=== PATIENT | male | born 1940 | race Caucasian/White ===

== ENCOUNTER → 2016-12-24 | Outpatient (CLI) | payer BC, OTHER ==
[~2016-12-24] MED LIST: ASPCH81 PO; OMEG10007 PO; SIMV20TA2 PO
== END | disposition home or self-care (01) ==
LOC: C.LAB 08:09
PROVIDERS: ATTEND Internal Medicine Hematology & Oncology
DX: C61 Malignant neoplasm of prostate (principal)

== ENCOUNTER → 2017-01-03 | Outpatient (CLI) | payer BC, OTHER ==
[~2017-01-03] MED LIST changes: +GADAVIST IV PRN; +OPTIRAY 320 IV PRN
[2017-01-03 14:32] LABS: ISTAT CREATININE 1.1 mg/dl (0.6-1.3); ISTAT HEMOGLOBIN 14.6 g/dl (14.0-18.0); ISTAT IONIZED CALCIUM 1.16 mmol/l (1.12-1.32)
--- NOTE | 2017-01-03 15:32 | DIAGNOSTIC IMAGING REPORT ---
MRI THE PELVIS WITHOUT A WITH GADOLINIUM CLINICAL HISTORY: PROSTATE CA COMPARISON STUDY: 12/26/2015 FINDINGS: Imaging was performed in the axial sagittal and coronal planes before and after the administration of 9 cc of intravenous Gadavist. There are no areas of marrow edema to indicate pelvic skeletal metastasis. There is mild pubic symphysis edema, likely chronic stress related basis There are postsurgical changes are prior prostatectomy. There is no ascites. There is no pathologic adenopathy, by size criteria. Subcentimeter obturator lymph nodes remain stable. IMPRESSION: 1. No evidence of recurrent prostate carcinoma within the pelvis status post prostatectomy 2. Mild pubic symphysis edema, likely on a stress-related basis Electronically signed by: Abraham Saavedra M.D. 01/03/2017 3:31 PM Dictated Date/Time: 01/03/2017 3:24 PM
--- NOTE | 2017-01-03 15:45 | DIAGNOSTIC IMAGING REPORT ---
CT OF THE CHEST WITH IV CONTRAST CLINICAL HISTORY: PROSTATE CA COMPARISON STUDY: 12/26/2015 TECHNIQUE: Following the IV administration of 117 mL of Optiray-320, CT of the thorax was performed from the thoracic inlet to the lung bases. Images are reviewed in the axial, sagittal, and coronal planes. IV contrast was administered without complication. A dose lowering technique was utilized adhering to the principles of ALARA. CT DOSE: 954.22 mGy.cm FINDINGS: Thyroid: Imaged portions of the thyroid gland are normal in appearance. Thoracic aorta: The ascending thoracic aorta measures 37 mm. Pulmonary vasculature: The pulmonary trunk is normal in caliber. There are no central filling defects identified to suggest pulmonary embolus. Note that this examination was not protocoled for the evaluation of pulmonary emboli. HEART: The heart is normal in size and configuration, without pericardial effusion. Lungs and pleural spaces: There is no focal pulmonary consolidation. There are no suspicious pulmonary masses. Tiny right middle lobe and right upper lobe pulmonary nodules, not exceeding 2.5 mm in size remain stable and are likely postinflammatory. Mediastinum: There is no pathologic adenopathy by size criteria. Erin: There is no pathologic adenopathy. Axilla: There is no pathologic adenopathy. Upper abdomen: Partially visualized upper abdominal viscera is within normal limits. Skeletal structures: There are no lytic or blastic osseous lesions. IMPRESSION: No evidence of intrathoracic metastasis. Electronically signed by: Abraham Saavedra M.D. 01/03/2017 3:44 PM Dictated Date/Time: 01/03/2017 3:39 PM
--- NOTE | 2017-01-03 16:16 | DIAGNOSTIC IMAGING REPORT ---
ABD WITH IV CONTRAST ONLY (CT) CLINICAL HISTORY: Pulmonary nodules Prostate carcinoma TECHNIQUE: Transaxial acquisition. Multi axial reformatted images. COMPARISON STUDY: 12/26/2015 FINDINGS: Minimal stable is a pulmonary nodularity. Liver spleen and pancreas enhance uniformly. Mild cortical scarring of the kidneys stable from the prior exam. Bowel pattern is nonobstructive. No significant adenopathy. IMPRESSION: Negative study. No change from the prior exam. Minimal basilar stable pulmonary nodularity The above report was generated using voice recognition software. It may contain grammatical, syntax or spelling errors. Electronically signed by: Chace Thacker M.D. 01/03/2017 4:15 PM Dictated Date/Time: 01/03/2017 4:04 PM
--- NOTE | 2017-01-03 18:44 | DIAGNOSTIC IMAGING REPORT ---
BONE SCAN WHOLE BODY HISTORY: Prostate carcinoma PROSTATE CA RADIOTRACER: 26.9 mCi Tc-99m MDP STUDY/IMAGES: Planar anterior and posterior whole body imaging was performed 3 hours following the intravenous administration of radiotracer. COMPARISON: 12/26/2015 FINDINGS: Unremarkable bilateral renal activity. Minimal degenerative activity of the shoulders general clavicular joints and knees. No evidence of bony metastatic change. No abnormal soft tissue activity characteristics. IMPRESSION: No evidence for bony metastatic disease. No change from the prior study. The above report was generated using voice recognition software. It may contain grammatical, syntax or spelling errors. Electronically signed by: Chace Thacker M.D. 01/03/2017 6:42 PM Dictated Date/Time: 01/03/2017 6:40 PM
== END | disposition home or self-care (01) ==
LOC: C.CTS 13:00
PROVIDERS: ATTEND Internal Medicine Hematology & Oncology
DX: C61 Malignant neoplasm of prostate (principal)

== ENCOUNTER → 2017-06-27 | Outpatient (CLI) | payer BC, OTHER ==
[~2017-06-27] MED LIST changes: -GADAVIST IV PRN
--- NOTE | 2017-06-27 11:03 | DIAGNOSTIC IMAGING REPORT ---
(CHEST) THORAX WITH CLINICAL HISTORY: 76 years-old Male presenting with PROSTATE CA *PT TO HAVE A PELVIS MRI*. TECHNIQUE: Multidetector CT imaging of the chest was performed after the administration of intravenous contrast. IV contrast: 92 mL of Optiray 320. A dose lowering technique was used consistent with the principles of ALARA (as low as reasonably achievable). COMPARISON: 01/03/2017. CT DOSE (mGy.cm): The estimated cumulative dose is 949.83 mGy.cm. FINDINGS: Manual Lathe Operator topogram: Unremarkable. On soft tissue windows, subcentimeter nodule in the right lobe of the thyroid. No axillary, supraclavicular, hilar, or mediastinal lymphadenopathy. Normal aorta. Normal heart size. Coronary artery and aortic valve calcification. No pericardial or pleural effusion. Upper abdomen normal. On lung windows, minimal bandlike opacity in the right middle lobe, likely atelectasis or scarring. Minimal dependent changes likely atelectasis. Minimal debris in subsegmental lower lobe bronchi with mild lower lobe bronchial wall thickening. Central airways patent. On bone windows, degenerative changes of the spine. IMPRESSION: 1. No evidence of intrathoracic metastatic disease. 2. Minimal debris and subsegmental lower lobe bronchi with mild bronchial wall thickening could minimal chronic aspiration. Electronically signed by: Eliazar Camacho M.D. 06/27/2017 11:02 AM Dictated Date/Time: 06/27/2017 10:58 AM
--- NOTE | 2017-06-27 11:11 | DIAGNOSTIC IMAGING REPORT ---
CT ABD WITH IV CONTRAST ONLY (CT) CT DOSE: CLINICAL HISTORY: Prostate carcinoma TECHNIQUE: The patient was scanned in a dynamic helical fashion during intravenous administration of 92 cc Optiray 320. A dose lowering technique was utilized adhering to the principles of ALARA. COMPARISON STUDY: December 2010 FINDINGS: Images to the lung bases reveal respiratory motion artifact and dependent atelectatic change. There is a stable 2 mm subpleural nodule within the lingula. There is a stable 3 mm right lower lobe pulmonary nodule. There are areas of basilar scar/atelectasis. No hepatic masses are visualized. No gallbladder appears unremarkable. No splenic abnormalities are visualized. No pancreatic masses are visualized. No adrenal masses are visualized. There is a stable 8 mm right renal cyst. There is right renal cortical scarring. There is no hydronephrosis. There is no abdominal aortic dilatation. No lytic or blastic skeletal lesions are visualized. IMPRESSION: CT scan of the upper abdomen revealing no acute findings Electronically signed by: Abraham Saavedra M.D. 06/27/2017 11:10 AM Dictated Date/Time: 06/27/2017 10:56 AM
--- NOTE | 2017-06-27 14:22 | DIAGNOSTIC IMAGING REPORT ---
BONE SCAN WHOLE BODY CLINICAL HISTORY: Prostate carcinoma COMPARISON STUDY: January 03, 2017 FINDINGS: Patient was injected with 26.4 mCi of technetium 99m MDP. Three-hour delayed whole body images were acquired. Foci of increased activity within the shoulders and knees and sternoclavicular joints are felt to be degenerative/arthritic. There are no foci of increased activity viewed as suspicious for skeletal metastasis. IMPRESSION: No evidence of skeletal metastasis. Electronically signed by: Abraham Saavedra M.D. 06/27/2017 2:21 PM Dictated Date/Time: 06/27/2017 2:20 PM
== END | disposition home or self-care (01) ==
LOC: C.CTS 10:18
PROVIDERS: ATTEND Internal Medicine Hematology & Oncology
DX: C61 Malignant neoplasm of prostate (principal)

== ENCOUNTER → 2017-06-29 | Outpatient (CLI) | payer BC, OTHER ==
[~2017-06-29] MED LIST changes: +GADAVIST IV PRN; -OPTIRAY 320 IV PRN
--- NOTE | 2017-06-29 13:24 | DIAGNOSTIC IMAGING REPORT ---
Study: MRI pelvis HISTORY:.: Prostate carcinoma FINDINGS: Signal characteristics of the osseous structures are unremarkable. There is no significant bone marrow replacing process. There is no significant pelvic or inguinal adenopathy. 8 mm node medially anterior to the right piriformis muscle. This is too small to be of significance clinically although should be watched on later studies.. 6 mm node identified medial the medial to the right acetabulum. Mild bladder wall thickening and trabeculation are present. No free fluid within the pelvic cul-de-sac. The bowel pattern is unremarkable within the pelvis. The pelvic sidewall structures are unremarkable. All major muscular structures are unremarkable. IMPRESSION: Mild bladder wall trabeculation and thickening. Otherwise negative pelvis. Several small nodes at this time with no clinical significance, although they warrant monitoring on future studies.. Electronically signed by: Chace Thacker M.D. 06/29/2017 1:22 PM Dictated Date/Time: 06/29/2017 1:10 PM
== END | disposition home or self-care (01) ==
LOC: C.MRI 11:50
PROVIDERS: ATTEND Internal Medicine Hematology & Oncology
DX: C61 Malignant neoplasm of prostate (principal)

== ENCOUNTER 2020-08-06 11:21 | Inpatient (IN) ==
--- NOTE | 2020-07-15 10:59 | PAT Medication Instructions ---
Medication Instructions Date of Service July 15, 2020 Home Medications ibuprofen 200 mg PO QID PRN losartan 25 mg tablet 25 mg PO HS psyllium husk 0.4 gram capsule 0.8 gm PO 1200 aspirin [Aspir-81] 81 mg PO HS rosuvastatin 40 mg PO QPM bisacodyl [Dulcolax (bisacodyl)] 5 mg PO HS PRN cholecalciferol (vitamin D3) 25 mcg PO HS ezetimibe [Zetia] 10 mg PO HS lactobacillus comb no.10 [Probiotic] 20 mmu cells PO HS metformin 500 mg PO HS ASK your surgeon for instructions ibuprofen 200 mg PO QID PRN aspirin [Aspir-81] 81 mg PO HS Take evening before surgery losartan 25 mg tablet 25 mg PO HS psyllium husk 0.4 gram capsule 0.8 gm PO 1200 rosuvastatin 40 mg PO QPM bisacodyl [Dulcolax (bisacodyl)] 5 mg PO HS PRN (if needed) cholecalciferol (vitamin D3) 25 mcg PO HS ezetimibe [Zetia] 10 mg PO HS lactobacillus comb no.10 [Probiotic] 20 mmu cells PO HS metformin 500 mg PO HS NOTHING TO EAT OR DRINK AFTER MIDNIGHT Other Notes If you have any questions please call us at [phone] or [phone] or [phone] or [phone]
--- NOTE | 2020-07-16 10:40 | Anesthesiology Consultation ---
Date of Service July 16, 2020 Assessment & Plan (1) Encounter for pre-operative examination: Chart Review Chart Review: Acceptable Risk for Surgery (pending preop Covid testing ) and Patient seen in Pre Admission Testing - Check [facility] AM DOS Per PAT appt on 07/16/20, pt denies any recent travel. Wears proper PPE. No known Covid infection in the past 90 days. No known Covid positive contacts or Covid related symptoms. Preop Covid testing scheduled 08/01/20= await results. Educated on importance of self quarantining, social distancing and wearing mask in public both for the patient and household contacts. Teaching & Discussion Pre-Anesthesia Teaching/Discussion Notes: Instructed NPO after midnight before surgery,except medications with 15 cc of water. Medication instructions provided according to the [facility] guidelines. History Surgery Operation Date: 08/06/20 13:00 Proposed Procedures p Right Carotid Endarterectomy - Errol Harris MD Height/Weight Height: 5 ft 11.5 in Weight: 94.9 kg Allergies Allergy/AdvReac Type Severity Reaction Status Date / Time No Known Allergies Allergy Verified 07/15/20 13:31 Medications Home Medications Medication Instructions Recorded Confirmed Last Taken ibuprofen 200 mg PO QID PRN 11/28/18 07/15/20 07/08/20 losartan 25 mg tablet 25 mg PO HS 11/21/19 07/15/20 07/14/20 psyllium husk 0.4 gram capsule 0.8 gm PO 1200 cap 11/28/19 07/15/20 07/13/20 aspirin [Aspir-81] 81 mg PO HS 12/28/19 07/15/20 07/14/20 rosuvastatin 40 mg PO QPM 12/28/19 07/15/20 07/14/20 Probiotic 20 mmu cells PO HS 07/02/20 07/15/20 Unknown bisacodyl [Dulcolax (bisacodyl)] 5 mg PO HS PRN 07/02/20 07/15/20 07/12/20 cholecalciferol (vitamin D3) 25 mcg PO HS 07/02/20 07/15/20 07/10/20 [Vitamin D3] ezetimibe [Zetia] 10 mg PO HS 07/02/20 07/15/20 07/14/20 metformin 500 mg PO HS 07/02/20 07/15/20 07/14/20 Past Medical History Medical History (Updated 07/17/20 @ 10:01 by Lo Garcia PA-C) Aortic valve calcification Sclerotic trileaflet AV without significant stenosis per 11/2018 ECHO Cardiac murmur dx as a child; pcp monitoring Carotid stenosis, right CTA shows >90% stenosis per vascular note Diabetes mellitus, type 2 NIDDM Well controlled per patient Dysmetabolic syndrome Hard of hearing Lt- no hearing aid needed History of malignant melanoma Right Ear - s/p removal - no current issues History of prostate cancer s/p sx, radiation Hyperlipemia Hypertension Transient ischemic attack (TIA) possible ~2016? right carotid stenosis -- has upcoming surgery with Dr Harris Exercise / Class Metabolic Activity II 4-5 Yardwork/Stairs/Walk up hill (one flight of stairs- no chest pain or SOB) Past Family History Family History Mother , Passed age 93 of old age No problems noted. Father , Passed age 53 of cerebral hemorrhage No problems noted. Sister No problems noted. Sister No problems noted. Son No problems noted. Son No problems noted. Daughter No problems noted. 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 History of prostate biopsy History of prostatectomy 03/08/11 History of tonsillectomy Age 4 Hx of flexible sigmoidoscopy Past Anesthesia History No Hx of Anesthesia Complications and No Family Hx of Anesthesia Complications History of PONV No Hx of PONV and No Hx of Motion Sickness Social History Smoking Status: Never smoker Do You Dip or Chew Tobacco: No Hx Alcohol Use: Yes Alcohol type: beer and wine alcohol intake frequency: a few times a week Hx Substance Use: No substance use type: does not use Review of Systems Patient denies chest pain, shortness of breath, dyspnea on exertion, reflux, cough, wheezing, palpitations. No hx of seizures, DC, apnea/snoring. No hx of blood clots or blood transfusions Physical Exam Vital Signs VITALS BP 115/69 P 81 TEMP 99.5 (pt denies any symptoms of infection- feels well) SP02 95% RESP 16 Constitutional no acute distress ENMT Mouth: no TMJ clicking Thyromental Distance: > or= 3.5 Finger Breadths (3.5) Mallampati Class: II Permanent front top bridge Crowns to molars Neck + thick neck; neck extension not limited Respiratory normal respiratory effort; no respiratory distress Auscultation: lungs clear to auscultation bilaterally; no wheezes Cardiovascular Rate/Rhythm: regular rate and regular rhythm Heart Sounds: + murmur (II/Vi systolic murmur in aortic window ) Musculoskeletal Spine: no pain with cervical ROM Extremities: extremities normal to inspection Psychiatric Orientation: alert Testing Laboratory Results 07/16/20 11:05 07/16/20 11:05 PT 10.6 Seconds (9.0-12.0) 07/16/20 11:05 INR 1.0 (0.9-1.1) 07/16/20 11:05 APTT 27.3 Seconds (21.0-31.0) 07/16/20 11:05 Hemoglobin A1c 6.9 % (4.5-5.6) H 07/16/20 11:05 Blood Type O Positive 07/16/20 11:05 Antibody Screen NEGATIVE 07/16/20 11:05 Electrocardiogram Date: 07/13/20 SR with PACs at 76bpm. Chest X-Ray Date: 07/14/20 Findings: + NAD Elevation of the right hemidiaphragm is unchanged. Echocardiogram Date: 12/07/18 EF: 65% LV Function: normal RWMA: + none Other Findings: no LVH Mild left atrial dilation. Normal RV size and function. Sclerotic trileaflet AV without significant stenosis- otherwise no significant valvular abnormalities. Compared to previous study there are no significant changes noted. Other Testing Neck CTA 06/16/20= Severe/critical stenosis involving the proximal 1 cm of the right internal carotid artery. This demonstrates up to 90% stenosis. Minimal narrowing at the left carotid bulb and mid to distal left vertebral artery.
[2020-07-16 11:42] LABS: Basophils # (auto) 0.01 K/uL (0-0.2); Basophils % (auto) 0.1 %; Eosinophils # (auto) 0.03 K/uL (0-0.5); Eosinophils % (auto) 0.3 %; Hematocrit (blood only) 38.8 % (42-52); Hemoglobin 12.6 g/dL (14.0-18.0); Immature Granulocytes # (auto) 0.01 K/uL (0.00-0.02); Immature Granulocytes % (auto) 0.1 %; Lymphocytes # (auto) 1.34 K/uL (1.2-3.4); Lymphocytes % (auto) 12.3 %; Mean Corpuscular Hemoglobin 26.9 pg (25-34); Mean Corpuscular Hgb Conc 32.5 g/dL (32-36); Mean Corpuscular Volume 82.7 fL (80-100); Mean Platelet Volume 9.8 fL (7.4-10.4); Monocytes # (auto) 0.82 K/uL (0.11-0.59); Monocytes % (auto) 7.6 %; Neutrophils # (auto) 8.65 K/uL (1.4-6.5); Neutrophils % (auto) 79.6 %; Platelet Count 205 K/uL (130-400); RDW Coefficient of Variation 13.9 % (11.5-14.5); Red Blood Count 4.69 M/uL (4.7-6.1); White Blood Count 10.86 K/uL (4.8-10.8)
--- NOTE | 2020-07-16 11:45 | XRay Report ---
XR chest Pre-admission PA/Lat CLINICAL HISTORY: Preoperative evaluation. COMPARISON STUDY: Chest CT June 27, 2017. FINDINGS: Lung volumes are normal. Lungs are clear. There is no pneumothorax or pleural effusion. Car diac size is normal. Mediastinal contours are normal. There is no evidence for pulmonary edema. [place] tion of the right hemidiaphragm is unchanged. The proximal left humeral lesion is partially imaged. T his is similar to PET/CT of January 12, 2018. This is likely benign. IMPRESSION: No acute cardiopulmonary findings. ACT 112: Negative or not required by law. Electronically signed by: Timmy Velásquez M.D. 07/16/2020 11:44 AM
[2020-07-16 11:52] LABS: Estimated Average Glucose 151 mg/dl; Hemoglobin A1C 6.9 % (4.5-5.6)
[2020-07-16 12:16] LABS: Partial Thromboplastin Time 27.3 Seconds (21.0-31.0); Prothrombin Time 10.6 Seconds (9.0-12.0)
[2020-07-16 12:51] LABS: BUN Creatinine Ratio 17.2 (10-20); Calcium 8.5 mg/dl (8.5-10.1); Creatinine Clr Calc Pharmacy 73.5 ml/min; Est GFR (African American) 87.3; Est GFR (Non-African American) 75.3
--- NOTE | 2020-07-16 13:53 | Electrocardiogram Report ---
Test Reason : Blood Pressure : / mmHG Vent. Rate : 076 BPM Atrial Rate : 076 BPM P-R Int : 188 ms QRS Dur : 086 ms QT Int : 380 ms P-R-T Axes : 026 003 041 degrees QTc Int : 427 ms Sinus rhythm with Premature atrial complexes Confirmed by Zac Hendricks ([id number]) on 07/16/2020 1:53:13 PM Referred By: Errol Harris Confirmed By:Peewee Hendricks
--- NOTE | 2020-08-06 09:37 | History & Physical Report ---
Date of Service August 06, 2020 Assessment & Plan (1) Stenosis of right carotid artery: Patient for a right carotid endarterectomy. I have discussed the risks options and benefits of the procedure with the patient. The patient understands the risks options and benefits and agrees to the procedure. History of Present Illness Chief Complaint: Right internal carotid artery stenosis Primary Care Provider: Charels Stephenson MD Mr. Burnett has asymptomatic right carotid disease, which we have followed. He denies any symptoms of TIA or stroke. He states that in general his health has been unchanged since we last saw him 2 years ago. He did have increasing PSAs and with a history of prostate cancer in 2010. He has another course of radia tion therapy in 2019. However, his PSAs have been in an acceptable range since further radiation therapy. He does have urinary frequency; however, that is his only concerning symptom. 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 His CTA showed a severe greater than 90% narrowing of the right internal carotid artery. Allergies Allergy/AdvReac Type Severity Reaction Status Date / Time No Known Allergies Allergy Verified 07/15/20 13:31 Home Medications Medication Instructions Recorded Confirmed Type ibuprofen 200 mg PO QID PRN 11/28/18 07/15/20 History losartan 25 mg tablet 25 mg PO HS 11/21/19 07/15/20 History psyllium husk 0.4 gram capsule 0.8 gm PO 1200 cap 11/28/19 07/15/20 History aspirin [Aspir-81] 81 mg PO HS 12/28/19 07/15/20 History rosuvastatin 40 mg PO QPM 12/28/19 07/15/20 History Probiotic 20 mmu cells PO HS 07/02/20 07/15/20 History bisacodyl [Dulcolax (bisacodyl)] 5 mg PO HS PRN 07/02/20 07/15/20 History cholecalciferol (vitamin D3) 25 mcg PO HS 07/02/20 07/15/20 History [Vitamin D3] ezetimibe [Zetia] 10 mg PO HS 07/02/20 07/15/20 History metformin 500 mg PO HS 07/02/20 07/15/20 History Past Med/Surg History Medical History Aortic valve calcification Sclerotic trileaflet AV without significant stenosis per 11/2018 ECHO Cardiac murmur dx as a child; pcp monitoring Carotid stenosis, right CTA shows >90% stenosis per vascular note Diabetes mellitus, type 2 NIDDM Well controlled per patient Dysmetabolic syndrome Hard of hearing Lt- no hearing aid needed History of malignant melanoma Right Ear - s/p removal - no current issues History of prostate cancer s/p sx, radiation Hyperlipemia Hypertension Transient ischemic attack (TIA) possible ~2016? right carotid stenosis -- has upcoming surgery with Dr Harris Surgical History History of cataract surgery bilt History of colonoscopy with polypectomy History of melanoma excision History of Mohs surgery for squamous cell carcinoma of skin off right cheek History of prostate biopsy History of prostatectomy 03/08/11 History of tonsillectomy Age 4 Hx of flexible sigmoidoscopy Family History Mother , Passed age 93 of old age No problems noted. Father , Passed age 53 of cerebral hemorrhage No problems noted. Sister No problems noted. Sister No problems noted. Son No problems noted. Son No problems noted. Daughter No problems noted. 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 [employer] Other Information That Helps Us Care for You: No Feels Safe at Home: Yes Safety Concerns: Feels Safe At This Time caffeine: Yes (1-2 cups of coffee/day ) during the past year weight has: decreased > 10 lbs Assistive Devices: Glasses Review of Systems All systems reviewed & are unremarkable except as noted in HPI & below Physical Exam Constitutional: well developed and well nourished Respiratory: normal respiratory effort, lungs clear to auscultation Cardiovascular: Rate/Rhythm: regular rate and regular rhythm Vessels: normal peripheral pulses Extremities: normal capillary refill Gastrointestinal (Abdomen): Inspection/Auscultation: abdomen normal to inspection and + abdomen distended Percussion/Palpation: abdomen soft Musculoskeletal: no cyanosis or clubbing, extremities motor strength 5/5 Neurologic: CN's II-XI intact bilaterally and moves all extremities Psychiatric: Orientation: alert and oriented x 3
[~2020-08-06 11:21] MED LIST changes: -ASPCH81 PO; -GADAVIST IV PRN; +LACTATED RINGER'S 1,000 ML IV SCH; -OMEG10007 PO; -SIMV20TA2 PO; +ceFAZolin 2000MG 2,000 MG/15 ML SYR IV SCH
--- NOTE | 2020-08-06 12:09 | History & Physical Bridge Note ---
Date of Service August 06, 2020 History & Physical Bridge Note I have examined the patient, reviewed the History & Physical and in the interval since the performance of the History & Physical I have noted the following changes of clinical significance: no changes noted
[2020-08-06] MEDS ORDERED: PHENYLEPHRINE HCL 10 MG/ML VIAL ONE ×2 (12:58→14:10)
[2020-08-06] MEDS ORDERED: LARYING-O-JET KIT (LTA) ONE (12:58)
[2020-08-06] MEDS ORDERED: BUPIVACAINE/EPINEPHRINE 0.5% MPF 1:200,000 30 ML VIAL ONE (13:06)
[2020-08-06] MEDS ORDERED: HEPARIN (PORCINE) 1000 UNIT/ML 10 ML (CATH LAB USE ONLY) ONE (13:06)
[2020-08-06] MEDS ORDERED: LIDOCAINE HCL 1% 20 ML VIAL ONE (13:06)
[2020-08-06] MEDS ORDERED: GELATIN SPONGE SZ 100 ONE (13:06)
[2020-08-06] MEDS ORDERED: THROMBIN FOR SOLN 20000 UNIT KIT ONE (13:07)
[2020-08-06] MEDS ORDERED: fentaNYL citrate 100 MCG/2 ML VIAL ONE ×3 (13:07→14:40)
[2020-08-06] MEDS ORDERED: CISATRACURIUM BESYLATE IV SOLN 2 MG/ML 10 ML VIAL IV ONE (13:14)
[2020-08-06] MEDS ORDERED: PROPOFOL IV EMULSION 10 MG/ML 20 ML VIAL IV ONE (13:14)
[2020-08-06] MEDS ORDERED: LIDOCAINE HCL 2% 2 ML VIAL/AMP(20MG/ML) INFIL ONE (13:14)
[2020-08-06] MEDS ORDERED: NITROGLYCERIN/D5W 100 MCG/ML BTL ONE (13:16)
[2020-08-06] MEDS ORDERED: ONDANSETRON INJ 2 MG/ML 2 ML VIAL ONE (14:09)
[2020-08-06] MEDS ORDERED: DEXAMETHASONE SOD INJ 4 MG/ML VIAL ONE (14:09)
[2020-08-06] MEDS ORDERED: GLYCOPYRROLATE 0.2 MG/ML VIAL ONE (14:10)
[2020-08-06] MEDS ORDERED: ePHEDrine sulfate 50 MG/ML SYR ONE (14:10)
[2020-08-06] MEDS ORDERED: NITROGLYCERIN 5 MG/ML 10 ML VIAL ONE (14:10)
[2020-08-06] MEDS ORDERED: HEPARIN SOD (PORCINE) 1000 UNIT/ML ONE ×2 (14:14→17:51)
[2020-08-06] MEDS ORDERED: CARBOPROST TROMETHAMINE 250 MCG/ML AMPUL ONE (15:41)
[2020-08-06] MEDS ORDERED: NEOSTIGMINE METHYLSULFATE 5 MG/5 ML SYR ONE (16:50)
--- NOTE | 2020-08-06 17:06 | Post Operative Brief Note ---
Immediate Post Op Note v1 Date of Surgery August 06, 2020 Pre & Post Diagnosis Operation Date: 08/06/20 13:00 Pre-Op Diagnosis: Right Internal Carotid Artery Stenosis Post-Op Diagnosis: Right Internal Carotid Artery Stenosis I identified the patient and participated in the time-out.: Yes Procedure Operation Date: 08/06/20 13:00 Actual Procedures p Right Carotid Endarterectomy(Right) - Errol Harris MD Surgeon Errol Harris MD Utility Mechanic Supervisor MD [place] Estimated Blood Loss 300 Findings Consistent with Post-Op Diagnosis Anesthesia Type General Complications none Disposition Accompanied Patient To Recovery: No Disposition: Recovery Room
[2020-08-06] MEDS ORDERED: LABETALOL HCL IV 5 MG/ML 20ML IV PRN (17:38)
[2020-08-06] MEDS ORDERED: ONDANSETRON INJ 2 MG/ML 2 ML VIAL IV PRN ×2 (17:38→19:40)
[2020-08-06] MEDS ORDERED: NALOXONE HCL 0.4 MG/1 ML VIAL/CARP IV PRN (17:38)
[2020-08-06] MEDS ORDERED: FLUMAZENIL 0.1 MG/1 ML 10 ML VIAL IV PRN (17:38)
[2020-08-06] MEDS ORDERED: fentaNYL citrate 100 MCG/2 ML VIAL IV PRN (17:38)
[2020-08-06] MEDS ORDERED: ATROPINE SULFATE 0.1 MG/ML 10ML SYR IV PRN (17:38)
[2020-08-06] MEDS ORDERED: ePHEDrine sulfate 50 MG/ML AMP IV PRN (17:38)
[2020-08-06] MEDS ORDERED: PROMETHAZINE HCL 12.5 MG in SODIUM CHLORIDE 0.9% 50 ML IV PRN (17:38)
--- NOTE | 2020-08-06 17:38 | Operative Report ---
Post Operative Report Pre & Post Diagnosis Operation Date: 08/06/20 13:00 Pre-Op Diagnosis: Right Internal Carotid Artery Stenosis Post-Op Diagnosis: Right Internal Carotid Artery Stenosis I identified the patient and participated in the time-out.: Yes Procedure Operation Date: 08/06/20 13:00 Actual Procedures p Right Carotid Endarterectomy(Right) - Errol Harris MD Surgeon Dr. Harris Kindergartner MD Neftaly Estimated Blood Loss 300 Findings Consistent with Post-Op Diagnosis Specimens Calcified carotid bulb plaque Anesthesia Type General Complications none Indications Asymptomatic right carotid severe stenosis Description of Procedure The patient was taken to the operating room and placed in supine position. After general anesthesia was accomplished the right side of the neck was prepped and draped in a sterile manner. The patient was identified and a timeout was performed. A longitudinal neck incision was then made coursing along the medial border of the sternocleidomastoid muscle. The incision was taken down through the platysmal layer. The facial vein was identified, ligated, and divided. The common carotid artery was then seen. It was dissected free down to the omohyoid muscle. The dissection was carried upward until the external carotid artery and superior thyroid artery was seen. The superior thyroid artery was slung with a 2-0 silk suture. The external carotid was slung with a red rubber vessel loop. Next the dissection was carried up along the internal carotid artery. This was carried upward to beyond the area of narrowing. The hypoglossal nerve was seen and preserved. The patient was heparinized. After adequate heparinization was accomplished, the internal, external, and common carotid arteries were clamped. A longitudinal arteriotomy was started on the common carotid artery and extended upward along the internal carotid artery to a point beyond the area of narrowing. There was calcified plaque of the internal carotid artery origin causing approximately 85-90% narrowing. A Doppler shunt was then placed in the internal, followed by the common carotid artery and held in place with Skinny clamps. There was good back bleeding seen from the internal carotid artery. Th e endarterectomy was then started in the appropriate plane on the common carotid artery. This was carried upward and the external carotid was everted and endarterectomized. The endarterectomy was then carried up along the internal carotid artery. It was difficult to achieve a nice feathering breakoff point on the internal carotid artery, as the wall had very little tensile strength and the intima and media had a tendency to shred. At this point the Doppler shunt was removed, the patient redosed with heparin, and the arteries clamped. In an attempt to expose further, the omohyoid artery and its paired vein were ligated and divided, thereby freeing the hypoglossal more. The posterior belly of the digastric was divided. The ansa cervicalis was also divided at its origin to allow for further mobility of the hypoglossal nerve. The endarterectomy was then carried down further on the common carotid artery. Under loop magnification, all loose debris and flaps were removed. There was a small distal flap seen at the end of the endarterectomy site, which was tacked with 7- 0 Prolene. The arteriotomy was then closed using an bovine carotid patch and a running 6-0 Prolene suture. This was done in the usual vascular fashion. Prior to completing the closure, backbleeding and forward bleeding were allowed to occur. The flow surface was irrigated with heparinized saline. The final few sutures were then placed and securely tied. Clamps were then removed off the external and common carotid arteries. The clamp was then removed the internal carotid artery. Good distal flow was seen. Adequate hemostasis was seen of the patch. The wound was inspected and adequate hemostasis was obtained. The wound was irrigated with antibiotic solution. It was then closed with a running 3-0 Vicryl suture for the platysmal layer and a 4-0 subcuticular Vicryl suture for the skin edges. Dermabond was used for dressing. The patient left the operating room in satisfactory condition and tolerated the procedure well. Dr. Harris was present and scrubbed for the entire procedure. I attest to the content of the Intraoperative Record and any orders documented therein. Any exceptions are noted below.
[2020-08-06] MEDS ORDERED: PROTAMINE SULFATE 10 MG/ML 5 ML VIAL ONE (17:51)
[2020-08-06 18:03] LABS: iSTAT Creatinine 0.6 mg/dl (0.6-1.3); iSTAT Hemoglobin 11.9 g/dl (14.0-18.0); iSTAT Ionized Calcium 1.21 mmol/l (1.12-1.32); iSTAT Potassium 4.6 mmol/L (3.3-5.0)
--- NOTE | 2020-08-06 18:17 | Anesthesiology Progress Note ---
Date of Service August 06, 2020 Anesthesia Post Procedure Vital Signs Vital Signs: Temp Pulse Pulse Resp BP Pulse Ox 08/06/20 18:05 68 22 137/67 95 08/06/20 17:55 69 17 131/65 96 08/06/20 17:45 70 17 132/85 96 08/06/20 17:38 36.1 C L 70 12 142/63 H 95 08/06/20 11:45 36.6 C 67 18 150/80 H 97 Transfer of Care Handoff Completed per policy Notes Mental Status: alert / awake / arousable Patient Amnestic to Procedure: Yes Nausea / Vomiting: adequately controlled Pain: adequately controlled Airway Patency, RR, SpO2: stable & adequate BP & HR: stable & adequate Hydration State: stable & adequate Anesthetic Complications: no major complications apparent
[2020-08-06] MEDS ORDERED: MoRPHine SULFATE 4 MG/ML 1 ML CARP\\VIAL IV PRN (19:40)
[2020-08-06] MEDS ORDERED: bisacodyL 5 MG TABEC PO PRN (19:40)
[2020-08-06] MEDS ORDERED: oxyCODONE/ACETAMINOPHEN 5mg/325mg TAB PO PRN (19:40)
[2020-08-06] MEDS ORDERED: IBUPROFEN 200 MG TAB PO PRN (19:59)
[2020-08-06] MEDS: LACTATED RINGER'S 1,000 ML IV SCH (20:00)
[2020-08-06 20:19] LABS: Basophils # (auto) 0.01 K/uL (0-0.2); Basophils % (auto) 0.1 %; Eosinophils # (auto) 0.01 K/uL (0-0.5); Eosinophils % (auto) 0.1 %; Hematocrit (blood only) 34.6 % (42-52); Immature Granulocytes # (auto) 0.05 K/uL (0.00-0.02); Immature Granulocytes % (auto) 0.4 %; Lymphocytes # (auto) 1.11 K/uL (1.2-3.4); Lymphocytes % (auto) 9.7 %; Mean Corpuscular Hemoglobin 26.7 pg (25-34); Mean Corpuscular Hgb Conc 31.8 g/dL (32-36); Monocytes # (auto) 0.25 K/uL (0.11-0.59); Monocytes % (auto) 2.2 %; Neutrophils # (auto) 10.04 K/uL (1.4-6.5); Neutrophils % (auto) 87.5 %; Platelet Count 229 K/uL (130-400); RDW Coefficient of Variation 14.1 % (11.5-14.5); RDW Standard Deviation 43.5 fL (36.4-46.3); Red Blood Count 4.12 M/uL (4.7-6.1); White Blood Count 11.47 K/uL (4.8-10.8)
--- NOTE | 2020-08-06 20:40 | Critical Care Consultation ---
Date of Consultation August 06, 2020 Assessment & Plan (1) Admitted to intensive care unit: Impression: 79-year-old male presents to the ICU postop day 1 following a right endarterectomy for asymptomatic right carotid stenosis. Neuro - Right carotid stenosisstatus post right endarterectomy -No history of TIA or strokelike symptoms -Continue ASA, statin -Continuous hemodynamic monitoring on A-line -Monitor in ICU overnight Right facial drooppatient with mild droop in his right lip, no other neurological symptoms on exam -Suspect this is most likely cranial nerve injury from procedure, expect to resolve -We will monitor closely for progression of symptoms Left corneal abrasioncontinue lubricating drop -Pain meds if needed, monitor Cardiac - NSR on monitor, hemodynamically stable Continuous monitor on telemetry Hypertensionrestart home antihypertensives -Continuous monitoring with A-line -PRN antihypertensives if needed Respiratory - Currently on 3 L nasal cannula postop, no history of pulmonary disease -Wean oxygen as tolerated -Continuous monitoring pulse ox GI - Heart healthy, carb consistent diet RENAL/LYTES - Renal function and electrolytes within normal limits, monitor - History of prostate cancer 2019status post radiation Strict I's and O's ENDO - DM type IIhemoglobin A1c 6.9 -continue Metformin -ICU hyperglycemic protocol HEME - H&H stable, 300 mL EBL in surgery -Follow-up CBC in a.m. ID - Empiric cefazolin postop LINES/IV ACCESS - Peripheral IVs, A-line DVT PROPHYLAXIS - SCDs, holding anticoagulation for now following surgery Thank you for allowing us to participate in the care of this patient. Please refer to my attending physician's documentation for any further recommendations. (2) Diabetes: (3) Stenosis of right carotid artery: (4) Prostate cancer: (5) Hypertension: History of Present Illness Attending Physician: Errol Harris MD History of Present Illness 79-year-old male with history of HTN, DM type II, prostate cancer (s/p radiation), and asymptomatic right carotid stenosis presents to the ICU POD 1 following a scheduled right carotid endarterectomy. Currently the patient is alert and oriented and appears comfortable at rest, currently on 3 L nasal cannula. The right anterior neck incision appears well approximated without any significant swelling or erythema. Patient does have mild droop of his right lip which is new, but is without any other neurological symptoms. Hemodynamics are stable, and he is arterial line for continuous blood pressure monitoring. Patient does complain of pain in his left eye which is new and he is currently getting lubricating drops. He does not complain of any pain at the surgical site. He denies any weakness, numbness, or tingling. He denies headache, dizziness, nausea or vomiting, shortness of breath, chest pain or palpitations, or abdominal pain. He does report a sore throat as well and is slightly hoarse but is not having issues swallowing. Patient to remain in ICU for further monitoring overnight following endarterectomy. Allergies Allergy/AdvReac Type Severity Reaction Status Date / Time testosterone [From Androderm] Allergy Verified 08/06/20 11:46 Home Medications Medication Instructions Recorded Confirmed Type ibuprofen 200 mg PO QID PRN 11/28/18 08/06/20 History losartan 25 mg tablet 25 mg PO HS 11/21/19 08/06/20 History psyllium husk 0.4 gram capsule 0.8 gm PO 1200 cap 11/28/19 08/06/20 History aspirin [Aspir-81] 81 mg PO HS 12/28/19 08/06/20 History rosuvastatin 40 mg PO QPM 12/28/19 08/06/20 History Probiotic 20 mmu cells PO HS 07/02/20 08/06/20 History bisacodyl [Dulcolax (bisacodyl)] 5 mg PO HS PRN 07/02/20 08/06/20 History cholecalciferol (vitamin D3) 25 mcg PO HS 07/02/20 08/06/20 History [Vitamin D3] ezetimibe [Zetia] 10 mg PO HS 07/02/20 08/06/20 History metformin 500 mg PO HS 07/02/20 08/06/20 History Patient History Medical History Aortic valve calcification Sclerotic trileaflet AV without significant stenosis per 11/2018 ECHO Cardiac murmur dx as a child; pcp monitoring Carotid stenosis, right CTA shows >90% stenosis per vascular note Diabetes mellitus, type 2 NIDDM Well controlled per patient Dysmetabolic syndrome Hard of hearing Lt- no hearing aid needed History of malignant melanoma Right Ear - s/p removal - no current issues History of prostate cancer s/p sx, radiation Hyperlipemia Hypertension Transient ischemic attack (TIA) possible ~2016? right carotid stenosis -- has upcoming surgery with Dr Harris Surgical History History of cataract surgery bilt History of colonoscopy with polypectomy History of melanoma excision History of Mohs surgery for squamous cell carcinoma of skin off right cheek History of prostate biopsy History of prostatectomy 03/08/11 History of tonsillectomy Age 4 Hx of flexible sigmoidoscopy Family History Mother , Passed age 93 of old age No problems noted. Father , Passed age 53 of cerebral hemorrhage No problems noted. Sister No problems noted. Sister No problems noted. Son No problems noted. Son No problems noted. Daughter No problems noted. 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 Left corneal abrasion with red irritated sclera. No drainage ENMT: external ear and nose normal, oropharynx normal Neck: trachea midline, no thyromegaly Respiratory: normal respiratory effort, lungs clear to auscultation no stridor Auscultation: no crackles and no wheezes Cardiovascular: RRR, no murmur, no edema Heart Sounds: normal S1 and normal S2 Vessels: no JVD Extremities: normal capillary refill; no edema Gastrointestinal (Abdomen): normal bowel sounds, soft, nontender, no hepatosplenomegaly Skin: no rashes, warm and dry Neurologic: Mild right-sided facial droop. PERRLA. Moves all extremities well and equal strength. Speech normal. Cognition normal. Psychiatric: A+Ox3, euthymic affect Results & Data Results & Data ([facility]) Vital Signs (Past 12 Hours) Vital Signs Temp Pulse Pulse Pulse Resp BP BP 08/06/20 20:15 72 08/06/20 20:00 36.5 C 77 08/06/20 19:45 72 08/06/20 19:40 73 141/63 H 08/06/20 19:30 77 08/06/20 19:15 81 08/06/20 19:00 74 08/06/20 18:54 36.7 C 72 18 127/70 08/06/20 18:45 69 08/06/20 18:39 78 127/70 08/06/20 18:38 74 08/06/20 18:25 36.2 C L 71 17 141/76 H 08/06/20 18:15 36.2 C L 69 22 138/73 08/06/20 18:05 68 22 137/67 08/06/20 17:55 69 17 131/65 08/06/20 17:45 70 17 132/85 08/06/20 17:38 36.1 C L 70 12 142/63 H 08/06/20 11:45 36.6 C 67 18 150/80 H Pulse Ox 08/06/20 20:15 98 08/06/20 20:00 98 08/06/20 19:45 98 08/06/20 19:40 97 08/06/20 19:30 96 08/06/20 19:15 98 08/06/20 19:00 96 08/06/20 18:54 98 08/06/20 18:45 96 08/06/20 18:39 96 08/06/20 18:38 95 08/06/20 18:25 97 08/06/20 18:15 94 08/06/20 18:05 95 08/06/20 17:55 96 08/06/20 17:45 96 08/06/20 17:38 95 08/06/20 11:45 97 Coding Level of Care Code 87204 Inpt Consult Level 3 Diagnoses Admitted to intensive care unit Z78.9 Diabetes E11.9 Stenosis of right carotid artery I65.21 Prostate cancer C61 Hypertension I10
[2020-08-06] MEDS: ceFAZolin 2000MG 2,000 MG/15 ML SYR IV SCH (20:56)
[2020-08-06] MEDS ORDERED: metFORMIN HCL 500 MG TAB PO SCH (21:00)
[2020-08-06] MEDS ORDERED: EZETIMIBE 10 MG TABLET PO SCH (21:00)
[2020-08-06] MEDS ORDERED: ROSUVASTATIN CALCIUM 20 MG TAB PO SCH (21:00)
[2020-08-06] MEDS ORDERED: CHOLECALCIFEROL 1,000 UNITS 25 MCG TAB PO SCH (21:00)
[2020-08-06] MEDS ORDERED: LACTOBACILLUS ACIDOPHILUS 1 GM PACK PO SCH (21:00)
[2020-08-06] MEDS ORDERED: ASPIRIN 81 MG ECTAB PO SCH (21:00)
[2020-08-06] MEDS ORDERED: LOSARTAN POTASSIUM 25 MG TAB PO SCH (21:00)
[2020-08-06] MEDS ORDERED: LABETALOL HCL IV 5 MG/ML 20ML IV STA (22:13)
[2020-08-07] MEDS: LACTATED RINGER'S 1,000 ML IV SCH (04:06)
[2020-08-07 04:55] LABS: Hematocrit (blood only) 34.2 % (42-52); Hemoglobin 11.3 g/dL (14.0-18.0); Immature Granulocytes # (auto) 0.04 K/uL (0.00-0.02); Immature Granulocytes % (auto) 0.3 %; Lymphocytes # (auto) 0.59 K/uL (1.2-3.4); Lymphocytes % (auto) 4.3 %; Mean Corpuscular Hemoglobin 27.4 pg (25-34); Mean Platelet Volume 9.3 fL (7.4-10.4); Monocytes # (auto) 0.79 K/uL (0.11-0.59); Monocytes % (auto) 5.8 %; Neutrophils # (auto) 12.18 K/uL (1.4-6.5); Neutrophils % (auto) 89.6 %; Platelet Count 209 K/uL (130-400); RDW Coefficient of Variation 14.1 % (11.5-14.5); RDW Standard Deviation 42.6 fL (36.4-46.3); Red Blood Count 4.12 M/uL (4.7-6.1)
[2020-08-07] MEDS: ceFAZolin 2000MG 2,000 MG/15 ML SYR IV SCH (06:06)
--- NOTE | 2020-08-07 09:23 | Critical Care Progress Note ---
Date of Service August 07, 2020 Assessment & Plan (1) Stenosis of right carotid artery: Impression: Kole is an 79-year-old male with history of asymptomatic right-sided carotid stenosis, hypertension, diabetes who presents to the ICU is POD-1 following a right-sided carotid endarterectomy Neuro - Right carotid stenosisstatus post right endarterectomy -No history of TIA or strokelike symptoms -Continue ASA, statin -Continuous hemodynamic monitoring on A-line -No FNDs on exam this AM with exception of mild R facial droop at the lip Right facial drooppatient with mild droop in his right lip, no other neurological symptoms on exam -Suspect this is most likely buccal branch of VII injury from procedure -Remainder of CN VII testing on exam is intact -Continue to monitor for other symptoms Left corneal abrasionwell controlled on lubricating drop -Pain meds / ointment if needed, continue to monitor Cardiac - NSR on monitor, hemodynamically stable Continuous monitor on telemetry Hypertensionresume home losartan -Continuous monitoring with A-line -Did require labetalol x 1 last night for elevated pressures, returned to acceptable level thereafter -PRN antihypertensives if needed Respiratory - Initially required 3Lpm NC post-op - weened without difficulty back to RA -No prior history of pulmonary disease -Continuous monitoring pulse ox GI - Heart healthy, carb consistent diet RENAL/LYTES - Renal function and electrolytes within normal limits, monitor - History of prostate cancer 2019status post radiation Strict I's and O's ENDO - DM type IIhemoglobin A1c 6.9 -continue Metformin -ICU hyperglycemic protocol HEME - H&H stable, 300 mL EBL in surgery - Continue to monitor ID - Empiric cefazolin postop per GS LINES/IV ACCESS - Peripheral IVs, A-line DVT PROPHYLAXIS - SCDs, holding anticoagulation for now following surgery Thank you for allowing us to participate in the care of this patient. Please refer to Dr. Orozco's documentation for any further recommendations. (2) Diabetes: (3) Hypertension: (4) Admitted to intensive care unit: Admission and Anticipated Discharge Date Admission Date: August 06, 2020 Supervising Physician Co-Signing Physician Notes Dr. Yang was the resident-physician during care of patient. I separately evaluated patient for lauren portions of the history and the exam. I was present during the critical portion of medical decision making, and I discussed the case with the resident. I generally agree with the findings and plan except for any additions/exceptions noted. Patient doing well status post carotid endarterectomy. He endorses a sore throat and some discomfort in his left eye which is improving. Likely will be able to be discharged this afternoon. Will defer discharge to vascular surgery. Continue antiplatelet therapy and statin therapy per vascular surgery. Subjective NAEO. Doing well this AM. Eye is feeling much better with the artificial tears. No weakness in arms or legs, denies sensory disturbances Surgical site without pain. No shortness of breath. Eager for breakfast. Review of Systems Review of Systems: as per HPI Physical Exam Physical Exam: General: Well-appearing 79yoM lying back in his hospital bed, awake, about to start eating breakfast. Fully alert and oriented, NAD. Eyes: PERRL. Left sclerae is mildly injected. EOMs fully intact. ENMT: [id number] right-sided facial droop at the lip appreciated this AM. Neck: Neck veins are flat, no JVD appreciated. Surgical incision site is c/d/i Respiratory: Good respiratory effort symmetric expansion of the chest. Lungs CTAB w/o crackles or wheezes Cardiovascular: Normal rate, regular rhythm. S1/S2 present without m/r/g Gastrointestinal (Abdomen): NABS. Abdomen is soft, nontender, and nondisteded to palpation. Neurologic: CN II-XII grossly intact. Mild right-sided droop at the R lip; no facial droop otherwise. Good resisted strength testing on VII testing. No dysarthria or aphasia. Upper and lower extremity motor strength is equal and 5/5 bilaterally. Sensation to light touch is grossly in tact in the UE/LE Reflexes 2+ at the biceps, patellar locations [id number] without dysmetria Results & Data Results & Data ([facility]) Vital Signs (Past 12 Hours) Vital Signs Temp Pulse Resp BP Pulse Ox 08/07/20 08:39 36.7 C 78 23 120/66 95 08/07/20 08:00 86 95 08/07/20 07:39 76 16 142/67 H 97 08/07/20 07:00 75 97 08/07/20 06:00 70 95 08/07/20 05:39 86 120/80 92 08/07/20 05:00 67 95 08/07/20 04:40 76 97 08/07/20 04:39 78 121/68 98 08/07/20 04:00 74 97 08/07/20 03:39 71 130/68 96 08/07/20 03:00 72 94 08/07/20 02:39 69 135/69 96 08/07/20 02:00 71 96 08/07/20 01:39 71 135/72 96 08/07/20 01:00 72 95 08/07/20 00:39 70 113/69 96 08/07/20 00:00 36.6 C 68 95 08/06/20 23:45 69 08/06/20 23:39 66 122/64 96 08/06/20 23:00 66 94 08/06/20 22:40 66 91 08/06/20 22:39 65 128/65 92 08/06/20 22:30 73 97 08/06/20 22:15 83 95 08/06/20 22:10 73 95 08/06/20 22:05 74 95 08/06/20 22:00 73 95 08/06/20 21:39 69 152/78 H 99 Resident Activity Tracking Resident Involvement: Resident Care Provided Care Provided: Adult Hospital Medicine
--- NOTE | 2020-08-07 10:45 | Billing Data ---
Date of Service August 07, 2020 Coding Level of Care Code 90193 Subseq Hosp Care Lvl 2
[2020-08-07 11:56] VITALS: TEMP 98.2
[2020-08-07] MEDS ORDERED: PSYLLIUM 58.6% POWDER PACKET PO SCH (12:00)
--- NOTE | 2020-08-07 12:52 | Surgery Progress Note ---
Date of Service August 07, 2020 Assessment & Plan (1) S/P carotid endarterectomy: Doing well post op Will d/c to home. Will arrange outpatient speech therapy for slight hoarseness present. Admission and Anticipated Discharge Date Admission Date: August 06, 2020 Subjective No complaints other than slight hoarseness. Ate today without problems. Physical Exam Constitutional: WD/WN, vitals as above Neck: trachea midline Skin: + incision (dry abd clean) Neurologic: slight hoarsenss present. Otherwise no deficits seen Results & Data ([facility]) Vital Signs (Past 12 Hours) Vital Signs Temp Pulse Resp BP Pulse Ox 08/07/20 11:40 36.8 C 89 20 129/66 94 08/07/20 10:39 83 24 133/85 95 08/07/20 10:00 76 18 91 08/07/20 09:39 73 15 110/57 L 94 08/07/20 08:39 36.7 C 78 23 120/66 95 08/07/20 08:00 86 95 08/07/20 07:39 76 16 142/67 H 97 08/07/20 07:00 75 97 08/07/20 06:00 70 95 08/07/20 05:39 86 120/80 92 08/07/20 05:00 67 95 08/07/20 04:40 76 97 08/07/20 04:39 78 121/68 98 08/07/20 04:00 74 97 08/07/20 03:39 71 130/68 96 08/07/20 03:00 72 94 08/07/20 02:39 69 135/69 96 08/07/20 02:00 71 96 08/07/20 01:39 71 135/72 96 08/07/20 01:00 72 95
[2020-08-07 12:59] VITALS: O2SAT 95
[2020-08-07 13:03] VITALS: BP 127/70; PULSE 67
--- NOTE | 2020-08-07 14:47 | Discharge Summary ---
Date of Service August 07, 2020 Admission HPI Per Admitting Provider Mr. Burnett has asymptomatic right carotid disease, which we have followed. He denies any symptoms of TIA or stroke. He states that in general his health has been unchanged since we last saw him 2 years ago. He did have increasing PSAs and with a history of prostate cancer in 2011. He has another course of radiation therapy in 2019. However, his PSAs have been in an acceptable range since further radiation therapy. He does have urinary frequency; however, that is his only concerning symptom. 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 His CTA showed a severe greater than 90% narrowing of the right internal carotid artery. Admission Exam Per Admitting Provider Constitutional: well developed and well nourished Respiratory: normal respiratory effort, lungs clear to auscultation Cardiovascular: Rate/Rhythm: regular rate and regular rhythm Vessels: normal peripheral pulses Extremities: normal capillary refill Gastrointestinal (Abdomen): Inspection/Auscultation: abdomen normal to inspection and + abdomen distended Percussion/Palpation: abdomen soft Musculoskeletal: no cyanosis or clubbing, extremities motor strength 5/5 Neurologic: CN's II-XI intact bilaterally and moves all extremities Psychiatric: Orientation: alert and oriented x 3 Principal Diagnosis 1. s/p R CEA 2. R ICA stenosis Discharge Exam Constitutional WD/WN, vitals as above well developed and well nourished Neck trachea midline Respiratory normal respiratory effort, lungs clear to auscultation Cardiovascular Rate/Rhythm: regular rate and regular rhythm Vessels: normal peripheral pulses Extremities: normal capillary refill Gastrointestinal (Abdomen) Inspection/Auscultation: abdomen normal to inspection and + abdomen distended Percussion/Palpation: abdomen soft Musculoskeletal no cyanosis or clubbing, extremities motor strength 5/5 Skin + incision (dry abd clean) Neurologic CN's II-XI intact bilaterally and moves all extremities Psychiatric Orientation: alert and oriented x 3 Discharge Data Allergies Allergy/AdvReac Type Severity Reaction Status Date / Time testosterone [From Androderm] Allergy Verified 08/06/20 11:46 Consultations 08/06/20 19:40 Consult Powder Mixer Routine Procedures Performed Operation Date: 08/06/20 13:00 Actual Procedures p Right Carotid Endarterectomy(Right) - Errol Harris MD Hospital Course (1) S/P carotid endarterectomy: Doing well post op Day 1 Will d/c to home. Will arrange outpatient speech therapy for slight hoarseness present. Total Time Total Time Spent Total Time Spent (In Minutes): 0 Discharge Plan Discharge Items Patient Disposition: Home - Self-Care Reason For Visit: Right Internal Carotid Artery Stenosis Discharge Diagnosis: Severe right internal carotid stenosis. right Carotid endarterectomy Activity: Per Instructions section Bathing Comment: may shower starting tomorrow Non-emergency contact: Surgeon Call non-emergency contact if: your temperature is above 101.5, your wound has increased redness, your wound has increased drainage and your wound pain has increased Follow-up/Referrals: Charles Stephenson MD [Primary Care Provider] - 08/10/20 12:10 pm Diet: Carb Consistent or DM2 and Heart Healthy Addtl Attending Provider Instructions: SPECIAL CARE INSTRUCTIONS: Medications: * Continue to take Aspirin as directed. Incision Care: * You may shower, but do not rub incision. You may let the warm soapy water run over it. Be sure to dry the incision well after bathing. * Do not shave directly over the incision until it is healed. * DO NOT IMMERSE THE INCISION IN A TUB/POOL/etc. UNTIL HEALED. Restrictions: * Do not drive for at least one week or if you are still taking any narcotic pain medication. * Do not lift anything heavier than a gallon of milk for one week after going home. Possible Complications: * Numbness - It is normal to have some numbness around the incision. Numbness can extend beyond the incision to areas of the neck, ear and face. The numbness is due to bruising of nerves during the surgery and will gradually improve over a period of months. * Hoarseness/Difficulty Speaking and Swallowing - The bruising of nerves in the neck can also cause a hoarse voice, difficulty speaking or swallowing. This may improve over time, HOWEVER, if it continues for more than a few days please contact our office ([phone]). * Excessive Swelling - There will be some swelling immediately after surgery which usually resolves within one week. If you notice that the swelling is getting worse, notify your surgeon ([phone]). * Drainage/Bleeding - If there is any drainage or bleeding, it should be a very small amount (less than a teaspoon per day). If you have excessive bleeding or drainage from the incision, call your surgeon ([phone]) right away. ACTIVATION OF EMERGENCY MEDICAL SYSTEM: Call 911, immediately, if you experience any of the following: Warning Signs and Symptoms of Stroke: * Sudden numbness or weakness of the face, arm or leg, especially on one side of the body * Sudden confusion, trouble speaking or understanding * Sudden trouble seeing in one or both eyes * Sudden trouble walking, dizziness, loss of balance or coordination * Sudden severe headache with no cause Do not delay calling 911 if you experience any warning signs or symptoms of a stroke. Delay in seeking medical attention may affect what treatments can be given to you. Risk Factors for Stroke: You can reduce your chances of stroke by working with your medical provider to adopt a healthy lifestyle. Some specific ways to lower your chance of stroke are: * If you are a smoker, now is the time to stop smoking cigarettes * If you are diabetic, improve the control of your blood sugars * Avoid excessive amounts of alcohol * Control high blood pressure * Lose weight if you are overweight * Be sure to lead an active lifestyle * Eat a healthy diet low in salt, cholesterol and fat You should know about other risk factors for stroke that you are unable to control. These include: * Age 55 years or older * Male gender * Certain racial groups: , or / * Family History of Stroke, Mini stroke or Heart Attack * Sickle Cell Disease You will be receiving a call from the Vascular Surgery Nurse after you are discharged. FOLLOW UP VISIT: It is important for you to keep your follow up appointments with your medical provider. Keep any scheduled doctor appointments. Call [phone] to schedule a follow up appointment if one not already s cheduled. Pending Studies at Discharge: No Stand-Alone Forms: My [facility] echoecho, Smoking Cessation Medications and DC Order Prescriptions: New oxycodone-acetaminophen [Percocet] 5-325 mg tablet 1 tab PO Q6H PRN (Reason: pain) Qty: 10 RF: 0 Continued losartan 25 mg tablet 25 mg PO HS RF: 0 psyllium husk [Metamucil] 0.4 gram capsule 0.8 gm PO 1200 RF: 0 ibuprofen 200 mg Capsule 200 mg PO QID PRN (Reason: Pain) RF: 0 aspirin [Aspir-81] 81 mg Tablet,Delayed Release (Dr/Ec) 81 mg PO HS RF: 0 rosuvastatin 40 mg Tablet 40 mg PO QPM RF: 0 metformin 500 mg Tablet 500 mg PO HS RF: 0 bisacodyl [Dulcolax (bisacodyl)] 5 mg Tablet,Delayed Release (Dr/Ec) 5 mg PO HS PRN (Reason: Constipation) RF: 0 ezetimibe [Zetia] 10 mg Tablet 10 mg PO HS RF: 0 cholecalciferol (vitamin D3) [Vitamin D3] 25 mcg (1,000 unit) Tablet 25 mcg PO HS RF: 0 Probiotic 20 billion cell Capsule 20 mmu cells PO HS RF: 0 Discharge Orders: Discharge Order (Routine); Ordered 08/07/20 Ordered By: Errol De La Cruz/Other Patient Handouts: Managing Type 2 Diabetes, Managing Diabetes: The A1C Test Admission Data Admit Date/Time: 08/06/20 18:55 Attending Provider: Errol Harris Admit Provider: Errol Harris Primary Care Provider: Charles Stephenosn Other Providers: Matthew Kaur ; Umberto Quezada Seth D. ; Ernie Orozco Chase B. ; Dickson Knox ; Mikel Mclain Other Interventions: Discharge Summary Assessment (RN) Last Done: 08/07/20 12:59
--- NOTE | 2020-08-15 12:51 | Coding Query ---
CODING QUERY To promote full compliance with coding requirements relating to patient care, provider participation is requested in all cases of studio operations manager uncertainty. Please assist us with the question(s) below: Coding Question(s): Patient with narrowing of right internal carotid artery had a right facial droop at the lip line status post surgery. Seeking to clarify the nature of the facial droop. Please check below the phrase that describes the facial droop. Thanks for your help! ANGEL Varela [facility] Physician's Response(s): x The facial droop is an expected occurrence of the endarterectomy The facial droop is a complication of the endarterectomy Cannot clinically correlate if the facial droop is a complication of the endarterectomy Other: Please document: Principal Diagnosis: "that condition established after study, to be chiefly responsible for occasioning the admission of the patient to the hospital for care." Co-Existing Principal Diagnosis: "when two or more diagnoses equally meet the criteria for principal diagnosis as determined by the circumstances of admission, diagnostic work up, and/or therapy provided, and the Alphabetic Index, Tabular List, or another coding guideline does not provide sequencing direction, any one of the diagnoses may be sequenced first." "When the physician has documented what appears to be a current diagnosis in the body of the record, but has not included the diagnosis in the final diagnostic statement, the physician should be asked whether the diagnosis should be added." (Source Coding Clinic 2 QTR90. p3-4) CARO
== END 2020-08-07 13:40 | disposition home or self-care (01) | DRG 39 ==
LOC: ASU 11:21 → 1E 18:55

== ENCOUNTER 2023-12-22 12:26 | Inpatient (IN) ==
--- NOTE | 2023-12-22 13:43 | Emergency Department Note ---
Impression & Plan Acute dyspnea, JULIEN (acute kidney injury), Acute exacerbation of CHF (congestive heart failure), Pulmonary edema, Acute hyponatremia, Transaminitis, Atrial fibrillation with rapid ventricular response ED Provider Note HISTORY OF PRESENT ILLNESS: Patient is an 83-year-old male presenting with shortness of breath. Patient reports that 5 days ago he woke up and was short of breath and feeling generally unwell. He had a dry cough and feeling rundown. He reports that 4 days ago he spent most of the day in bed secondary to fatigue. He took an at-home COVID test and it was negative. He called his doctor and got set up for an appointment. On his assessment today in the clinic, he is found to be tachycardic with his atrial fibrillation and they were concerned he might have a pneumonia and referred him to the emergency department. On arrival, the patient reports feeling short of breath, most notably with exertion over the last 4 to 5 days which has gotten progressively worse. He denies any lower extremity edema. Denies any DVT or PE history. He is on Eliquis and has not missed any doses. He denies any recent sick contact exposures or recent travel. Denies any chest pain. ROS: as above PHYSICAL EXAM: Constitutional: Patient appears in no acute distress. HENT: Head: Normocephalic and atraumatic. Eyes: EOMI, PERRL Mouth/Throat: Mucous membranes moist. Neck: Trachea midline. Neck supple. Cardiovascular: Tachycardic with irregularly irregular rhythm. No murmurs, rubs or gallops. Intact distal pulses. Pulmonary/Chest: No respiratory distress. Breath sounds clear and equal bilaterally. Coarse breath sounds bilaterally. Abdominal: Abdomen soft, no tenderness, rebound or guarding. Musculoskeletal: No edema, tenderness or deformity noted. Skin: Warm and dry. No rash, erythema, pallor or cyanosis Psychiatric: Appropriate mood and affect for situation. Neurological: Alert and keenly responsive. CN II-XII grossly intact, moving all extremities equally and fully. MDM: - Vitals signs showed tachycardia. - History obtained via patient. History as above. - Chronic conditions affecting care: DM-2; HTN; Afib; prostate cancer - Differential diagnoses include, but are not limited to: Congestive heart failure; acute coronary syndrome; COPD/asthma exacerbation; pulmonary edema; pulmonary embolism; pneumonia; pneumothorax; viral syndrome - Order placed for continuous cardiac monitoring. At this time, monitor showed rate of 120 bpm with irregular rhythm, per my interpretation. - External medical records reviewed. Radiation oncology note dated 05/24/2023 was reviewed. Patient follows in their clinic for his prostate cancer. - EKG interpreted by myself showed atrial fibrillation. Rate tachycardic at 120 bpm. QT 306. No acute ischemic changes. - Laboratory workup interpreted by myself showed normal WBC; elevated INR (1.5); hyponatremia (Na 129); JULIEN (Cr 2.06 - baseline around 0.9); transaminitis (AST 171; ALT 149); normal troponin; elevated BNP (123) - Negative anaplasma/babesia smear - CXR showed mild pulmonary edema, per my interpretation. Radiology notes mild interstitial pulmonary edema and trace bilateral pleural effusions. - Lasix not initially ordered, as patient is on room air at this time and has a profound acute kidney injury. Will admit to hospital service for gentle diuresis for his CHF. - Viral respiratory panel negative. - 5 mg IV lopressor ordered for patient's A-fib with RVR, given his concerning findings for heart failure exacerbation. - Discussion was had with case aide about patient's case and need for admission - Hospitalist, Dr. Mcghee, consulted for admission - Patient admitted to [facility] hospitalist service for further evaluation and management. ASSESSMENT AND PLAN: Diagnosis: Acute dyspnea; Afib with RVR; acute CHF exacerbation; hyponatremia; JULIEN; transaminitis; pulmonary edema Plan: admit Past Med/Surg History Problem List (Updated 12/22/23 @ 16:48 by Nancy Jensen MD) Atrial fibrillation with rapid ventricular response (Acute) Transaminitis (Acute) Acute hyponatremia (Acute) Pulmonary edema (Acute) Acute exacerbation of CHF (congestive heart failure) (Acute) JULIEN (acute kidney injury) (Acute) Acute dyspnea (Acute) Elevated transaminase level Hyponatremia JULIEN (acute kidney injury) Atrial fibrillation with RVR Stress incontinence Encounter for pre-operative examination Prostate cancer (Chronic 12/23/10) Hematochezia sigmoidoscopy 12/2019 -- poor enema results. has upcoming colonoscopy. 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 deviated nasal septum Excessive cerumen in both ear canals Sensorineural hearing loss (SNHL) of left ear with restricted hearing of right ear Urinary retention Sensorineural hearing loss (SNHL) of both ears Medical History Aortic valve calcification Cardiac murmur Carotid stenosis, right Diabetes mellitus, type 2 Dysmetabolic syndrome Hard of hearing History of malignant melanoma History of prostate cancer Hyperlipemia Hypertension Sensorineural hearing loss (SNHL) of both ears Transient ischemic attack (TIA) Surgical History History of cataract surgery History of colonoscopy with polypectomy History of melanoma excision History of Mohs surgery for squamous cell carcinoma of skin History of prostate biopsy History of prostatectomy History of right-sided carotid endarterectomy (~08/06/20) History of tonsillectomy Hx of flexible sigmoidoscopy Family History Mother No problems noted. Father No problems noted. Sister No problems noted. Sister No problems noted. Son No problems noted. Son No problems noted. Daughter No problems noted. 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 [employer] Feels Safe at Home: Yes caffeine: Yes (1-2 cups of coffee/day ) during the past year weight has: decreased > 10 lbs Assistive Devices: Glasses Allergies Allergies Allergy/AdvReac Type Severity Reaction Status Date / Time No Known Drug Allergies Allergy Verified 05/24/23 14:51 Home Meds Home Medications Medication Instructions Recorded Confirmed ibuprofen 200 mg capsule 200 mg PO QID PRN Pain 11/28/18 05/24/23 rosuvastatin 40 mg tablet 40 mg PO HS 12/28/19 05/24/23 bisacodyl 5 mg tablet,delayed 5 mg PO HS PRN Constipation 07/02/20 05/24/23 release (Dulcolax (bisacodyl)) metformin 500 mg tablet 1,000 mg PO HS 07/02/20 05/24/23 aspirin 81 mg tablet,delayed 81 mg PO HS 11/28/20 05/24/23 release Results & Data (ED) Vital Signs Vital Signs - 24 hr 12/22/23 12:30 12/22/23 13:35 12/22/23 13:35 Temperature 36.7 C Temperature Source Oral Pulse Rate 104 H Respiratory Rate 20 Respiratory Effort / Characteristics Non-Labored Spontaneous Respiratory Depth Normal Respiratory Pattern Regular Blood Pressure 104/80 Blood Pressure Mean 88 Blood Pressure Position Sitting Pulse Oximetry 100 95 95 Oxygen Delivery Method Nasal Cannula Room Air Room Air Oxygen Flow Rate 2 0 Sepsis Recent Fever Within 48 Hours No Sepsis New/Unexplained Change in Mental Status No Sepsis Action Taken by Nursing No Action Required 12/22/23 14:05 12/22/23 16:07 Temperature Temperature Source Pulse Rate 117 H Respiratory Rate Respiratory Effort / Characteristics SOB on Exertion Respiratory Depth Respiratory Pattern Blood Pressure Blood Pressure Mean Blood Pressure Position Pulse Oximetry Oxygen Delivery Method Oxygen Flow Rate Sepsis Recent Fever Within 48 Hours Sepsis New/Unexplained Change in Mental Status Sepsis Action Taken by Nursing Laboratory Data 12/22/23 14:30 12/22/23 14:30 Lab Results 12/22/23 12/22/23 Range/Units 12:57 14:30 WBC 9.09 (4.8-10.8) K/ul RBC 4.77 (4.70-6.10) M/uL Hgb 11.6 L (14.0-18.0) g/dl Hct 37.8 L (42.0-52.0) % MCV 79.2 L (80.0-100.0) fL MCH 24.3 L (25.0-34.0) pg MCHC 30.7 L (32.0-36.0) g/dL RDW Std Deviation 45.8 (36.4-46.3) fL RDW Coeff of Milvia 16.2 H (11.5-14.5) % Plt Count 277 (130-400) K/uL MPV 9.6 (9.4-12.4) fL Immature Gran % (Auto) 0.8 % Neut % (Auto) 81.5 % Lymph % (Auto) 6.5 % [place] % (Auto) 11.1 % Eos % (Auto) 0.0 % Baso % (Auto) 0.1 % Neut # (Auto) 7.41 H (1.40-6.50) K/uL Lymph # (Auto) 0.59 L (1.20-3.40) K/uL [place] # (Auto) 1.01 H (0.11-0.59) K/uL Eos # (Auto) 0.00 (0.00-0.50) K/uL Baso # (Auto) 0.01 (0.00-0.20) K/uL Immature Gran # (Auto) 0.07 (0.01-0.20) K/uL PT 15.9 H (9.0-12.0) Seconds INR 1.5 H (0.9-1.1) APTT 41 H (21-31) Seconds PTT Ratio 1.5 Sodium 129 L (136-145) mmol/L Potassium 4.9 (3.5-5.1) mmol/L Chloride 97 L (98-107) mmol/L Carbon Dioxide 23 (21-32) mmol/L Anion Gap 9 (3-11) BUN 39 H (6-23) mg/dl Creatinine 2.06 H (0.6-1.4) mg/dl Est Cr Clr Drug Dosing 32.5 ml/min Est GFR ( Amer) 33.3 ml/min Est GFR (Non-Af Amer) 28.7 ml/min BUN/Creatinine Ratio 18.9 (10-20) Glucose 143 H (70-99(Fasting)) mg/dl Calcium 8.8 (8.6-10.3) mg/dl Total Bilirubin 0.8 (0.2-1.0) mg/dl AST 171 H (13-39) U/L ALT 149 H (7-52) U/L Alkaline Phosphatase 265 H (34-104) U/L Troponin I High Sens 10.5 (0-20) pg/ml B-Natriuretic Peptide 123 H (0-100) pg/ml Total Protein 7.1 (6.0-8.3) gm/dl Albumin 3.8 (3.4-5.0) gm/dl Globulin 3.3 (2.5-4.0) gm/dl Albumin/Globulin Ratio 1.2 (0.9-2) Adenovirus (PCR) Not Detected (NotDetected) Anaplasma Smear See Comment Babesia Smear See Comment B. pertussis DNA (PCR) Not Detected (NotDetected) B.parapertussis DNA PCR Not Detected (NotDetected) C. pneumoniae DNA (PCR) Not Detected (NotDetected) Coronavirus OC43 (PCR) Not Detected (NotDetected) Coronavirus HKU1 (PCR) Not Detected (NotDetected) Coronavirus 229E (PCR) Not Detected (NotDetected) SARS-CoV-2 (PCR) Not Detected (NotDetected) Coronavirus NL63 (PCR) Not Detected (NotDetected) Human Metapneumovir PCR Not Detected (NotDetected) Influenza Type A (PCR) Not Detected (NotDetected) Influenza Type B (PCR) Not Detected (NotDetected) M. pneumoniae (PCR) Not Detected (NotDetected) Parainfluenza 1 (PCR) Not Detected (NotDetected) Parainfluenza 2 (PCR) Not Detected (NotDetected) Parainfluenza 3 (PCR) Not Detected (NotDetected) Parainfluenza 4 (PCR) Not Detected (NotDetected) RSV (PCR) Not Detected (NotDetected) Entero/Rhino (PCR) Not Detected (NotDetected) Imaging Data Radiologist's Impression: Chest X-Ray 12/22/23 12:35 XR chest 1V portable HISTORY: Chest pain, nonspecific COMPARISON: Chest 07/16/2020. FINDINGS: There are low lung volumes with mild elevation of the right hemidiaphragm. This is similar to the prior study. The heart is mildly enlarged. Interstitial/vascular thickening has progressed and is consistent with mild pulmonary edema. Right basilar linear densities are nonspecific but favor subsegmental atelectasis. No acute fractures. Stable sclerotic focus within the left humeral neck. No pneumothorax. Suspect trace bilateral pleural effusions. IMPRESSION: Mild cardiomegaly with mild interstitial pulmonary edema and trace bilateral pleural effusions. ACT 112: Negative or not required by law. Electronically signed by: Benito Choudhury M.D. 12/22/2023 3:04 PM Discharge Plan Visit Data Chief Complaint: Shortness of Breath/Dyspnea ED Provider: Nancy Jensen Discharge Problem: Acute dyspnea, JULIEN (acute kidney injury), Acute exacerbation of CHF (congestive heart failure), Pulmonary edema, Acute hyponatremia, Transaminitis, Atrial fibrillation with rapid ventricular response Forms Stand Alone Forms: My [facility] Prescriptions Prescriptions: No Action ibuprofen 200 mg Capsule 200 mg PO QID PRN (Reason: Pain) rosuvastatin 40 mg Tablet 40 mg PO HS metformin 500 mg Tablet 1,000 mg PO HS bisacodyl [Dulcolax (bisacodyl)] 5 mg Tablet,Delayed Release (Dr/Ec) 5 mg PO HS PRN (Reason: Constipation) aspirin 81 mg Tablet,Delayed Release (Dr/Ec) 81 mg PO HS Referrals Referrals: Zac Avalos MD [Primary Care Provider] -
[2023-12-22 14:43] LABS: Adenovirus PCR Not Detected (NotDetected); Bordetella parapertussis PCR Not Detected (NotDetected); Bordetella pertussis PCR Not Detected (NotDetected); Chlamydia pneumoniae PCR Not Detected (NotDetected); Coronavirus 229E PCR Not Detected (NotDetected); Coronavirus CoV-2 (COVID19)PCR Not Detected (NotDetected); Coronavirus HKU1 PCR Not Detected (NotDetected); Coronavirus NL63 PCR Not Detected (NotDetected); Coronavirus OC43PCR Not Detected (NotDetected); Human Metapneumovirus PCR Not Detected (NotDetected); Influenza A PCR Not Detected (NotDetected); Influenza B PCR Not Detected (NotDetected); Mycoplasma pneumoniae PCR Not Detected (NotDetected); Parainfluenza Virus 1 PCR Not Detected (NotDetected); Parainfluenza Virus 2 PCR Not Detected (NotDetected); Parainfluenza Virus 3 PCR Not Detected (NotDetected); Parainfluenza Virus 4 PCR Not Detected (NotDetected); Respiratory Syncytial VirusPCR Not Detected (NotDetected); Rhinovirus/Enterovirus PCR Not Detected (NotDetected)
[2023-12-22 14:48] LABS: Basophils # (auto) 0.01 K/uL (0.00-0.20); Basophils % (auto) 0.1 %; Hematocrit (blood only) 37.8 % (42.0-52.0); Hemoglobin 11.6 g/dl (14.0-18.0); Immature Granulocytes # (auto) 0.07 K/uL (0.01-0.20); Immature Granulocytes % (auto) 0.8 %; Lymphocytes # (auto) 0.59 K/uL (1.20-3.40); Lymphocytes % (auto) 6.5 %; Mean Corpuscular Hemoglobin 24.3 pg (25.0-34.0); Mean Corpuscular Hgb Conc 30.7 g/dL (32.0-36.0); Mean Corpuscular Volume 79.2 fL (80.0-100.0); Mean Platelet Volume 9.6 fL (9.4-12.4); Monocytes # (auto) 1.01 K/uL (0.11-0.59); Monocytes % (auto) 11.1 %; Neutrophils # (auto) 7.41 K/uL (1.40-6.50); Neutrophils % (auto) 81.5 %; Platelet Count 277 K/uL (130-400); RDW Coefficient of Variation 16.2 % (11.5-14.5); RDW Standard Deviation 45.8 fL (36.4-46.3); Red Blood Count 4.77 M/uL (4.70-6.10); White Blood Count 9.09 K/ul (4.8-10.8)
--- NOTE | 2023-12-22 15:06 | XRay Report ---
XR chest 1V portable HISTORY: Chest pain, nonspecific COMPARISON: Chest 07/16/2020. FINDINGS: There are low lung volumes with mild elevation of the right hemidiaphragm. This is similar to the prior study. The heart is mildly enlarged. Interstitial/vascular thickening has progressed and is consistent with mild pulmonary edema. Right basilar linear densities are nonspecific but favor schaffer bsegmental atelectasis. No acute fractures. Stable sclerotic focus within the left humeral neck. No p neumothorax. Suspect trace bilateral pleural effusions. IMPRESSION: Mild cardiomegaly with mild interstitial pulmonary edema and trace bilateral pleural effusions. ACT 112: Negative or not required by law. Electronically signed by: Benito Choudhury M.D. 12/22/2023 3:04 PM
[2023-12-22 15:11] LABS: Albumin Globulin Ratio 1.2 (0.9-2); Albumin Level 3.8 gm/dl (3.4-5.0); BUN Creatinine Ratio 18.9 (10-20); Bilirubin,Total 0.8 mg/dl (0.2-1.0); Calcium 8.8 mg/dl (8.6-10.3); Creatinine Clr Calc Pharmacy 32.5 ml/min; Est GFR (African American) 33.3 ml/min; Est GFR (Non-African American) 28.7 ml/min; Globulin 3.3 gm/dl (2.5-4.0); Potassium 4.9 mmol/L (3.5-5.1); Total Protein 7.1 gm/dl (6.0-8.3)
[2023-12-22 15:16] LABS: INR 1.5 (0.9-1.1); Partial Thromboplastin Ratio 1.5; Partial Thromboplastin Time 41 Seconds (21-31); Prothrombin Time 15.9 Seconds (9.0-12.0); Troponin I High Sensitivity 10.5 pg/ml (0-20)
--- NOTE | 2023-12-22 15:46 | History & Physical Report ---
Date of Service December 22, 2023 Assessment & Plan (1) Atrial fibrillation with RVR: Plan: OLVERA began on Sunday 12/17 Atrial fibrillation with RVR on arrival Recent history of A-fib in May 2023 Troponin WNL Bio fire negative TSH and magnesium levels ordered, pending Suspect component of heart failure in the setting of A-fib RVR; DDx at this time also includes infection, thyroid dysfunction, and tickborne illness (among other etiologies) Continue home metoprolol Metoprolol 5 mg IV q6h as needed for heart rate >120bpm Dose reduce Eliquis setting of JULIEN to 2.5 mg p.o. BID Continuous telemetry monitoring AM CBC, CMP, Mag (2) Acute heart failure: Plan: May also be contributing to OLVERA BNP mildly elevated at 123 (no prior for comparison) Echocardiogram ordered, pending Daily weights Strict I&O monitoring Trial of Lasix 40 mg IV x 1 (3) Pleural effusion, bilateral: Plan: CXR revealed cardiomegaly with mild interstitial pulmonary edema and trace bilateral pleural effusions (4) JULIEN (acute kidney injury): Plan: BUN 39, creatinine 2.06 (baseline of 0.92 in 2020), and EGFR 28.7 Avoid nephrotoxic agents for possible Hold losartan Presumed JULIEN, but last baseline was in 2020 (5) Hyponatremia: Plan: NA 129 on arrival; suspect due to hypervolemia Diuresis (as above) Follow a.m. BMP (6) Diabetes: Plan: Last A1c at 6.9% on 12/02/2021 Hold metformin SSI; with target BSG range 110-140mg/dL, CF 50, carb ratio 15 T2DM diet BSG ACHS Adjust regimen as needed AM A1c (7) Elevated transaminase level: Plan: Tickborne panel ordered, pending (8) Anemia: Plan: Mild; ?Chronic; 11.6 on arrival No signs of active bleeding on clinical exam MCV low at 79.2 Iron panel, ferritin ordered, pending Plan Disposition: Admit to PCU telemetry Full code Heart healthy, T2DM diet VTE PPx: Dose reduced Eliquis History of Present Illness Chief Complaint: Shortness of breath/dyspnea Primary Care Provider: Zac Avalos MD Kole is an 83-year-old with PMH of HTN, diabetes, carotid endarterectomy, prostate cancer, and stress incontinence. He presented on 12/21 at the best of his PCP for SOB, worse with exertion, that began on Sunday 12/17. Patient went [place] [employer] on [place], and was walking up the street afterwards to get to his car, when he experienced OLVERA and began feeling lightheaded and dizzy. He went home and laid down, noted a dry cough. Negative home COVID test. He reports that his SOB is mainly with exertion, and does not occur at rest. No orthopnea. No supplemental oxygen at baseline. No CPAP at night. No sick contacts. He does have a recent diagnosis of atrial fibrillation in May 2023, and is currently taking blood thinners (Eliquis). Patient took his regular morning medications today; no recent change in medications over the past week. Patient endorses occasional alcohol use (wine with meals), but denies smoking or tobacco use. Patient is tachycardic at 117 bpm at time of admission; vitals otherwise stable. ED course: ROS: Patient endorses dizziness/lightheadedness with exertion, joint pain, fatigue, dyspnea on exertion, and dry cough (started on Tuesday). Patient denies fever, chills, night-sweats, headaches, rashes, tick bites, chest pain, chest palpitations, SOB at rest, pleuritic CP, abdominal pain, N/V/D, changes in urinary/bowel habits, or numbness/tingling in the arms or legs. Allergies Allergy/AdvReac Type Severity Reaction Status Date / Time No Known Drug Allergies Allergy Verified 05/24/23 14:51 Home Medications Medication Instructions Recorded Confirmed Type ibuprofen 200 mg capsule 200 mg PO QID PRN Pain 11/28/18 12/22/23 History rosuvastatin 40 mg tablet 40 mg PO HS 12/28/19 12/22/23 History bisacodyl 5 mg tablet,delayed 5 mg PO HS PRN Constipation 07/02/20 12/22/23 History release (Dulcolax (bisacodyl)) metformin 500 mg tablet 1,000 mg PO HS 07/02/20 12/22/23 History aspirin 81 mg tablet,delayed 81 mg PO HS 11/28/20 12/22/23 History release apixaban 5 mg tablet (Eliquis) 5 mg PO BID 12/22/23 12/22/23 History losartan 25 mg tablet 25 mg PO BID 12/22/23 12/22/23 History metoprolol succinate 25 mg 25 mg PO HS 12/22/23 12/22/23 History tablet,extended release 24 hr metronidazole 0.75 % topical cream 1 applic topical .1-2X DAILY PRN 12/22/23 History Other Past Med/Surg History Problem List (Updated 12/22/23 @ 17:31 by Benito Bryant PA-C) Acute heart failure Anemia Pleural effusion, bilateral Atrial fibrillation with rapid ventricular response (Acute) Transaminitis (Acute) Acute hyponatremia (Acute) Pulmonary edema (Acute) Acute exacerbation of CHF (congestive heart failure) (Acute) JULIEN (acute kidney injury) (Acute) Acute dyspnea (Acute) Elevated transaminase level Hyponatremia JULIEN (acute kidney injury) Atrial fibrillation with RVR Stress incontinence Encounter for pre-operative examination Prostate cancer (Chronic 12/23/10) Hematochezia sigmoidoscopy 12/2019 -- poor enema results. has upcoming colonoscopy. 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 deviated nasal septum Excessive cerumen in both ear canals Sensorineural hearing loss (SNHL) of left ear with restricted hearing of right ear Urinary retention Sensorineural hearing loss (SNHL) of both ears Medical History (Updated 12/22/23 @ 17:31 by Benito Bryant PA-C) Diabetes mellitus, type 2 NIDDM Well controlled per patient Transient ischemic attack (TIA) Questionable in 2016- possibly related to previous right ICA disease- s/p CEA July 2020 Hard of hearing Lt- no hearing aid needed Cardiac murmur Dx as a child; PCP monitoring History of prostate cancer s/p sx, radiation History of 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 Harris @ [facility] Hx of flexible sigmoidoscopy History of colonoscopy with polypectomy History of Mohs surgery for squamous cell carcinoma of skin off right cheek History of cataract surgery bilt History of prostate biopsy History of melanoma excision History of tonsillectomy Age 4 History of prostatectomy 03/08/11 Family History Mother No problems noted. Father No problems noted. Sister No problems noted. Sister No problems noted. Son No problems noted. Son No problems noted. Daughter No problems noted. 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 Feels Safe at Home: Yes caffeine: Yes (1-2 cups of coffee/day ) during the past year weight has: decreased > 10 lbs Assistive Devices: Glasses Review of Systems Review of Systems: See HPI above Physical Exam Physical Exam: General: no acute distress; pleasant affect; non-toxic appearing; well- nourished; cooperative; SpO2 95% on RA HEENT: normocephalic, atraumatic; yellow membrane noted on the corner of right eye; no scleral icterus; PERRLA; vision and hearing grossly intact Neck: supple; no lymphadenopathy; trachea midline Skin: warm, dry without signs of tenting; no cyanosis; no rashes, bruising, lesions, or erythema noted CV: chest wall NTP; irregularly irregular rhythm, tachycardic around 120bpm; S1/S2 normal; 1/6 systolic ejection murmur auscultated at the second ICS MCL; pulses intact and symmetric at radial, DP, and PT Lungs: no acute respiratory distress; symmetrical chest wall expansion; clear breath sounds across all lung knowles w/o adventitious sounds; no wheezing ABD: Soft, NTP; BS present; no rebound/guarding; no distention MSK: no tics or fasciculations; no edema noted in the LEs b/l, nonerythematous Neuro: A&Ox3; normal mood and affect; fluent speech; no focal deficits; sensation intact and symmetric in the LEs b/l Results & Data Results & Data Vital Signs (Past 12 Hours) Vital Signs Temp Pulse Resp BP Pulse Ox O2 Del Method O2 Flow Rate 12/22/23 14:05 117 H 12/22/23 13:35 95 Room Air 12/22/23 13:35 95 Room Air 0 12/22/23 12:30 36.7 C 104 H 20 104/80 100 Nasal Cannula 2 Laboratory Results Abnormal lab results 12/22/23 Range/Units 14:30 Hgb 11.6 L (14.0-18.0) g/dl Hct 37.8 L (42.0-52.0) % MCV 79.2 L (80.0-100.0) fL MCH 24.3 L (25.0-34.0) pg MCHC 30.7 L (32.0-36.0) g/dL RDW Coeff of Milvia 16.2 H (11.5-14.5) % Neut # (Auto) 7.41 H (1.40-6.50) K/uL Lymph # (Auto) 0.59 L (1.20-3.40) K/uL Cottle # (Auto) 1.01 H (0.11-0.59) K/uL PT 15.9 H (9.0-12.0) Seconds INR 1.5 H (0.9-1.1) APTT 41 H (21-31) Seconds Sodium 129 L (136-145) mmol/L Chloride 97 L (98-107) mmol/L BUN 39 H (6-23) mg/dl Creatinine 2.06 H (0.6-1.4) mg/dl Glucose 143 H (70-99(Fasting)) mg/dl AST 171 H (13-39) U/L ALT 149 H (7-52) U/L Alkaline Phosphatase 265 H (34-104) U/L B-Natriuretic Peptide 123 H (0-100) pg/ml Diagnostic Findings Chest X-Ray 12/22/23 12:35 XR chest 1V portable HISTORY: Chest pain, nonspecific COMPARISON: Chest 07/16/2020. FINDINGS: There are low lung volumes with mild elevation of the right hemidiaphr agm. This is similar to the prior study. The heart is mildly enlarged. Interstitial/vascular thickening has progressed and is consistent with mild pulmonary edema. Right basilar linear densities are nonspecific but favor subsegmental atelectasis. No acute fractures. Stable sclerotic focus within the left humeral neck. No pneumothorax. Suspect trace bilateral pleural effusions. IMPRESSION: Mild cardiomegaly with mild interstitial pulmonary edema and trace bilateral pleural effusions. ACT 112: Negative or not required by law. Electronically signed by: Benito Choudhury M.D. 12/22/2023 3:04 PM ECG Additional Comments: ECG revealed atrial fibrillation with RVR at 120 bpm; QTc 432 Code Status & VTE Plan Code Status Full code VTE Prophylaxis Plan VTE Prophylaxis will be ordered: Yes Supervising Physician Co-Signing Physician Notes Patient seen and examined, chart reviewed, case discussed with Benito Bryant PA-C and I agree with the assessment and plan as above except as otherwise noted Labs and images reviewed 83yo M who presents with ~4 days of dyspnea on exertion. +dry cough. Negative home COVID. No orthopnea. Denies fevers/chills. Is on eliquis at [facility] for history of afib. Tachycardic in ER Afib RVR 120s. CXR with bilateral pleural effusions, mild interstitial pulmonary edema. Last echo 2018 EF 65%. Clinically is near euvolumic, minimal LARRY however BNP is elevated and with pulm edema as noted. Does have an JULIEN. +transaminitis ?hepatic congestion. Tick panel is pending. Agree with lasix 20mg IV PO BID + KCl. Hyponatremia consistent with CHF, no hx of this ?rate related failure. Updated echo for EF pending. Patient JVD exam is slightly limited by history of carotid endarterectomy and scar, but does appear to have JVD about 2-3 cm above the clavicle with HJR. agree w/ above PG Care Time/CCT Total # of Minutes Spent Total Time Spent with Patient: Total time spent is greater than 50% in coordination of care (as documented) at patient's floor/unit and/or counseling patient: Coding [place] [address] INT INP/OBS CARE 3/75MIN Patient Type Established History Comprehensive Exam Comprehensive Medical Decision Making High Complexity Diagnoses Atrial fibrillation with RVR I48.91 Acute heart failure I50.9 Pleural effusion, bilateral J90 JULIEN (acute kidney injury) N17.9 Hyponatremia E87.1 Diabetes E11.9 Elevated transaminase level R74.01 Anemia D64.9
[2023-12-22 17:01] LABS: Magnesium 2.4 mg/dl (1.7-2.4)
[2023-12-22 17:17] LABS: Thyroid Stimulating Hormone 3.795 uIu/ml (0.300-4.500)
[2023-12-22] MEDS: METOPROLOL TARTRATE 1 MG/ML VIAL IV STA ×2 (17:54→17:55)
[2023-12-22] MEDS: FUROSEMIDE 40 MG/4 ML VIAL IV ONE (18:19)
--- OUTSIDE RECORDS SUMMARY | 2023-12-22 19:08 | External Medical Summary | Continuity of Care Document ---
Author Name Unknown Organization [facility] [address] [place] [phone] Care Team Providers Care [facility] [employer] [facility] Manager Name Role Phone Zac Avalos Primary Care Physician [phone] Encounter [facility] [phone] Date(s): 09/02/23 - 09/02/23 [facility] [address] [facility] [address] [address] [phone] Encounter Diagnosis Body mass index [BMI] 27.0-27.9, adult(Discharge Diagnosis) - 09/02/23 Spontaneous ecchymoses(Discharge Diagnosis) - 09/02/23 Essential (primary) hypertension(Final) - 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) - Cerebral infarction due to unspecified occlusion or stenosis of bilateral carotid arteries(Final) - Paroxysmal atrial fibrillation(Discharge Diagnosis) - 09/02/23 Medicare annual wellness visit, subsequent(Discharge Diagnosis) - 08/15/23 Benign essential hypertension(Discharge Diagnosis) - 08/15/23 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) - 08/15/23 Carotid stenosis(Discharge Diagnosis) - 08/15/23 Discharge Disposition: Home or Self Care Attending Physician: MD Avalos Christopher Allergies, Adverse Reactions, Alerts Substance Reaction Severity Status Androderm rash Active AndroGel rash Active Testoderm rash Active horse serum 1 unknown Active 1typhoid vaccine Assessment and Plan Extracted from: Title:FCM - AF, HTN, DMII Author:MD Robbie, [facility] Date:09/02/23 1.Spontaneous ecchymoses Acute, uncomplicated illness/injury Goal:minimize symptoms Data:notes fromGuillard, recentCBC inMarch Plan: - counseling and education provided re: supportive care and avoidance of bruising, red flags - continue antiplatelet and DOAC Benign essential hypertension Chronic condition, stable Goal:<150/90 Data:none Plan: - encourage HBPM - continue losartan, metoprolol Carotid stenosis Following with cardiology without acute complaint, continue statin therapy Controlled diabetes mellitus with nephropathy Chronic condition, stable Goal:<9%, ideally~7% Data:ordered A1c Plan: - continue metformin, counseling on protective effects in addition to glycemic control Medicare annual wellness visit, subsequent see other note Immunizations Given and Recorded Vaccine Date Status Refusal Reason influenza virus vaccine, inactivated 1 02/22/23 Gi phillip influenza virus vaccine, inactivated 02/23/22 Balbir rded influenza virus vaccine, inactivated 02/26/21 Give n influenza virus vaccine, inactivated 12/25/19 Balbir rded influenza virus vaccine, inactivated 12/20/18 Balbir rded influenza virus vaccine, inactivated 2 12/13/17 Re corded influenza virus vaccine, inactivated 04/04/17 Give n influenza virus vaccine, inactivated 02/09/16 Give n influenza virus vaccine, inactivated 07/03/15 Give n influenza virus vaccine, inactivated 01/02/14 Give n influenza virus vaccine, inactivated 02/22/13 Give n SARS-CoV-2 mRNA (Pfizer 12+) bivalent 3 02/25/22 R ecorded SARS-CoV-2 mRNA ([id number]) 4 09/15/21 Recorded SARS-CoV-2 (COVID-19) mRNA BNT-162b2 vax 5 01/19/21 Recorded SARS-CoV-2 (COVID-19) mRNA BNT-162b2 vax 6 06/20/20 Recorded SARS-CoV-2 (COVID-19) mRNA BNT-162b2 vax 7 05/30/20 Recorded tetanus/diphtheria/pertuss, acel (Tdap) 12/24/20 G iven tetanus/diphtheria/pertuss, acel (Tdap) 05/21/09 R ecorded hepatitis A adult vaccine 8 05/18/20 Recorded hepatitis A adult vaccine 9 05/18/19 Recorded zoster vaccine, inactivated 02/26/19 Recorded zoster vaccine, inactivated 12/20/18 Recorded pneumococcal 13-valent vaccine 03/28/14 Given typhoid vaccine, live 05/21/09 Recorded pneumococcal 23-valent vaccine 05/09/08 Recorded zoster vaccine live 10 04/25/08 Recorded tetanus toxoids-diphtheria, Td (Adult) 06/22/99 Re corded 1Early/Late Reason: Early/Late Reason: Clinic schedule 2Result Comment: 2018-05-01: Historical information-source unspecified 3Result Comment: 2022-03-31: Historical information-source unspecified 4Result Comment: 2021-11-27: Historical information-source unspecified 5Result Comment: 2021-05-08: Historical information-source unspecified 6Result Comment: 2020-08-10: Historical information-source unspecified 7Result Comment: 2020-08-10: Historical information-source unspecified 8Result Comment: Muriel [place] 9Result Comment: 2019-09-20: Historical information-source unspecified 10Result Comment: [11/08/2011] date uncertain Medications apixaban 5 mg oral tablet Start: 09/02/23 11:03:00 EDT, 1 tab, PO, bid, Disp# 60 tab, Refills: 0, Last Cr 0.89 ; Wt 92.2kg, Pharmacy: [facility] Start Date: 09/02/23 Stop Date: 10/02/23 Status: Ordered apixaban 5 mg oral tablet Start: 09/02/23 11:04:00 EDT, 1 tab, PO, bid, Disp# 180 tab, Refills: 4, Last Cr 0.89 ; Wt 92.2kg, Pharmacy: [facility] Start Date: 09/02/23 Stop Date: 11/25/24 Status: Ordered aspirin 81 mg oral delayed release tablet Start: 09/07/21 9:08:00 EDT, 1 tab, PO, Daily Start Date: 09/07/21 Status: Ordered Dulcolax Laxative 5 mg oral delayed release tablet Start: 08/25/22 8:22:00 EDT, as needed Start Date: 08/25/22 Status: Ordered ibuprofen Start: 03/02/11 8:01:00, 200 mg =, PO, PRN: as needed for pain Start Date: 03/02/11 Status: Ordered losartan 25 mg oral tablet Start: 09/09/22 16:52:00 EDT, 1 tab, PO, bid, Disp# 180 tab, Refills: 4, [facility]: [id number] Start Date: 09/09/22 Stop Date: 12/03/23 Status: Ordered MetFORMIN (Eqv-Glucophage XR) 500 mg oral tablet, extended release Start: 04/05/23 11:45:00 EST, See Instructions, Disp# 180 tab, Refills: 4, take 2 tablets by mouth once daily with EVENING MEAL, Pharmacy: [id number] Start Date: 04/05/23 Status: Ordered metoprolol succinate 25 mg oral tablet, extended release Start: 07/19/23 10:22:00 EDT, 1 tab, PO, qhs, Disp# 90 tab, Refills: 3, Pharmacy: [id number] Start Date: 07/19/23 Status: Ordered rosuvastatin 40 mg oral tablet Start: 01/28/23 13:24:00 EDT, 1 tab, PO, qhs, Disp# 90 tab, Refills: 4, [facility]: [id number] Start Date: 01/28/23 Status: Ordered Mental Status 09/02/23 Barriers to Learning one year None evide nt Communication Barrier Present No Health Literacy Communication Barriers N ever Primary Language Citizen Of [place] Requires Assistance in Braille No P/G/S Communication Barrier No P/G/S Primary Language Citizen [place] P/G/S Requires Assisstance in [facility] No Problem List Condition Confirmation Course Effective Dates Status H ealth Status Informant Actinic keratosis Confirmed Active Aortic valve calcification Confirmed Active Benign essential hypertension Confirmed Active Cataract, bilateral Confirmed Active Carotid stenosis 1, 2 Confirmed Active Changing skin lesion Confirmed Active Skin cyst Confirmed Active Controlled diabetes mellitus with nephropathy Confirmed Active Aortic dilatation Confirmed Active Diverticulosis 3 Confirmed 11/16/10 Active DYSMETABOLIC SYNDROME X Confirmed Active Dysplastic nevus 4 Confirmed Active Erectile dysfunction Confirmed Active H/O Malignant melanoma Confirmed Active Family history of cerebral aneurysm 5 Confirmed Active History of stroke Confirmed Active History of adenomatous polyp of colon 6 Confirmed 11/16/10 Active S/P carotid endarterectomy Confirmed Active Aortic stenosis, mild Confirmed Active MIXED HYPERLIPIDEMIA Confirmed Active Nocturia Confirmed Active OTHER TESTICULAR HYPOFUNCTION Confirmed Active Paroxysmal atrial fibrillation Confirmed Active Rosacea Confirmed Active Seborrheic keratoses Confirmed Active Senile hyperkeratosis Confirmed Active Skin tag Confirmed Active UNSPECIFIED DISORDER OF JOINT OF SHOULDER REGION Confirmed Active UNSPECIFIED HEARING LOSS Confirmed Active Incontinence of urine Confirmed Active Weight disorder Confirmed Active Wheezing Confirmed Active 1s/p right carotid endartectomy 250-70% right ICA 3at colonoscopy 4abdomen 5father, at age 53 from cerebral aneurysm 6tubular adenoma, 0.3 cm; also had same in 2002, with atypia Diagnosis Diagnosis Type Effective Dates Health Status Clinical Service Informant Benign essential hypertension Discharge Diagnosis 08/15/23 Controlled diabetes mellitus with nephropathy Discharge Diagnosis 08/15/23 Carotid stenosis Discharge Diagnosis 08/15/23 Medicare annual wellness visit, subsequent Discharge Diagnosis 08/15/23 Spontaneous ecchymoses Discharge Diagnosis 09/02/23 Body mass index [BMI] 27.0-27.9, adult Discharge Diagnosis 09/02/23 Non-Specified Paroxysmal atrial fibrillation Discharge Diagnosis 09/02/23 Non-Specified Procedures Procedure Date Related Diagnosis Body Site Status Right shoulder 1 10/27/22 Complete d Seen by audiovisual production specialist 2 08/10/22 Com pleted Shave biopsy and cauterization of skin 05/03/22 Completed Shave biopsy and cauterizati on of skin 3 07/13/21 Completed Bladder neck incision in the male 4 01/27/21 Completed MRI of brain and internal au ditory canal without contrast 5 12/17/20 Complet ed US scan of bladder 6 11/24/20 Comp leted Right CEA - Carotid endarterectomy 08/06/20 Completed Colonoscopy 7, 8, 9 07/15/20 Compl eted Mohs micrographic surgery 11/28/19 Completed Shave biopsy and cauterization of skin 11/07/19 Completed Diabetic retinal eye exam 10 04/30/19 Completed Left cataract phacoemulsific ation with intraocular lens implant 11 12/26/18 Comp leted Bone scan 12 06/27/17 Completed Bone scan whole bodyt 13 12/26/15 Completed Shave biopsy and cauterization of skin 04/15/15 Completed Bone scan 14 12/24/14 Completed Punch biopsy 01/16/14 Completed Shave biopsy of skin 08/28/12 Comp leted Shave biopsy of skin 12/09/11 Comp leted robotic prostatectomy 15, 16 02/26/11 Completed Colonoscopy and polypectomy 17, 18 11/16/10 Completed tonsillectomy 1946 Completed Procedure 19 Completed Radiation therapy treatment management 20 Completed right arm fracture repair as child Completed 1tendon repair 2Otosopic examination revelaed a clear visualization of the tympanic membranes in each ear. Tympanometrt revealed normal middles ear function, bilaterally. Audiometric results revealed a mild to severe (1500-8000Hz) sensorineural hearing loss in the right ear and revealed a mild to profound sensorineaural hearing loss in the left ear. Asymmetric hearing loss was noted at 250-4000Hz and 8000Hz. 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 No acute intracranial abnormality. 2. Unremarkable MRI assessment of the internal auditory canals. 6Postvoid residual of 57.8 cc. Debris within the bladder which could be correlated with urinalysis. 71. Diverticulosis in the sigmoid colon and in the ascending colon. 2. Three 4 to 6 mm polyps in the descending colon and in the cecum, removed with hot snare. Resected and retrieved. 3. Multiple non-bleeding colonic angioectasias. Treated with argon plasma coagulation (APC). 8received surgical path: Final diagnosis Colon site unspecified polyps, polypectomy fragements of inflammatory type polyp and hyperplastic polyp present. 9Repeat in 10 years. 10no retinopathy 11bilateral 12No evidence of skeletal metastasis. 13No scintigraphic evidence of skeletal metastasis 14Negative for metastatic bone disease. 15all 11 nodes negative 16clear margins [id number]: adenoma with atypia. 2001: clear. 18tiny polyp, removed; diverticulosis. Repeat in [address] Marcial 19bladder opening exspanded 20of prostate bed, for rising PSA after radical prostatectomy Results Laboratory List Name Date Comprehensive Metabolic Panel (COMP META B PANEL) 09/02/23 Hemoglobin A1C (HEMOGLOBIN, A1C) 09/02/23 Lipid Profile (LIPOPROTEINS) 09/02/23 Most recent to oldest [Reference Range]: 1 eGFR CKD-EPI [>60 mL/min/1.73 m2] 86 mL/ min/1.73 m2 1 (09/02/23 8:49 AM) Estimated Average Glucose 140 mg/dL (09/02/23 8:49 AM) Non-HDL 60 mg/dL 2 (09/02/23 8:49 AM) Estimated CrCl 75.05 mL/min (09/02/23 12:24 PM) Anion Gap [5-14 mmol/L] 10 mmol/L (09/02/23 8:49 AM) Alb [3.5-5.0 g/dL] 4.6 g/dL (09/02/23 8:49 AM) Alk Phos [38-126 unit/L] 69 unit/L (09/02/23 8:49 AM) ALT [<50 unit/L] 28 unit/L (09/02/23 8:49 AM) AST [15-46 unit/L] 50 unit/L *HI* (09/02/23 8:49 AM) BUN [7-20 mg/dL] 21 mg/dL *HI* (09/02/23 8:49 AM) Ca [8.4-10.2 mg/dL] 9.5 mg/dL (09/02/23 8:49 AM) Chol/HDL 2 (09/02/23 849 AM) Chol [125-200 mg/dL] 114 mg/dL *LOW* (09/02/23 8:49 AM) Cl- [96-107 mmol/L] 104 mmol/L (09/02/23 8:49 AM) HCO3 [22-30 mmol/L] 28 mmol/L (09/02/23 8:49 AM) Cret [0.70-1.30 mg/dL] 0.86 mg/dL (09/02/23 8:49 AM) HbA1c [<5.7 %] 6.5 % 3 *HI* (09/02/23 8:49 AM) Glu [74-106 mg/dL] 132 mg/dL *HI* (09/02/23 8:49 AM) HDL [>35 mg/dL] 54 mg/dL (09/02/23 8:49 AM) K [3.5-5.1 mmol/L] 4.6 mmol/L (09/02/23 8:49 AM) LDL Chol, Calculated [50-130 mg/dL] 43 m g/dL *LOW* (09/02/23 8:49 AM) Na [137-145 mmol/L] 142 mmol/L (09/02/23 8:49 AM) T Bili [0.2-1.3 mg/dL] 0.6 mg/dL (09/02/23 8:49 AM) Prot [6.3-8.2 g/dL] 8.2 g/dL (09/02/23 8:49 AM) TG [<200 mg/dL] 87 mg/dL (09/02/23 8:49 AM) 1Result Comment: Testing Performed By: [facility] [address], [place] [address] 2Result Comment: Testing Performed By: Dept of Pathology [facility] [address], [address], [place] [address] 3Result Comment: ADA Recommended Ava Reference Range: Normal: <5.7% Prediabetes: 5.7-6.4% Diabetes: >6.4% Vital Signs Most recent to oldest [Reference Range]: 1 Height 180.4 cm (09/02/23 7:58 AM) Patient Weight 90.8 kg (09/02/23 7:58 AM) Body Mass Index 27.9 kg/m2 (09/02/23 7:58 AM) Temperature [36.5-37.9 DegC] 36.6 DegC (09/02/23 7:58 AM) Heart Rate 69 bpm (09/02/23 7:58 AM) Respiratory Rate 16 br/min (09/02/23 7:58 AM) Blood Pressure 132/90mmHg (09/02/23 7:58 AM) BP Location # 1 Left Arm (09/02/23 7:58 AM) Social History Social History Type Response Tobacco Former smoker, Cigar s, 0 per day. Stopped age 39 Years. Smoking Status Never smoked cigaret neris Sex Male Medicare Annual Wellness Visit Note * [facility] PERFORM Event Display: Medicare Annual Wellness Visit Note Authored Date: [id number] Name:RED FELIZ Patient Number: [id number] : 1940 Date of Service: 09/02/2023 Medicare Annual Wellness Visit Subsequent MAWV: Any MAWV performed after the Initial xAdditional diagnosis with separately identified service provided per additional note. Vitals & Measurements T:36.6C HR:69(Monitored) RR:16 BP:132/90 SpO2:95% Oxygen Therapy:Room air HT:180.4cm WT:90.8kg WT:90.800kg(Dosing) BMI:27.9 The Patient's BMI is over 25 which is considered overweight. _Based on shared decision-making, no further intervention will be pursued at this time. _This is a chronic problem and is addressed in continuity. xRecommendations for resources, monitoring, support, safety, and surveillance were reviewed. Counseling re: safe exercise and continued dietary forbearance _This warrants further evaluation at a follow-up or concurrent visit. Pain Assessment Pain Score: 0 Pain Severity: No Pain Acceptable pain score: 0 Opioid use Assessment: Opioid use and pain severity reviewed in medication reconciliation and vital signs. Chart review and inquiry of patient finds NO USE of opioids. PHQ2 Data(Data Documented on:09/02/2023 07:58) Emotional health assessment NEGATIVE Assessment/Plan Hearing Screening Do you have any hearing problems, or have others told you that you might?None Comments Struggle to hear/understand conversation? No Have any known hearing problems? No Hearing Assessment xNo hearing problems were directly observed with this patient today. _Hearing problems were observed with this patient today and the plan is: _. _Based on shared decision-making, no further intervention will be pursued at this time. _This is a chronic problem and is addressed in continuity. _Recommendations for resources, monitoring, support, safety, and surveillance were reviewed. _This warrants further evaluation at a follow-up or concurrent visit. Orientation Memory Concentration Test (OMCT) Orientation Score Indication:None or no significant cognitive impairment (0-4) Cognitive Screening (IF OMCT 0-4, no further assessment required) _Based on shared decision-making, no further intervention will be pursued at this time. _This is a chronic problem and is addressed in continuity. _Recommendations for resources, monitoring, support, safety, and surveillance were reviewed. _This warrants further evaluation at a follow-up or concurrent visit. Activities of Daily Living Assistance Assessment Comments Do you need help using the phone? No Do you need help managing your finances? No Do you need help shopping? (clothes, groceries, etc.) No Do you find you need help that is not available to you? No Do you need help preparing meals? No Do you need help keeping track of and taking your medications? No Do you need help getting to bed or to the toilet? No Do you need help to eat, bathe, or dress? No Do you need help walking? No Do you need help with transportation? No Do you ever go without a seatbelt in the car? No Do you need help with doing housework (cleaning, laundry)? No ADL/IADL Assessment xThe patient did not require help in the office today (e.g. with iADL/ADLs). _Patient required assistance in the office today (e.g. with iADL/ADLs) and the plan is: _. _Based on shared decision-making, no further intervention will be pursued at this time. _This is a chronic problem and is addressed in continuity. _Recommendations for resources, monitoring, support, safety, and surveillance were reviewed. _This warrants further evaluation at a follow-up or concurrent visit. Falls Assessment Are you permanently unable to walk? No Have you fallen more than once in the past year? No Have you fallen and hurt yourself in the past year? No Is it hard for you to climb stairs or walk short distances? No Do any of these potential fall hazards exist in your home? None Do these safety features exist in your home? (e.g. bathroom grab bars, stair handrails) Bathroom grab bars, Stair handrails Falls Assessment xThere was no difficulty with the patients ambulation observed today. _The patient was observed to have difficulty with ambulation today. The plan is: _. _Based on shared decision-making, no further intervention will be pursued at this time. _This is a chronic problem and is addressed in continuity. _Recommendations for resources, monitoring, support, safety, and surveillance were reviewed. _This warrants further evaluation at a follow-up or concurrent visit. Incontinence Screening Comments Do you have difficulty getting to the bathroom on time? No Do you leak urine when you do not want to, such as when coughing, sneezing, laughing? Sometimes s/p prostatectomy, follows with urology Do you leak urine while sleeping? No Incontinence Assessment _Based on shared decision-making, no further intervention will be pursued at this time. xThis is a chronic problem and is addressed in continuity. Follows with urology _Recommendations for resources, monitoring, support, safety, and surveillance were reviewed. _This warrants further evaluation at a follow-up or concurrent visit. Patient Health Self Assessment (Indicate in Comments for each red/positive response an assessment and plan for the patient) COUNSELING/PLAN/REFERRAL Have you seen a dental or orthodontic provider in the last year? Yes Do you always wear a seat belt in moving vehicles? Yes Do you exercise at least 150 minutes a week? Yes Do you consider your diet unhealthy? No Do you use tobacco? No Have you had 5 or more servings of alcohol in one day within the past year? No Do you use illegal street or prescription drugs? No Do you have a new sexual partner this year? No Are you having difficulty completing or enjoying sex? No Would you consider your overall health to be poor? No Do you feel disappointed with your life as it is? No Do you feel you have poor sleep? Yes freq bathroom trips Q2H s/p prostatectomy, followed with urology Do you often feel lonely? No Do you struggle with your temper? No Does pain impact your life? No Do you often feel tired during the day? No Advance Directive End of Life Discussion Durable Health Care Power of Carbon Coating Machine Operator: Durable Health Care Power of Carbon Coating Machine Operator (02/09/16) [place] Orders Life-Sustaining Tx: [place] Orders Life-Sustaining Tx (02/09/16) Advance directive saved to Electronic Health Record as of date above. Advance Care Planning (ACP) Discussion Did not occur at this visit. Language Barrier/Educational Preference Barriers to Learning one year: None evident Communication Barrier Present: No Educational Needs Assessed one year: Yes Health Literacy Communication Barriers: Never Learning Preferences one year: Verbal Explanation, Printed Instructions P/G/S Communication Barrier: No Primary Language: Citizen Of [place] Medications The patients preferred pharmacy has been reviewed and confirmed. Home apixaban(apixaban 5 mg oral tablet), 5 mg= 1 tab, PO, bid aspirin(aspirin 81 mg oral delayed release tablet), 81 mg= 1 tab, PO, Daily bisacodyl(Dulcolax Laxative 5 mg oral delayed release tablet) ibuprofen, 200 mg, PO, PRN losartan(losartan 25 mg oral tablet), 25 mg= 1 tab, PO, bid, 4 refills metFORMIN(MetFORMIN (Eqv-Glucophage XR) 500 mg oral tablet, extended release), See Instructions, 4 refills metoprolol(metoprolol succinate 25 mg oral tablet, extended release), 25 mg= 1 tab, PO, qhs, 3 refills rosuvastatin(rosuvastatin 40 mg oral tablet), 1 tab, PO, qhs Problem List/Past Medical History Ongoing Actinic keratosis Aortic dilatation Aortic stenosis, mild Aortic valve calcification Benign essential hypertension Carotid stenosis Cataract, bilateral Changing skin lesion Controlled diabetes mellitus with nephropathy Diverticulosis DYSMETABOLIC SYNDROME X Dysplastic nevus Erectile dysfunction Family history of cerebral aneurysm H/O Malignant melanoma History of adenomatous polyp of colon History of stroke Incontinence of urine MIXED HYPERLIPIDEMIA Nocturia OTHER TESTICULAR HYPOFUNCTION Paroxysmal atrial fibrillation Rosacea S/P carotid endarterectomy Seborrheic keratoses Senile hyperkeratosis Skin cyst Skin tag UNSPECIFIED DISORDER OF JOINT OF SHOULDER REGION UNSPECIFIED HEARING LOSS Weight disorder Wheezing Historical Aphthous ulcer BMI 29.0-29.9,adult Cough Dysplastic nevus of skin ELEVATED PROSTATE SPECIFIC ANTIGEN [PSA] Encounter for postoperative carotid endarterectomy surveillance FAMILY HISTORY OF UNSPECIFIED MALIGNANT NEOPLASM Inflamed seborrheic keratosis Inflammatory polyps of colon Inflammatory polyps of colon without complications Lentigo maligna MALIGNANT NEOPLASM OF PROSTATE Need for prophylactic vaccination and inoculation against influenza Neoplasm of uncertain behavior of skin PALPITATIONS Paralysis of right vocal cord PERSONAL HISTORY OF COLONIC POLYPS Preop examination ROUTINE GENERAL MEDICAL EXAMINATION AT A HEALTH CARE FACILITY STROKE Procedure/Surgical History Right shoulder| Service Date: 10/27/2022Seen by audiovisual production specialist| Service Date: 08/10/2022Shavebiopsy and cauterization of skin| Service Date: 05/03/2022Shave biopsy and cauterization of skin| Service Date: 07/13/2021ladder neck incision in the male| Service Date: 01/27/2021MRI of brain and internal auditory canal without contrast| Service Date: 12/17/2020US scan of bladder| Service Date: 1Right CEA - Carotid endarterectomy| Service Date: 08/06/2020olonoscopy| Service Date: 07/15/2020Mohs micrographic surgery| Service Date: 11/28/2019Shave biopsy and cauterization of skin| Service Date: 11/07/2019Diabetic retinal eye exam| Service Date: 04/30/2019Left cataract phacoemulsification with intraocular lens implant| Service Date: 12/26/2018Bone scan| Service Date: 06/27/2017Bone scan whole bodyt| Service Date: 12/26/2015Shave biopsy and cauterization of skin| Service Date: 04/15/2015Bone scan| Service Date: 12/24/2014Punch biopsy|Service Date: 01/16/2014Shave biopsy of skin| Service Date: 08/28/2012Shave biopsy of skin| Service Date: 12/09/2011robotic prostatectomy| Service Date: 02/26/2011Colonoscopy and polypectomy| Service Date: 11/16/2010tonsillectomy| Service Date: arm fracture repair as childRadiation therapy treatment managementProcedure Procedure History Last Reviewed by:MD Avalos Christopher on 09/02/2023 08:28 Family History ASCVD (arteriosclerotic cardiovascular disease)...: Son. High Blood Pressure: Sister. Hypercholesterolemia: Sister and Sister. Hypertension: Sister. Impaired fasting glucose: Mother. Lumbar spinal stenosis: Sister. Tongue cancer: Son. Health Status Family Member(s) Daughter: History is negative Family Member(s) Relationship: Mother, Age: 93 Years, Cause: stroke Relationship: Father, Age: 53 Years, Cause: cerebral hemorrhage Family History Last Reviewed by:MD Avalos Christopher on 09/02/2023 08:29 Allergies AndroGelrash Androdermrash Testodermrash horse serumunknown Care Team Audiology unable to recall Urology unable to recall Dental Manning Manager Business Systems unable to recall Recommendations Health Maintenance Pending(in the next year) OverDue Medicare Annual Wellness Visit due11/27/22and every 1year Diabetic Eye Exam due12/24/22and every 366day Due Adult Social Determinants of Health Screening due09/02/23Unknown Frequency Due In Future Diabetes Management A1c not due until09/09/23and every 366day Adult Influenza Vaccine not due until10/23/23and every 1year Satisfied(in the past 1 year) Satisfied Adult Influenza Vaccine on02/22/23.Satisfied by Alex Rehman Body Mass Index on09/02/23.Satisfied by ALEX Tellez Alexandra Diabetes Management A1c on09/08/22.Satisfied by Contributor_system, [email or web address] Diabetes Nephropathy Management on09/08/22.Satisfied by Contributor_system, [email or web address] Lipid Screening on09/08/22.Satisfied by Contributor_system, [email or web address] Health Maintenance Schedule Colorectal Cancer Screening: Completed and next due in: 2030 Diabetes screening: Ordered _ Cholesterol screening: Ordered _ HIV Screening: Completed _ Hepatitis C Screening: Completed _ Lung Cancer Screening: N/A _ AAA Screening: N/A _ Mammography: N/A _ Osteoporosis: N/A _ Prostate Cancer Screening: follows w/ urology Welcome to Medicare ECG Screening: Completed _ Electronic Signature on File Electronically Reviewed/Signed by: Zac Avalos MD Author Signature Dt/Tm:09/02/2023 08:36 AM Department of Family Medicine * MD Robbie, Zac: PERFORM, MODIFY Event Display: FCM Outpt Note Authored Date: [id number] History of Present Illness Atrial fibrillation in the setting of Hypertension - current medication - ASA, eliquis, metoprolol,losartan - _adherent to present regimen - no ADEs reported by the patient -rarely checking BP at home - looking to restart checking - smoking and caffeine history reviewed - increased ecchymoses without known trauma олег on the UE/forearms - stools are regular without black/tarry stools or BRBPR Diabetes Type II,controlled with comorbid disease - current regimen includes - metformin -on statin therapy and ACEi/ARB per medication list - adherent to present medication regimen_ - dietary review: cooking at home for him and spouse Physical Exam Vitals & Measurements T:36.6C HR:69(Monitored) RR:16 BP:132/90 SpO2:95% Oxygen Therapy:Room air HT:180.4cm WT:90.8kg WT:90.800kg(Dosing) BMI:27.9 PHQ2 Data(Data Documented on:09/02/2023 07:58) Emotional health assessment NEGATIVE General: _Alert and oriented, No acute distress Cardiovascular: _Normal rate, Regular rhythm, 2-3/6 GIA, No gallop. Respiratory: _Lungs are clear to auscultation, Respirations are non-labored, Breath sounds are equal Psych: Mood-affect congruence. Reports no SI/HI. Speech is of normal pace and content Assessment/Plan 1.Spontaneous ecchymoses Acute, uncomplicated illness/injury Goal:minimize symptoms [facility] Plan: - counseling and education provided re: supportive care and avoidance of bruising, red flags - continue antiplatelet and DOAC Benign essential hypertension Chronic condition, stable Goal:<150/90 Data:none Plan: - encourage HBPM - continue losartan, metoprolol Carotid stenosis Following with cardiology without acute complaint, continue statin therapy Controlled diabetes mellitus with nephropathy Chronic condition, stable Goal:<9%, ideally~7% Data:ordered A1c Plan: - continue metformin, counseling on protective effects in addition to glycemic control Medicare annual wellness visit, subsequent see other note Problem List/Past Medical History Ongoing Actinic keratosis Aortic dilatation Aortic stenosis, mild Aortic valve calcification Benign essential hypertension Carotid stenosis Cataract, bilateral Changing skin lesion Controlled diabetes mellitus with nephropathy Diverticulosis DYSMETABOLIC SYNDROME X Dysplastic nevus Erectile dysfunction Family history of cerebral aneurysm H/O Malignant melanoma History of adenomatous polyp of colon History of stroke Incontinence of urine MIXED HYPERLIPIDEMIA Nocturia OTHER TESTICULAR HYPOFUNCTION Paroxysmal atrial fibrillation Rosacea S/P carotid endarterectomy Seborrheic keratoses Senile hyperkeratosis Skin cyst Skin tag UNSPECIFIED DISORDER OF JOINT OF SHOULDER REGION UNSPECIFIED HEARING LOSS Weight disorder Wheezing Historical Aphthous ulcer BMI 29.0-29.9,adult Cough Dysplastic nevus of skin ELEVATED PROSTATE SPECIFIC ANTIGEN [PSA] Encounter for postoperative carotid endarterectomy surveillance FAMILY HISTORY OF UNSPECIFIED MALIGNANT NEOPLASM Inflamed seborrheic keratosis Inflammatory polyps of colon Inflammatory polyps of colon without complications Lentigo maligna MALIGNANT NEOPLASM OF PROSTATE Need for prophylactic vaccination and inoculation against influenza Neoplasm of uncertain behavior of skin PALPITATIONS Paralysis of right vocal cord PERSONAL HISTORY OF COLONIC POLYPS Preop examination ROUTINE GENERAL MEDICAL EXAMINATION AT A HEALTH CARE FACILITY STROKE Procedure/Surgical History Right shoulder| Service Date: 10/27/2022Seen by audiovisual production specialist| Service Date: 08/10/2022Shavebiopsy and cauterization of skin| Service Date: 05/03/2022Shave biopsy and cauterization of skin| Service Date: 07/13/2021ladder neck incision in the male| Service Date: 01/27/2021MRI of brain and internal auditory canal without contrast| Service Date: 12/17/2020US scan of bladder| Service Date: 11/24/2020ight CEA - Carotid endarterectomy| Service Date: 08/06/2020olonoscopy| Service Date: 07/15/2020Mohs micrographic surgery| Service Date: 11/28/2019Shave biopsy and cauterization of skin| Service Date: 11/07/2019Diabetic retinal eye exam| Service Date: 04/30/2019Left cataract phacoemulsification with intraocular lens implant| Service Date: 12/26/2018Bone scan| Service Date: 06/27/2017Bone scan whole bodyt| Service Date: 12/26/2015Shave biopsy and cauterization of skin| Service Date: 04/15/2015Bone scan| Service Date: 12/24/2014Punch biopsy|Service Date: 01/16/2014Shave biopsy of skin| Service Date: 08/28/2012Shave biopsy of skin| Service Date: 12/09/2011robotic prostatectomy| Service Date: 02/26/2011Colonoscopy and polypectomy| Service Date: 11/16/2010tonsillectomy| Service Date: 1947right arm fracture repair as childRadiation therapy treatment managementProcedure Medications apixaban(apixaban 5 mg oral tablet), 5 mg= 1 tab, PO, bid aspirin(aspirin 81 mg oral delayed release tablet), 81 mg= 1 tab, PO, Daily bisacodyl(Dulcolax Laxative 5 mg oral delayed release tablet) ibuprofen, 200 mg, PO, PRN losartan(losartan 25 mg oral tablet), 25 mg= 1 tab, PO, bid, 4 refills metFORMIN(MetFORMIN (Eqv-Glucophage XR) 500 mg oral tablet, extended release), See Instructions, 4 refills metoprolol(metoprolol succinate 25 mg oral tablet, extended release), 25 mg= 1 tab, PO, qhs, 3 refills rosuvastatin(rosuvastatin 40 mg oral tablet), 1 tab, PO, qhs Allergies AndroGelrash Androdermrash Testodermrash horse serumunknown Social History Smoking Status Never smoked cigarettes Alcohol - No Risk Frequency:3-5 times per week Average drinks per episode in last year:1 Maximum drinks per episode in last year:2 Use:Current Type:Wine Employment/School Status:Retired, [place] [facility] Exercise - Regular exercise Duration (average number of minutes):60 Times per week:5-6 times/week Self assessment:Excellent condition Exercise type:Walking, Weight lifting - Comments: 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 early dementia? 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 High Blood Pressure: Sister. Hypercholesterolemia: Sister and Sister. Hypertension: Sister. Impaired fasting glucose: Mother. Lumbar spinal stenosis: Sister. Tongue cancer: Son. Health Status Family Member(s) Daughter: History is negative Family Member(s) Relationship: Mother, Age: 93 Years, Cause: stroke Relationship: Father, Age: 53 Years, Cause: cerebral hemorrhage Immunizations Vaccine Date Status influenza virus vaccine, inactivated 02/22/2023 Given Comments : Early/Late Reason: Clinic schedule SARS-CoV-2 mRNA (Pfizer 12+) bivalent 02/25/2022 Recorded Comments : 2022-03-31: Historical information-source unspecified influenza virus vaccine, inactivated 02/2022 Recorded SARS-CoV-2 mRNA ([id number]) 09/15/2021 Recorded Comments : 2021-11-27: Historical information-source unspecified influenza virus vaccine, inactivated 02/26/2021 Given SARS-CoV-2 (COVID-19) mRNA BNT-162b2 vax 01/19/2021 Recorded Comments : 2021-05-08: Historical information-source unspecified tetanus/diphtheria/pertuss, acel (Tdap) 12/24/2020 Given SARS-CoV-2 (COVID-19) mRNA BNT-162b2 vax 06/20/2020 Recorded Comments : 2020-08-10: Historical information-source unspecified SARS-CoV-2 (COVID-19) mRNA BNT-162b2 vax 05/30/2020 Recorded Comments : 2020-08-10: Historical information-source unspecified hepatitis A adult vaccine 05/18/2020 Recorded Comments : Muriel Gonsales [facility] influenza virus vaccine, inactivated 12/2019 Recorded hepatitis A adult vaccine 05/18/2019 Recorded Comments : 2019-09-20: Historical information-source unspecified zoster vaccine, inactivated 02/26/2019 Recorded influenza virus vaccine, inactivated 12/20/2018 Recorded zoster vaccine, inactivated 12/20/2018 Recorded influenza virus vaccine, inactivated 12/13/2017 Recorded Comments : 2018-05-01: Historical information-source unspecified influenza virus vaccine, inactivated 04/04/2017 Given influenza virus vaccine, inactivated 02/09/2016 Given influenza virus vaccine, inactivated 07/03/2015 Given pneumococcal 13-valent vaccine 03/28/2014 Given influenza virus vaccine, inactivated 01/02/2014 Given influenza virus vaccine, inactivated 02/22/2013 Given typhoid vaccine, live 05/21/2009 Recorded tetanus/diphtheria/pertuss, acel (Tdap) 05/21/2009 Recorded pneumococcal 23-valent vaccine 05/09/2008 Recorded zoster vaccine live 04/25/2008 Recorded Comments : [11/08/2011] date uncertain tetanus toxoids-diphtheria, Td (Adult) 06/22/1999 Recorded Recommendations Health Maintenance Pending(in the next year) OverDue Medicare Annual Wellness Visit due11/27/22and every 1year Diabetic Eye Exam due12/24/22and every 366day Due Adult Social Determinants of Health Screening due09/02/23Unknown Frequency Due In Future Diabetes Management A1c not due until09/09/23and every 366day Adult Influenza Vaccine not due until10/23/23and every 1year Satisfied(in the past 1 year) Satisfied Adult Influenza Vaccine on02/22/23.Satisfied by Alex Rehman Body Mass Index on09/02/23.Satisfied by ALEX Tellez Alexandra Diabetes Management A1c on09/08/22.Satisfied by Contributor_system, [email or web address] Diabetes Nephropathy Management on09/08/22.Satisfied by Contributor_system, [email or web address] Lipid Screening on09/08/22.Satisfied by Contributor_system, [email or web address] Electronic Signature on File Electronically Reviewed/Signed by: Zac Avalos MD Author Signature Dt/Tm:09/02/2023 08:27 AM Department of Family Medicine Electronically Reviewed/Signed by: Zac Avalos MD Cosigner Signature Dt/Tm: 09/02/2023 08:36AM Department of Family Medicine [facility] Patient Care team information Care Team Personnel Name: MD Stephenson Jonathan D Position: Physician - Family Med Member Role: Lifetime Relationship Address: Address: [address] [place] [address] [place] Name: MD Avalos Christopher Position: Physician - Family Med Member Role: Primary Care Provider Address: Address: [address] [place] [id number] [place] Name: SHAINA Tsai Lynn Position: Physician Brokerage Office Manager Exempt - Vasc Surg Member Role: Lifetime Relationship Address: Address: [address] [place] [address], [place] [address] Name: MD Coates Jay D Position: Physician - Urology Member Role: Lifetime Relationship Address: Address: [address] [place] [id number] Care Team Related Persons Name: ZEFERINO FELIZ Address: [address] [id number]"
--- OUTSIDE RECORDS SUMMARY | 2023-12-22 19:08 | External Medical Summary | Continuity of Care Document ---
Author Name Unknown Organization [facility] [address] [facility] 2 Address [address] [id number] Care Team Providers Care Box Builder Name Role Phone Zac Avalos Primary Care Physician [phone] Encounter [facility] [place] [id number] Date(s): 11/15/23 - 11/15/23 [facility] [address] [place] [id number] Encounter Diagnosis Actinic keratoses(Discharge Diagnosis) - 11/15/23 Seborrheic keratoses(Discharge Diagnosis) - 11/15/23 Rosacea(Discharge Diagnosis) - 11/15/23 History of melanoma(Discharge Diagnosis) - 11/15/23 Discharge Disposition: Home or Self Care Attending Physician: MD Pitts Sara B Referring Physician: MD Pitts Sara B Allergies, Adverse Reactions, Alerts Substance Criticality Severity Reaction Reaction Severity Status Androderm rash Active AndroGel rash Active horse serum 1 unknown Active Testoderm rash Active 1typhoid vaccine Assessment and Plan Extracted from: Title:Dermatology Office Visit Note Author:Vesna bahena MD, Sara B Date:11/15/23 1.Actinic keratoses x5. Lesions treated with liquid nitrogen. Patient aware of possibility of infection, hypo or hyperpigmentation or scarring and did elect to proceed. They should inform me of any problems or recurrences post treatment. Care sheet given. 2.Seborrheic keratoses Chronic, within normal limits today 3.Rosacea Acute and flared. He has gotten a lot of sun lately. Will try MetroCream twice a day. Risk and benefits including irritation discussed. Prescription sent. 4.History of melanoma Warning signs of skin cancer were reviewed. Sun protection reviewed. Follow-up in 12 months, sooner for any changing or growing lesions or acute concerns. I also recommended monthly self skin exams Immunizations Given and Recorded Vaccine Date Status [...] bivalent 3 02/25/22 R ecorded SARS-CoV-2 mRNA ([id number]) 4 09/15/21 Recorded SARS-CoV-2 (COVID-19) mRNA BNT-162b2 [...] 2020-08-10: Historical information-source unspecified 8Result Comment: Muriel Prado Karyn 9Result Comment: 2019-09-20: Historical information-source unspecified 10Result Comment: [11/08/2011] date uncertain Medications apixaban 5 mg oral tablet Start: 09/02/23 11:03:00 AM EDT, 1 tab, PO, bid, Disp# 60 tab, Refills: 0, Last Cr 0.89 ; Wt 92.2kg,Pharmacy: [facility] Start Date: 09/02/23 Stop Date: 10/02/23 Status: Ordered apixaban 5 mg oral tablet Start: 09/02/23 11:04:00 AM EDT, 1 tab, PO, bid, Disp# 180 tab, Refills: 4, Last Cr 0.89 ; Wt 92.2kg, Pharmacy: [facility] Start Date: 09/02/23 Stop Date: 11/25/24 Status: Ordered aspirin 81 mg oral delayed release tablet Start: 09/07/21 9:08:00 AM EDT, 1 tab, PO, Daily Start Date: 09/07/21 Status: Ordered Dulcolax Laxative 5 mg oral delayed release tablet Start: 08/25/22 8:22:00 AM EDT, as needed Start Date: 08/25/22 Status: Ordered ibuprofen Start: 03/02/11 8:01:00 AM EST, 200 mg =, PO, PRN: as needed for pain Start Date: 03/02/11 Status: Ordered losartan 25 mg oral tablet Start: 09/09/22 4:52:00 PM EDT, 1 tab, PO, bid, Disp# 180 tab, Refills: 4, [facility]: [id number] Start Date: 09/09/22 Stop Date: 12/03/23 Status: Ordered MetFORMIN (Eqv-Glucophage XR) 500 mg oral tablet, extended release Start: 04/05/23 11:45:00 AM EST, See Instructions, Disp# 180 tab, Refills: 4, take 2 tablets by mouth once daily with EVENING MEAL, Pharmacy: [facility] Start Date: 04/05/23 Status: Ordered metoprolol succinate 25 mg oral tablet, extended release Start: 07/19/23 10:22:00 AM EDT, 1 tab, PO, qhs, Disp# 90 tab, Refills: 3, Pharmacy: [id number] Start Date: 07/19/23 Status: Ordered MetroCream 0.75% topical cream Start: 11/15/23 9:20:00 AM EDT, 1 appl, topical, bid, Disp# 45 g, Refills: 3, To face once or twice a day, Pharmacy: [facility]/pharmacy #[id number] Start Date: 11/15/23 Status: Ordered rosuvastatin 40 mg oral tablet Start: 01/28/23 1:24:00 PM EDT, 1 tab, PO, qhs, Disp# 90 tab, Refills: 4, Pharmacy: [facility] #[id number] Start Date: 01/28/23 Status: Ordered Mental Status 11/15/23 Barriers to Learning one year None evide nt Mandatory Health Literacy Documentation Yes Health Literacy Communication Barriers N ever Primary Language Peruvian Problem List Condition Confirmation Course Effective Dates Status H ealth Status Informant Actinic keratosis Confirmed Active Aortic valve calcification Confirmed Active Unspecified atrial fibrillation Confirmed 09/02/23 Active Benign essential hypertension Confirmed Active Cataract, bilateral Confirmed Active Occlusion and stenosis of unspecified carotid artery Confirmed 09/02/23 Active Carotid stenosis 1, 2 Confirmed Active [...] adenoma, 0.3 cm; also had same in 2001, with atypia Diagnosis Diagnosis Type Effective Dates Health Status Clinical Service Informant Actinic keratoses Discharge Diagnosis 11/15/23 Seborrheic keratoses Discharge Diagnosis 11/15/23 Rosacea Discharge Diagnosis 11/15/23 History of melanoma Discharge Diagnosis 11/15/23 Procedures Procedure Date Related Diagnosis Body Site Status Right shoulder 1 10/27/22 Complete d Seen by elevator examiner and adjuster 2 08/10/22 Com pleted Shave biopsy and [...] disease. 15all 11 nodes negative 16clear margins 225954: adenoma with atypia. 2001: clear. 18tiny polyp, removed; diverticulosis. Repeat in [address] Marcial 19bladder opening exspanded 20of prostate bed, for rising PSA after radical prostatectomy Social History Social History Type Response Tobacco Former smoker, Cigar s, 0 per day. Stopped age 39 Years. Smoking Status Never smoked cigaret neris Sex Male Sex Representation Male (finding) Dermatology Outpatient Note * MD Hong, Sonja Kraft: PERFORM, MODIFY Event Display: Dermatology Outpt Note Authored Date: Chief Complaint skin check no concerns History of Present Illness The patient is pleasant 82 year-old, male here for skin check. Skin ca hx:a history of MMIS. This was in November of 2011 on the right posterior neck re-excised. Using sun protection.Patient had Mohs surgery for squamous cell on the right lower cheek with Dr. Ball in November 2019. Basal cell treated with electrodesiccation and curettage at biopsy on the right upper back spring 2021 hx prostate ca and biceps tear[1] ROS: 12 point review of systems conducted. Negative for ANDREW/ uncontrolled nausea or vomiting/ dizziness/ vision changes/ speech or swallowing problems/ new cough/ SOB/ diarrhea/ abdominal pain/ MSK pain/ new or concerning moles/ unintended weight loss/ night sweats/ fevers/ chills/ malaise/ swollen lymph nodes. Patient is able to perform the activities of daily living without difficulty. Physical Exam Gen: Well appearing patient, no acute distress. Alert and oriented x3. Good mood. Skin examination completed of face, eyelids, scalp, hair, lips, ears, neck, chest, back, abdomen,upper and lower extremities bilaterally including hands, feet, fingers and toes, fingernails and toenails, pt declined buttocks and groin.Patient has scattered seborrheic keratoses and occasionalbenign- appearing nevi. He has 5 actinic keratoses todayscattered across the lateral temples andcheeks. He does have multiple pustules on his nose at this point consistent with rosacea. Scarsclear without any evidence of recurrent melanoma or skin cancer. No neck, supraclavicular, posterior occipital, axillary or inguinal lymphadenopathy. No hepatosplenomegaly. Assessment/Plan 1.Actinic keratoses x5. Lesions treated with liquid nitrogen. Patient aware of possibility of infection, hypoor hyperpigmentation or scarring and did elect to proceed. They should inform me of any problems or recurrences post treatment. Care sheet given. 2.Seborrheic keratoses Chronic, within normal limits today 3.Rosacea Acute and flared. He has gotten a lot of sun lately. Will try MetroCream twice a day. Risk and benefits including irritation discussed. Prescription sent. 4.History of melanoma Warning signs of skin cancer were reviewed. Sun protection reviewed. Follow-up in 12 months,sooner for any changing or growing lesions or acute concerns. I also recommended monthly self skin exams Problem List/Past Medical History Ongoing Actinic keratosis Aortic dilatation Aortic stenosis, mild Aortic valve calcification Benign essential hypertension Carotid stenosis Cataract, bilateral Changing skin lesion Controlled diabetes mellitus with nephropathy Diverticulosis DYSMETABOLIC SYNDROME X Dysplastic nevus Erectile dysfunction Family history of cerebral aneurysm H/O Malignant melanoma History of adenomatous polyp of colon History of stroke Incontinence of urine MIXED HYPERLIPIDEMIA Nocturia Occlusion and stenosis of unspecified carotid artery OTHER TESTICULAR HYPOFUNCTION Paroxysmal atrial fibrillation Rosacea S/P carotid endarterectomy Seborrheic keratoses Senile hyperkeratosis Skin cyst Skin tag Unspecified atrial fibrillation UNSPECIFIED DISORDER OF JOINT OF SHOULDER REGION UNSPECIFIED HEARING LOSS Weight disorder Wheezing Resolved Aphthous ulcer BMI 29.0-29.9,adult Cough Dysplastic nevus [...] History Right shoulder| Service Date: 10/27/2022Seen by elevator examiner and adjuster| Service Date: 08/10/2022Shavebiopsy and cauterization of skin| [...] tablet), 5 mg= 1 tab, PO, bid apixaban(apixaban 5 mg oral tablet), 5 mg= 1 tab, PO, bid, 4 refills aspirin(aspirin 81 mg oral delayed release tablet), [...] mg= 1 tab, PO, qhs, 3 refills metroNIDAZOLE topical(MetroCream 0.75% topical cream), 1 appl, topical, bid, 3 refills rosuvastatin(rosuvastatin 40 mg oral tablet), 1 tab, PO, qhs Allergies AndroGelrash Androdermrash Testodermrash horse serumunknown Social History Smoking Status Never smoked cigarettes Alcohol - No Risk Use:Current Type:Wine Frequency:1-2 times per week Average drinks per episode in last year:1 Maximum drinks per episode in last year:1 Employment/School Status:Retired, [place] [facility] Exercise - Regular exercise Duration (average number of minutes):60 Times per week:5-6 times/week Self assessment:Excellent condition Exercise type:Walking, Weight lifting - Comments: 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 early dementia? 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 Use:Former smoker [...] Father, Age: 53 Years, Cause: cerebral hemorrhage [1]Office Visit Note; MD Hong, Sonja Kraft 11/10/2022 08:17 EDT Electronic Signature on File Electronically Reviewed/Signed by: Sonja Pitts MD Author Signature Dt/Tm:11/15/2023 09:24 AM Department of Dermatology Electronically Reviewed/Signed by: Sonja Pitts MD Cosigner Signature Dt/Tm: 11/15/2023 09:25 AM Department of Dermatology [facility] Patient Care team information Care Team Personnel Name: MD Sachin, Charles Covarrubias Position: Physician - Family Med Member Role: Lifetime Relationship Address: [address] [place] [address] [place] Name: MD Avalos Christopher Position: Physician - Family Med Member Role: Primary Care Provider Address: [address] [place] [address] [place] Name: SHAINA Tsai Lynn Position: Physician Finish Mender Exempt - Vasc Surg Member Role: Lifetime Relationship Address: [address] [place] [address] [place] Name: MD Jaxon, Benja Covarrubias Position: Physician - Urology Member Role: Lifetime Relationship Address: [address] [place] [id number] Care Team Related Persons Name: ZEFERINO FELIZ"
--- OUTSIDE RECORDS SUMMARY | 2023-12-22 19:08 | External Medical Summary | Continuity of Care Document ---
Author Name Unknown Organization [facility] Address [address] [place] [address] [phone] Care Team Providers Care Automotive Teacher Name Role Phone Zac Avalos Primary Care Physician [phone] Encounter [facility] [id number] Date(s): 07/19/23 - 07/19/[address], [address] [place] [address] [phone] Encounter Diagnosis Afib(Discharge Diagnosis) - 07/19/23 Frequent PVCs(Discharge Diagnosis) - 07/19/23 Anticoagulated(Discharge Diagnosis) - 07/19/23 HTN (hypertension)(Discharge Diagnosis) - 07/19/23 Other premature depolarization(Final) - Anemia, unspecified(Final) - Discharge Disposition: Home or Self Care Attending Physician: JUANCARLOS Olivo Sarah A Referring Physician: MD Paulson Amy L Allergies, Adverse Reactions, Alerts Substance Reaction Severity Status Androderm rash Active AndroGel rash Active horse serum 1 unknown Active Testoderm rash Active 1typhoid vaccine Assessment and Plan Extracted from: Title:Cardiology Office Visit Note Author:JUANCARLOS Paredes rd, Sarah A Date:07/19/23 Impression: 1. Paroxysmal A-fibwith 1.5 hoursdemonstrated on Holter monitor 2. 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 Carotid artery stenosis with history of endarterectomy 5. Remote history of TIA Mr. Burnett feels well andis not having any concerning cardiac symptoms. He is appropriately anticoagulatedgiven his significant [id number] score of 6 which puts him at a 9%risk per year of stroke in setting of A-fib.I added a small dose of metoprololtoday to suppressirregular rhythms including his frequent PVCs. Given that he does not feel any PVCs and he has normalleft ventricular functionhis echo can just be monitoredserially. He does not have any concerning anginal symptoms. His EKG did not show any concerningischemic signsin May. He doeshave mild anemia. Hehas orders pending for iron study, B12, folate tonightasked him to get those drawn today. He is not having anyfrank signs of bleeding. We did discuss avoidingfor pain and using Tylenol instead. If he were to fall and hit his head he would need to be evaluated in the emergency department. His blood pressure is mildly elevated today but this appears to be an outlier. He continues on losartan. He is appropriately on rosuvastatinand aspirin for his history of TIA and carotid artery stenosis. I agreed with his PCP that he should be maintained on aspirin. His lipids were at goal in August. He will return to the clinic in 6 months Immunizations Given and Recorded Vaccine Date Status [...] bivalent 3 02/25/22 R ecorded SARS-CoV-2 mRNA (bqzzunspxhj-smgp-teb) 4 09/15/21 Recorded SARS-CoV-2 (COVID-19) mRNA BNT-162b2 [...] 2020-08-10: Historical information-source unspecified 8Result Comment: [facility]ons[facility] 9Result Comment: 2019-09-20: Historical information-source unspecified 10Result Comment: [11/08/2011] date uncertain Medications apixaban 5 mg oral tablet Start: 06/24/23 14:43:00 EST, 1 tab, PO, bid, Disp# 60 tab, Last Cr 0.89 ; Wt 92.2kg, Pharmacy: [facility]/pharmacy #[id number] Start Date: 06/24/23 Stop Date: 07/24/23 Status: Ordered aspirin 81 mg oral delayed [...] bid, Disp# 180 tab, Refills: 4, Pharmacy: [facility] #[id number] Start Date: 09/09/22 Stop Date: 12/03/23 Status: Ordered MetFORMIN (Eqv-Glucophage XR) 500 mg oral tablet, extended release Start: 04/05/23 11:45:00 EST, See Instructions, Disp# 180 tab, Refills: 4, take 2 tablets by mouth once daily with EVENING MEAL, Pharmacy: [id number] Start Date: 04/05/23 Status: Ordered metoprolol succinate 25 mg oral tablet, extended release Start: 07/19/23 10:22:00 EDT, 1 tab, PO, qhs, Disp# 90 tab, Refills: 3, Pharmacy: [id number] Start Date: 07/19/23 Status: Ordered rosuvastatin 40 mg oral tablet Start: 01/28/23 13:24:00 EDT, 1 tab, PO, qhs, Disp# 90 tab, Refills: 4, Pharmacy: [facility] #[id number] Start Date: 01/28/23 Status: Ordered Mental Status 07/19/23 Barriers to Learning one year None evide nt Mandatory Health Literacy Documentation Yes Health Literacy Communication Barriers N ever Primary Language Kiswahili Problem List Condition Confirmation Course Effective Dates [...] Effective Dates Health Status Clinical Service Informant Afib Discharge Diagnosis 07/19/23 Non-Specified Frequent PVCs Discharge Diagnosis 07/19/23 Non-Specified Anticoagulated Discharge Diagnosis 07/19/23 Non-Specified HTN (hypertension) Discharge Diagnosis 07/19/23 Non-Specified Procedures Procedure Date Related Diagnosis Body Site Status Right shoulder 1 10/27/22 Complete d Seen by denial management representative 2 08/10/22 Com pleted Shave biopsy and [...] disease. 15all 11 nodes negative 16clear margins 650206: adenoma with atypia. 2002: clear. 18tiny polyp, removed; diverticulosis. Repeat in [address] Marcial 19bladder opening exspanded 20of prostate bed, for rising PSA after radical prostatectomy Results Laboratory List Name Date Complete Blood Count (CBC) 07/19/23 Ferritin (FERRITIN) 07/19/23 Folic Acid Level (FOLIC ACID) 07/19/23 Iron Profile (IRON PROFILE) 07/19/23 Vitamin B12 Level (VITAMIN B12) 07/19/23 Most recent to oldest [Reference Range]: 1 MPV [9.0-12.2 fL] 10.8 fL (07/19/23 1:54 PM) RDW [11.5-14.2 %] 14.5 % *HI* (07/19/23 1:54 PM) B12 [211-946 pg/mL] 284 pg/mL (07/19/23 1:54 PM) Iron [50-158 ug/dL] 64 ug/dL (07/19/23 1:54 PM) Ferritin [30.0-400.0 ng/mL] 114.8 ng/mL (07/19/23 1:54 PM) Folate [>7.2 ng/mL] 14.3 ng/mL (07/19/23 1:54 PM) Hct [39-48 %] 37.7 % *LOW* (07/19/23 1:54 PM) Hgb [13.0-17.0 g/dL] 11.9 g/dL *LOW* (07/19/23 1:54 PM) MCH [28-33 pg] 26.8 pg *LOW* (07/19/23 1:54 PM) MCHC [32-36 g/dL] 31.6 g/dL *LOW* (07/19/23 1:54 PM) MCV [81-96 fL] 84.9 fL (07/19/23 1:54 PM) Plts [150-350 K/uL] 214 K/uL (07/19/23 1:54 PM) RBC [4.40-5.60 M/uL] 4.44 M/uL (07/19/23 1:54 PM) Fe Sat [14-50 %] 20 % (07/19/23 1:54 PM) Total IBC [250-400 ug/dL] 320 ug/dL (07/19/23 1:54 PM) Transferrin [200-360 mg/dL] 271 mg/dL (07/19/23 1:54 PM) WBC [4.0-10.4 K/uL] 5.71 K/uL (07/19/23 1:54 PM) Vital Signs Most recent to oldest [Reference Range]: 1 Patient Weight 91 kg (07/19/23 10:00 AM) Heart Rate 64 bpm (07/19/23 10:00 AM) Respiratory Rate 18 br/min (07/19/23 10:00 AM) Blood Pressure 150/80mmHg (07/19/23 10:00 AM) BP Location # 1 Right Arm (07/19/23 10:00 AM) Social History Social History Type Response Tobacco Former smoker, Cigar s, 0 per day. Stopped age 39 Years. Smoking Status Never smoked cigaret neris Sex Male Cardiology Outpatient Note * JUANCARLOS Olivo Sarah A: PERFORM, MODIFY Event Display: Cardiology Outpt Note Authored Date: [id number] Primary Care Provider MD Robbie, Zac Referring Provider MD Khurram, Mary Null Chief Complaint new patient History of Present Illness Mr. Burnett presents for new onset paroxysmalafiband frequent PVCs. He does not feel any palpitations or other symptoms from either the PVCs or the A-fib. He does check his rhythm with his Apple Watch and has had intermittent episodes of A-fib since being diagnosedin May. He is pretty active and lifts weights and does cardio for exercise. 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 Never has any shortness of breath or chest pain. He has been taking Eliquis since the beginning of the month. Nomelena or rosy bleeding. No edema. No weight gain. He does not snore and does not have any daytime sleepiness. 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 Review of Systems All other systems reviewed and negative except as discussed in the HPI Physical Exam Vitals & Measurements HR:64(Monitored) RR:18 BP:150/80 SpO2:97% WT:91.000kg(Dosing) WT:91kg Physical Examination General: Alert and oriented, No acute distress. Respiratory: Lungs are clear to auscultation, Respirations are non-labored. Cardiovascular: Normal rate, Regular rhythm, No murmur, No edema, no carotid bruits to auscultation bilaterally. Integumentary: Warm, Dry, Reedy Neurologic: Alert, Oriented. Cognition and Speech: Speech clear and coherent. Psychiatric: Cooperative, Appropriate mood & affect. Assessment/Plan Impression: 1. Paroxysmal A-fibwith 1.5 hoursdemonstrated on Holter monitor 2. 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 Carotid artery stenosis with history of endarterectomy 5. Remote history of TIA Mr. Burnett feels well andis not having any concerning cardiac symptoms. He is appropriately anticoagulatedgiven his significant [id number] score of 6 which puts him at a 9%risk per year of stroke in setting of A-fib.I added a small dose of metoprololtoday to suppressirregular rhythms including his frequent PVCs. Given that he does not feel any PVCs and he has normalleft ventricular functionhis echo can just be monitoredserially. He does not have any concerning anginal symptoms. His EKG did not show any concerningischemic signsin May. He doeshave mild anemia. Hehas orders pending for iron study, B12, folate tonightasked him to get those drawn today. He is not having anyfrank signs of bleeding. We did discuss avoidingfor pain and using Tylenol instead. If he were to fall and hit his head he would need to be evaluated in the emergency department. His blood pressure is mildly elevated today but this appears to be an outlier. He continues on losartan. He is appropriately on rosuvastatinand aspirin for his history of TIA and carotid artery stenosis. I agreed with his PCP that he should be maintained on aspirin. His lipids were at goal in August. He will return to the clinic in 6 months Problem List/Past Medical History Ongoing Actinic keratosis [...] History Right shoulder| Service Date: 10/27/2022Seen by denial management representative| Service Date: 08/10/2022Shavebiopsy and cauterization of skin| Service Date: 01/09/2023Shave biopsy and cauterization of skin| Service Date: 2Bladder neck incision in the male| Service Date: 01/27/2021MRI of brain and internal auditory canal without contrast| Service Date: 12/17/2020US scan of bladder| Service Date: 11/24/2020ight CEA - Carotid endarterectomy| Service Date: 1Colonoscopy| Service Date: 07/15/2020Mohs micrographic surgery| Service Date: [...] and polypectomy| Service Date: 11/16/2010tonsillectomy| Service Date: 1946rig arm fracture repair as childRadiation therapy treatment [...] Employment/School Status: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 early dementia? 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 Tobacco - No Risk Use:Former smoker Type:Cigars [...] Father, Age: 53 Years, Cause: cerebral hemorrhage Electronic Signature on File CC: Zac Avalos MD [address] [place] [address] Electronically Reviewed/Signed by: JUANCARLOS Townsend Author Signature Dt/Tm:07/19/2023 12:08 PM [facility] Patient Care team information Care Team Personnel Name: MD Stephenson Jonathan D Position: Physician - Family Med Member Role: Lifetime Relationship Address: Address: [address] [place] [address] [place] Name: MD Avalos Christopher Position: Physician - Family Med Member Role: Primary Care Provider Address: Address: [address] [place] [address] [place] Name: SHAINA Tsai Lynn Position: Physician Hog Stomach Preparer Exempt - Vasc Surg Member Role: Lifetime Relationship Address: Address: [address] [place] [address] [place] Name: MD Coates Jay D Position: Physician - Urology Member Role: Lifetime Relationship Address: Address: [address] [place] [id number] [place] Care Team Related Persons Name: ZEFERINO BURNETT Address: home [address] [place] [address], [phone]"
--- OUTSIDE RECORDS SUMMARY | 2023-12-22 19:08 | External Medical Summary | Continuity of Care Document ---
Author Name Unknown Organization [facility] [address] [facility] Address [address] [place] [phone] Care Team Providers Care Faculty Physician Name Role Phone Zac Avalos Primary Care Physician [phone] Encounter [facility] [id number] Date(s): 06/23/23 - 06/23/[address], [address] [place] [address] [phone] Discharge Disposition: Home or Self Care Attending Physician: DO Weaver Jason D Referring Physician: DO Weaver Jason D Allergies, Adverse Reactions, Alerts Substance Reaction Severity Status Androderm rash Active AndroGel rash Active horse serum 1 unknown Active Testoderm rash Active 1typhoid vaccine Immunizations Given and Recorded Vaccine Date Status [...] bivalent 3 02/25/22 R ecorded SARS-CoV-2 mRNA ([id number]) 4 09/15/21 Recorded SARS-CoV-2 (COVID-19) mRNA BNT-162b2 [...] Historical information-source unspecified 8Result Comment: [facility]ons[facility] 9Result Comment: 2019-09-20: Historical information-source unspecified 10Result Comment: [11/08/2011] date uncertain Medications apixaban 5 mg oral tablet Start: 06/24/23 14:43:00 EST, 1 tab, PO, bid, Disp# 60 tab, Last Cr 0.89 ; Wt 92.2kg, Pharmacy: [facility]/pharmacy #[id number] Start Date: 06/24/23 Stop Date: 07/24/23 Status: [...] bid, Disp# 180 tab, Refills: 4, [facility] #[id number] Start Date: 09/09/22 Stop Date: 12/03/23 Status: Ordered MetFORMIN (Eqv-Glucophage XR) 500 mg oral tablet, extended release Start: 04/05/23 11:45:00 EST, See Instructions, Disp# 180 tab, Refills: 4, take 2 tablets by mouth once daily with EVENING MEAL, Pharmacy: [id number] Start Date: 04/05/23 Status: Ordered rosuvastatin 40 mg oral tablet Start: 01/28/23 13:24:00 EDT, 1 tab, PO, qhs, Disp# 90 tab, Refills: 4, [facility]acy: [facility] #[id number] Start Date: 01/28/23 Status: Ordered Problem List Condition Confirmation Course Effective Dates [...] also had same in 2001, with atypia Procedures Procedure Date Related Diagnosis Body Site Status Right shoulder 1 10/27/22 Complete d Seen by dermatology physician assistant 2 08/10/22 Com pleted Shave biopsy and [...] disease. 15all 11 nodes negative 16clear margins 338552: adenoma with atypia. 2002: clear. 18tiny polyp, removed; diverticulosis. Repeat in [address] Marcial 19bladder opening exspanded 20of prostate bed, for rising PSA after radical prostatectomy Social History Social History Type Response Tobacco Former smoker, Cigar s, 0 per day. Stopped age 39 Years. Smoking Status Former Smoker, quit > 1 yr Sex Male Patient Care team information Care Team Personnel Name: MD Sachin, Charles Covarrubias Position: Physician - Family Med Member Role: Lifetime Relationship Address: Address: [address] [place] [address] [place] Name: MD Avalos Christopher Position: Physician - Family Med Member Role: Primary Care Provider Address: Address: [address] [place] [address] [place] Name: SHAINA Tsai Lynn Position: Physician Office Helper Clerical Exempt - Vasc Surg Member Role: Lifetime Relationship Address: Address: [address] [place] [phone] [place] Name: MD Jaxon, Benja Covarrubias Position: Physician - Urology Member Role: Lifetime Relationship Address: Address: [address] [place] [phone] [place] Care Team Related Persons Name: ZEFERINO FELIZ Address: home [address] [place] [phone]
--- OUTSIDE RECORDS SUMMARY | 2023-12-22 19:08 | External Medical Summary | Continuity of Care Document ---
Author Name Unknown Organization [place] [address] [facility] Address [address] [place] [id number] Care Team Providers Care Senior Analysis Specialist Name Role Phone Zac Avalos Primary Care Physician [phone] Encounter [facility] [id number] Date(s): 09/21/23 - 09/21/[address], [address] [place] [address] [phone] Discharge Disposition: Home or Self Care Attending Physician: JUANCARLOS Olivo Sarah A Referring Physician: JUANCARLOS Olivo Sarah A Allergies, Adverse Reactions, Alerts Substance Criticality Severity Reaction Reaction Severity Status Androderm rash Active AndroGel rash Active Testoderm rash Active horse serum 1 unknown Active 1typhoid vaccine Immunizations Given and Recorded [...] bivalent 3 02/25/22 R ecorded SARS-CoV-2 mRNA ([id number]) 4 09/15/21 Recorded SARS-CoV-2 (COVID-19) mRNA BNT-162b2 [...] Historical information-source unspecified 8Result Comment: Muriel Prado [place] 9Result Comment: 2019-09-20: Historical information-source unspecified 10Result Comment: [11/08/2011] date uncertain Medications apixaban 5 mg oral tablet Start: 09/02/23 11:03:00 AM EDT, 1 tab, PO, bid, Disp# 60 tab, Refills: 0, Last Cr 0.89 ; Wt 92.2kg,Pharmacy: [email or web address] Start Date: 09/02/23 Stop Date: 10/02/23 Status: Ordered apixaban 5 mg oral tablet Start: 09/02/23 11:04:00 AM EDT, 1 tab, PO, bid, Disp# 180 tab, Refills: 4, Last Cr 0.89 ; Wt 92.2kg, Pharmacy: [id number] Start Date: 09/02/23 Stop Date: 11/25/24 Status: [...] bid, Disp# 180 tab, Refills: 4, Pharmacy: [facility] #[id number] Start Date: 09/09/22 Stop Date: 12/03/23 Status: Ordered MetFORMIN (Eqv-Glucophage XR) 500 mg oral tablet, extended release Start: 04/05/23 11:45:00 AM EST, See Instructions, Disp# 180 tab, Refills: 4, take 2 tablets by mouth once daily with EVENING MEAL, Pharmacy: [facility] Start Date: 04/05/23 Status: Ordered metoprolol succinate 25 mg oral tablet, extended release Start: 07/19/23 10:22:00 AM EDT, 1 tab, PO, qhs, Disp# 90 tab, Refills: 3, Pharmacy: [email or web address] Start Date: 07/19/23 Status: Ordered rosuvastatin 40 mg oral tablet Start: 01/28/23 1:24:00 PM EDT, 1 tab, PO, qhs, Disp# 90 tab, Refills: 4, Pharmacy: [facility] #[id number] Start Date: 01/28/23 Status: Ordered Problem List [...] shoulder 1 10/27/22 Complete d Seen by network field engineer 2 08/10/22 Com pleted Shave biopsy and [...] and polypectomy 17, 18 11/16/10 Completed tonsillectomy 194 Completed Procedure 19 Completed Radiation therapy treatment [...] disease. 15all 11 nodes negative 16clear margins [id number]: adenoma with atypia. 2002: clear. 18tiny polyp, removed; diverticulosis. Repeat in [address] Marcial 19bladder opening exspanded 20of prostate bed, for rising PSA after radical prostatectomy Results Radiology Reports * Exam Date Time Procedure Performing Provider Status 09/21/23 9:40 AM Echo TransTHORacic TTE Complete Celeste Turk; Final Notes: (Echo TransTHORacic TTE Complete) Reason For Exam: frequent pvcs, afib Echo TransTHORacic TTE Complete Report Signatures Finalized by Dr. Alex Weaver MD on 09/22/2023 12:41 PM [place] Act 112: No-No further action needed Summary 1. Small left ventricular size for BSA. 2. Normal left ventricular systolic function with no regional wall motion abnormalities. Ejection fraction as calculated by Biplane Simpsons method is 65-70%. 3. Mild concentric left ventricular hypertrophy. 4. Grade I diastolic dysfunction of the left ventricle (impaired relaxation pattern) with normal left atrial pressure. 5. Normal right ventricular size and function. 6. Normal biatrial size. 7. The ascending aorta is dilated, measuring 4.2 cm with an index of 1.97 cm/m2. 8. Calcified, tricuspid aortic valve with mild aortic stenosis (LVOT/AV ratio 0.48). Trivial aortic insufficiency. 9. All other valves are unremarkable. 10. Insufficient data for estimation of pulmonary artery systolic pressures. 11. Compared to the previous study performed 10/05/2022, there is no significant change. Patient Info Name: RED FELIZ Age: 82 years : 1940 Gender: Male Ht: 183 cm Wt: 88 kg BSA: 2.12 m2 HR: 55 bpm BP: 116 / 70 mmHg Heart Rhythm: Frequent PACs, Sinus Bradycardia Technical Quality: Fair Exam Date: 09/21/2023 8:55 AM Exam Location: [facility] Patient Status: Outpatient Staff Ordering Physician: Jesenia Olivo Casting Machine Service Operator: Celeste Turk RDCS, T Attending Physician: Jesenia Olivo Study Info CPT 49774 - Indications I480 - Atrial fibrillation Procedure(s) * A complete two-dimensional, color flow and Doppler transthoracic echocardiogram was performed. Exam Type: Cardiac Basic Left Ventricle Small left ventricular size for BSA. Normal left ventricular systolic function with no regional wall motion abnormalities. Ejection fraction as calculated by Biplane Simpsons method is 65-70%. Mild concentric left ventricular hypertrophy. Grade I diastolic dysfunction of the left ventricle (impaired relaxation pattern) with normal left atrial pressure. Right Ventricle Normal right ventricular size and function. TAPSE is normal, 1.9 cm. Left Atrium Normal left atrial size. Right Atrium Normal right atrial size. Atrial Septum Lipomatous hypertrophy of the atrial septum. Appears intact. Aortic Valve Calcified, tricuspid aortic valve with mild aortic stenosis (LVOT/AV ratio 0.48). Trivial aortic insufficiency. Pulmonic Valve Unremarkable pulmonic valve. Mitral Valve Unremarkable mitral valve. Tricuspid Valve Unremarkable tricuspid valve. Insufficient TR for estimation of pulmonary artery systolic pressure. Pericardium/Pleural No pericardial effusion. Inferior Vena Cava Normal IVC size and inspiratory collapse. Estimated right atrial pressure is 3 mmHg. Aorta Calcified aortic root. Normal aortic root size. The ascending aorta is dilated, measuring 4.2 cm with an index of 1.97 cm/m2. Normal aortic arch. Left Ventricular Outflow Tract Name Value Normal LVOT 2D LVOT Diameter 2.2 cm LVOT Doppler LVOT Peak Velocity 1.24 m/s LVOT Mean Gradient 3 mmHg LVOT VTI 26.70 cm LVOT VTI/AV VTI Ratio 0.46 LVOT Stroke Volume 101.26 ml LVOT Stroke Volume Index 0.05 l/m2 LVOT Cardiac Output 5.57 l/min LVOT Cardiac Index 2.63 L/min/m2 Pulmonic Valve Name Value Normal PV 2D RVOT Diameter (2D) 2.4 cm 1.7-2.7 RVOT Doppler RVOT Peak Velocity 0.63 m/s RVOT Peak Gradient 2 mmHg PV Doppler PV Peak Gradient 3 mmHg Mitral Valve Name Value Normal MV Doppler MV PHT 70 ms MV Diastolic Function MV E Peak Velocity 0.73 m/s <=0.50 MV A Peak Velocity 0.90 m/s MV E/A 0.81 <=0.80 MV Decel Time 240 ms MV Annular TDI MV Septal s' Velocity 7.89 cm/s MV Septal e' Velocity 6.83 cm/s >=7.00 MV E/e' (Septal) 10.7 <=8.0 MV Lateral s' Velocity 10.40 cm/s MV Lateral e' Velocity 9.14 cm/s >=10.00 MV E/e' (Lateral) 7.96 <=8.00 MV e' Average 7.99 MV E/e' (Average) 9.31 <=14.00 Tricuspid Valve Name Value Normal Estimated PAP/RSVP RA Pressure 3 mmHg <=5 TV Diastolic Function TV E Peak Velocity 0.55 m/s TV A Peak Velocity 0.33 m/s TV E/A 1.69 0.80-2.00 TV Decel Time 253 ms >=120 TV Annular TDI TV Lateral Suzie s' Velocity 15.5 cm/s 9.5-18.7 TV Lateral Suzie e' Velocity 7.0 cm/s <7.8 TV E/e' 7.89 2.00-6.00 Aorta Name Value Normal Ascending Aorta Sinus of Valsalva Diameter 3.5 cm 3.1-3.7 Sinus of Valsalva Index 1.67 cm/m2 1.50-1.90 Prox Asc Ao Diameter 4.2 cm 2.6-3.4 Prox Asc Ao Diameter Index 1.97 cm/m2 1.30-1.70 Thoracic Aorta Ao Arch Diameter 3.1 cm Desc Ao Peak Velocity 0.51 m/s Desc Ao Peak Gradient 1 mmHg Venous Name Value Normal IVC/SVC IVC Diameter (Insp 2D) 0.4 cm IVC Diameter (Exp 2D) 2.0 cm <=2.1 IVC Diameter Percent Change (2D) 80 % >=50 Aortic Valve Name Value Normal AV Doppler AV Peak Velocity 2.53 m/s <2.00 AV Mean Gradient 15 mmHg <20 AV VTI 58.20 cm AV Area (Cont Eq VTI) 1.7 cm2 >=2.0 AV Area Index (Cont Eq VTI) 0.82 cm2/m2 AV Area (Cont Eq Joel) 1.9 cm2 AV Area Index (Cont Eq Joel) 0.88 cm2/m2 AV V1/V2 Ratio 0.49 AV Regurgitation 2D LVOT Area 3.8 cm2 Ventricles Name Value Normal LV Dimensions 2D/MM IVS Diastolic Thickness (2D) 1.2 cm 0.6-1.0 LVID Diastole (2D) 3.3 cm 3.6-5.6 LVIW Diastolic Thickness (2D) 1.1 cm 0.6-1.0 LVID Systole (2D) 1.7 cm 2.5-4.0 LVOT Diameter 2.2 cm LV Mass (2D Cubed) 115.05 g 88.00-224.00 LV Mass Index (2D Cubed) 0.01 g/cm2 0.00-0.01 Relative Wall Thickness (2D) 0.65 LV Fractional Shortening/Ejection Fraction 2D/MM LV Diastolic Volume (4C MOD) 65 ml LV Diastolic Volume (2C MOD) 76 ml LV Diastolic Volume (BP MOD) 69 ml 62-150 LV Diastolic Volume Index (BP MOD) 32.54 ml/m2 34.00-74.00 LV Systolic Volume (BP MOD) 22 ml 21-61 LV Systolic Volume Index (BP MOD) 10.29 ml/m2 11.00-31.00 LV EF (BP MOD) 68 % 57-68 LV SV (BP MOD) 47.17 ml RV Dimensions 2D/MM RV Basal Diastolic Dimension 3.3 cm 2.5-4.1 TAPSE 1.9 cm >=1.7 Atria Name Value Normal LA Dimensions LA Area (4C) 17.7 cm2 LA Length (4C) 5.9 cm LA Area (2C) 18.3 cm2 LA Length (2C) 5.7 cm LA Volume (4C A-L) 45.22 ml LA Volume (2C A-L) 50.05 ml LA Volume (BP A-L) 48 ml 18-58 LA Volume Index (BP A-L) 22.76 ml/m2 <=34.00 RA Dimensions RA Area (4C) 15.7 cm2 <=18.0 Final Signed by:DO Weaver Jason D Signed (Electronic Signature):09/21/2023 8:55 a Social History Social History Type Response Tobacco Former smoker, Cigar s, 0 per day. Stopped age 39 Years. Smoking Status Never smoked cigaret neris Sex Male Patient Care team information Care Team Personnel Name: MD Stephenson Jonathan D Position: Physician - Family Med Member Role: Lifetime Relationship Address: Address: [address] [place] [address] Name: MD Avalos Christopher Position: Physician - Family Med Member Role: Primary Care Provider Address: Address: [address] [place] [address] [place] Name: SHAINA Tsai Lynn Position: Physician Lay Up Operator Exempt - Vasc Surg Member Role: Lifetime Relationship Address: Address: [address] [place] [address], [place] [address] Name: MD Coates Jay D Position: Physician - Urology Member Role: Lifetime Relationship Address: Address: [address] [place] [id number] Care Team Related Persons Name: ZEFERINO FELIZ Address: home [address] [place] [phone]
[2023-12-22] MEDS ORDERED: GLUCOSE 10 TAB/TUBE PO PRN (19:36)
[2023-12-22] MEDS ORDERED: CARBOHYDRATES FOR HYPOGLYCEMIA PO PRN (19:36)
[2023-12-22] MEDS ORDERED: GLUCAGON FOR INJ 1 MG VIAL SQ PRN (19:36)
[2023-12-22] MEDS ORDERED: ACETAMINOPHEN 325 MG TAB PO PRN (19:36)
[2023-12-22] MEDS ORDERED: DEXTROSE 50% 50 ML SYRINGE IV PRN (19:36)
[2023-12-22] MEDS ORDERED: bisacodyL 5 MG TABEC PO PRN (19:36)
[2023-12-22] MEDS ORDERED: GLUCOSE 40% GEL 15 GM TUBE PO PRN (19:36)
[2023-12-22] MEDS: APIXABAN 2.5 MG TAB PO SCH (20:34)
[2023-12-22] MEDS: ROSUVASTATIN CALCIUM 20 MG TAB PO SCH (20:35)
[2023-12-22] MEDS: ASPIRIN 81 MG ECTAB PO SCH (20:35)
[2023-12-22] MEDS: METOPROLOL SUCC 25MG EXT REL TAB PO SCH (20:36)
[2023-12-22] MEDS: INSULIN ASPART PER UNIT CHARGE SC SCH (20:37)
[2023-12-22 21:40] LABS: Ferritin 197.8 ng/ml (8-388)
[2023-12-23] MEDS: METOPROLOL TARTRATE 1 MG/ML VIAL IV PRN (04:10)
[2023-12-23 06:17] LABS: Basophils # (auto) 0.01 K/uL (0.00-0.20); Basophils % (auto) 0.1 %; Hematocrit (blood only) 34.9 % (42.0-52.0); Hemoglobin 11.3 g/dl (14.0-18.0); Immature Granulocytes # (auto) 0.06 K/uL (0.01-0.20); Immature Granulocytes % (auto) 0.7 %; Lymphocytes # (auto) 0.51 K/uL (1.20-3.40); Lymphocytes % (auto) 5.5 %; Mean Corpuscular Hemoglobin 24.9 pg (25.0-34.0); Mean Corpuscular Hgb Conc 32.4 g/dL (32.0-36.0); Mean Corpuscular Volume 76.9 fL (80.0-100.0); Mean Platelet Volume 9.4 fL (9.4-12.4); Monocytes # (auto) 1.24 K/uL (0.11-0.59); Monocytes % (auto) 13.5 %; Neutrophils # (auto) 7.37 K/uL (1.40-6.50); Neutrophils % (auto) 80.2 %; Platelet Count 270 K/uL (130-400); RDW Coefficient of Variation 16.1 % (11.5-14.5); RDW Standard Deviation 44.9 fL (36.4-46.3); Red Blood Count 4.54 M/uL (4.70-6.10); White Blood Count 9.19 K/ul (4.8-10.8)
[2023-12-23 06:46] LABS: Albumin Globulin Ratio 1.2 (0.9-2); Albumin Level 3.7 gm/dl (3.4-5.0); BUN Creatinine Ratio 17.8 (10-20); Bilirubin,Total 0.9 mg/dl (0.2-1.0); Calcium 8.6 mg/dl (8.6-10.3); Creatinine Clr Calc Pharmacy 23.4 ml/min; Est GFR (African American) 22.4 ml/min; Est GFR (Non-African American) 19.3 ml/min; Globulin 3.2 gm/dl (2.5-4.0); Magnesium 2.6 mg/dl (1.7-2.4); Potassium 5.4 mmol/L (3.5-5.1); Total Protein 6.9 gm/dl (6.0-8.3)
[2023-12-23 08:11] LABS: Estimated Average Glucose 169 mg/dl; Hemoglobin A1C 7.5 % (4.5-5.6)
[2023-12-23] MEDS: METOPROLOL SUCC 25MG EXT REL TAB PO SCH (10:38)
[2023-12-23] MEDS: SODIUM ZIRCONIUM CYCLOSILICATE 10 GM PACKET PO SCH (10:40)
--- NOTE | 2023-12-23 11:21 | Nephrology Consultation ---
Date of Consultation December 23, 2023 Assessment & Plan (1) JULIEN (acute kidney injury): * JULIEN/CKD likely due to impaired renal perfusion related to CHF * Losartan and metformin have been held * Urinalysis with microscopy has been ordered to assess for ATN casts * Patient is awaiting noncontrast abdominal CT to rule out postobstructive causes. Will await results * Patient has mild hyperkalemia. Lokelma has been provided by primary service * No acute indication for hemodialysis at this time. Monitor daily BMP, UO, weight * Patient appears clinically hypervolemic. He has 1+ pretibial pitting edema. Will order Lasix 40 mg IV x 1 (2) Chronic kidney disease, stage II (mild): * CKD stage G2 (mild impairment). Baseline creatinine 0.91.2 w/ EGFR 60 cc/minute (mild impairment). Renal impairment is likely on the basis of microvascular disease (3) Hyponatremia: * Hyperosmolar hyponatremia on the basis of impaired renal perfusion associated with congestive heart failure. Will provide diuretic therapy and monitor serum sodium (4) Hyperkalemia: * Mild. Lokelma as per primary service (5) Congestive heart failure: * Patient has chronic atrial fibrillation and is on apixaban therapy. He now has RVR * Will order follow-up troponin * Await echocardiogram results * Recommend consultation with cardiology * Diuresis with IV furosemide has been ordered (6) Anemia: * Mild, chronic anemia with hemoglobin 1112.6 dating back to at least 2020. This remained stable at this time. No acute indication for JEYSON therapy. (7) Prostate cancer: * Metastatic prostate cancer s/p radical prostatectomy 03/08/2011 followed by antiandrogen and radiation therapy (8) Transaminitis: * Possibly related to CHF * Recommend holding rosuvastatin if not already done. * Will order CPK to check for possible rhabdomyolysis History of Present Illness Reason for Consultation: JULIEN/CKD Attending Physician: Chelo Agustin MD History of Present Illness Mr. Burnett is an 83-year-old white male who was seen at the request of the [facility] hospitalist service for evaluation of JULIEN/CKD. Information for the HPI is obtained from direct patient interview and review of the EMR. HPI is summarized as follows: Mr. Burnett has stage G2 CKD (mild impairment). His baseline creatinine has been 0.91.2 w/ EGFR 60 cc/minute (mild impairment). He has not undergone nephrology evaluation in the past. He has medical history is significant for prostate cancer s/p radical prostatectomy 03/08/2011, recurrent prostate cancer 12/2017 with evidence of spread to pelvic lymph nodes. Patient was treated with androgen deprivation therapy and salvage radiation therapy. He completed radiation therapy 05/19/2018. He suffers from urinary stress incontinence. Mr. Burnett's medical history is also significant for hypertension, adult onset diabetes mellitus, peripheral vascular disease status post right carotid endarterectomy. Mr. Burnett states that over the last 5 days he has suffered progressive fatigue and dyspnea on exertion. There has been no associated fever, cough, angina, abdominal pain or change in bowel habit. Mr. Burnett reports that he has been passing his water without difficulty. He has had no recent ill contacts. COVID testing at home was negative. 12/22/2023 [facility] E MD evaluation revealed mild hypotension with blood pressure 91/55, tachycardia with heart rate ranging 106- 129 bpm. ECG revealed atrial fibrillation with RVR 120 bpm. Nonspecific T wave abnormalities in the inferior and lateral leads. Initial troponin within normal limits at 10.5. BNP mildly elevated 123. AST 275 ALT 201. Creatinine 2.86, potassium 5.4. Chest x-ray revealed mild cardiomegaly with interstitial edema and trace bilateral pleural effusions. Mr. Burnett received 40 mg furosemide IV x 1 while in the emergency department. Urine output has not yet been documented. Hospitalist service has ordered Lokelma for management of hyperkalemia. Patient has been scheduled for a noncontrast abdominal CT to assess the cause of his elevated liver enzymes and JULIEN/CKD. Echocardiogram has been ordered and is currently pending. Allergies Allergy/AdvReac Type Severity Reaction Status Date / Time No Known Drug Allergies Allergy Verified 05/24/23 14:51 Home Medications Medication Instructions Recorded Confirmed Type ibuprofen 200 mg capsule 200 mg PO QID PRN Pain 11/28/18 12/22/23 History rosuvastatin 40 mg tablet 40 mg PO HS 12/28/19 12/22/23 History bisacodyl 5 mg tablet,delayed 5 mg PO HS PRN Constipation 07/02/20 12/22/23 History release (Dulcolax (bisacodyl)) metformin 500 mg tablet 1,000 mg PO HS 07/02/20 12/22/23 History aspirin 81 mg tablet,delayed 81 mg PO HS 11/28/20 12/22/23 History release apixaban 5 mg tablet (Eliquis) 5 mg PO BID 12/22/23 12/22/23 History losartan 25 mg tablet 25 mg PO BID 12/22/23 12/22/23 History metoprolol succinate 25 mg 25 mg PO HS 12/22/23 12/22/23 History tablet,extended release 24 hr metronidazole 0.75 % topical cream 1 applic topical .1-2X DAILY PRN 12/22/23 12/22/23 History Other Patient History Medical History (Updated 12/23/23 @ 11:37 by Napoleon Lockhart MD) Diabetes mellitus, type 2 NIDDM Well controlled per patient Transient ischemic attack (TIA) Questionable in 2016- possibly related to previous right ICA disease- s/p CEA July 2020 Hard of hearing Lt- no hearing aid needed Cardiac murmur Dx as a child; PCP monitoring History of prostate cancer s/p sx, radiation History of 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 Father No problems noted. Sister No problems noted. Sister No problems noted. Son No problems noted. Son No problems noted. Daughter No problems noted. 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 [employer] Feels Safe at Home: Yes caffeine: Yes (1-2 cups of coffee/day ) during the past year weight has: decreased > 10 lbs Assistive Devices: Glasses Review of Systems Constitutional: no fever Eyes: no problem reported Ear, Nose, Mouth, Throat: no problem reported Respiratory: + cough and + dyspnea on exertion Cardiovascular: no chest pain Gastrointestinal: no abdominal pain, no nausea, no vomiting and no diarrhea/loose stools Genitourinary: no dysuria, no hematuria or no flank pain Integumentary: no rash Neurologic: no confusion Physical Exam Constitutional: not in distress Eyes: PERRL, conjunctivae normal, anicteric sclerae ENMT: external ear and nose normal, oropharynx normal Neck: trachea midline, no thyromegaly (R CEA scar) Respiratory: + audible wheezes; no respiratory distre ss Cardiovascular: Rate/Rhythm: + tachycardic and + irregularly irregular Extremities: + edema (1+ pretibial pitting edema) Gastrointestinal (Abdomen): Inspection/Auscultation: + abdomen distended and + hypoactive bowel sounds Percussion/Palpation: abdomen nontender and no guarding Musculoskeletal: Extremities: no cyanosis Neurologic: Speech / Cognition: normal speech and normal cognition Psychiatric: Affect: euthymic affect Results & Data Vital Signs (Past 12 Hours) Vital Signs Temp Pulse Pulse Resp BP BP Pulse Ox 12/23/23 10:37 110 H 113/68 12/23/23 07:59 12/23/23 07:49 36.7 C 113 H 20 107/78 93 12/23/23 07:40 117 H 12/23/23 04:38 113 H 91/55 L 12/23/23 04:10 135 H 116/80 12/23/23 04:07 135 H 116/80 12/23/23 02:39 36.6 C 115 H 18 121/85 92 O2 Del Method 12/23/23 10:37 12/23/23 07:59 Room Air 12/23/23 07:49 Room Air 12/23/23 07:40 12/23/23 04:38 12/23/23 04:10 12/23/23 04:07 12/23/23 02:39 Room Air Laboratory Results Laboratory Results WBC 9.19 K/ul (4.8-10.8) 12/23/23 05:50 RBC 4.54 M/uL (4.70-6.10) L 12/23/23 05:50 Hgb 11.3 g/dl (14.0-18.0) L 12/23/23 05:50 Hct 34.9 % (42.0-52.0) L 12/23/23 05:50 MCV 76.9 fL (80.0-100.0) L 12/23/23 05:50 MCH 24.9 pg (25.0-34.0) L 12/23/23 05:50 MCHC 32.4 g/dL (32.0-36.0) 12/23/23 05:50 RDW Std Deviation 44.9 fL (36.4-46.3) 12/23/23 05:50 RDW Coeff of Milvia 16.1 % (11.5-14.5) H 12/23/23 05:50 Plt Count 270 K/uL (130-400) 12/23/23 05:50 MPV 9.4 fL (9.4-12.4) 12/23/23 05:50 Immature Gran % (Auto) 0.7 % 12/23/23 05:50 Neut % (Auto) 80.2 % 12/23/23 05:50 Lymph % (Auto) 5.5 % 12/23/23 05:50 [place] % (Auto) 13.5 % 12/23/23 05:50 Eos % (Auto) 0.0 % 12/23/23 05:50 Baso % (Auto) 0.1 % 12/23/23 05:50 Neut # (Auto) 7.37 K/uL (1.40-6.50) H 12/23/23 05:50 Lymph # (Auto) 0.51 K/uL (1.20-3.40) L 12/23/23 05:50 [place] # (Auto) 1.24 K/uL (0.11-0.59) H 12/23/23 05:50 Eos # (Auto) 0.00 K/uL (0.00-0.50) 12/23/23 05:50 Baso # (Auto) 0.01 K/uL (0.00-0.20) 12/23/23 05:50 Immature Gran # (Auto) 0.06 K/uL (0.01-0.20) 12/23/23 05:50 PT 15.9 Seconds (9.0-12.0) H 12/22/23 14:30 INR 1.5 (0.9-1.1) H 12/22/23 14:30 APTT 41 Seconds (21-31) H 12/22/23 14:30 PTT Ratio 1.5 12/22/23 14:30 Sodium 129 mmol/L (136-145) L 12/23/23 05:50 Potassium 5.4 mmol/L (3.5-5.1) H 12/23/23 05:50 Chloride 96 mmol/L (98-107) L 12/23/23 05:50 Carbon Dioxide 23 mmol/L (21-32) 12/23/23 05:50 Anion Gap 10 (3-11) 12/23/23 05:50 BUN 51 mg/dl (6-23) H 12/23/23 05:50 Creatinine 2.86 mg/dl (0.6-1.4) H D 12/23/23 05:50 Est Cr Clr Drug Dosing 23.4 ml/min 12/23/23 05:50 Est GFR ( Amer) 22.4 ml/min 12/23/23 05:50 Est GFR (Non-Af Amer) 19.3 ml/min 12/23/23 05:50 BUN/Creatinine Ratio 17.8 (10-20) 12/23/23 05:50 Glucose 162 mg/dl (70-99(Fasting)) H 12/23/23 05:50 POC Glucose 167 mg/dl (70-99) H 12/23/23 07:30 Estimat Average Glucose 169 mg/dl 12/23/23 05:50 Hemoglobin A1c 7.5 % (4.5-5.6) H 12/23/23 05:50 Calcium 8.6 mg/dl (8.6-10.3) 12/23/23 05:50 Magnesium 2.6 mg/dl (1.7-2.4) H 12/23/23 05:50 Iron 23 mcg/dl (35-175) L 12/22/23 14:30 TIBC 329 mcg/dl (250-450) 12/22/23 14:30 Unsaturated IBC 306 mcg/dl (155-355) 12/22/23 14:30 Transferrin % Sat 7 % (20-50) L 12/22/23 14:30 Ferritin 197.8 ng/ml (8-388) 12/22/23 14:30 Total Bilirubin 0.9 mg/dl (0.2-1.0) 12/23/23 05:50 AST 275 U/L (13-39) H 12/23/23 05:50 ALT 201 U/L (7-52) H 12/23/23 05:50 Alkaline Phosphatase 278 U/L (34-104) H 12/23/23 05:50 Troponin I High Sens 10.5 pg/ml (0-20) 12/22/23 14:30 B-Natriuretic Peptide 123 pg/ml (0-100) H 12/22/23 14:30 Total Protein 6.9 gm/dl (6.0-8.3) 12/23/23 05:50 Albumin 3.7 gm/dl (3.4-5.0) 12/23/23 05:50 Globulin 3.2 gm/dl (2.5-4.0) 12/23/23 05:50 Albumin/Globulin Ratio 1.2 (0.9-2) 12/23/23 05:50 TSH 3.795 uIu/ml (0.300-4.500) 12/22/23 14:30 Adenovirus (PCR) Not Detected (NotDetected) 12/22/23 12:57 Anaplasma Smear See Comment 12/22/23 14:30 Babesia Smear See Comment 12/22/23 14:30 B. pertussis DNA (PCR) Not Detected (NotDetected) 12/22/23 12:57 B.parapertussis DNA PCR Not Detected (NotDetected) 12/22/23 12:57 Lyme Disease Screen Negative (Negative) 12/22/23 14:30 C. pneumoniae DNA (PCR) Not Detected (NotDetected) 12/22/23 12:57 Coronavirus OC43 (PCR) Not Detected (NotDetected) 12/22/23 12:57 Coronavirus HKU1 (PCR) Not Detected (NotDetected) 12/22/23 12:57 Coronavirus 229E (PCR) Not Detected (NotDetected) 12/22/23 12:57 SARS-CoV-2 (PCR) Not Detected (NotDetected) 12/22/23 12:57 Coronavirus NL63 (PCR) Not Detected (NotDetected) 12/22/23 12:57 Human Metapneumovir PCR Not Detected (NotDetected) 12/22/23 12:57 Influenza Type A (PCR) Not Detected (NotDetected) 12/22/23 12:57 Influenza Type B (PCR) Not Detected (NotDetected) 12/22/23 12:57 M. pneumoniae (PCR) Not Detected (NotDetected) 12/22/23 12:57 Parainfluenza 1 (PCR) Not Detected (NotDetected) 12/22/23 12:57 Parainfluenza 2 (PCR) Not Detected (NotDetected) 12/22/23 12:57 Parainfluenza 3 (PCR) Not Detected (NotDetected) 12/22/23 12:57 Parainfluenza 4 (PCR) Not Detected (NotDetected) 12/22/23 12:57 RSV (PCR) Not Detected (NotDetected) 12/22/23 12:57 Entero/Rhino (PCR) Not Detected (NotDetected) 12/22/23 12:57 Impressions Chest X-Ray 12/22/23 12:35 XR chest 1V portable HISTORY: Chest pain, nonspecific COMPARISON: Chest 07/16/2020. FINDINGS: There are low lung volumes with mild elevation of the right hemidiaphragm. This is similar to the prior study. The heart is mildly enlarged. Interstitial/vascular thickening has progressed and is consistent with mild pulmonary edema. Right basilar linear densities are nonspecific but favor subsegmental atelectasis. No acute fractures. Stable sclerotic focus within the left humeral neck. No pneumothorax. Suspect trace bilateral pleural effusions. IMPRESSION: Mild cardiomegaly with mild interstitial pulmonary edema and trace bilateral pleural effusions. ACT 112: Negative or not required by law. Electronically signed by: Benito Choudhury M.D. 12/22/2023 3:04 PM PG Care Time/CCT Total # of Minutes Spent Total Time Spent with Patient: Total time spent is greater than 50% in coordination of care (as documented) at patient's floor/unit and/or counseling patient: Coding Level of Care Code 71257 IN/OBS CONSULT LVL 5,80M Diagnoses JULIEN (acute kidney injury) N17.9 Chronic kidney disease, stage II (mild) N18.2 Hyponatremia E87.1 Hyperkalemia E87.5 Congestive heart failure I50.9 Anemia D64.9 Prostate cancer C61 Transaminitis R74.01
[2023-12-23] MEDS: FUROSEMIDE 40 MG/4 ML VIAL IV ONE (12:15)
[2023-12-23 12:24] LABS: Troponin I High Sensitivity 20.4 pg/ml (0-20)
--- NOTE | 2023-12-23 13:35 | CT Scan Report ---
ABDOMEN AND PELVIS CT WITHOUT CONTRAST CT DOSE: 1514.25 mGy.cm HISTORY: elevated LFTs,acute kidney injury TECHNIQUE: Multiaxial CT images of the abdomen and pelvis were performed without contrast. A dose lo wering technique was utilized adhering to the principles of ALARA. COMPARISON STUDY: Abdominal CT 06/27/2017. Pelvis MRI 06/29/2017. FINDINGS: Small right and small to moderate left pleural effusions. There is a small pericardial effu valentín with mild thickening of the pericardial lining. This raises the possibility of a pericarditis. S mall focal areas of calcification within the pericardium posteriorly. Consolidation within the lower lungs posteriorly favor compressive atelectasis from the pleural effusions. A mild pneumonitis also r emains in the differential diagnosis. No pneumoperitoneum. No pneumatosis. No acute fractures. Mild b oliver wall edema noted. Small medial diverticulum is present. There is a punctate stone within the gall bladder. No gallbladder wall thickening. Nodular contour to the liver consistent with cirrhosis. Ther e are few punctate calcified granulomas within the spleen. The adrenal glands and pancreas are unrema rkable. No renal stones or hydronephrosis. Focal cortical scarring within the right kidney. Mild bila teral perinephric edema and mild periportal edema. This is likely chronic. Calcified plaque within th e normal caliber abdominal aorta. No retroperitoneal or pelvic lymphadenopathy. Trace ascites within the pelvis. The bladder is decompressed and not well evaluated. Prior prostatectomy. Mild presacral e bridget is noted. Colonic diverticulosis. No evidence for acute diverticulitis. Suboptimal evaluation fo r bowel pathology due to the lack of intravenous and oral contrast. However, there is no definite bow el wall thickening or obstruction. Normal appendix. Questionable rectal thickening is likely due to u nderdistention. IMPRESSION: 1. Small pericardial effusion with thickening of the pericardial lining. This may represent a pericar ditis. 2. Small right and [id number] left pleural effusions with patchy consolidation within the lowe r lobes. This favors atelectasis from the pleural effusions. A mild pneumonitis is not excluded. 3. Nodular contour to the liver consistent with cirrhosis. 4. Cholelithiasis. No gallbladder wall thickening. 5. Colonic diverticulosis. No evidence for acute diverticulitis. 6. Trace ascites. 7. No definite bowel wall thickening or obstruction. 8. Questionable rectal wall thickening is likely due to underdistention. A low-grade proctitis could also have a similar appearance. Clinical correlation recommended. ACT 112: Negative or not required by law. Electronically signed by: Benito Choudhury M.D. 12/23/2023 1:33 PM
[2023-12-23 16:03] LABS: BUN Creatinine Ratio 17.2 (10-20); Calcium 8.2 mg/dl (8.6-10.3); Creatinine Clr Calc Pharmacy 19.5 ml/min; Est GFR (Non-African American) 15.5 ml/min; Potassium 4.6 mmol/L (3.5-5.1)
[2023-12-23 16:06] LABS: Amorphous Sediment Urine Present (None Prsent); Appearance Urine Clear (Clear); Bacteria Urine Automated None Seen (None Seen); Bilirubin Urine Negative (Negative); Blood Urine 2+ (Negative); Color Urine Yellow; Epithelial Cell Urine Auto 0-2 /hpf (0-2); Glucose Urine UA Negative (Negative); Granular Casts Urine Present /lpf (None Prsent); Ketones Urine Negative (Negative); Leukocyte Esterase Urine Negative (Negative); Nitrite Urine Negative (Negative); Protein Urine 2+ (Negative); RBC Urine Automated 0-2 /hpf (0-2); Specific Gravity Urine 1.008 (1.000-1.030); Urobilinogen Urine Negative (Negative); WBC Urine Automated 0-5 /hpf (0-5)
[2023-12-23 16:27] LABS: Creatinine Urine Random 24.7 mg/dl
--- NOTE | 2023-12-23 17:21 | Hospitalist Progress Note ---
Date of Service December 23, 2023 Assessment & Plan (1) JULIEN (acute kidney injury): Plan: Presented with shortness of breath x 5 days with no recent acute illness or difficulty with urination. He has a history of prostate cancer s/p prostatectomy and radiation and antiandrogen therapy with chronic urinary incontinence. No history of kidney problems in the past He presented with a BUN 39, creatinine 2.06 (baseline of 0.92 in 2020) and is oliguric, with evidence of volume overload with pleural effusions and small pericardial effusion seen on CT Echocardiogram pending to assess LV function He is in rapid atrial fibrillation and could have some poor perfusion of the kidneys from this as well He also has significantly elevated AST, ALT, and alkaline phosphatase-could be hepatic congestion from heart failure versus shock liver from some sort of hypotensive event-he does recall being lightheaded at home prior to admission but did not measure his blood pressure. Blood pressures here are normal CT abdomen/pelvis ordered and does not show any obstruction Ordered urinalysis, urine sodium, urine creatinine-calculated FeNa is 7.8% however these labs were drawn after receiving IV Lasix UA consistent with ATN with granular casts, also with 2+ protein, 2+ blood, 6-10 hyaline casts, no evidence of infection CK is negative-ruling out rhabdomyolysis Unfortunately, despite IV Lasix x 2 doses of 40 Mg, his urine output remains quite low-Charles catheter now placed expertly by urology due to bladder neck contracture causing outlet obstruction-monitor urine output Creatinine is rising fairly rapidly since admission and is now up to 3.43, BUN up to 59 With worsening hyponatremia down to 127, potassium mildly elevated at 5.4 now improved with Lokelma and IV Lasix down to normal. Not acidotic but is fluid overloaded Continue to hold home losartan and metformin Consult to nephrology appreciated-appreciate further input Follow BMP in the morning (2) Atrial fibrillation with RVR: Plan: Presented with dyspnea on exertion since Sunday 12/17 and found to be in atrial fibrillation with RVR on arrival-rates remain uncontrolled in the 1 teens to 120s Recent history of A-fib in May 2023 diagnosed but those records are not available. He is on Eliquis and Toprol-XL Troponin WNL, TSH normal Echocardiogram pending Increase to metoprolol tartrate 25 Mg p.o. every 6 hours for improved rate control Metoprolol 5 mg IV q6h as needed for heart rate >120bpm Dose reduce Eliquis setting of JULIEN to 2.5 mg p.o. BID Continuous telemetry monitoring AM CBC, CMP, Mag and keep electrolytes replete Appreciate cardiology consultation (3) Acute heart failure: Plan: Echocardiogram pending-EF not known at this point but he appears to either be in acute heart failure versus renal failure with volume overload BNP mildly elevated at 123 (no prior for comparison) Follow-up echocardiogram when available Continue Daily weights, low-sodium diet, and strict I&O monitoring Given Lasix 40 Mg IV x 2 as above with worsening renal function Hold off on further Lasix for now (4) Pleural effusion, bilateral: Plan: CXR revealed cardiomegaly with mild interstitial pulmonary edema and trace bilateral pleural effusions secondary to acute kidney injury versus heart heather lure as above Not requiring oxygen but is slightly tachypneic at rest Dilaudid ordered for pain of Charles catheter placement but also helped with tachypnea (5) Hyponatremia: Plan: NA 129 on arrival; suspect due to hypervolemia and renal failure-worsening to 127 now Plan outlined as above (6) Diabetes: Plan: Hgb A1c here is well-controlled at 7.5% Hold home metformin Continue SSI; with target BSG range 110-140mg/dL, CF 50, carb ratio 15 Continue T2DM diet BSG ACHS (7) Elevated transaminase level: Plan: AST ALT and alkaline phosphatase continue to rise to the 200s today, total bilirubin normal Anaplasmosis and babesiosis smears are negative. No fevers and platelets are normal-do not suspect tickborne illness More likely either hepatic congestion from heart failure versus shock liver as noted above Follow LFTs in the morning CT abdomen/pelvis ordered which does show cirrhosis-likely from fatty liver- follow as an outpatient as well Babesiosis DNA PCR pending (8) Anemia: Plan: Mild; ?Chronic; 11.6 on arrival and stable No signs of active bleeding on clinical exam MCV low at 79.2 Iron panel, ferritin show low transferrin saturation of 7% with normal ferritin Will eventually need iron replacement but hold off for now Follow CBC (9) Elevated troponin: Plan: Mild elevation and peaked at 24, likely demand ischemia in the setting of heart failure versus acute kidney injury Await echocardiogram No ischemic changes on ECG Plan Disposition: Continued stay on PCU, guarded prognosis. Discussed care with at the bedside Full code VTE PPx: Dose reduced Juliannequis Admission and Anticipated Discharge Date Admission Date: December 22, 2023 Subjective Patient unable to void most of the day and felt some slight abdominal distention. I discussed his care with urology after difficult attempted Charles catheter placement by nursing later in the day. Fortunately, urology was able to successfully dilate and insert a Charles catheter via cystoscope at the bedside. He also continues to have rapid atrial fibrillation-rates remain in the 100s to 1 teens. I discussed his care with cardiology Unfortunately, his echocardiogram was not able to be done today due to an excessive burden on the echo technicians throughout the hospital Patient reports ongoing shortness of breath and a mild cough, some lightheadedness. Denies abdominal pains or diarrhea. No recent fevers or chills or illness. He denies any leg swelling. He denies any previous issues with his kidneys or with his liver. I also discussed his care with nephrology Physical Exam Constitutional: WD/WN, vitals as above no acute distress Neck: trachea midline, no thyromegaly Respiratory: + tachypneic (Mild at rest); no cough Auscultation: + diminished lung sounds (At the bases bilaterally); no crackles, no rhonchi and no wheezes Cardiovascular: Rate/Rhythm: + tachycardic and + irregularly irregular Heart Sounds: no murmur Extremities: no edema Chest (Breasts): Chest: normal inspection of chest Gastrointestinal (Abdomen): normal bowel sounds, soft, nontender, no hepatosplenomegaly Musculoskeletal: Extremities: extremities normal to inspection; no cyanosis and no clubbing Skin: no rashes, warm and dry Neurologic: moves all extremities and awake; no focal motor deficits Psychiatric: A+Ox3, euthymic affect Lymphatic: no lymphedema Results & Data Results & Data Vital Signs (Past 12 Hours) Vital Signs Temp Pulse Pulse Resp BP Pulse Ox O2 Del Method 12/23/23 16:17 36.5 C 127 H 20 110/70 95 Room Air 12/23/23 15:00 122 H 12/23/23 11:56 36.6 C 103 H 18 113/63 92 Room Air 12/23/23 10:37 110 H 113/68 12/23/23 07:59 Room Air 12/23/23 07:49 36.7 C 113 H 20 107/78 93 Room Air 12/23/23 07:40 117 H Laboratory Results CBC, BMP x 2, LFTs, urine sodium, urine creatinine, urinalysis reviewed Diagnostic Findings CT abdomen/pelvis reviewed PG Care Time/CCT Total # of Minutes Spent Total Time Spent with Patient: Total time spent is greater than 50% in coordination of care (as documented) at patient's floor/unit and/or counseling patient: Coding Level of Care Code 36317 SUB INP/OBS CARE 3/50MIN Diagnoses JULIEN (acute kidney injury) N17.9 Atrial fibrillation with RVR I48.91 Acute heart failure I50.9 Pleural effusion, bilateral J90 Hyponatremia E87.1 Diabetes E11.9 Elevated transaminase level R74.01 Anemia D64.9 Elevated troponin R79.89
[2023-12-23] MEDS: HYDROmorphone INJ 0.5 MG/0.5 ML SYR IV PRN (18:30)
--- NOTE | 2023-12-23 18:55 | Cardiology Consultation ---
Date of Consultation December 23, 2023 Assessment & Plan (1) Atrial fibrillation with rapid ventricular response: (2) Elevated troponin: (3) Pericardial effusion: (4) Elevated transaminase level: Plan ASSESSMENT/PLAN: 1. Atrial fibrillation with rapid ventricular response: Persistent. Unclear if he has been in A-fib consistently since May diagnosis. For now, could attempt rate control strategy. Recommend metoprolol tartrate 25 mg every 6 hours p.o. and can titrate as necessary. Recommend echo which is pending. Continue anticoagulation for stroke risk reduction. Based on his history, he has been on therapeutic anticoagulation therapy for at least 4 weeks without interruption and thus could entertain cardioversion if needed. Agree with Eliquis 2.5 mg twice daily based on current renal function and age. 2. Acute kidney injury: Defer to nephrology. He is not passing much urine and urology presented to the bedside to place a urinary catheter. Monitor electrolytes closely. 3. Elevated troponin: Only slightly elevated and in the setting of acute kidney injury and A-fib with RVR. Likely demand ischemia. He did not present with acute coronary syndrome. 4. Pericardial effusion: Reported on CT imaging as small. He is not hypotensive. Recommend echo, which is currently pending. 5. Elevated transaminase levels: Agree with holding statin. 6. Possible heart failure: Likely hypervolemic. Neck exam is difficult. Not making much urine and has edema and imaging would suggest hypervolemia. BNP only mildly elevated. Possibly heart failure, especially in the setting of A- fib with RVR. Echo pending to evaluate LV systolic function. Acute kidney injury may be the driving force for hypervolemia, but JULIEN could be due to poor perfusion if found to have significantly reduced LV systolic function. 7. Disposition: Cardiology will continue to follow. Dr. Hendricks will be available through the weekend. Patient care discussed with primary hospitalist, Dr. Agustin. Thank you for allowing me to participate in the care of your patient. Please call for any other questions or concerns. Sincerely, Robbie Valadez M.D. History of Present Illness Reason for Consultation: Atrial fibrillation with RVR, CHF, JULIEN Requesting Physician: Chelo Agustin MD Attending Physician: Chelo Agustin MD History of Present Illness Mr. Burnett is a pleasant 83-year-old gentleman with a history significant for atrial fibrillation, type 2 diabetes, TIA, prostate cancer (surgery and radiation) dyslipidemia, hypertension, and carotid artery stenosis s/p carotid endarterectomy (July 2020). He has not been evaluated by cardiology in the past but is scheduled to establish care with Dr. Weaver of [facility] cardiology later in December. He reports being diagnosed with atrial fibrillation in May 2023. He has not undergone cardioversion. He states that he was placed on Eliquis and has not missed any doses over the past 4 weeks. He monitors his heart rate at home occasionally and states that his heart rate is typically in the 80s. On 12/18/2023, while leaving buddhism, he had sudden lightheadedness and dyspnea on exertion. He had palpitations that morning and noted that his heart rate was around 100 bpm. The symptoms persisted throughout the next several days. He denies orthopnea, shortness of breath at rest, chest pain, edema, syncope, melena, hematochezia, or hematuria. Because of ongoing shortness of breath on exertion and lightheadedness, he presented to the emergency department. He was admitted on 12/22/2023 and was noted to have acute kidney injury with a creatinine initially 2.06 and has since been trending upward to 3.43 this afternoon. He is hyponatremic and has elevated transaminase levels which continue to trend upward. He has been seen by nephrology who recommended intravenous diuretic. Review of systems: As above. Review of systems otherwise negative/unremarkable. Family history: No known premature CAD. Social history: Denies tobacco abuse. Occasional alcohol. No drugs. Lives at home with his . 3 children ([place], [place], [place]). He was unaccompanied. Allergies Allergy/AdvReac Type Severity Reaction Status Date / Time No Known Drug Allergies Allergy Verified 05/24/23 14:51 Home Medications Medication Instructions Recorded Confirmed Type ibuprofen 200 mg capsule 200 mg PO QID PRN Pain 11/28/18 12/22/23 History rosuvastatin 40 mg tablet 40 mg PO HS 12/28/19 12/22/23 History bisacodyl 5 mg tablet,delayed 5 mg PO HS PRN Constipation 07/02/20 12/22/23 History release (Dulcolax (bisacodyl)) metformin 500 mg tablet 1,000 mg PO HS 07/02/20 12/22/23 History aspirin 81 mg tablet,delayed 81 mg PO HS 11/28/20 12/22/23 History release apixaban 5 mg tablet (Eliquis) 5 mg PO BID 12/22/23 12/22/23 History losartan 25 mg tablet 25 mg PO BID 12/22/23 12/22/23 History metoprolol succinate 25 mg 25 mg PO HS 12/22/23 12/22/23 History tablet,extended release 24 hr metronidazole 0.75 % topical cream 1 applic topical .1-2X DAILY PRN 12/22/23 12/22/23 History Other Problem List (Updated 12/23/23 @ 19:15 by Didier Valadez MD) Pericardial effusion Bladder neck contracture Elevated troponin Hyperkalemia Congestive heart failure Chronic kidney disease, stage II (mild) Acute heart failure Anemia Pleural effusion, bilateral Atrial fibrillation with rapid ventricular response (Acute) Transaminitis (Acute) Acute hyponatremia (Acute) Pulmonary edema (Acute) Acute exacerbation of CHF (congestive heart failure) (Acute) JULIEN (acute kidney injury) (Acute) Acute dyspnea (Acute) Elevated transaminase level Hyponatremia JULIEN (acute kidney injury) Atrial fibrillation with RVR Stress incontinence Encounter for pre-operative examination Prostate cancer (Chronic 12/23/10) Hematochezia sigmoidoscopy 12/2019 -- poor enema results. has upcoming colonoscopy. 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 deviated nasal septum Excessive cerumen in both ear canals Sensorineural hearing loss (SNHL) of left ear with restricted hearing of right ear Urinary retention Sensorineural hearing loss (SNHL) of both ears Patient History Medical History (Updated 12/23/23 @ 19:15 by Didier Valadez MD) Diabetes mellitus, type 2 NIDDM Well controlled per patient Transient ischemic attack (TIA) Questionable in 2017- possibly related to previous right ICA disease- s/p CEA July 2020 Hard of hearing Lt- no hearing aid needed Cardiac murmur Dx as a child; PCP monitoring History of prostate cancer s/p sx, radiation History of 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 Harris @ [facility] Hx of flexible sigmoidoscopy History of colonoscopy with polypectomy History of Mohs surgery for squamous cell carcinoma of skin off right cheek History of cataract surgery bilt History of prostate biopsy History of melanoma excision History of tonsillectomy Age 4 History of prostatectomy 03/08/11 Family History Mother No problems noted. Father No problems noted. Sister No problems noted. Sister No problems noted. Son No problems noted. Son No problems noted. Daughter No problems noted. 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 Alert. HEENT: Anicteric sclera. Neck: No appreciable JVD. No bruits. Normal carotid upstrokes bilaterally. Cardiac: Irregularly irregular. Tachycardic. Normal S1-S2. No murmurs, rubs, or gallops. Pulmonary: Clear to auscultation bilaterally without wheezes, rales, or rhonchi. Abdomen: Soft, nontender, nondistended, with normoactive bowel sounds. No bruits noted. Extremities: 2+ radial pulses bilaterally. 2+ posterior tibialis pulses bilaterally. Trace bilateral lower extremity edema. No cyanosis. Psychiatric: Affect appears appropriate. Results & Data Vital Signs (Past 12 Hours) Vital Signs Temp Pulse Pulse Resp BP Pulse Ox O2 Del Method 12/23/23 16:17 36.5 C 127 H 20 110/70 95 Room Air 12/23/23 15:00 122 H 12/23/23 11:56 36.6 C 103 H 18 113/63 92 Room Air 12/23/23 10:37 110 H 113/68 12/23/23 07:59 Room Air 12/23/23 07:49 36.7 C 113 H 20 107/78 93 Room Air 12/23/23 07:40 117 H Intake & Output 12/21/23 12/22/23 12/23/23 12/24/23 06:59 06:59 06:59 06:59 Intake Total 320 / 320 700 / 700 Output Total 75 / 75 Balance 320 / 320 625 / 625 Weight 217 lb 6.012 oz Laboratory Results Laboratory Results - last 24 hr 12/22/23 12/22/23 12/23/23 14:30 20:11 05:50 WBC 9.19 RBC 4.54 L Hgb 11.3 L Hct 34.9 L MCV 76.9 L MCH 24.9 L MCHC 32.4 RDW Std Deviation 44.9 RDW Coeff of Milvia 16.1 H Plt Count 270 MPV 9.4 Immature Gran % (Auto) 0.7 Neut % (Auto) 80.2 Lymph % (Auto) 5.5 [place] % (Auto) 13.5 Eos % (Auto) 0.0 Baso % (Auto) 0.1 Neut # (Auto) 7.37 H Lymph # (Auto) 0.51 L [place] # (Auto) 1.24 H Eos # (Auto) 0.00 Baso # (Auto) 0.01 Immature Gran # (Auto) 0.06 Sodium 129 L Potassium 5.4 H Chloride 96 L Carbon Dioxide 23 Anion Gap 10 BUN 51 H Creatinine 2.86 H D Est Cr Clr Drug Dosing 23.4 Est GFR ( Amer) 22.4 Est GFR (Non-Af Amer) 19.3 BUN/Creatinine Ratio 17.8 Glucose 162 H POC Glucose 153 H Estimat Average Glucose 169 Hemoglobin A1c 7.5 H Calcium 8.6 Magnesium 2.6 H Iron 23 L TIBC 329 Unsaturated IBC 306 Transferrin % Sat 7 L Ferritin 197.8 Total Bilirubin 0.9 AST 275 H ALT 201 H Alkaline Phosphatase 278 H Total Creatine Kinase Troponin I High Sens Total Protein 6.9 Albumin 3.7 Globulin 3.2 Albumin/Globulin Ratio 1.2 Urine Color Urine Appearance Urine pH Ur Specific [place] Urine Protein Urine Glucose (UA) Urine Ketones Urine Blood Urine Nitrite Urine Bilirubin Urine Urobilinogen Ur Leukocyte Esterase Urine WBC (Auto) Urine RBC (Auto) U Hyaline Cast (Auto) U Epithel Cells (Auto) Urine Bacteria (Auto) Amorphous Sediment Granular Casts Ur Random Creatinine Ur Random Sodium 12/23/23 12/23/23 12/23/23 07:30 11:21 11:35 WBC RBC Hgb Hct MCV MCH MCHC RDW Std Deviation RDW Coeff of Mil[place] Plt Count MPV Immature Gran % (Auto) Neut % (Auto) Lymph % (Auto) [place] % (Auto) Eos % (Auto) Baso % (Auto) Neut # (Auto) Lymph # (Auto) [place] # (Auto) Eos # (Auto) Baso # (Auto) Immature Gran # (Auto) Sodium Potassium Chloride Carbon Dioxide Anion Gap BUN Creatinine Est Cr Clr Drug Dosing Est GFR ( Amer) Est GFR (Non-Af Amer) BUN/Creatinine Ratio Glucose POC Glucose 167 H 140 H Estimat Average Glucose Hemoglobin A1c Calcium Magnesium Iron TIBC Unsaturated IBC Transferrin % Sat Ferritin Total Bilirubin AST ALT Alkaline Phosphatase Total Creatine Kinase 183 Troponin I High Sens 20.4 H Total Protein Albumin Globulin Albumin/Globulin Ratio Urine Color Urine Appearance Urine pH Ur Specific [place] Urine Protein Urine Glucose (UA) Urine Ketones Urine Blood Urine Nitrite Urine Bilirubin Urine Urobilinogen Ur Leukocyte Esterase Urine WBC (Auto) Urine RBC (Auto) U Hyaline Cast (Auto) U Epithel Cells (Auto) Urine Bacteria (Auto) Amorphous Sediment Granular Casts Ur Random Creatinine Ur Random Sodium 12/23/23 12/23/23 12/23/23 15:11 15:15 16:39 WBC RBC Hgb Hct MCV MCH MCHC RDW Std Deviation RDW Coeff of [place]via Plt Count MPV Immature Gran % (Auto) Neut % (Auto) Lymph % (Auto) [place] % (Auto) Eos % (Auto) Baso % (Auto) Neut # (Auto) Lymph # (Auto) [place] # (Auto) Eos # (Auto) Baso # (Auto) Immature Gran # (Auto) Sodium 127 L Potassium 4.6 Chloride 94 L Carbon Dioxide 24 Anion Gap 9 BUN 59 H Creatinine 3.43 H D Est Cr Clr Drug Dosing 19.5 Est GFR ( Amer) 18.0 Est GFR (Non-Af Amer) 15.5 BUN/Creatinine Ratio 17.2 Glucose 132 H POC Glucose 144 H Estimat Average Glucose Hemoglobin A1c Calcium 8.2 L Magnesium Iron TIBC Unsaturated IBC Transferrin % Sat Ferritin Total Bilirubin AST ALT Alkaline Phosphatase Total Creatine Kinase Troponin I High Sens Total Protein Albumin Globulin Albumin/Globulin Ratio Urine Color Yellow Urine Appearance Clear Urine pH 6.0 Ur Specific [place] 1.008 Urine Protein 2+ H Urine Glucose (UA) Negative Urine Ketones Negative Urine Blood 2+ H Urine Nitrite Negative Urine Bilirubin Negative Urine Urobilinogen Negative Ur Leukocyte Esterase Negative Urine WBC (Auto) 0-5 Urine RBC (Auto) 0-2 U Hyaline Cast (Auto) 6-10 H U Epithel Cells (Auto) 0-2 Urine Bacteria (Auto) None Seen Amorphous Sediment Present A Granular Casts Present A Ur Random Creatinine 24.7 Ur Random Sodium 72 12/23/23 18:02 WBC RBC Hgb Hct MCV MCH MCHC RDW Std Deviation RDW Coeff of Milvia Plt Count MPV Immature Gran % (Auto) Neut % (Auto) Lymph % (Auto) [place] % (Auto) Eos % (Auto) Baso % (Auto) Neut # (Auto) Lymph # (Auto) [place] # (Auto) Eos # (Auto) Baso # (Auto) Immature Gran # (Auto) Sodium Potassium Chloride Carbon Dioxide Anion Gap BUN Creatinine Est Cr Clr Drug Dosing Est GFR ( Amer) Est GFR (Non-Af Amer) BUN/Creatinine Ratio Glucose POC Glucose Estimat Average Glucose Hemoglobin A1c Calcium Magnesium Iron TIBC Unsaturated IBC Transferrin % Sat Ferritin Total Bilirubin AST ALT Alkaline Phosphatase Total Creatine Kinase Troponin I High Sens Pending Total Protein Albumin Globulin Albumin/Globulin Ratio Urine Color Urine Appearance Urine pH Ur Specific [place] Urine Protein Urine Glucose (UA) Urine Ketones Urine Blood Urine Nitrite Urine Bilirubin Urine Urobilinogen Ur Leukocyte Esterase Urine WBC (Auto) Urine RBC (Auto) U Hyaline Cast (Auto) U Epithel Cells (Auto) Urine Bacteria (Auto) Amorphous Sediment Granular Casts Ur Random Creatinine Ur Random Sodium Diagnostic Findings Nephrology consultation report reviewed. History and physical report reviewed. ECG personally reviewed 12/22/2023: A-fib RVR 120 bpm. Possible inferior infarct. Echo 12/07/2018 [facility]: LVEF 65%. Normal wall motion. Mild left atrial dilation. Sclerotic aortic valve without significant stenosis. Telemetry personally reviewed: Atrial fibrillation with rapid ventricular response heart rates mostly 110s to 120s today. Labs reviewed and notable for anemia, normal potassium but hyperkalemic earlier today, hyponatremia, worsening renal function, elevated transaminase levels, trending upward, mildly elevated high-sensitivity troponin, mildly elevated BNP, normal TSH. CT abdomen/pelvis 12/23/2023: Small pericardial effusion with thickening of the pericardial lining per radiology. Small right and small to moderate left pleural effusions with patchy consolidation within the lower lobes. Nodular contour of the liver consistent with cirrhosis. Trace ascites. Chest x-ray 12/22/2023: Prominent pulmonary vasculature on personal review with right lung base opacity. Radiology interprets as interstitial/vascular thickening progressed consistent with mild pulmonary edema. Right basilar linear densities favor subsegmental atelectasis. Trace bilateral pleural effusions. Medications Administered Current Inpatient Medications Acetaminophen (Acetaminophen 325 Mg Tab) 650 mg PO Q4H PRN PRN Reason: Pain or Fever Stop: 01/21/24 19:35 Apixaban (Apixaban 2.5 Mg Tab) 2.5 mg PO BID CHRISTIAN Stop: 01/21/24 20:59 Last Admin: 12/23/23 07:55 Dose: 2.5 mg Aspirin (Aspirin 81 Mg Ectab) 81 mg PO HS CHRISTIAN Stop: 01/21/24 20:59 Last Admin: 12/22/23 20:35 Dose: 81 mg Bisacodyl (Bisacodyl 5 Mg Tabec) 5 mg PO HS PRN PRN Reason: Constipation Stop: 01/21/24 19:35 Dextrose (Dextrose 50% 50 Ml Syringe) 25 - 50 ml IV UD PRN; Protocol PRN Reason: Hypoglycemia Protocol Stop: 01/21/24 19:35 Glucagon (Glucagon For Inj 1 Mg Vial) 1 mg SQ UD PRN; Protocol PRN Reason: Hypoglycemia Protocol Stop: 01/21/24 19:35 Glucose (Glucose 40% Gel 15 Gm Tube) 15 - 30 gm PO UD PRN; Protocol PRN Reason: Hypoglycemia Protocol Stop: 01/21/24 19:35 Glucose (Glucose 10 Tab/Tube) 4 - 8 tab PO UD PRN; Protocol PRN Reason: Hypoglycemia Treatment Stop: 01/21/24 19:35 Hydromorphone HCl (Hydromorphone Inj 0.5 Mg/0.5 Ml Syr) 0.5 mg IV Q6H PRN PRN Reason: moderate pain or pre-procedure Stop: 01/06/24 18:07 Last Admin: 12/23/23 18:30 Dose: 0.5 mg Insulin Aspart (Insulin Aspart Per Unit Charge) 0 units SC ACHS [facility] Stop: 01/21/24 20:59 Last Admin: 12/23/23 16:53 Dose: 3 units Metoprolol Succinate (Metoprolol Succ 25mg Ext Rel Tab) 25 mg PO BID [facility] Stop: 01/22/24 09:29 Last Admin: 12/23/23 10:38 Dose: 25 mg Metoprolol Tartrate (Metoprolol Tartrate 1 Mg/Ml Vial) 5 mg IV Q6H PRN PRN Reason: A fib RVR with HR >130bpm Last Admin: 12/23/23 04:10 Dose: 5 mg Miscellaneous (Carbohydrates For Hypoglycemia ) 15 - 30 gm PO UD PRN PRN Reason: Hypoglycemia Protocol Stop: 01/21/24 19:35 Rosuvastatin Calcium (Rosuvastatin Calcium 20 Mg Tab) 40 mg PO HS [facility] Stop: 01/21/24 20:59 Last Admin: 12/22/23 20:35 Dose: 40 mg Sodium Zirconium Cyclosilicate (Sodium Zirconium Cyclosilicate 10 Gm Packet) 10 gm PO DAILY@1100 [facility] Stop: 01/22/24 10:59 Last Admin: 12/23/23 10:40 Dose: 10 gm PG Care Time/CCT Total # of Minutes Spent Total Time Spent with Patient: Total time spent is greater than 50% in coordination of care (as documented) at patient's floor/unit and/or counseling patient: Coding Level of Care Code 48956 INT INP/OBS CARE 3/75MIN Diagnoses Atrial fibrillation with rapid ventricular response I48.91 Elevated troponin R79.89 Pericardial effusion I31.39 Elevated transaminase level R74.01
--- NOTE | 2023-12-23 19:14 | Urology Consultation ---
Date of Consultation December 23, 2023 Assessment & Plan (1) Acute heart failure: (2) JULIEN (acute kidney injury): (3) Prostate cancer: (4) Bladder neck contracture: Plan 83-year-old male with a history of prostate cancer status post prostatectomy with recurrence and salvage radiation. Patient has no bladder neck contracture which was incised in 2020. Presented to hospital with heart failure and then developed renal failure. Question of urinary retention so a catheter was attempted but nursing met difficulty and he developed hematuria. I suspect patient had a bladder neck contracture and the balloon was inflated in the scar tissue which caused the pain and bleeding. I recommended we go straight to cystoscopy as I did not want to cause any further damage by blindly trying to place a catheter. Patient was agreeable. Verbal consent was obtained due to the emergent nature of the procedure. Procedure: Patient was prepped and draped in a sterile fashion. I advanced the flexible cystoscope and encountered a bladder neck contracture and what appeared to be a false passage. I advanced a Super Stiff wire into the bladder via the scope and backed the scope out over the wire. I attempted to advance a 20 Swedish sav[place]ong[place] tip catheter over the wire but met resistance so I opted to dilate. I sequentially dilated him from 12-20 Swedish using S dilators. I then was able to advance the 20 Swedish [place] tip catheter over the wire with return of thin red urine. Wire was removed. Balloon was inflated with 10 cc of sterile water. Catheter was irrigated to ensure patency. He had minimal urine output so I suspect his low urine output is from his JULIEN and not from retention. Recommendations: Maintain Charles catheter. Do not remove. Urology can schedule outpatient follow-up for a void trial Recommend one-time dose of Ancef to cover procedure Patient will have hematuria but it is fairly thin with no clots. Fine from a urologic perspective to continue anticoagulation Nursing can irrigate catheter by hand if necessary Urology to sign off Message has been sent for Charles catheter removal in clinic Greater than 60 minutes was spent with the patient History of Present Illness Attending Physician: Chelo Agustin MD History of Present Illness 83-year-old male with a history of prostate cancer status post robotic p rostatectomy 2010. He had a PSA recurrence and lymph node was found positive. He had salvage radiation to the lymph nodes and possibly the prostatic fossa. He did have a bladder neck contracture incised in 2020. He follows with Dr. García. He was admitted and thought to be in heart failure and then had acute kidney injury as well. It was uncertain if he was retaining urine so nursing attempted to place a catheter but when inflating the catheter he had significant pain so they removed it and then he had hematuria. Urology was consulted. Allergies Allergy/AdvReac Type Severity Reaction Status Date / Time No Known Drug Allergies Allergy Verified 05/24/23 14:51 Home Medications Medication Instructions Recorded Confirmed Type ibuprofen 200 mg capsule 200 mg PO QID PRN Pain 11/28/18 12/22/23 History rosuvastatin 40 mg tablet 40 mg PO HS 12/28/19 12/22/23 History bisacodyl 5 mg tablet,delayed 5 mg PO HS PRN Constipation 07/02/20 12/22/23 History release (Dulcolax (bisacodyl)) metformin 500 mg tablet 1,000 mg PO HS 07/02/20 12/22/23 History aspirin 81 mg tablet,delayed 81 mg PO HS 11/28/20 12/22/23 History release apixaban 5 mg tablet (Eliquis) 5 mg PO BID 12/22/23 12/22/23 History losartan 25 mg tablet 25 mg PO BID 12/22/23 12/22/23 History metoprolol succinate 25 mg 25 mg PO HS 12/22/23 12/22/23 History tablet,extended release 24 hr metronidazole 0.75 % topical cream 1 applic topical .1-2X DAILY PRN 12/22/23 12/22/23 History Other Patient History Medical History (Updated 12/23/23 @ 19:14 by Andrew Newsome MD) Diabetes mellitus, type 2 NIDDM Well controlled per patient Transient ischemic attack (TIA) Questionable in 2016- possibly related to previous right ICA disease- s/p CEA July 2020 Hard of hearing Lt- no hearing aid needed Cardiac murmur Dx as a child; PCP monitoring History of prostate cancer s/p sx, radiation History of 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 Father No problems noted. Sister No problems noted. Sister No problems noted. Son No problems noted. Son No problems noted. Daughter No problems noted. 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 [employer] Marketing Strategies Required: No Beliefs That Will Affect Care: None marital status: Current Living Situation: Spouse current occupational status: retired current occupation: [employer] for [employer] at [employer] Feels Safe at Home: Yes caffeine: Yes (1-2 cups of coffee/day ) during the past year weight has: decreased > 10 lbs Assistive Devices: None Physical Exam Physical Exam: General: Alert and oriented, no acute distress HEENT: Normocephalic, mucous membranes moist Pulmonary: Nonlabored respirations Abdomen: Nondistended Extremities: Moves all 4 spontaneously Neuro: No gross deficits Skin: Warm, dry, no rashes noted Results & Data Vital Signs (Past 12 Hours) Vital Signs Temp Pulse Pulse Resp BP Pulse Ox O2 Del Method 12/23/23 16:17 36.5 C 127 H 20 110/70 95 Room Air 12/23/23 15:00 122 H 12/23/23 11:56 36.6 C 103 H 18 113/63 92 Room Air 12/23/23 10:37 110 H 113/68 12/23/23 07:59 Room Air 12/23/23 07:49 36.7 C 113 H 20 107/78 93 Room Air 12/23/23 07:40 117 H PG Care Time/CCT Total # of Minutes Spent Total Time Spent with Patient: Total time spent is greater than 50% in coordination of care (as documented) at patient's floor/unit and/or counseling patient: Coding Level of Care Code 89077 INT INP/OBS CARE 2MIN Diagnoses Acute heart failure I50.9 JULIEN (acute kidney injury) N17.9 Prostate cancer C61 Bladder neck contracture N32.0
[2023-12-23] MEDS: ceFAZolin 1000MG 1,000 MG/7.5 ML SYR IV STA (20:43)
[2023-12-23] MEDS: METOPROLOL TARTRATE 25 MG TAB PO SCH (20:44)
--- NOTE | 2023-12-23 22:47 | Electrocardiogram Report ---
Test Reason : Blood Pressure : */* mmHG Vent. Rate : 120 BPM Atrial Rate : * BPM P-R Int : * ms QRS Dur : 66 ms QT Int : 306 ms P-R-T Axes : * -11 185 degrees QTcB Int : 432 ms Atrial fibrillation with rapid ventricular response Low voltage QRS Possible Inferior infarct (cited on or before 16-Jul-2020) Abnormal ECG When compared with ECG of 20-Oct-2022 14:38, Atrial fibrillation has replaced Sinus rhythm Vent. rate has increased by 56 bpm QRS voltage has decreased Nonspecific T wave abnormality now evident in Inferior leads Nonspecific T wave abnormality, worse in Lateral leads Confirmed by Didier Valadez ([id number]) on 12/23/2023 10:47:33 PM Referred By: Confirmed By: Didier Valadez
[2023-12-24 06:51] LABS: Hematocrit (blood only) 34.8 % (42.0-52.0); Hemoglobin 11.4 g/dl (14.0-18.0); Immature Granulocytes # (auto) 0.06 K/uL (0.01-0.20); Immature Granulocytes % (auto) 0.6 %; Lymphocytes # (auto) 0.55 K/uL (1.20-3.40); Lymphocytes % (auto) 5.2 %; Mean Corpuscular Hemoglobin 24.9 pg (25.0-34.0); Mean Corpuscular Hgb Conc 32.8 g/dL (32.0-36.0); Mean Platelet Volume 9.5 fL (9.4-12.4); Monocytes # (auto) 1.52 K/uL (0.11-0.59); Monocytes % (auto) 14.3 %; Neutrophils # (auto) 8.49 K/uL (1.40-6.50); Neutrophils % (auto) 79.9 %; Platelet Count 261 K/uL (130-400); RDW Coefficient of Variation 16.2 % (11.5-14.5); Red Blood Count 4.58 M/uL (4.70-6.10); White Blood Count 10.62 K/ul (4.8-10.8)
[2023-12-24 07:10] LABS: Albumin Globulin Ratio 1.1 (0.9-2); Albumin Level 3.6 gm/dl (3.4-5.0); BUN Creatinine Ratio 16.1 (10-20); Bilirubin,Total 0.7 mg/dl (0.2-1.0); Calcium 8.3 mg/dl (8.6-10.3); Creatinine Clr Calc Pharmacy 15.8 ml/min; Est GFR (African American) 13.9 ml/min; Globulin 3.3 gm/dl (2.5-4.0); Magnesium 2.6 mg/dl (1.7-2.4); Potassium 4.6 mmol/L (3.5-5.1); Total Protein 6.9 gm/dl (6.0-8.3)
[2023-12-24 07:24] LABS: INR 1.4 (0.9-1.1); Prothrombin Time 14.9 Seconds (9.0-12.0)
--- NOTE | 2023-12-24 10:40 | Hospitalist Progress Note ---
Date of Service December 24, 2023 Assessment & Plan (1) JULIEN (acute kidney injury): Plan: Presented with shortness of breath x 5 days with no recent acute illness or difficulty with urination. He has a history of prostate cancer s/p prostatectomy and radiation and antiandrogen therapy with chronic urinary incontinence. No history of kidney problems in the past He presented with a BUN 39, creatinine 2.06 (baseline of 0.92 in 2020) and is oliguric, with evidence of volume overload with pleural effusions and small pericardial effusion seen on CT Echocardiogram with preserved LV function and small pericardial effusion without tamponade He presented in rapid atrial fibrillation and could have some poor perfusion of the kidneys from this as well over an unknown length of time He also has significantly elevated AST, ALT, and alkaline phosphatase-could be hepatic congestion from heart failure versus shock liver from some sort of hypotensive event-he does recall being lightheaded at home prior to admission but did not measure his blood pressure. Blood pressures here are normal Nephrology suspects etiology is hemodynamically mediated ATN in the setting of rapid A-fib complicated by ARB therapy and chronic bladder outlet obstruction CT abdomen/pelvis ordered and does not show any obstruction calculated FeNa is 7.8% however these labs were drawn after receiving IV Lasix UA consistent with ATN with granular casts, also with 2+ protein, 2+ blood, 6-10 hyaline casts, no evidence of infection CK is negative-ruling out rhabdomyolysis Initially he was treated with IV Lasix x 2 doses of 40 Mg, but his urine output remained quite low-Charles catheter then placed expertly by urology due to bladder neck contracture causing outlet obstruction although minimal urine came out at that time--most likely prerenal in nature and not postobstructive renal failure Creatinine continues to rise fairly rapidly since admission and is now up to 4.23, BUN up to 68 With ongoing hyponatremia at 128, potassium mildly elevated at 5.4 now improved with Lokelma and IV Lasix. Serum bicarbonate dropping to 20 and remains volume overloaded Continue to hold home losartan and metformin Consult to nephrology appreciated-give Lasix 40 Mg IV x 1 now to encourage urine output Follow BMP again in the morning Monitor strict I's and O's (2) Atrial fibrillation with RVR: Plan: Presented with dyspnea on exertion since Sunday 12/17 and found to be in atrial fibrillation with RVR on arrival-rates remain uncontrolled in the 1 teens to 120s Recent history of A-fib in May 2023 diagnosed by PCP but has not yet seen cardiology.. He is on Eliquis and Toprol-XL 25 Mg daily Troponin WNL, TSH normal Echocardiogram with preserved EF, small pericardial effusion Rate control strategy-switched to metoprolol tartrate 25 Mg p.o. every 6 hours for improved rate control-improving so far but may need to titrate up further Metoprolol 5 mg IV q6h as needed for heart rate >120bpm Will now hold Eliquis in case of need for temporary dialysis catheter Continue telemetry monitoring AM CBC, CMP, Mag and keep electrolytes replete Appreciate cardiology consultation (3) Acute heart failure: Plan: With evidence of volume overload from acute HFpEF and rapid atrial fibrillation versus renal failure or combination of the 2 BNP mildly elevated at 123 (no prior for comparison) Diuresing as above, with renal failure Continue Daily weights, low-sodium diet, and strict I&O monitoring (4) Pleural effusion, bilateral: Plan: CXR revealed cardiomegaly with mild interstitial pulmonary edema and trace bilateral pleural effusions secondary to acute kidney injury versus heart failure as above Not requiring oxygen but is tachypneic with minimal exertion Dilaudid ordered for pain of Charles catheter placement but also helped with tac hypnea (5) Hyponatremia: Plan: NA 129 on arrival; suspect due to hypervolemia and renal failure-worsening to 128 now Plan outlined as above (6) Diabetes: Plan: Hgb A1c here is well-controlled at 7.5% Holding home metformin Continue SSI; with target BSG range 110-140mg/dL, CF 50, carb ratio 15 Continue T2DM diet BSG ACHS (7) Elevated transaminase level: Plan: AST ALT and alkaline phosphatase acutely elevated into the 200s after admission, total bilirubin remains normal-now improving today Anaplasmosis and babesiosis smears are negative. No fevers and platelets are normal-do not suspect tickborne illness Most likely either hepatic congestion from heart failure versus shock liver as noted above Follow LFTs in the morning CT abdomen/pelvis shows a cirrhosis-likely from fatty liver-follow as an outpatient as well Babesiosis DNA PCR pending (8) Anemia: Plan: Mild, chronic, microcytic; 11.6 on arrival and stable, No signs of active bleeding on clinical exam Iron panel, ferritin show low transferrin saturation of 7% with normal ferritin Will eventually need iron replacement but hold off for now Follow CBC Will need outpatient follow-up for iron deficiency anemia once acute issues resolved (9) Elevated troponin: Plan: Mild elevation and peaked at 24, likely demand ischemia in the setting of heart failure versus acute kidney injury Await echocardiogram No ischemic changes on ECG Plan Disposition: Continued stay on PCU, guarded prognosis. Discussed care with and son at the bedside Full code VTE PPx: Eliquis but now placed on hold, add SCDs Admission and Anticipated Discharge Date Admission Date: December 22, 2023 Subjective Patient feeling about the same as yesterday, still short of breath with minimal exertion. Denies chest pains. He is moving his bowels today. He did make a total of 500 mL of urine since the Charles catheter was placed yest erday evening. Later in the day, the nurse did have to flush out some blood clots which then resulted in 340 mL of urine coming out I discussed his care with nephrology and cardiology Telemetry with atrial fibrillation, PVCs, rates in the 90s to 1 teens I discussed his care with his and son at the bedside Physical Exam Constitutional: WD/WN, vitals as above no acute distress Neck: trachea midline, no thyromegaly Respiratory: + tachypneic (Mild with exertion of sitt ing up in bed); no cough Auscultation: + diminished lung sounds (At the bases bilaterally), + crackles (bibasilar) and + wheezes (expiratory wheezes bilat); no rhonchi Cardiovascular: Rate/Rhythm: + tachycardic and + irregularly irregular Heart Sounds: no murmur Extremities: no edema Chest (Breasts): Chest: normal inspection of chest Gastrointestinal (Abdomen): normal bowel sounds, soft, nontender, no hepatosplenomegaly Musculoskeletal: Extremities: extremities normal to inspection; no cyanosis and no clubbing Skin: no rashes, warm and dry Neurologic: moves all extremities and awake; no focal motor deficits Psychiatric: A+Ox3, euthymic affect Genitourinary: + penis abnormality (Charles in place drai roma clear rust colored urine) Lymphatic: no lymphedema Results & Data Results & Data Vital Signs (Past 12 Hours) Vital Signs Temp Pulse Pulse Resp BP BP Pulse Ox 08/31/24 07:34 36.4 C L 107 H 18 103/72 92 12/24/23 06:19 119 H 116/74 12/24/23 03:37 36.6 C 111 H 18 107/68 92 12/24/23 00:00 110 H O2 Del Method 12/24/23 07:34 Room Air 12/24/23 06:19 12/24/23 03:37 Room Air 12/24/23 00:00 Laboratory Results CBC, CMP, magnesium, INR reviewed PG Care Time/CCT Total # of Minutes Spent Total Time Spent with Patient: Total time spent is greater than 50% in coordination of care (as documented) at patient's floor/unit and/or counseling patient: Coding Level of Care Code 16561 SUB INP/OBS CARE 3/50MIN Diagnoses JULIEN (acute kidney injury) N17.9 Atrial fibrillation with RVR I48.91 Acute heart failure I50.9 Pleural effusion, bilateral J90 Hyponatremia E87.1 Diabetes E11.9 Elevated transaminase level R74.01 Anemia D64.9 Elevated troponin R79.89
--- NOTE | 2023-12-24 11:18 | Cardiology Progress Note ---
Date of Service December 24, 2023 Assessment & Plan (1) Atrial fibrillation with rapid ventricular response: (2) Elevated troponin: (3) Pericardial effusion: (4) Elevated transaminase level: (5) Ascending aorta dilatation: Plan ASSESSMENT/PLAN: 1. Atrial fibrillation with rapid ventricular response: This appears to be paroxysmal. Initially diagnosed in May of this year but documented to have some sinus rhythm with normal heart rates leading up to this admission. Possibly contributing to his symptoms, although of unclear duration. Will continue with attempts at rate control currently. He has not received many additional doses of metoprolol. 1 dose was held due to parameters. Hopefully over the next 24 hours we can administer more metoprolol and see its overall effect. Given his preserved LV systolic function the addition of a calcium channel georgette can also be considered. Given his documented use of systemic anticoagulation we would have an opportunity to perform a cardioversion once some of his other acute problems have resolved. Will continue apixaban at the reduced dose currently. 2. Acute kidney injury: Defer to nephrology. I think his degree of renal dysfunction and out of proportion to his cardiac function. Overall systolic function appears normal and essentially unchanged from an echocardiogram performed in August of this year. Also, he does not appear to have decompensated left ventricular failure based on his relatively normal BNP and only mild interstitial changes on his chest x-ray. 3. Elevated troponin: Only slightly elevated and in the setting of acute kidney injury and A-fib with RVR. Likely demand ischemia. He did not present with acute coronary syndrome. 4. Pericardial effusion: Reported on CT imaging as small. He is not hypotensive. Recommend echo, which is currently pending. 5. Elevated transaminase levels: Agree with holding statin. 6. Possible heart failure: Likely hypervolemic. Minimal pulmonary vascular congestion. No peripheral edema. Possible cirrhosis noted on his CT scan with mild ascites. He would likely benefit from mild diuresis from a cardiac standpoint, and I would expect any pulmonary vascular congestion to resolve quite rapidly with administration. Unclear if he is a good candidate for diuretics given his renal dysfunction 7. Ascending aortic dilation: Measured 4.2 cm on his outpatient echocardiogram. Not evaluated on the current echocardiogram. Could consider CT scanning electively for more definitive evaluation. Admission and Anticipated Discharge Date Admission Date: December 22, 2023 Subjective This morning the patient continued to feel somewhat tired. He did notice his heart rate rising when he went to the bathroom earlier today. This was not associated with worsening dyspnea or dizziness. He stated that he may have only noticed this because his monitor tells him it was high and the palpitations were not very prominent. No chest pain. No orthopnea. Some coughing. Review of Systems Review of Systems: Per HPI Physical Exam Physical Exam: Gen.: No acute distress. Alert. Coughing on occasion HEENT: Anicteric sclera. Cardiac: Irregularly irregular. Tachycardic. Normal S1-S2. No murmurs, rubs, or gallops. Pulmonary: Clear to auscultation bilaterally. Some expiratory wheezing. No rales. Extremities: 2+ radial pulses bilaterally. 2+ posterior tibialis pulses bilaterally. No significant lower extremity edema. No cyanosis. Psychiatric: Affect appears appropriate. Results & Data Vital Signs (Past 12 Hours) Vital Signs Temp Pulse Pulse Resp BP BP Pulse Ox 12/24/23 07:34 36.4 C L 107 H 18 103/72 92 12/24/23 06:19 119 H 116/74 12/24/23 03:37 36.6 C 111 H 18 107/68 92 12/24/23 00:00 110 H O2 Del Method 12/24/23 07:34 Room Air 12/24/23 06:19 12/24/23 03:37 Room Air 12/24/23 00:00 Laboratory Results Abnormal Lab Results 12/23/23 12/23/23 12/23/23 11:21 11:35 15:11 WBC RBC Hgb Hct MCV MCH MCHC RDW Std Deviation RDW Coeff of Milvia Plt Count MPV Immature Gran % (Auto) Neut % (Auto) Lymph % (Auto) Wilkinson % (Auto) Eos % (Auto) Baso % (Auto) Neut # (Auto) Lymph # (Auto) Wilkinson # (Auto) Eos # (Auto) Baso # (Auto) Immature Gran # (Auto) PT INR Sodium Potassium Chloride Carbon Dioxide Anion Gap BUN Creatinine Est Cr Clr Drug Dosing Est GFR ( Amer) Est GFR (Non-Af Amer) BUN/Creatinine Ratio Glucose POC Glucose 140 H Calcium Magnesium Total Bilirubin AST ALT Alkaline Phosphatase Total Creatine Kinase 183 Troponin I High Sens 20.4 H Total Protein Albumin Globulin Albumin/Globulin Ratio Urine Color Yellow Urine Appearance Clear Urine pH 6.0 Ur Specific [place] 1.008 Urine Protein 2+ H Urine Glucose (UA) Negative Urine Ketones Negative Urine Blood 2+ H Urine Nitrite Negative Urine Bilirubin Negative Urine Urobilinogen Negative Ur Leukocyte Esterase Negative Urine WBC (Auto) 0-5 Urine RBC (Auto) 0-2 U Hyaline Cast (Auto) 6-10 H U Epithel Cells (Auto) 0-2 Urine Bacteria (Auto) None Seen Amorphous Sediment Present A Granular Casts Present A Ur Random Creatinine 24.7 Ur Random Sodium 72 12/23/23 12/23/23 12/23/23 15:15 16:39 18:02 WBC RBC Hgb Hct MCV MCH MCHC RDW Std Deviation RDW Coeff of Milvia Plt Count MPV Immature Gran % (Auto) Neut % (Auto) Lymph % (Auto) Wilkinson % (Auto) Eos % (Auto) Baso % (Auto) Neut # (Auto) Lymph # (Auto) Wilkinson # (Auto) Eos # (Auto) Baso # (Auto) Immature Gran # (Auto) PT INR Sodium 127 L Potassium 4.6 Chloride 94 L Carbon Dioxide 24 Anion Gap 9 BUN 59 H Creatinine 3.43 H D Est Cr Clr Drug Dosing 19.5 Est GFR ( Amer) 18.0 Est GFR (Non-Af Amer) 15.5 BUN/Creatinine Ratio 17.2 Glucose 132 H POC Glucose 144 H Calcium 8.2 L Magnesium Total Bilirubin AST ALT Alkaline Phosphatase Total Creatine Kinase Troponin I High Sens 24.6 H Total Protein Albumin Globulin Albumin/Globulin Ratio Urine Color Urine Appearance Urine pH Ur Specific [place] Urine Protein Urine Glucose (UA) Urine Ketones Urine Blood Urine Nitrite Urine Bilirubin Urine Urobilinogen Ur Leukocyte Esterase Urine WBC (Auto) Urine RBC (Auto) U Hyaline Cast (Auto) U Epithel Cells (Auto) Urine Bacteria (Auto) Amorphous Sediment Granular Casts Ur Random Creatinine Ur Random Sodium 12/23/23 12/24/23 12/24/23 21:42 06:13 06:14 WBC 10.62 RBC 4.58 L Hgb 11.4 L Hct 34.8 L MCV 76.0 L MCH 24.9 L MCHC 32.8 RDW Std Deviation 44.0 RDW Coeff of Milvia 16.2 H Plt Count 261 MPV 9.5 Immature Gran % (Auto) 0.6 Neut % (Auto) 79.9 Lymph % (Auto) 5.2 Wilkinson % (Auto) 14.3 Eos % (Auto) 0.0 Baso % (Auto) 0.0 Neut # (Auto) 8.49 H Lymph # (Auto) 0.55 L Wilkinson # (Auto) 1.52 H Eos # (Auto) 0.00 Baso # (Auto) 0.00 Immature Gran # (Auto) 0.06 PT 14.9 H INR 1.4 H Sodium 128 L Potassium 4.6 Chloride 94 L Carbon Dioxide 20 L Anion Gap 14 H BUN 68 H Creatinine 4.23 H D Est Cr Clr Drug Dosing 15.8 Est GFR ( Amer) 13.9 Est GFR (Non-Af Amer) 12.0 BUN/Creatinine Ratio 16.1 Glucose 128 H POC Glucose 129 H Calcium 8.3 L Magnesium 2.6 H Total Bilirubin 0.7 AST 249 H ALT 183 H Alkaline Phosphatase 253 H Total Creatine Kinase Troponin I High Sens Total Protein 6.9 Albumin 3.6 Globulin 3.3 Albumin/Globulin Ratio 1.1 Urine Color Urine Appearance Urine pH Ur Specific [place] Urine Protein Urine Glucose (UA) Urine Ketones Urine Blood Urine Nitrite Urine Bilirubin Urine Urobilinogen Ur Leukocyte Esterase Urine WBC (Auto) Urine RBC (Auto) U Hyaline Cast (Auto) U Epithel Cells (Auto) Urine Bacteria (Auto) Amorphous Sediment Granular Casts Ur Random Creatinine Ur Random Sodium 12/24/23 12/24/23 07:29 11:12 WBC RBC Hgb Hct MCV MCH MCHC RDW Std Deviation RDW Coeff of Milvia Plt Count MPV Immature Gran % (Auto) Neut % (Auto) Lymph % (Auto) Wilkinson % (Auto) Eos % (Auto) Baso % (Auto) Neut # (Auto) Lymph # (Auto) Wilkinson # (Auto) Eos # (Auto) Baso # (Auto) Immature Gran # (Auto) PT INR Sodium Potassium Chloride Carbon Dioxide Anion Gap BUN Creatinine Est Cr Clr Drug Dosing Est GFR ( Amer) Est GFR (Non-Af Amer) BUN/Creatinine Ratio Glucose POC Glucose 128 H 202 H Calcium Magnesium Total Bilirubin AST ALT Alkaline Phosphatase Total Creatine Kinase Troponin I High Sens Total Protein Albumin Globulin Albumin/Globulin Ratio Urine Color Urine Appearance Urine pH Ur Specific [place] Urine Protein Urine Glucose (UA) Urine Ketones Urine Blood Urine Nitrite Urine Bilirubin Urine Urobilinogen Ur Leukocyte Esterase Urine WBC (Auto) Urine RBC (Auto) U Hyaline Cast (Auto) U Epithel Cells (Auto) Urine Bacteria (Auto) Amorphous Sediment Granular Casts Ur Random Creatinine Ur Random Sodium Diagnostic Findings Holter monitor 05/2023: 1-1/2 hours of atrial fibrillation during the monitoring period. 6% PVCs. Average heart rate 64 bpm. Echocardiogram 08/2023: Summary 1. Small left ventricular size for BSA. 2. Normal left ventricular systolic function with no regional wall motion abnormalities. Ejection fraction as calculated by Biplane Simpsons method is 65-70%. 3. Mild concentric left ventricular hypertrophy. 4. Grade I diastolic dysfunction of the left ventricle (impaired relaxation pattern) with normal left atrial pressure. 5. Normal right ventricular size and function. 6. Normal biatrial size. 7. The ascending aorta is dilated, measuring 4.2 cm with an index of 1.97 cm/m2. 8. Calcified, tricuspid aortic valve with mild aortic stenosis (LVOT/AV ratio 0.48). Trivial aortic insufficiency. 9. All other valves are unremarkable. 10. Insufficient data for estimation of pulmonary artery systolic pressures. 11. Compared to the previous study performed 10/05/2022, there is no significant change. PG Care Time/CCT Total # of Minutes Spent Total Time Spent with Patient: Total time spent is greater than 50% in coordination of care (as documented) at patient's floor/unit and/or counseling patient: Coding Level of Care Code 74989 SUB INP/OBS CARE 2/35MIN Diagnoses Atrial fibrillation with rapid ventricular response I48.91 Elevated troponin R79.89 Pericardial effusion I31.39 Elevated transaminase level R74.01 Ascending aorta dilatation I77.810
--- NOTE | 2023-12-24 11:54 | XCELERA ---
[id number]
--- NOTE | 2023-12-24 12:03 | Nephrology Progress Note ---
Date of Service December 24, 2023 Assessment & Plan (1) JULIEN (acute kidney injury): Plan: * JULIEN consistent with ATN * Suspect hemodynamically mediated in setting of atrial fibrillation complicated by ARB therapy and chronic WHEELER * Losartan and metformin have been held * Urine microscopy demonstrating hyaline and granular casts. No RBC/WBC * Madeleine 72 * CT abd/plv reviewed this AM * No acute indication for hemodialysis at this time. Monitor daily BMP, UO, weight * Additional furosemide 40 mg IV ordered to encourage urine output (2) Chronic kidney disease, stage II (mild): Plan: * CKD stage G2 (mild impairment). Baseline creatinine 0.91.2 w/ EGFR 60 cc/minute (mild impairment). Renal impairment is likely on the basis of microvascular disease (3) Hyponatremia: Plan: * Hyperosmolar hyponatremia on the basis of impaired renal perfusion associated with congestive heart failure. Will provide diuretic therapy and monitor serum sodium (4) Hyperkalemia: Plan: * Low potassium diet * Remains on daily Lokelma (5) Congestive heart failure: Plan: * Appreciate cardiology consultation * Hold Eliquis if able for possible TDC placement * TTE reviewed this AM * Rate control improved (6) Anemia: Plan: * Mild, chronic anemia with hemoglobin 1112.6 dating back to at least 2020. This remained stable at this time. No acute indication for JEYSON therapy. (7) Prostate cancer: Plan: * Metastatic prostate cancer s/p radical prostatectomy 03/08/2011 followed by antiandrogen and radiation therapy * Chronic bladder neck contracture. Charles placed by urology (only to be removed by urology) (8) Transaminitis: Plan: * Possibly related to CHF * CK reassuring * Rosuvastatin held * CT with imaging evidence of cirrhosis - clinical presentation not consistent with HRS Admission and Anticipated Discharge Date Admission Date: December 22, 2023 Subjective No acute events overnight. Kole was seen and evaluated with his and son at the bedside this morning. He feels reasonably well. He reports fatigue and decreased activity tolerance with some palpitations and lightheadedness x ~1 week. Denies any recent change in LUTS. He reported elevated heart rate when out of bed this morning. He denies syncope or presyncope. Wheezing and orthopnea persist. Urine output remains relatively oliguric. Charles draining small amount of black colored urine. Review of Systems Review of Systems: All systems reviewed & are unremarkable except as noted in HPI & below Physical Exam Constitutional: well developed; no acute distress Eyes: + anicteric sclerae ENMT: Mouth: oral mucous membranes not dry Neck: normal visual inspection and trachea midline Respiratory: + tachypneic Auscultation: lungs josué r to auscultation bilaterally and + wheezes Cardiovascular: Rate/Rhythm: + tachycardic and + irregularly irregular Heart Sounds: normal S1 and normal S2 Extremities: + edema Gastrointestinal (Abdomen): Inspection/Auscultation: + abdomen distended Percussion/Palpation: abdomen nontender Musculoskeletal: Extremities: no cyanosis and no clubbing Skin: normal turgor; no lesions Neurologic: Motor/Sensory: no tremor and no asterixis Psychiatric: Orientation: alert and oriented x 3 Results & Data Vital Signs (Past 12 Hours) Vital Signs Temp Pulse Pulse Resp BP BP Pulse Ox 12/24/23 11:00 36.5 C 103 H 20 113/82 94 12/24/23 07:34 36.4 C L 107 H 18 103/72 92 12/24/23 06:19 119 H 116/74 12/24/23 03:37 36.6 C 111 H 18 107/68 92 12/24/23 00:00 110 H O2 Del Method 12/24/23 11:00 Room Air 12/24/23 07:34 Room Air 12/24/23 06:19 12/24/23 03:37 Room Air 12/24/23 00:00 Laboratory Results Laboratory Results - last 24 hr 12/23/23 12/23/23 12/23/23 11:35 15:11 15:15 WBC RBC Hgb Hct MCV MCH MCHC RDW Std Deviation RDW Coeff of Milvia Plt Count MPV Immature Gran % (Auto) Neut % (Auto) Lymph % (Auto) Sebastian % (Auto) Eos % (Auto) Baso % (Auto) Neut # (Auto) Lymph # (Auto) Sebastian # (Auto) Eos # (Auto) Baso # (Auto) Immature Gran # (Auto) PT INR Sodium 127 L Potassium 4.6 Chloride 94 L Carbon Dioxide 24 Anion Gap 9 BUN 59 H Creatinine 3.43 H D Est Cr Clr Drug Dosing 19.5 Est GFR ( Amer) 18.0 Est GFR (Non-Af Amer) 15.5 BUN/Creatinine Ratio 17.2 Glucose 132 H POC Glucose Calcium 8.2 L Magnesium Total Bilirubin AST ALT Alkaline Phosphatase Total Creatine Kinase 183 Troponin I High Sens 20.4 H Total Protein Albumin Globulin Albumin/Globulin Ratio Urine Color Yellow Urine Appearance Clear Urine pH 6.0 Ur Specific [place] 1.008 Urine Protein 2+ H Urine Glucose (UA) Negative Urine Ketones Negative Urine Blood 2+ H Urine Nitrite Negative Urine Bilirubin Negative Urine Urobilinogen Negative Ur Leukocyte Esterase Negative Urine WBC (Auto) 0-5 Urine RBC (Auto) 0-2 U Hyaline Cast (Auto) 6-10 H U Epithel Cells (Auto) 0-2 Urine Bacteria (Auto) None Seen Amorphous Sediment Present A Granular Casts Present A Ur Random Creatinine 24.7 Ur Random Sodium 72 12/23/23 12/23/23 12/23/23 16:39 18:02 21:42 WBC RBC Hgb Hct MCV MCH MCHC RDW Std Deviation RDW Coeff of Milvia Plt Count MPV Immature Gran % (Auto) Neut % (Auto) Lymph % (Auto) Sebastian % (Auto) Eos % (Auto) Baso % (Auto) Neut # (Auto) Lymph # (Auto) Sebastian # (Auto) Eos # (Auto) Baso # (Auto) Immature Gran # (Auto) PT INR Sodium Potassium Chloride Carbon Dioxide Anion Gap BUN Creatinine Est Cr Clr Drug Dosing Est GFR ( Amer) Est GFR (Non-Af Amer) BUN/Creatinine Ratio Glucose POC Glucose 144 H 129 H Calcium Magnesium Total Bilirubin AST ALT Alkaline Phosphatase Total Creatine Kinase Troponin I High Sens 24.6 H Total Protein Albumin Globulin Albumin/Globulin Ratio Urine Color Urine Appearance Urine pH Ur Specific [place] Urine Protein Urine Glucose (UA) Urine Ketones Urine Blood Urine Nitrite Urine Bilirubin Urine Urobilinogen Ur Leukocyte Esterase Urine WBC (Auto) Urine RBC (Auto) U Hyaline Cast (Auto) U Epithel Cells (Auto) Urine Bacteria (Auto) Amorphous Sediment Granular Casts Ur Random Creatinine Ur Random Sodium 12/24/23 12/24/23 12/24/23 06:13 06:14 07:29 WBC 10.62 RBC 4.58 L Hgb 11.4 L Hct 34.8 L MCV 76.0 L MCH 24.9 L MCHC 32.8 RDW Std Deviation 44.0 RDW Coeff of Milvia 16.2 H Plt Count 261 MPV 9.5 Immature Gran % (Auto) 0.6 Neut % (Auto) 79.9 Lymph % (Auto) 5.2 Sebastian % (Auto) 14.3 Eos % (Auto) 0.0 Baso % (Auto) 0.0 Neut # (Auto) 8.49 H Lymph # (Auto) 0.55 L Sebastian # (Auto) 1.52 H Eos # (Auto) 0.00 Baso # (Auto) 0.00 Immature Gran # (Auto) 0.06 PT 14.9 H INR 1.4 H Sodium 128 L Potassium 4.6 Chloride 94 L Carbon Dioxide 20 L Anion Gap 14 H BUN 68 H Creatinine 4.23 H D Est Cr Clr Drug Dosing 15.8 Est GFR ( Amer) 13.9 Est GFR (Non-Af Amer) 12.0 BUN/Creatinine Ratio 16.1 Glucose 128 H POC Glucose 128 H Calcium 8.3 L Magnesium 2.6 H Total Bilirubin 0.7 AST 249 H ALT 183 H Alkaline Phosphatase 253 H Total Creatine Kinase Troponin I High Sens Total Protein 6.9 Albumin 3.6 Globulin 3.3 Albumin/Globulin Ratio 1.1 Urine Color Urine Appearance Urine pH Ur Specific [place] Urine Protein Urine Glucose (UA) Urine Ketones Urine Blood Urine Nitrite Urine Bilirubin Urine Urobilinogen Ur Leukocyte Esterase Urine WBC (Auto) Urine RBC (Auto) U Hyaline Cast (Auto) U Epithel Cells (Auto) Urine Bacteria (Auto) Amorphous Sediment Granular Casts Ur Random Creatinine Ur Random Sodium 12/24/23 11:12 WBC RBC Hgb Hct MCV MCH MCHC RDW Std Deviation RDW Coeff of Milvia Plt Count MPV Immature Gran % (Auto) Neut % (Auto) Lymph % (Auto) Sebastian % (Auto) Eos % (Auto) Baso % (Auto) Neut # (Auto) Lymph # (Auto) Sebastian # (Auto) Eos # (Auto) Baso # (Auto) Immature Gran # (Auto) PT INR Sodium Potassium Chloride Carbon Dioxide Anion Gap BUN Creatinine Est Cr Clr Drug Dosing Est GFR ( Amer) Est GFR (Non-Af Amer) BUN/Creatinine Ratio Glucose POC Glucose 202 H Calcium Magnesium Total Bilirubin AST ALT Alkaline Phosphatase Total Creatine Kinase Troponin I High Sens Total Protein Albumin Globulin Albumin/Globulin Ratio Urine Color Urine Appearance Urine pH Ur Specific [place] Urine Protein Urine Glucose (UA) Urine Ketones Urine Blood Urine Nitrite Urine Bilirubin Urine Urobilinogen Ur Leukocyte Esterase Urine WBC (Auto) Urine RBC (Auto) U Hyaline Cast (Auto) U Epithel Cells (Auto) Urine Bacteria (Auto) Amorphous Sediment Granular Casts Ur Random Creatinine Ur Random Sodium Diagnostic Findings ABDOMEN AND PELVIS CT WITHOUT CONTRAST COMPARISON STUDY: Abdominal CT 06/27/2017. Pelvis MRI 06/29/2017. FINDINGS: Small right and small to moderate left pleural effusions. There is a small pericardial effusion with mild thickening of the pericardial lining. This raises the possibility of a pericarditis. Small focal areas of calcification within the pericardium posteriorly. Consolidation within the lower lungs posteriorly favor compressive atelectasis from the pleural effusions. A mild pneumonitis also remains in the differential diagnosis. No pneumoperitoneum. No pneumatosis. No acute fractures. Mild body wall edema noted. Small medial diverticulum is present. There is a punctate stone within the gallbladder. No gallbladder wall thickening. Nodular contour to the liver consistent with cirr hosis. There are few punctate calcified granulomas within the spleen. The adrenal glands and pancreas are unremarkable. No renal stones or hydronephrosis. Focal cortical scarring within the right kidney. Mild bilateral perinephric edema and mild periportal edema. This is likely chronic. Calcified plaque within the normal caliber abdominal aorta. No retroperitoneal or pelvic lymphadenopathy. Trace ascites within the pelvis. The bladder is decompressed and not well evaluated. Prior prostatectomy. Mild presacral edema is noted. Colonic diverticulosis. No evidence for acute diverticulitis. Suboptimal evaluation for bowel pathology due to the lack of intravenous and oral contrast. However, there is no definite bowel wall thickening or obstruction. Normal appendix. Questionable rectal thickening is likely due to underdistention. IMPRESSION: 1. Small pericardial effusion with thickening of the pericardial lining. This may represent a pericarditis. 2. Small right and [id number]-[id number]-bynoaewm left pleural effusions with patchy consolidation within the lower lobes. This favors atelectasis from the pleural effusions. A mild pneumonitis is not excluded. 3. Nodular contour to the liver consistent with cirrhosis. 4. Cholelithiasis. No gallbladder wall thickening. 5. Colonic diverticulosis. No evidence for acute diverticulitis. 6. Trace ascites. 7. No definite bowel wall thickening or obstruction. 8. Questionable rectal wall thickening is likely due to underdistention. A low- grade proctitis could also have a similar appearance. Clinical correlation recommended. PG Care Time/CCT Total # of Minutes Spent Total Time Spent with Patient: Total time spent is greater than 50% in coordination of care (as documented) at patient's floor/unit and/or counseling patient: Coding Level of Care Code 78475 SUB INP/OBS CARE 350MIN Diagnoses JULIEN (acute kidney injury) N17.9 Chronic kidney disease, stage II (mild) N18.2 Hyponatremia E87.1 Hyperkalemia E87.5 Congestive heart failure I50.9 Anemia D64.9 Prostate cancer C61 Transaminitis R74.01
[2023-12-24] MEDS: FUROSEMIDE 40 MG/4 ML VIAL IV ONE (12:21)
[2023-12-24] MEDS: DICLOFENAC SOD 1% GEL 100 GM TUBE EXT SCH (20:57)
[2023-12-25 06:09] LABS: Basophils # (auto) 0.01 K/uL (0.00-0.20); Basophils % (auto) 0.1 %; Eosinophils # (auto) 0.01 K/uL (0.00-0.50); Eosinophils % (auto) 0.1 %; Hematocrit (blood only) 35.3 % (42.0-52.0); Hemoglobin 11.7 g/dl (14.0-18.0); Immature Granulocytes # (auto) 0.07 K/uL (0.01-0.20); Immature Granulocytes % (auto) 0.7 %; Lymphocytes # (auto) 0.76 K/uL (1.20-3.40); Lymphocytes % (auto) 7.5 %; Mean Corpuscular Hemoglobin 25.2 pg (25.0-34.0); Mean Corpuscular Hgb Conc 33.1 g/dL (32.0-36.0); Mean Corpuscular Volume 75.9 fL (80.0-100.0); Mean Platelet Volume 9.3 fL (9.4-12.4); Monocytes # (auto) 1.27 K/uL (0.11-0.59); Monocytes % (auto) 12.6 %; Neutrophils # (auto) 7.97 K/uL (1.40-6.50); Platelet Count 258 K/uL (130-400); RDW Coefficient of Variation 16.1 % (11.5-14.5); RDW Standard Deviation 43.8 fL (36.4-46.3); Red Blood Count 4.65 M/uL (4.70-6.10); White Blood Count 10.09 K/ul (4.8-10.8)
[2023-12-25 06:32] LABS: Albumin Globulin Ratio 1.1 (0.9-2); Albumin Level 3.5 gm/dl (3.4-5.0); BUN Creatinine Ratio 16.3 (10-20); Bilirubin,Total 0.6 mg/dl (0.2-1.0); Calcium 8.2 mg/dl (8.6-10.3); Creatinine Clr Calc Pharmacy 12.1 ml/min; Est GFR (African American) 10.4 ml/min; Est GFR (Non-African American) 8.9 ml/min; Globulin 3.2 gm/dl (2.5-4.0); Potassium 4.2 mmol/L (3.5-5.1); Total Protein 6.7 gm/dl (6.0-8.3)
--- NOTE | 2023-12-25 12:02 | Cardiology Progress Note ---
Date of Service December 25, 2023 Assessment & Plan (1) Atrial fibrillation with rapid ventricular response: (2) Elevated troponin: (3) Pericardial effusion: (4) Elevated transaminase level: (5) Ascending aorta dilatation: Plan ASSESSMENT/PLAN: 1. Atrial fibrillation with rapid ventricular response: Persistent. He seems to be tolerating an increased dose of metoprolol, but the overall heart rates are still high. I will try increasing his dose of metoprolol. Will need to monitor his blood pressure closely. Systemic anticoagulation temporarily discontinued in order to facilitate dialysis access if necessary. This may complicate any attempt at a return to sinus rhythm. 2. Acute kidney injury: Defer to nephrology. Likely ATN given his granular casts. Hopefully will improve spontaneously. 3. Elevated troponin: Not associated with an acute coronary syndrome. 4. Pericardial effusion: Very small pericardial effusion on echocardiogram. Not hemodynamically significant. Seen in the setting of overall volume overload. 5. Elevated transaminase levels: Agree with holding statin. Improving 6. Possible heart failure: Likely hypervolemic. Attempting diuresis. Few symptoms. 7. Ascending aortic dilation: Measured 4.2 cm on his outpatient echocardiogram. Not evaluated on the current echocardiogram. Could consider CT scanning electively for more definitive evaluation. Admission and Anticipated Discharge Date Admission Date: December 22, 2023 Subjective This evening the patient claimed to be feeling well. He reported being up in a chair at some point. He denied dizziness, chest pain, breathing difficulty or sense of palpitation. Review of Systems Review of Systems: Per HPI Physical Exam Physical Exam: Gen.: No acute distress. Alert. Coughing on occasion HEENT: Anicteric sclera. Cardiac: Irregularly irregular. Tachycardic. Normal S1-S2. No murmurs, rubs, or gallops. Pulmonary: Clear to auscultation bilaterally. Some expiratory wheezing. No rales. Extremities: 2+ radial pulses bilaterally. 2+ posterior tibialis pulses bilaterally. No significant lower extremity edema. No cyanosis. Psychiatric: Affect appears appropriate. Results & Data Vital Signs (Past 12 Hours) Vital Signs Temp Pulse Resp BP BP Pulse Ox O2 Del Method 12/25/23 10:47 36.4 C L 104 H 18 104/71 95 Room Air 12/25/23 07:51 36.5 C 98 H 16 115/79 94 Room Air 12/25/23 05:44 112 H 114/81 12/25/23 03:33 36.5 C 101 H 18 100/65 93 Room Air Laboratory Results Abnormal Lab Results 12/24/23 12/24/23 12/25/23 16:33 19:56 05:41 WBC 10.09 RBC 4.65 L Hgb 11.7 L Hct 35.3 L MCV 75.9 L MCH 25.2 MCHC 33.1 RDW Std Deviation 43.8 RDW Coeff of Milvia 16.1 H Plt Count 258 MPV 9.3 L Immature Gran % (Auto) 0.7 Neut % (Auto) 79.0 Lymph % (Auto) 7.5 [place] % (Auto) 12.6 Eos % (Auto) 0.1 Baso % (Auto) 0.1 Neut # (Auto) 7.97 H Lymph # (Auto) 0.76 L [place] # (Auto) 1.27 H Eos # (Auto) 0.01 Baso # (Auto) 0.01 Immature Gran # (Auto) 0.07 Sodium 128 L Potassium 4.2 Chloride 93 L Carbon Dioxide 19 L Anion Gap 16 H BUN 88 H D Creatinine 5.41 H* D Est Cr Clr Drug Dosing 12.1 Est GFR ( Amer) 10.4 Est GFR (Non-Af Amer) 8.9 BUN/Creatinine Ratio 16.3 Glucose 112 H POC Glucose 136 H 121 H Calcium 8.2 L Total Bilirubin 0.6 AST 181 H ALT 125 H Alkaline Phosphatase 252 H Total Protein 6.7 Albumin 3.5 Globulin 3.2 Albumin/Globulin Ratio 1.1 12/25/23 12/25/23 07:39 11:18 WBC RBC Hgb Hct MCV MCH MCHC RDW Std Deviation RDW Coeff of Milvia Plt Count MPV Immature Gran % (Auto) Neut % (Auto) Lymph % (Auto) [place] % (Auto) Eos % (Auto) Baso % (Auto) Neut # (Auto) Lymph # (Auto) [place] # (Auto) Eos # (Auto) Baso # (Auto) Immature Gran # (Auto) Sodium Potassium Chloride Carbon Dioxide Anion Gap BUN Creatinine Est Cr Clr Drug Dosing Est GFR ( Amer) Est GFR (Non-Af Amer) BUN/Creatinine Ratio Glucose POC Glucose 121 H 168 H Calcium Total Bilirubin AST ALT Alkaline Phosphatase Total Protein Albumin Globulin Albumin/Globulin Ratio PG Care Time/CCT Total # of Minutes Spent Total Time Spent with Patient: Total time spent is greater than 50% in coordination of care (as documented) at patient's floor/unit and/or counseling patient: Coding Level of Care Code 08672 SUB INP/OBS CARE 2/35MIN Diagnoses Atrial fibrillation with rapid ventricular response I48.91 Elevated troponin R79.89 Pericardial effusion I31.39 Elevated transaminase level R74.01 Ascending aorta dilatation I77.810
--- NOTE | 2023-12-25 12:23 | Hospitalist Progress Note ---
Date of Service December 25, 2023 Assessment & Plan (1) JULIEN (acute kidney injury): Plan: Presented with SOB x 5 days w/ no recent acute illness or difficulty with urination. He has a history of prostate cancer s/p prostatectomy and radiation and antiandrogen therapy with chronic urinary incontinence. No history of kidney problems in the past He presented with a BUN 39, creatinine 2.06 (baseline of 0.92 in 2020) and is oliguric, with evidence of volume overload with pleural effusions and small pericardial effusion seen on CT Echocardiogram with preserved LV function and small pericardial effusion without tamponade He presented in rapid atrial fibrillation and could have had poor perfusion of the kidneys from this as well over an unknown length of time He also has significantly elevated AST, ALT, and alkaline phosphatase-could be hepatic congestion from heart failure versus shock liver from a hypotensive event-he does recall being lightheaded at home prior to admission but did not measure his blood pressure. Blood pressures here are normal Nephrology suspects etiology is hemodynamically mediated ATN in the setting of rapid A-fib complicated by ARB therapy and chronic bladder outlet obstruction CT abdomen/pelvis w/o obstruction FeNa is 7.8% however these labs were drawn after receiving IV Lasix UA consistent with ATN with granular casts, also with 2+ protein, 2+ blood, 6-10 hyaline casts, no evidence of infection CK is negative-ruling out rhabdomyolysis Initially he was treated with IV Lasix x 2 doses of 40 Mg, but his urine output remained quite low-Charles catheter then placed expertly by urology due to bladder neck contracture causing outlet obstruction although minimal urine came out at that time--most likely prerenal in nature and not postobstructive renal failure He received lasix 40mg IV on 12/23 Urine output is now picking up on 12/24 Multifocal Lens Assembler continues to rise rapidly since admission and is now up to 5.41, BUN up to 88 With ongoing hyponatremia at 128, potassium mildly elevated at 5.4 now improved with Lokelma and IV Lasix. Serum bicarbonate dropping to 19 and remains volume overloaded but clinically slightly improved Continue to hold home losartan and metformin Consult to nephrology appreciated-await Nephro recommendations on further diuretics but I suspect with increased UOP, he may be autodiuresing now Follow BMP in the morning Monitor strict I's and O's Dc Branden (2) Atrial fibrillation with RVR: Plan: Presented with dyspnea on exertion since Sunday 12/17 and found to be in atrial fibrillation with RVR on arrival-rates now improved with increasing metoprolol dose but remain in 90-100s Recent history of A-fib in May 2023 diagnosed by PCP but has not yet seen cardiology.. He is on Eliquis and Toprol-XL 25 Mg daily as an outpt Troponin WNL, TSH normal Echocardiogram with preserved EF, small pericardial effusion Increase metoprolol tartrate to 50 Mg p.o. q8 hours for improved rate control Metoprolol 5 mg IV q6h as needed for heart rate >120bpm Continue to hold Eliquis in case of need for temporary dialysis catheter Continue telemetry monitoring AM CBC, CMP, Mag and keep electrolytes replete Appreciate cardiology consultation (3) Acute heart failure: Plan: With evidence of volume overload from acute HFpEF and rapid atrial fibrillation versus renal failure or combination of the 2 BNP mildly elevated at 123 (no prior for comparison) Diuresing as above, with renal failure Continue Daily weights, low-sodium diet, and strict I&O monitoring (4) Pleural effusion, bilateral: Plan: CXR revealed cardiomegaly with mild interstitial pulmonary edema and trace bilateral pleural effusions secondary to acute kidney injury versus heart failur e as above Not requiring oxygen and tachypneic with minimal exertion, wheezing now improved Dilaudid ordered for pain of Charles catheter placement but also helped with tachypnea (5) Hyponatremia: Plan: NA 129 on arrival; suspect due to hypervolemia and renal failure-worsening to 128 but stable from previous Plan outlined as above (6) Diabetes: Plan: Hgb A1c here is well-controlled at 7.5% Holding home metformin Continue SSI; with target BSG range 110-140mg/dL, CF 50, carb ratio 15 Continue T2DM diet BSG ACHS (7) Elevated transaminase level: Plan: AST ALT and alkaline phosphatase acutely elevated into the 200s after admission, total bilirubin remains normal-continue to improve daily Anaplasmosis and babesiosis smears are negative. No fevers and platelets are normal-do not suspect tickborne illness CT abdomen/pelvis shows a cirrhosis-likely from fatty liver-follow as an outpatient as well Most likely either hepatic congestion from heart failure versus shock liver as noted above Follow LFTs again in the morning Babesiosis DNA PCR pending (8) Anemia: Plan: Mild, chronic, microcytic; 11.6 on arrival and stable, No signs of active bleeding on clinical exam Iron panel, ferritin show low transferrin saturation of 7% with normal ferritin He had a colonoscopy he thinks around age 79 that was normal,no melena or hematochezia Discussed po vs IV iron with pt and he prefers IV iron-give 300mg IV now Follow CBC Will need outpatient follow-up for iron deficiency anemia once acute issues resolved (9) Elevated troponin: Plan: Mild elevation and peaked at 24, likely demand ischemia in the setting of heart failure versus acute kidney injury Await echocardiogram No ischemic changes on ECG Plan Disposition: Continued stay on PCU, guarded prognosis. Discussed care with and son at the bedside Full code VTE PPx: Eliquis but now placed on hold, SCDs Admission and Anticipated Discharge Date Admission Date: December 22, 2023 Subjective Feeling about the same, still dyspneic with exertion. Moving bowels, appetite is low. Urine output has picked up and hematuria has cleared Tele with Afib, rates 90-100s Physical Exam Constitutional: WD/WN, vitals as above no acute distress Neck: trachea midline, no thyromegaly Respiratory: no cough Auscultation: + diminished lung sounds (At the bases bilaterally); no crackles, no rhonchi and no wheezes Cardiovascular: Rate/Rhythm: regular rate and + irregularly irregular Heart Sounds: no murmur Extremities: no edema Chest (Breasts): Chest: normal inspection of chest Gastrointestinal (Abdomen): normal bowel sounds, soft, nontender, no hepatosplenomegaly Musculoskeletal: Extremities: extremities normal to inspection; no cyanosis and no clubbing Skin: no rashes, warm and dry Neurologic: moves all extremities and awake; no focal motor deficits Psychiatric: A+Ox3, euthymic affect Genitourinary: + penis abnormality (Charles in place drai roma clear yellow urine) Lymphatic: no lymphedema Results & Data Results & Data Vital Signs (Past 12 Hours) Vital Signs Temp Pulse Resp BP BP Pulse Ox O2 Del Method 12/25/23 10:47 36.4 C L 104 H 18 104/71 95 Room Air 12/25/23 07:51 36.5 C 98 H 16 115/79 94 Room Air 12/25/23 05:44 112 H 114/81 12/25/23 03:33 36.5 C 101 H 18 100/65 93 Room Air Laboratory Results CBC, BMP, LFTs reviewed PG Care Time/CCT Total # of Minutes Spent Total Time Spent with Patient: Total time spent is greater than 50% in coordination of care (as documented) at patient's floor/unit and/or counseling patient: Coding Level of Care Code 52611 SUB INP/OBS CARE 3/50MIN Diagnoses JULIEN (acute kidney injury) N17.9 Atrial fibrillation with RVR I48.91 Acute heart failure I50.9 Pleural effusion, bilateral J90 Hyponatremia E87.1 Diabetes E11.9 Elevated transaminase level R74.01 Anemia D64.9 Elevated troponin R79.89
[2023-12-25] MEDS: METOPROLOL TARTRATE 50 MG TAB PO SCH (13:22)
[2023-12-25] MEDS: IRON SUCROSE 300 MG in SODIUM CHLORIDE 0.9% 250 ML IV ONE (13:22)
--- NOTE | 2023-12-25 13:58 | Nephrology Progress Note ---
Date of Service December 25, 2023 Assessment & Plan (1) JULIEN (acute kidney injury): Plan: * JULIEN consistent with ATN * Suspect hemodynamically mediated in setting of atrial fibrillation complicated by ARB therapy and chronic WHEELER * Losartan and metformin have been held * Urine microscopy demonstrating hyaline and granular casts. No RBC/WBC * Madeleine 72 * CT abd/plv without hydronephrosis * No acute indication for hemodialysis at this time * Potential future indication for dialysis discussed * Monitor daily BMP, UO, weight (2) Chronic kidney disease, stage II (mild): Plan: * CKD stage G2 (mild impairment). Baseline creatinine 0.91.2 w/ EGFR 60 cc/minute (mild impairment). 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 (3) Hyponatremia: Plan: * Hyperosmolar hyponatremia on the basis of impaired renal perfusion associated with congestive heart failure. (4) Hyperkalemia: Plan: * Improved. * Low potassium diet. * Daily Lokelma held. (5) Congestive heart failure: Plan: * Appreciate cardiology consultation * Hold Eliquis for possible TDC placement * Continue diuretics PRN to encourage slightly negative fluid balance (6) Anemia: Plan: * Mild, chronic anemia with hemoglobin 1112.6 dating back to at least 2020. This remained stable at this time. No acute indication for JEYSON therapy. (7) Prostate cancer: Plan: * Metastatic prostate cancer s/p radical prostatectomy 03/08/2011 followed by antiandrogen and radiation therapy * Chronic bladder neck contracture. Charles placed by urology (only to be removed by urology) (8) Transaminitis: Plan: * Possibly related to CHF * CK reassuring * Rosuvastatin held * CT with imaging evidence of cirrhosis Admission and Anticipated Discharge Date Admission Date: December 22, 2023 Subjective No acute events overnight. Denies chest pains or palpitations. Dyspnea with minimal exertion persists. Very tired today. Sleeping when I entered room. Appetite is not good. Denies any other GI symptoms. Urine output improved. Denies significant fluid retention or edema. Review of Systems Review of Systems: All systems reviewed & are unremarkable except as noted in HPI & below Physical Exam Constitutional: well developed; no acute distress Eyes: + anicteric sclerae ENMT: Mouth: oral mucous membranes not dry Neck: normal visual inspection and trachea midline Respiratory: + tachypneic Auscultation: lungs josué r to auscultation bilaterally and + wheezes Cardiovascular: Rate/Rhythm: + tachycardic and + irregularly irregular Heart Sounds: normal S1 and normal S2 Extremities: + edema Musculoskeletal: Extremities: no cyanosis and no clubbing Skin: normal turgor; no lesions Neurologic: Motor/Sensory: no tremor and no asterixis Psychiatric: Orientation: alert and oriented x 3 Results & Data Vital Signs (Past 12 Hours) Vital Signs Temp Pulse Resp BP BP Pulse Ox O2 Del Method 12/25/23 10:47 36.4 C L 104 H 18 104/71 95 Room Air 12/25/23 07:51 36.5 C 98 H 16 115/79 94 Room Air 12/25/23 05:44 112 H 114/81 12/25/23 03:33 36.5 C 101 H 18 100/65 93 Room Air Laboratory Results Laboratory Results - last 24 hr 12/24/23 12/24/23 12/25/23 16:33 19:56 05:41 WBC 10.09 RBC 4.65 L Hgb 11.7 L Hct 35.3 L MCV 75.9 L MCH 25.2 MCHC 33.1 RDW Std Deviation 43.8 RDW Coeff of Milvia 16.1 H Plt Count 258 MPV 9.3 L Immature Gran % (Auto) 0.7 Neut % (Auto) 79.0 Lymph % (Auto) 7.5 [place] % (Auto) 12.6 Eos % (Auto) 0.1 Baso % (Auto) 0.1 Neut # (Auto) 7.97 H Lymph # (Auto) 0.76 L [place] # (Auto) 1.27 H Eos # (Auto) 0.01 Baso # (Auto) 0.01 Immature Gran # (Auto) 0.07 Sodium 128 L Potassium 4.2 Chloride 93 L Carbon Dioxide 19 L Anion Gap 16 H BUN 88 H D Creatinine 5.41 H* D Est Cr Clr Drug Dosing 12.1 Est GFR ( Amer) 10.4 Est GFR (Non-Af Amer) 8.9 BUN/Creatinine Ratio 16.3 Glucose 112 H POC Glucose 136 H 121 H Calcium 8.2 L Total Bilirubin 0.6 AST 181 H ALT 125 H Alkaline Phosphatase 252 H Total Protein 6.7 Albumin 3.5 Globulin 3.2 Albumin/Globulin Ratio 1.1 12/25/23 12/25/23 07:39 11:18 WBC RBC Hgb Hct MCV MCH MCHC RDW Std Deviation RDW Coeff of Milvia Plt Count MPV Immature Gran % (Auto) Neut % (Auto) Lymph % (Auto) [place] % (Auto) Eos % (Auto) Baso % (Auto) Neut # (Auto) Lymph # (Auto) [place] # (Auto) Eos # (Auto) Baso # (Auto) Immature Gran # (Auto) Sodium Potassium Chloride Carbon Dioxide Anion Gap BUN Creatinine Est Cr Clr Drug Dosing Est GFR ( Amer) Est GFR (Non-Af Amer) BUN/Creatinine Ratio Glucose POC Glucose 121 H 168 H Calcium Total Bilirubin AST ALT Alkaline Phosphatase Total Protein Albumin Globulin Albumin/Globulin Ratio PG Care Time/CCT Total # of Minutes Spent Total Time Spent with Patient: Total time spent is greater than 50% in coordination of care (as documented) at patient's floor/unit and/or counseling patient: Coding Level of Care Code 42921 SUB INP/OBS CARE 3/50MIN Diagnoses JULIEN (acute kidney injury) N17.9 Chronic kidney disease, stage II (mild) N18.2 Hyponatremia E87.1 Hyperkalemia E87.5 Congestive heart failure I50.9 Anemia D64.9 Prostate cancer C61 Transaminitis R74.01
[2023-12-26 06:18] LABS: Basophils # (auto) 0.01 K/uL (0.00-0.20); Basophils % (auto) 0.1 %; Eosinophils # (auto) 0.01 K/uL (0.00-0.50); Eosinophils % (auto) 0.1 %; Hematocrit (blood only) 35.7 % (42.0-52.0); Hemoglobin 11.9 g/dl (14.0-18.0); Immature Granulocytes # (auto) 0.09 K/uL (0.01-0.20); Immature Granulocytes % (auto) 0.8 %; Lymphocytes # (auto) 0.66 K/uL (1.20-3.40); Lymphocytes % (auto) 5.8 %; Mean Corpuscular Hemoglobin 24.9 pg (25.0-34.0); Mean Corpuscular Hgb Conc 33.3 g/dL (32.0-36.0); Mean Corpuscular Volume 74.8 fL (80.0-100.0); Mean Platelet Volume 9.5 fL (9.4-12.4); Monocytes # (auto) 1.24 K/uL (0.11-0.59); Monocytes % (auto) 10.9 %; Neutrophils # (auto) 9.37 K/uL (1.40-6.50); Neutrophils % (auto) 82.3 %; Nucleated RBC # (auto) 0.03 K/uL (0.00-0.12); Nucleated RBC % (auto) 0.3 %; Platelet Count 259 K/uL (130-400); RDW Coefficient of Variation 16.1 % (11.5-14.5); RDW Standard Deviation 43.6 fL (36.4-46.3); Red Blood Count 4.77 M/uL (4.70-6.10); White Blood Count 11.38 K/ul (4.8-10.8)
[2023-12-26 06:53] LABS: Albumin Globulin Ratio 1.1 (0.9-2); Albumin Level 3.4 gm/dl (3.4-5.0); BUN Creatinine Ratio 17.6 (10-20); Bilirubin,Total 0.7 mg/dl (0.2-1.0); Calcium 8.1 mg/dl (8.6-10.3); Est GFR (African American) 9.2 ml/min; Globulin 3.2 gm/dl (2.5-4.0); Magnesium 2.8 mg/dl (1.7-2.4); Potassium 4.4 mmol/L (3.5-5.1); Total Protein 6.6 gm/dl (6.0-8.3)
--- NOTE | 2023-12-26 09:44 | Hospitalist Progress Note ---
Date of Service December 26, 2023 Assessment & Plan (1) JULIEN (acute kidney injury): Plan: P/w SOB x 5 days w/o recent acute illness or difficulty with urination. He has a history of prostate cancer s/p prostatectomy and radiation and antiandrogen therapy with chronic urinary incontinence. No history of kidney problems in the past On admission, BUN 39, creatinine 2.06 (baseline of 0.92 in 2020) and was oliguric, with evidence of volume overload with pleural effusions and small pericardial effusion seen on CT ECHO w/ preserved LV function and small pericardial effusion without tamponade With rapid atfib, could have had hypotension induced ATN Also w/ elevated AST, ALT, and alkaline phosphatase-could be hepatic congestion from heart failure versus shock liver from a hypotensive event-he does recall being lightheaded at home prior to admission but did not measure his blood pressure. Blood pressures here have been normal CT abdomen/pelvis w/o obstruction FeNa is 7.8% however these labs were drawn after receiving IV Lasix UA consistent with ATN with granular casts, also with 2+ protein, 2+ blood, 6-10 hyaline casts, no evidence of infection CK is negative-ruling out rhabdomyolysis Nephrology suspects etiology is hemodynamically mediated ATN in the setting of rapid A-fib complicated by ARB therapy and chronic bladder outlet obstruction Initially treated with IV Lasix x 2 doses of 40 Mg, but his urine output remained quite low-with difficult Charles catheter placement by urology due to bladder neck contracture causing outlet obstruction-minimal urine came out at that time--most likely prerenal in nature and not postobstructive renal failure He received lasix 40mg IV on 12/23 Urine output is now picking up since 12/24, but analyst market intelligence continues to rise although not as rapidly--> analyst market intelligence now 5.9, mild acidosis, normal K+ With hyponatremia at 129, previous hyperkalemia resolved w/ Lokelma and IV Lasix. Remains volume overloaded but improved dyspnea and no longer wheezing Continue to hold home losartan and metformin Consult to nephrology appreciated-await Nephro recommendations on further diuretics but I suspect with increased UOP, he may be autodiuresing now Follow BMP in the morning Monitor strict I's and O's Holding home Eliquis in case of need for temporary dialysis catheter (2) Atrial fibrillation with RVR: Plan: Presented with OLVERA since Sunday 12/17, found to be in atrial fibrillation with RVR on arrival-rates now improved with increasing metoprolol dose but remain in 90-100s Recent history of A-fib in May 2023 diagnosed by PCP but has not yet seen cardiology as an outpt. He is on Eliquis and Toprol-XL 25 Mg daily as an outpt Troponin WNL, TSH normal Echocardiogram with preserved EF, small pericardial effusion Continue metoprolol tartrate 50 Mg p.o. q8 hours for improved rate control-keep same dose today given low-normal BPs-convert to XL version on discharge Metoprolol 5 mg IV q6h as needed for heart rate >120bpm Continue to hold Eliquis in case of need for temporary dialysis catheter Continue telemetry monitoring AM CBC, CMP, Mag and keep electrolytes replete Appreciate cardiology consultation (3) Acute heart failure: Plan: With evidence of volume overload from acute HFpEF and rapid atrial fibrillation versus renal failure or combination of the two BNP mildly elevated at 123 (no prior for comparison) Diuresing as above, with renal failure Continue Daily weights, low-sodium diet, and strict I&O monitoring (4) Pleural effusion, bilateral: Plan: CXR revealed cardiomegaly with mild interstitial pulmonary edema and trace bilateral pleural effusions secondary to JULIEN vs CHF as above Not requiring oxygen and tachypneic with minimal exertion, wheezing now improved Dilaudid ordered for pain of Charles catheter placement but also helped with tachypnea (5) Hyponatremia: Plan: NA 129 on arrival; suspect due to hypervolemia and renal failure-remains stable from previous Plan outlined as above (6) Diabetes: Plan: Hgb A1c here is well-controlled at 7.5% Holding home metformin Continue SSI; with target BSG range 110-140mg/dL, CF 50, carb ratio 15 Continue T2DM diet BSG ACHS (7) Elevated transaminase level: Plan: AST ALT and alkaline phosphatase acutely elevated into the 200s after admission, total bilirubin remains normal-continue to improve daily Anaplasmosis and babesiosis smears are negative. No fevers and platelets are normal-do not suspect tickborne illness CT abdomen/pelvis shows a cirrhosis-likely from fatty liver-follow as an outpatient as well Most likely either hepatic congestion from heart failure versus shock liver as noted above Follow LFTs again in the morning Babesiosis DNA PCR remains pending (8) Anemia: Plan: Mild, chronic, microcytic; 11.6 on arrival and stable, No signs of active bleeding on clinical exam Iron panel, ferritin show low transferrin saturation of 7% with normal ferritin He had a colonoscopy he thinks around age 79 that was normal,no melena or hematochezia Discussed po vs IV iron with pt and he prefers IV iron-give 300mg IV daily x 3 days-last dose 12/26 Follow CBC Will need outpatient follow-up for iron deficiency anemia once acute issues resolved (9) Elevated troponin: Plan: Mild elevation and peaked at 24, likely demand ischemia in the setting of heart failure versus acute kidney injury Await echocardiogram No ischemic changes on ECG Plan Disposition: Continued stay on PCU, guarded prognosis. Full code VTE PPx: Eliquis placed on hold, SCDs Admission and Anticipated Discharge Date Admission Date: December 22, 2023 Subjective Feeling better today, more energy, appetite improving, maybe a little less SOB. He is anxious about when his kidney function will improve. He is moving his bowels, urine output up slightly from previous Denies chest pain Tele with Afib, rates 90-100s Physical Exam Constitutional: WD/WN, vitals as above no acute distress Neck: trachea midline, no thyromegaly Respiratory: no cough Auscultation: + diminished lung sounds (At the bases bilaterally); no crackles, no rhonchi and no wheezes Cardiovascular: Rate/Rhythm: regular rate and + irregularly irregular Heart Sounds: no murmur Extremities: no edema Chest (Breasts): Chest: normal inspection of chest Musculoskeletal: Extremities: extremities normal to inspection; no cyanosis and no clubbing Skin: no rashes, warm and dry Neurologic: moves all extremities and awake; no focal motor deficits Psychiatric: A+Ox3, euthymic affect Genitourinary: + penis abnormality (Charles in place drai roma clear yellow urine ) Lymphatic: no lymphedema Results & Data Results & Data Vital Signs (Past 12 Hours) Vital Signs Temp Pulse Pulse Resp BP BP Pulse Ox 12/26/23 07:06 91 H 18 102/73 94 12/26/23 05:58 102 H 113/76 12/26/23 03:43 36.4 C L 104 H 20 112/78 94 12/26/23 00:00 105 H 12/25/23 23:43 36.6 C 108 H 18 111/68 93 O2 Del Method 12/26/23 07:06 Room Air 12/26/23 05:58 12/26/23 03:43 Room Air 12/26/23 00:00 12/25/23 23:43 Room Air Laboratory Results CBC, CMP, magnesium reviewed PG Care Time/CCT Total # of Minutes Spent Total Time Spent with Patient: Total time spent is greater than 50% in coordination of care (as documented) at patient's floor/unit and/or counseling patient: Coding Level of Care Code 32730 SUB INP/OBS CARE 2/35MIN Diagnoses JULIEN (acute kidney injury) N17.9 Atrial fibrillation with RVR I48.91 Acute heart failure I50.9 Pleural effusion, bilateral J90 Hyponatremia E87.1 Diabetes E11.9 Elevated transaminase level R74.01 Anemia D64.9 Elevated troponin R79.89
[2023-12-26] MEDS: Heparin IV Adult Wt-Based Standard *NO* INITIAL Bolus Protocol IV STA (10:44)
[2023-12-26] MEDS: IRON SUCROSE 300 MG in SODIUM CHLORIDE 0.9% 250 ML IV SCH (10:48)
[2023-12-26] MEDS: HEPARIN SODIUM/DEXTROSE 25,000 UNITS/500 ML BAG IV SCH (11:02)
[2023-12-26 11:51] LABS: INR 1.4 (0.9-1.1); Partial Thromboplastin Ratio 1.5; Partial Thromboplastin Time 41 Seconds (21-31); Prothrombin Time 14.3 Seconds (9.0-12.0)
--- NOTE | 2023-12-26 14:06 | Nephrology Progress Note ---
Date of Service December 26, 2023 Assessment & Plan (1) JULIEN (acute kidney injury): Plan: * JULIEN consistent with ATN * Non-oliguric. UOP increasing. No diuretics required in past 24-48 hours. * Suspect hemodynamically mediated in setting of atrial fibrillation complicated by ARB therapy and chronic WHEELER * Losartan and metformin have been held * No acute indication for hemodialysis at this time * Potential future indication for dialysis discussed * Monitor daily BMP, UO, weight. * Maintain low potassium diet. (2) Chronic kidney disease, stage II (mild): Plan: * CKD stage G2 (mild impairment). Baseline creatinine 0.91.2 w/ EGFR 60 cc/minute (mild impairment). 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 (3) Hyponatremia: Plan: * Hyperosmolar hyponatremia on the basis of impaired renal perfusion associated with congestive heart failure. (4) Congestive heart failure: Plan: * Appreciate cardiology consultation. * Hold Eliquis for possible TDC placement. Patient has been started on heparin gtt. * Continue diuretics PRN to encourage slightly negative fluid balance. (5) Anemia: Plan: * Mild, chronic anemia with hemoglobin 1112.6 dating back to at least 2020. This remained stable at this time. No acute indication for JEYSON therapy. IV iron has been provided. (6) Prostate cancer: Plan: * Metastatic prostate cancer s/p radical prostatectomy 03/08/2011 followed by antiandrogen and radiation therapy * Chronic bladder neck contracture. Charles placed by urology (only to be removed by urology) (7) Transaminitis: Plan: * Possibly related to CHF * CK reassuring * Rosuvastatin held * CT with imaging evidence of cirrhosis Admission and Anticipated Discharge Date Admission Date: December 22, 2023 Subjective No acute events overnight. Kole was seen and evaluated with his and family at the bedside. He has been out of bed and walking in the glez. He reports some persistent lightheadedness. Kole denies chest pains or palpitations. He denies significant dyspnea. He does not endorse fluid retention or edema. Review of Systems Review of Systems: All systems reviewed & are unremarkable except as noted in HPI & below Physical Exam Constitutional: well developed; no acute distress Eyes: + anicteric sclerae ENMT: Mouth: oral mucous membranes not dry Neck: normal visual inspection and trachea midline Respiratory: + tachypneic Auscultation: lungs josué r to auscultation bilaterally Cardiovascular: Rate/Rhythm: + irregularly irregular Heart Sounds: normal S1 and normal S2 Extremities: + edema Gastrointestinal (Abdomen): Inspection/Auscultation: + abdomen distended Percussion/Palpation: abdomen nontender Musculoskeletal: Extremities: no cyanosis and no clubbing Skin: normal turgor; no lesions Neurologic: Motor/Sensory: no tremor and no asterixis Psychiatric: Orientation: alert and oriented x 3 Results & Data Vital Signs (Past 12 Hours) Vital Signs Temp Pulse Resp BP BP Pulse Ox O2 Del Method 12/26/23 11:00 36.5 C 94 H 20 104/72 95 Room Air 12/26/23 07:06 91 H 18 102/73 94 Room Air 12/26/23 05:58 102 H 113/76 12/26/23 03:43 36.4 C L 104 H 20 112/78 94 Room Air Laboratory Results Laboratory Results - last 24 hr 12/25/23 12/25/23 12/26/23 16:29 20:11 05:53 WBC 11.38 H RBC 4.77 Hgb 11.9 L Hct 35.7 L MCV 74.8 L MCH 24.9 L MCHC 33.3 RDW Std Deviation 43.6 RDW Coeff of Milvia 16.1 H Plt Count 259 MPV 9.5 Immature Gran % (Auto) 0.8 Neut % (Auto) 82.3 Lymph % (Auto) 5.8 Morgan % (Auto) 10.9 Eos % (Auto) 0.1 Baso % (Auto) 0.1 Neut # (Auto) 9.37 H Lymph # (Auto) 0.66 L Morgan # (Auto) 1.24 H Eos # (Auto) 0.01 Baso # (Auto) 0.01 Immature Gran # (Auto) 0.09 Absolute Nucleated RBC 0.03 Nucleated RBC % (auto) 0.3 PT INR APTT PTT Ratio Sodium 129 L Potassium 4.4 Chloride 94 L Carbon Dioxide 18 L Anion Gap 17 H BUN 105 H Creatinine 5.95 H* D Est Cr Clr Drug Dosing 11.0 Est GFR ( Amer) 9.2 Est GFR (Non-Af Amer) 8.0 BUN/Creatinine Ratio 17.6 Glucose 121 H POC Glucose 137 H 119 H Calcium 8.1 L Magnesium 2.8 H Total Bilirubin 0.7 AST 161 H ALT 104 H Alkaline Phosphatase 232 H Total Protein 6.6 Albumin 3.4 Globulin 3.2 Albumin/Globulin Ratio 1.1 12/26/23 12/26/23 12/26/23 07:06 10:58 11:18 WBC RBC Hgb Hct MCV MCH MCHC RDW Std Deviation RDW Coeff of Milvia Plt Count MPV Immature Gran % (Auto) Neut % (Auto) Lymph % (Auto) Morgan % (Auto) Eos % (Auto) Baso % (Auto) Neut # (Auto) Lymph # (Auto) Morgan # (Auto) Eos # (Auto) Baso # (Auto) Immature Gran # (Auto) Absolute Nucleated RBC Nucleated RBC % (auto) PT 14.3 H INR 1.4 H APTT 41 H PTT Ratio 1.5 Sodium Potassium Chloride Carbon Dioxide Anion Gap BUN Creatinine Est Cr Clr Drug Dosing Est GFR ( Amer) Est GFR (Non-Af Amer) BUN/Creatinine Ratio Glucose POC Glucose 134 H 194 H Calcium Magnesium Total Bilirubin AST ALT Alkaline Phosphatase Total Protein Albumin Globulin Albumin/Globulin Ratio PG Care Time/CCT Total # of Minutes Spent Total Time Spent with Patient: Total time spent is greater than 50% in coordination of care (as documented) at patient's floor/unit and/or counseling patient: Coding Level of Care Code 30509 SUB INP/OBS CARE 3/50MIN Diagnoses JULIEN (acute kidney injury) N17.9 Chronic kidney disease, stage II (mild) N18.2 Hyponatremia E87.1 Congestive heart failure I50.9 Anemia D64.9 Prostate cancer C61 Transaminitis R74.01
[2023-12-26 18:28] LABS: ANTI-Xa, UFH(UnfractionatedHep > 1.50 IU/ml (0.3-0.7)
[2023-12-26 19:59] LABS: ANTI-Xa, UFH(UnfractionatedHep > 1.50 IU/ml (0.3-0.7)
[2023-12-26 21:53] LABS: ANTI-Xa, UFH(UnfractionatedHep 0.93 IU/ml (0.3-0.7)
[2023-12-26 23:49] LABS: ANTI-Xa, UFH(UnfractionatedHep 0.74 IU/ml (0.3-0.7)
[2023-12-27 01:04] LABS: ANTI-Xa, UFH(UnfractionatedHep 0.67 IU/ml (0.3-0.7)
[2023-12-27 07:23] LABS: Basophils # (auto) 0.03 K/uL (0.00-0.20); Basophils % (auto) 0.2 %; Eosinophils # (auto) 0.01 K/uL (0.00-0.50); Eosinophils % (auto) 0.1 %; Hematocrit (blood only) 35.9 % (42.0-52.0); Hemoglobin 11.9 g/dl (14.0-18.0); Immature Granulocytes % (auto) 2.2 %; Lymphocytes # (auto) 0.95 K/uL (1.20-3.40); Lymphocytes % (auto) 7.1 %; Mean Corpuscular Hemoglobin 24.8 pg (25.0-34.0); Mean Corpuscular Hgb Conc 33.1 g/dL (32.0-36.0); Mean Corpuscular Volume 74.8 fL (80.0-100.0); Mean Platelet Volume 9.8 fL (9.4-12.4); Monocytes # (auto) 1.61 K/uL (0.11-0.59); Monocytes % (auto) 12.1 %; Neutrophils # (auto) 10.45 K/uL (1.40-6.50); Neutrophils % (auto) 78.3 %; Nucleated RBC # (auto) 0.04 K/uL (0.00-0.12); Nucleated RBC % (auto) 0.3 %; Platelet Count 282 K/uL (130-400); RDW Coefficient of Variation 16.5 % (11.5-14.5); RDW Standard Deviation 43.7 fL (36.4-46.3); White Blood Count 13.35 K/ul (4.8-10.8)
[2023-12-27 07:51] LABS: Albumin Globulin Ratio 1.1 (0.9-2); Albumin Level 3.4 gm/dl (3.4-5.0); BUN Creatinine Ratio 18.2 (10-20); Bilirubin,Total 0.7 mg/dl (0.2-1.0); Calcium 8.3 mg/dl (8.6-10.3); Est GFR (Non-African American) 7.8 ml/min; Globulin 3.2 gm/dl (2.5-4.0); Potassium 4.2 mmol/L (3.5-5.1); Total Protein 6.6 gm/dl (6.0-8.3)
[2023-12-27 08:03] LABS: ANTI-Xa, UFH(UnfractionatedHep 1.16 IU/ml (0.3-0.7)
--- NOTE | 2023-12-27 13:32 | Nephrology Progress Note ---
Date of Service December 27, 2023 Assessment & Plan (1) JULIEN (acute kidney injury): (2) Hyponatremia: (3) Anemia: (4) Atrial fibrillation with rapid ventricular response: Plan Mr. 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 Admitted with progressive fatigue, dyspnea on exertion, hypotension with blood pressure 91/55, A fib with RVR. On admission Creatinine 2.86, potassium 5.4. Chest x-ray revealed mild cardiomegaly with interstitial edema and trace bilateral pleural effusions. Received 40 mg furosemide IV x 1 in ER. Received IV Venofer. Hemoglobin 11.8. Noted to have mild hyperkalemia and received Lokelma and potassium improved. CT A/P with no postrenal obstruction. Urinalysis with proteinuria and microscopic hematuria, which has been chronic at least since 2020. Kidney function has been worsening over last 5 days however the rise of creatinine seems to have slowed down, creatinine was 6.1 today compared to 6.0 yesterday. Has mild hyponatremia, stable. Potassium has been normal. Blood pressure relatively low but asymptomatic. Heart rate improved but still staying in high 90s. Has decent urine output and net negative. -- Continue to monitor kidney function electrolyte, slow rise in creatinine today is promising, hopefully creatinine will plateau to and start to improve -- accurate intake and output, continue on mild fluid restriction to less than 1500 mL/day -- Do not see any indication for dialysis at this time -- If bicarb remains low, will start on sodium bicarbonate. Admission and Anticipated Discharge Date Admission Date: December 22, 2023 Subjective Mr. Burnett was seen and evaluated this morning with his family at bedside. Overall he reports feeling okay except noticing dry mouth, denies significant shortness of breath or chest pain. Has Charles catheter with decent urine output. Slight increase in creatinine to 6.1 from 6.0 yesterday with hyponatremia, serum sodium 128. Other electrolyte acceptable. Pressure relatively low but asymptomatic. Review of Systems Review of Systems: Detailed review of system was done and pertinent positives and negatives are mentioned above. Physical Exam Constitutional: WD/WN, vitals as above no acute distress Eyes: + anicteric sclerae Neck: normal visual inspection Respiratory: no respiratory distress Auscultation: lungs clear to auscultation bilaterally Cardiovascular: Rate/Rhythm: + tachycardic and + irregularly irregular Heart Sounds: normal S1 and normal S2 Extremities: no edema Skin: no rashes, warm and dry Neurologic: no focal motor deficits Psychiatric: Orientation: alert and oriented x 3 Results & Data Vital Signs (Past 12 Hours) Vital Signs Temp Pulse Resp BP Pulse Ox O2 Del Method 12/27/23 10:52 36.5 C 94 H 17 107/76 91 Room Air 12/27/23 08:11 36.6 C 101 H 17 107/74 96 Room Air PG Care Time/CCT Total # of Minutes Spent Total Time Spent with Patient: Total time spent is greater than 50% in coordination of care (as documented) at patient's floor/unit and/or counseling patient: Coding Level of Care Code 93837 SUB INP/OBS CARE 2/35MIN Diagnoses JULIEN (acute kidney injury) N17.9 Hyponatremia E87.1 Anemia D64.9 Atrial fibrillation with rapid ventricular response I48.91
--- NOTE | 2023-12-27 14:35 | Hospitalist Progress Note ---
Date of Service December 27, 2023 Assessment & Plan (1) JULIEN (acute kidney injury): Plan: Hopefully nothing more than prerenal failure. Serum osmolarity is elevated. Continue IV fluids and monitor urine output and daily labs. Nephrology consultation and recommendations appreciated (2) Atrial fibrillation with RVR: Plan: He is now on a heparin drip while Eliquis is on hold. Telemetry. Rate control. Appreciate cardiology consultation and recommendations (3) Acute heart failure: Plan: Acute on chronic diastolic CHF suspected on admission due to chest x-ray appearance. He received parenteral Lasix for diuresis on admission and now has acute renal failure. CHF has resolved. He is now receiving IV fluids. Cardiac echo reveals mild left ventricular hypertrophy with normal ejection fraction. Monitor intake and output (4) Pleural effusion, bilateral: Plan: Admission CXR revealed cardiomegaly with suspected acute exacerbation of diastolic CHF with small bilateral pleural effusions. Fortunately, he is on room air. (5) Hyponatremia: Plan: Mild on admission. Sodium remains mildly low despite elevated serum osmolarity. Monitor intake and output. Serial labs (6) Diabetes: Plan: Hgb A1c 7.5%. ADA diet. Sliding scale coverage. Metformin is temporarily on hold (7) Elevated transaminase level: Plan: On admission. Improving. Serial labs. Anaplasmosis and babesiosis smears are negative. CT abdomen/pelvis shows a cirrhosis-likely from fatty liver-follow as an outpatient as well (8) Anemia: Plan: Due to iron deficiency. No evidence of active GI bleeding. Parenteral iron ordered. He has had a previous colonoscopy with no significant findings. (9) Elevated troponin: Plan: Likely demand ischemia. No evidence of acute coronary syndrome. Cardiac echo negative for regional wall motion abnormalities. Plan Hopeful discharge to home within the next 48 to 72 hours Admission and Anticipated Discharge Date Admission Date: December 22, 2023 Subjective Alert and oriented. No acute distress. Creatinine is up to 6.0 and serum osmolarity elevated at 312. Continue IV fluids for now and monitor urine output. Creatinine should improve with rehydration. He is currently receiving parenteral iron replacement for iron deficiency anemia. Losartan and metformin are on hold. Charles catheter is now in place and will remain in place through discharge can be dealt with as an outpatient per urology. Eliquis is on hold in the event a temporary dialysis catheter becomes necessary. He is currently on a heparin drip. Cardiology consultation appreciated. Review of Systems 2 Review of Systems: Constitutionalno fever or chills ENTno blurred vision, no double vision, no epistaxis, no sore throat Respiratoryno cough, no wheezing, no shortness of breath Cardiacno palpitations, no chest pain, no syncope Cindy nausea, vomiting, diarrhea, melena, hematochezia GUFoley catheter in place. No hematuria Musculoskeletalno joint pain, no muscle tenderness Skinno bruising, no rashes, no pruritus Neurono isolated weakness, no paresthesia, no weakness Psychno depression, no anxiety Physical Exam 2 Physical Exam: General-alert and oriented x3, no fever, no chills HEENT-head atraumatic and normocephalic, pupils equal and reactive to light, extraocular muscles intact Neck-no lymphadenopathy or thyromegaly, trachea midline Chest-clear to auscultation. No rales, wheezing or rhonchi Cardiac-regular rate and rhythm, normal S1 and S2 Abdomen-normal bowel sounds, no hepatosplenomegaly GUFoley catheter in place. No hematuria Extremities-no cyanosis, clubbing, or edema Neuro-cranial nerves II through XII intact, motor and sensory function within normal limits, strength symmetrical, no focal deficits Psych-normal affect, normal mood Results & Data Results & Data Vital Signs (Past 12 Hours) Vital Signs Temp Pulse Resp BP Pulse Ox O2 Del Method 12/27/23 14:14 36.5 C 93 H 19 99/68 L 96 Room Air 12/27/23 10:52 36.5 C 94 H 17 107/76 91 Room Air 12/27/23 08:11 36.6 C 101 H 17 107/74 96 Room Air Laboratory Results 12/27/23 06:39 12/27/23 06:39 PG Care Time/CCT Total # of Minutes Spent Total Time Spent with Patient: Total time spent is greater than 50% in coordination of care (as documented) at patient's floor/unit and/or counseling patient: Coding Level of Care Code 34201 SUB INP/OBS CARE 3/50MIN Diagnoses JULIEN (acute kidney injury) N17.9 Atrial fibrillation with RVR I48.91 Acute heart failure I50.9 Pleural effusion, bilateral J90 Hyponatremia E87.1 Diabetes E11.9 Elevated transaminase level R74.01 Anemia D64.9 Elevated troponin R79.89
--- NOTE | 2023-12-27 15:36 | Cardiology Progress Note ---
Date of Service December 27, 2023 Assessment & Plan (1) Atrial fibrillation with rapid ventricular response: (2) Elevated troponin: (3) Pericardial effusion: (4) Elevated transaminase level: (5) Ascending aorta dilatation: Plan ASSESSMENT/PLAN: 1. Atrial fibrillation with rapid ventricular response: Persistent. While his overall rate control is perhaps not ideal, certainly reasonable. I think the plan would be to perform cardioversion prior to discharge. Will wait till his renal function begins to improve and his clinical status stabilizes. 2. Acute kidney injury: Hopefully we will see some improvement tomorrow. No indications for dialysis at this point. 3. Elevated troponin: Not associated with an acute coronary syndrome. 4. Pericardial effusion: Very small pericardial effusion on echocardiogram. Not hemodynamically significant. Seen in the setting of overall volume overload. 5. Elevated transaminase levels: Agree with holding statin. Improving 6. Ascending aortic dilation: Measured 4.2 cm on his outpatient echocardiogram. Not evaluated on the current echocardiogram. Could consider CT scanning electively for more definitive evaluation. Admission and Anticipated Discharge Date Admission Date: December 22, 2023 Subjective This afternoon the patient clinically feeling well. No specific complaints other than feeling somewhat fatigued. He was ambulatory around the [place]. He did not report symptoms of dyspnea, dizziness or chest pain. No sense of palpitation. Review of Systems Review of Systems: Per HPI Physical Exam Physical Exam: Gen.: No acute distress. Alert. Coughing on occasion HEENT: Anicteric sclera. Cardiac: Irregularly irregular. Normal rate. Normal S1-S2. No murmurs, rubs, or gallops. Pulmonary: Clear to auscultation bilaterally. Some expiratory wheezing. No rales. Extremities: 2+ radial pulses bilaterally. 2+ posterior tibialis pulses bilaterally. No significant lower extremity edema. No cyanosis. Psychiatric: Affect appears appropriate. Results & Data Vital Signs (Past 12 Hours) Vital Signs Temp Pulse Resp BP Pulse Ox O2 Del Method 12/27/23 14:14 36.5 C 93 H 19 99/68 L 96 Room Air 12/27/23 10:52 36.5 C 94 H 17 107/76 91 Room Air 12/27/23 08:11 36.6 C 101 H 17 107/74 96 Room Air Laboratory Results Abnormal Lab Results 12/26/23 12/26/23 12/26/23 16:17 17:20 18:49 WBC RBC Hgb Hct MCV MCH MCHC RDW Std Deviation RDW Coeff of Milvia Plt Count MPV Immature Gran % (Auto) Neut % (Auto) Lymph % (Auto) Cook % (Auto) Eos % (Auto) Baso % (Auto) Neut # (Auto) Lymph # (Auto) Cook # (Auto) Eos # (Auto) Baso # (Auto) Immature Gran # (Auto) Absolute Nucleated RBC Nucleated RBC % (auto) Heparin Anti-Xa, LM Wt Heparin Anti-Xa, Unfract > 1.50 H* > 1.50 H* Sodium Potassium Chloride Carbon Dioxide Anion Gap BUN Creatinine Est Cr Clr Drug Dosing Est GFR ( Amer) Est GFR (Non-Af Amer) BUN/Creatinine Ratio Glucose POC Glucose 157 H Osmolality Calcium Total Bilirubin AST ALT Alkaline Phosphatase Total Protein Albumin Globulin Albumin/Globulin Ratio 12/26/23 12/26/23 12/26/23 20:21 20:57 22:35 WBC RBC Hgb Hct MCV MCH MCHC RDW Std Deviation RDW Coeff of Milvia Plt Count MPV Immature Gran % (Auto) Neut % (Auto) Lymph % (Auto) Cook % (Auto) Eos % (Auto) Baso % (Auto) Neut # (Auto) Lymph # (Auto) Cook # (Auto) Eos # (Auto) Baso # (Auto) Immature Gran # (Auto) Absolute Nucleated RBC Nucleated RBC % (auto) Heparin Anti-Xa, LM Wt Heparin Anti-Xa, Unfract 0.93 H* 0.74 H* Sodium Potassium Chloride Carbon Dioxide Anion Gap BUN Creatinine Est Cr Clr Drug Dosing Est GFR ( Amer) Est GFR (Non-Af Amer) BUN/Creatinine Ratio Glucose POC Glucose 129 H Osmolality Calcium Total Bilirubin AST ALT Alkaline Phosphatase Total Protein Albumin Globulin Albumin/Globulin Ratio 12/27/23 12/27/23 12/27/23 00:21 06:39 07:15 WBC 13.35 H RBC 4.80 Hgb 11.9 L Hct 35.9 L MCV 74.8 L MCH 24.8 L MCHC 33.1 RDW Std Deviation 43.7 RDW Coeff of Milvia 16.5 H Plt Count 282 MPV 9.8 Immature Gran % (Auto) 2.2 Neut % (Auto) 78.3 Lymph % (Auto) 7.1 Cook % (Auto) 12.1 Eos % (Auto) 0.1 Baso % (Auto) 0.2 Neut # (Auto) 10.45 H Lymph # (Auto) 0.95 L Cook # (Auto) 1.61 H Eos # (Auto) 0.01 Baso # (Auto) 0.03 Immature Gran # (Auto) 0.30 H Absolute Nucleated RBC 0.04 Nucleated RBC % (auto) 0.3 Heparin Anti-Xa, LM Wt Heparin Anti-Xa, Unfract 0.67 1.16 H* Sodium 128 L Potassium 4.2 Chloride 93 L Carbon Dioxide 20 L Anion Gap 15 H BUN 110 H Creatinine 6.06 H* Est Cr Clr Drug Dosing 10.0 Est GFR ( Amer) 9.0 Est GFR (Non-Af Amer) 7.8 BUN/Creatinine Ratio 18.2 Glucose 144 H POC Glucose 145 H Osmolality Calcium 8.3 L Total Bilirubin 0.7 AST 141 H ALT 98 H Alkaline Phosphatase 223 H Total Protein 6.6 Albumin 3.4 Globulin 3.2 Albumin/Globulin Ratio 1.1 12/27/23 12/27/23 12/27/23 09:27 10:25 11:32 WBC RBC Hgb Hct MCV MCH MCHC RDW Std Deviation RDW Coeff of Milvia Plt Count MPV Immature Gran % (Auto) Neut % (Auto) Lymph % (Auto) Cook % (Auto) Eos % (Auto) Baso % (Auto) Neut # (Auto) Lymph # (Auto) Cook # (Auto) Eos # (Auto) Baso # (Auto) Immature Gran # (Auto) Absolute Nucleated RBC Nucleated RBC % (auto) Heparin Anti-Xa, LM Wt 0.60 Heparin Anti-Xa, Unfract Sodium Potassium Chloride Carbon Dioxide Anion Gap BUN Creatinine Est Cr Clr Drug Dosing Est GFR ( Amer) Est GFR (Non-Af Amer) BUN/Creatinine Ratio Glucose POC Glucose 165 H Osmolality 312 H Calcium Total Bilirubin AST ALT Alkaline Phosphatase Total Protein Albumin Globulin Albumin/Globulin Ratio PG Care Time/CCT Total # of Minutes Spent Total Time Spent with Patient: Total time spent is greater than 50% in coordination of care (as documented) at patient's floor/unit and/or counseling patient: Coding Level of Care Code 87994 SUB INP/OBS CARE 2/35MIN Diagnoses Atrial fibrillation with rapid ventricular response I48.91 Elevated troponin R79.89 Pericardial effusion I31.39 Elevated transaminase level R74.01 Ascending aorta dilatation I77.810
--- NOTE | 2023-12-27 16:39 | XRay Report ---
XR chest 1V portable CLINICAL HISTORY: CHF, ARF TECHNIQUE: Single frontal radiograph of the chest was obtained. Comparison: Comparison is made to chest radiograph 12/22/2023 FINDINGS: No lines and tubes are seen. Cardiomegaly is noted. Prominence and cephalization of the vasculature i s seen. Lungs are underinflated but otherwise clear. No evidence of pleural effusion or pneumothorax. IMPRESSION: Cardiomegaly and mild pulmonary edema. ACT 112: Negative or not required by law. Electronically signed by: Jairon Dempsey M.D. 12/27/2023 4:38 PM
[2023-12-27] MEDS: SODIUM CHLORIDE 0.9% 1,000 ML IV SCH (17:15)
--- NOTE | 2023-12-27 18:02 | Electrocardiogram Report ---
Test Reason : Blood Pressure : */* mmHG Vent. Rate : 83 BPM Atrial Rate : 357 BPM P-R Int : * ms QRS Dur : 82 ms QT Int : 374 ms P-R-T Axes : * 3 65 degrees QTcB Int : 439 ms Atrial fibrillation Low voltage QRS Nonspecific T wave abnormality Abnormal ECG When compared with ECG of 22-Dec-2023 12:59, No significant change was found Confirmed by Zac Hendricks ([id number]) on 12/27/2023 6:02:06 PM Referred By: REFERRED SELF Confirmed By: Zac Hendricks
[2023-12-27 19:36] LABS: ANTI-Xa, UFH(UnfractionatedHep 0.78 IU/ml (0.3-0.7)
[2023-12-28 02:42] LABS: Babesia microti DNA Not Detected (Not Detected)
[2023-12-28 02:49] LABS: Hemoglobin 11.9 g/dl (14.0-18.0); Mean Corpuscular Hemoglobin 24.6 pg (25.0-34.0); Mean Corpuscular Hgb Conc 32.2 g/dL (32.0-36.0); Mean Corpuscular Volume 76.6 fL (80.0-100.0); Mean Platelet Volume 10.1 fL (9.4-12.4); Nucleated RBC # (auto) 0.07 K/uL (0.00-0.12); Nucleated RBC % (auto) 0.6 %; Platelet Count 279 K/uL (130-400); RDW Coefficient of Variation 16.8 % (11.5-14.5); RDW Standard Deviation 44.1 fL (36.4-46.3); Red Blood Count 4.83 M/uL (4.70-6.10); White Blood Count 12.26 K/ul (4.8-10.8)
[2023-12-28 03:02] LABS: Albumin Globulin Ratio 1.2 (0.9-2); Albumin Level 3.3 gm/dl (3.4-5.0); BUN Creatinine Ratio 20.7 (10-20); Bilirubin,Total 0.6 mg/dl (0.2-1.0); Calcium 8.4 mg/dl (8.6-10.3); Creatinine Clr Calc Pharmacy 10.9 ml/min; Est GFR (Non-African American) 8.6 ml/min; Globulin 2.8 gm/dl (2.5-4.0); Potassium 3.9 mmol/L (3.5-5.1); Total Protein 6.1 gm/dl (6.0-8.3)
[2023-12-28 03:11] LABS: ANTI-Xa, UFH(UnfractionatedHep 0.46 IU/ml (0.3-0.7)
[2023-12-28 03:14] LABS: Basophilic Stippling 1+; Basophils # (auto) 0.05 K/uL (0.00-0.20); Basophils % (auto) 0.4 %; Echinocytes 2+; Eosinophils # (auto) 0.04 K/uL (0.00-0.50); Eosinophils % (auto) 0.3 %; Immature Granulocytes # (auto) 0.62 K/uL (0.01-0.20); Immature Granulocytes % (auto) 5.1 %; Lymphocytes # (auto) 0.91 K/uL (1.20-3.40); Lymphocytes % (auto) 7.4 %; Monocytes % (auto) 11.4 %; Neutrophils # (auto) 9.24 K/uL (1.40-6.50); Neutrophils % (auto) 75.4 %; Ovalocytes 1+; Polychromasia 1+
[2023-12-28] MEDS: SODIUM BICARBONATE 650 MG TAB PO SCH (09:47)
--- NOTE | 2023-12-28 12:03 | Nephrology Progress Note ---
Date of Service December 28, 2023 Assessment & Plan (1) JULIEN (acute kidney injury): (2) Hyponatremia: (3) Anemia: (4) Atrial fibrillation with rapid ventricular response: Plan Mr. 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 Admitted with progressive fatigue, dyspnea on exertion, hypotension with blood pressure 91/55, A fib with RVR. On admission Creatinine 2.86, potassium 5.4. Chest x-ray revealed mild cardiomegaly with interstitial edema and trace bilateral pleural effusions. Received 40 mg furosemide IV x 1 in ER. Received IV Venofer. Hemoglobin 11.8. Noted to have mild hyperkalemia and received Lokelma and potassium improved. CT A/P with no postrenal obstruction. Urinalysis with proteinuria and microscopic hematuria, which has been chronic at least since 2020. Kidney function slightly improved, Potassium has been normal but Na low. Blood pressure relatively low but asymptomatic. Heart rate improved but still staying in high 90s. Has decent urine output, on IV NS. --Continue to monitor kidney function electrolyte, creatinine may have plateaued and continue to improve -- accurate intake and output, continue on mild fluid restriction to less than 1500 mL/day. Will consider IV fluid by tomorrow. --start on sodium bicarbonate 1 tab bid. Admission and Anticipated Discharge Date Admission Date: December 22, 2023 Subjective Mr. Burnett was seen and evaluated this morning with his family at bedside. Overall he reports feeling okay and anxious to be discharged, denies significant shortness of breath or chest pain. Has Charles catheter with decent urine output. Slight improvement in creatinine but has multiple electrolyte abnormality including hyponatremia and metabolic acidosis. Blood pressure relatively low but asymptomatic. HR around 90 to 95. Review of Systems Review of Systems: Detailed review of system was done and pertinent positives and negatives are mentioned above. Physical Exam Constitutional: WD/WN, vitals as above no acute distress Eyes: + anicteric sclerae Neck: normal visual inspection Respiratory: no respiratory distress Auscultation: lungs clear to auscultation bilaterally Cardiovascular: Rate/Rhythm: + tachycardic and + irregularly irregular Heart Sounds: normal S1 and normal S2 Extremities: + edema Skin: no rashes, warm and dry Neurologic: no focal motor deficits Psychiatric: Orientation: alert and oriented x 3 Results & Data Vital Signs (Past 12 Hours) Vital Signs Temp Pulse Pulse Resp BP Pulse Ox O2 Del Method 12/28/23 11:08 36.5 C 95 H 17 106/75 97 Room Air 12/28/23 09:40 98 H 12/28/23 08:00 Room Air 12/28/23 07:33 36.5 C 95 H 17 114/79 93 Room Air 12/28/23 05:38 94 H 16 105/70 100 Room Air 12/28/23 02:48 36.5 C 82 20 116/78 97 Room Air PG Care Time/CCT Total # of Minutes Spent Total Time Spent with Patient: Total time spent is greater than 50% in coordination of care (as documented) at patient's floor/unit and/or counseling patient: Coding Level of Care Code 33205 SUB INP/OBS CARE 2/35MIN Diagnoses JULIEN (acute kidney injury) N17.9 Hyponatremia E87.1 Anemia D64.9 Atrial fibrillation with rapid ventricular response I48.91
--- NOTE | 2023-12-28 13:09 | Hospitalist Progress Note ---
Date of Service December 28, 2023 Assessment & Plan (1) JULIEN (acute kidney injury): Plan: Acute on chronic, hopefully from prerenal causes. Serum osmolarity was elevated this admission. Baseline chronic kidney disease stage II. Creatinine is now downtrending from 6.0 down to 5.5. Monitor intake and output. Continue IV fluids. Serial labs. Continue IV fluids and monitor urine output. Nephrology consultation and recommendations appreciated (2) Atrial fibrillation with RVR: Plan: He is now on a heparin drip while Eliquis is on hold. Telemetry. Rate control. Appreciate cardiology consultation and recommendations. DC cardioversion attempt is pending (3) Acute heart failure: Plan: Acute on chronic diastolic CHF suspected on admission due to chest x-ray appearance. He received parenteral Lasix for diuresis on admission and now has acute renal failure. CHF has resolved. He is now receiving IV fluids. Cardiac echo reveals mild left ventricular hypertrophy with normal ejection fraction. Monitor intake and output (4) Pleural effusion, bilateral: Plan: Admission CXR revealed cardiomegaly with suspected acute exacerbation of diastolic CHF with small bilateral pleural effusions. Fortunately, he is on room air. (5) Hyponatremia: Plan: Mild on admission. Sodium remains mildly low despite elevated serum osmolarity. Monitor intake and output. Serial labs (6) Diabetes: Plan: Hgb A1c 7.5%. ADA diet. Sliding scale coverage. Metformin is temporarily on hold (7) Elevated transaminase level: Plan: On admission. Improving. Serial labs. Anaplasmosis and babesiosis smears are negative. CT abdomen/pelvis shows a cirrhosis-likely from fatty liver-follow as an outpatient as well (8) Anemia: Plan: Due to iron deficiency. No evidence of active GI bleeding. He has received parenteral iron this admission. He has had a previous colonoscopy with no significant findings. (9) Elevated troponin: Plan: Likely demand ischemia. No evidence of acute coronary syndrome. Cardiac echo negative for regional wall motion abnormalities. Plan To be determined. OT and PT assessments have been requested. He is very weak and may need rehab placement. Admission and Anticipated Discharge Date Admission Date: December 22, 2023 Subjective Alert and oriented. Family is at the bedside. He seems to be very weak. OT and PT assessments requested. Creatinine is now trending downward to 5.5. Will follow. Continue IV fluids for now. Serum osmolarity was elevated at 312 when recently checked. LFTs are downtrending. He remains on a heparin drip anticipating upcoming DC cardioversion. He remains in atrial fibrillation with controlled rate. Eliquis is on hold. Urology has indicated that Charles catheter needs to remain in place at the time of discharge. This will be removed as an outpatient hopefully. Review of Systems 2 Review of Systems: Constitutionalno fever or chills ENTno blurred vision, no double vision, no epistaxis, no sore throat Respiratoryno cough, no wheezing, no shortness of breath Cardiacno palpitations, no chest pain, no syncope Cindy nausea, vomiting, diarrhea, melena, hematochezia GUFoley catheter in place. No hematuria Musculoskeletalno joint pain, no muscle tenderness Skinno bruising, no rashes, no pruritus Neurono isolated weakness, no paresthesia, no weakness Psychno depression, no anxiety Physical Exam 2 Physical Exam: General-alert and oriented x3, no fever, no chills HEENT-head atraumatic and normocephalic, pupils equal and reactive to light, extraocular muscles intact Neck-no lymphadenopathy or thyromegaly, trachea midline Chest-clear to auscultation. No rales, wheezing or rhonchi Cardiac-regular rate and rhythm, normal S1 and S2 Abdomen-normal bowel sounds, no hepatosplenomegaly GUFoley catheter in place. No hematuria Extremities-no cyanosis, clubbing, or edema Neuro-cranial nerves II through XII intact, motor and sensory function within normal limits, strength symmetrical, no focal deficits Psych-normal affect, normal mood Results & Data Results & Data Vital Signs (Past 12 Hours) Vital Signs Temp Pulse Pulse Resp BP Pulse Ox O2 Del Method 12/28/23 11:08 36.5 C 95 H 17 106/75 97 Room Air 12/28/23 09:40 98 H 12/28/23 08:00 Room Air 12/28/23 07:33 36.5 C 95 H 17 114/79 93 Room Air 12/28/23 05:38 94 H 16 105/70 100 Room Air 12/28/23 02:48 36.5 C 82 20 116/78 97 Room Air Laboratory Results 12/28/23 02:07 12/28/23 02:07 PG Care Time/CCT Total # of Minutes Spent Total Time Spent with Patient: Total time spent is greater than 50% in coordination of care (as documented) at patient's floor/unit and/or counseling patient: Coding Level of Care Code 11729 SUB INP/OBS CARE MIN Diagnoses JULIEN (acute kidney injury) N17.9 Atrial fibrillation with RVR I48.91 Acute heart failure I50.9 Pleural effusion, bilateral J90 Hyponatremia E87.1 Diabetes E11.9 Elevated transaminase level R74.01 Anemia D64.9 Elevated troponin R79.89
--- NOTE | 2023-12-28 20:44 | Cardiology Progress Note ---
Date of Service December 28, 2023 Assessment & Plan (1) Atrial fibrillation with rapid ventricular response: (2) Elevated troponin: (3) Pericardial effusion: (4) Elevated transaminase level: (5) Ascending aorta dilatation: Plan ASSESSMENT/PLAN: 1. Atrial fibrillation with rapid ventricular response: Persistent. Overall heart rates seem adequate, especially at rest. Our plan will be for cardioversion prior to discharge. Hopefully his renal function will improve over the next 24 hours and perhaps we can plan for a cardioversion on December 29. 2. Acute kidney injury: Hopefully we will see some improvement tomorrow. No indications for dialysis at this point. 3. Elevated troponin: Not associated with an acute coronary syndrome. 4. Pericardial effusion: Very small pericardial effusion on echocardiogram. Not hemodynamically significant. Seen in the setting of overall volume overload. 5. Elevated transaminase levels: Agree with holding statin. Improving 6. Ascending aortic dilation: Measured 4.2 cm on his outpatient echocardiogram. Not evaluated on the current echocardiogram. Could consider CT scanning electively for more definitive evaluation. Admission and Anticipated Discharge Date Admission Date: December 22, 2023 Subjective This afternoon the patient was feeling well. He was frustrated by his inability to ambulate more. Apparently he was told not to ambulate in the hallways. He has been ambulatory to the bathroom without notable symptoms. Specifically no dizziness or lightheadedness. No breathing difficulty at rest. No sense of palpitation. Review of Systems Review of Systems: Per HPI Physical Exam Physical Exam: Gen.: No acute distress. Alert. Coughing on occasion HEENT: Anicteric sclera. Cardiac: Irregularly irregular. Normal rate. Normal S1-S2. No murmurs, rubs, or gallops. Pulmonary: Some bronchial breath sounds bilaterally. No expiratory wheezing. Normal respiratory effort. Extremities: 2+ radial pulses bilaterally. 2+ posterior tibialis pulses bilaterally. No significant lower extremity edema. No cyanosis. Psychiatric: Affect appears appropriate. Results & Data Vital Signs (Past 12 Hours) Vital Signs Temp Pulse Pulse Resp BP Pulse Ox O2 Del Method 12/28/23 19:30 36.5 C 93 H 18 120/80 94 Room Air 12/28/23 15:15 83 108/79 12/28/23 15:00 36.5 C 92 H 17 92/32 L 95 Room Air 12/28/23 14:46 98 H 12/28/23 11:08 36.5 C 95 H 17 106/75 97 Room Air 12/28/23 09:40 98 H Laboratory Results Abnormal Lab Results 12/22/23 12/28/23 12/28/23 14:30 02:07 07:03 WBC 12.26 H RBC 4.83 Hgb 11.9 L Hct 37.0 L MCV 76.6 L MCH 24.6 L MCHC 32.2 RDW Std Deviation 44.1 RDW Coeff of Milvia 16.8 H Plt Count 279 MPV 10.1 Immature Gran % (Auto) 5.1 Neut % (Auto) 75.4 Lymph % (Auto) 7.4 Gordon % (Auto) 11.4 Eos % (Auto) 0.3 Baso % (Auto) 0.4 Neut # (Auto) 9.24 H Lymph # (Auto) 0.91 L Gordon # (Auto) 1.40 H Eos # (Auto) 0.04 Baso # (Auto) 0.05 Immature Gran # (Auto) 0.62 H Absolute Nucleated RBC 0.07 Nucleated RBC % (auto) 0.6 Polychromasia 1+ Basophilic Stippling 1+ Ovalocytes 1+ Echinocytes 2+ Heparin Anti-Xa, Unfract 0.46 Sodium 129 L Potassium 3.9 Chloride 96 L Carbon Dioxide 18 L Anion Gap 15 H BUN 115 H Creatinine 5.56 H* D Est Cr Clr Drug Dosing 10.9 Est GFR ( Amer) 10.0 Est GFR (Non-Af Amer) 8.6 BUN/Creatinine Ratio 20.7 H Glucose 137 H POC Glucose 136 H Calcium 8.4 L Total Bilirubin 0.6 AST 73 H ALT 66 H Alkaline Phosphatase 225 H Total Protein 6.1 Albumin 3.3 L Globulin 2.8 Albumin/Globulin Ratio 1.2 Babesia microti DNA PCR Not Detected 12/28/23 12/28/23 12/28/23 11:26 15:56 20:38 WBC RBC Hgb Hct MCV MCH MCHC RDW Std Deviation RDW Coeff of Milvia Plt Count MPV Immature Gran % (Auto) Neut % (Auto) Lymph % (Auto) Gordon % (Auto) Eos % (Auto) Baso % (Auto) Neut # (Auto) Lymph # (Auto) Gordon # (Auto) Eos # (Auto) Baso # (Auto) Immature Gran # (Auto) Absolute Nucleated RBC Nucleated RBC % (auto) Polychromasia Basophilic Stippling Ovalocytes Echinocytes Heparin Anti-Xa, Unfract Sodium Potassium Chloride Carbon Dioxide Anion Gap BUN Creatinine Est Cr Clr Drug Dosing Est GFR ( Amer) Est GFR (Non-Af Amer) BUN/Creatinine Ratio Glucose POC Glucose 174 H 125 H 155 H Calcium Total Bilirubin AST ALT Alkaline Phosphatase Total Protein Albumin Globulin Albumin/Globulin Ratio Babesia microti DNA PCR PG Care Time/CCT Total # of Minutes Spent Total Time Spent with Patient: Total time spent is greater than 50% in coordination of care (as documented) at patient's floor/unit and/or counseling patient: Coding Level of Care Code 90446 SUB INP/OBS CARE 2/35MIN Diagnoses Atrial fibrillation with rapid ventricular response I48.91 Elevated troponin R79.89 Pericardial effusion I31.39 Elevated transaminase level R74.01 Ascending aorta dilatation I77.810
[2023-12-29 06:55] LABS: Hematocrit (blood only) 35.8 % (42.0-52.0); Hemoglobin 11.7 g/dl (14.0-18.0); Mean Corpuscular Hemoglobin 24.9 pg (25.0-34.0); Mean Corpuscular Hgb Conc 32.7 g/dL (32.0-36.0); Mean Corpuscular Volume 76.3 fL (80.0-100.0); Mean Platelet Volume 9.7 fL (9.4-12.4); Nucleated RBC # (auto) 0.08 K/uL (0.00-0.12); Nucleated RBC % (auto) 0.7 %; Platelet Count 315 K/uL (130-400); RDW Coefficient of Variation 17.8 % (11.5-14.5); RDW Standard Deviation 44.4 fL (36.4-46.3); Red Blood Count 4.69 M/uL (4.70-6.10); White Blood Count 12.08 K/ul (4.8-10.8)
[2023-12-29 07:14] LABS: Albumin Globulin Ratio 1.1 (0.9-2); Albumin Level 3.2 gm/dl (3.4-5.0); BUN Creatinine Ratio 23.3 (10-20); Bilirubin,Total 0.7 mg/dl (0.2-1.0); Calcium 8.1 mg/dl (8.6-10.3); Creatinine Clr Calc Pharmacy 14.7 ml/min; Est GFR (African American) 13.2 ml/min; Est GFR (Non-African American) 11.4 ml/min; Globulin 2.8 gm/dl (2.5-4.0); Potassium 3.7 mmol/L (3.5-5.1)
[2023-12-29 07:58] LABS: Basophilic Stippling 1+; Basophils # (auto) 0.08 K/uL (0.00-0.20); Basophils % (auto) 0.7 %; Echinocytes 2+; Eosinophils # (auto) 0.09 K/uL (0.00-0.50); Eosinophils % (auto) 0.7 %; Immature Granulocytes # (auto) 0.86 K/uL (0.01-0.20); Immature Granulocytes % (auto) 7.1 %; Lymphocytes # (auto) 1.22 K/uL (1.20-3.40); Lymphocytes % (auto) 10.1 %; Monocytes # (auto) 1.41 K/uL (0.11-0.59); Monocytes % (auto) 11.7 %; Neutrophils # (auto) 8.42 K/uL (1.40-6.50); Neutrophils % (auto) 69.7 %; Ovalocytes 1+; Polychromasia 1+
--- NOTE | 2023-12-29 10:35 | Nephrology Progress Note ---
Date of Service December 29, 2023 Assessment & Plan (1) JULIEN (acute kidney injury): (2) Hyponatremia: (3) Anemia: (4) Atrial fibrillation with rapid ventricular response: Plan Mr. 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 Admitted with progressive fatigue, dyspnea on exertion, hypotension with blood pressure 91/55, A fib with RVR. On admission Creatinine 2.86, potassium 5.4. Chest x-ray revealed mild cardiomegaly with interstitial edema and trace bilateral pleural effusions. Received 40 mg furosemide IV x 1 in ER. Received IV Venofer. Hemoglobin 11.8. Noted to have mild hyperkalemia and received Lokelma and potassium improved. CT A/P with no postrenal obstruction. Urinalysis with proteinuria and microscopic hematuria, which has been chronic at least since 2020. Kidney function continues to improve with improvement in electrolyte abnormality. Blood pressures staying stable. Still in A-fib and tentative plan for cardioversion on 12/30/2023. --Continue to monitor kidney function electrolyte and electrolyte. -- Encourage increase p.o. intake, accurate intake and output --Continue on sodium bicarbonate 1 tab bid. Admission and Anticipated Discharge Date Admission Date: December 22, 2023 Subjective Mr. Burnett was seen and evaluated this morning with his family at bedside. Overall he reports feeling better, denies significant shortness of breath or chest pain. Kidney function improved significantly, creatinine down to 4.4, sodium improved and metabolic acidosis slightly better on sodium bicarbonate. Blood pressure improved. HR around 90 to 95. Review of Systems Review of Systems: Detailed review of system was done and pertinent positives and negatives are mentioned above. Physical Exam Constitutional: WD/WN, vitals as above no acute distress Eyes: + anicteric sclerae Neck: normal visual inspection Respiratory: Auscultation: lungs clear to auscultation bilaterally Cardiovascular: Rate/Rhythm: + tachycardic and + irregularly irregular Heart Sounds: normal S1 and normal S2 Extremities: + edema (trace b/l LE edema) Skin: no rashes, warm and dry Neurologic: no focal motor deficits Psychiatric: Orientation: alert and oriented x 3 Results & Data Vital Signs (Past 12 Hours) Vital Signs Temp Pulse Pulse Resp BP Pulse Ox O2 Del Method 12/29/23 07:30 92 H 12/29/23 07:06 36.3 C L 88 18 115/81 94 Room Air 12/29/23 05:21 106 H 20 110/74 12/29/23 03:14 36.6 C 91 H 18 120/84 93 Room Air PG Care Time/CCT Total # of Minutes Spent Total Time Spent with Patient: Total time spent is greater than 50% in coordination of care (as documented) at patient's floor/unit and/or counseling patient: Coding Level of Care Code 24487 SUB INP/OBS CARE 2/35MIN Diagnoses JULIEN (acute kidney injury) N17.9 Hyponatremia E87.1 Anemia D64.9 Atrial fibrillation with rapid ventricular response I48.91
[2023-12-29 14:13] LABS: ANTI-Xa, UFH(UnfractionatedHep > 1.50 IU/ml (0.3-0.7)
--- NOTE | 2023-12-29 14:42 | Hospitalist Progress Note ---
Date of Service December 29, 2023 Assessment & Plan (1) JULIEN (acute kidney injury): Plan: Acute on chronic, appears to be from prerenal causes. Serum osmolarity was elevated this admission. Baseline chronic kidney disease stage II. Creatinine is now downtrending from 6.0 down to 4.4 today, December 28. Monitor intake and output. Serial labs. Nephrology consultation and recommendations appreciated (2) Atrial fibrillation with RVR: Plan: He is now on a heparin drip while Eliquis is on hold. Telemetry. Rate control. Appreciate cardiology consultation and recommendations. DC cardioversion attempt tomorrow, December 29 (3) Acute heart failure: Plan: Acute on chronic diastolic CHF suspected on admission due to chest x-ray appearance. He received parenteral Lasix for diuresis on admission and now has acute renal failure. CHF has resolved. He transiently received some IV fluids. Cardiac echo reveals mild left ventricular hypertrophy with normal ejection fraction. Monitor intake and output (4) Pleural effusion, bilateral: Plan: Admission CXR revealed cardiomegaly with suspected acute exacerbation of diastolic CHF with small bilateral pleural effusions. Fortunately, he is on room air. (5) Hyponatremia: Plan: Mild on admission. Improving. Monitor intake and output. Serial labs (6) Diabetes: Plan: Hgb A1c 7.5%. ADA diet. Sliding scale coverage. Metformin is temporarily on hold (7) Elevated transaminase level: Plan: On admission. Improving. Serial labs. Anaplasmosis and babesiosis smears are negative. CT abdomen/pelvis shows a cirrhosis- likely from fatty liver. (8) Anemia: Plan: Due to iron deficiency. No evidence of active GI bleeding. He has received parenteral iron this admission. He has had a previous colonoscopy with no significant findings. (9) Elevated troponin: Plan: Likely demand ischemia. No evidence of acute coronary syndrome. Cardiac echo negative for regional wall motion abnormalities. Plan Hopeful discharge to [facility] tomorrow, December 29, after cardioversion. Admission and Anticipated Discharge Date Admission Date: December 22, 2023 Subjective Alert and oriented. No distress. Creatinine continues to trend downward, currently 4.4 today on December 28. Sodium improved to 134. Eliquis remains on hold and he remains on a heparin drip. DC cardioversion will be done tomorrow, December 29. Hopefully he can go home afterwards. Review of Systems 2 Review of Systems: Constitutionalno fever or chills ENTno blurred vision, no double vision, no epistaxis, no sore throat Respiratoryno cough, no wheezing, no shortness of breath Cardiacno palpitations, no chest pain, no syncope Cindy nausea, vomiting, diarrhea, melena, hematochezia GUFoley catheter in place. No hematuria Musculoskeletalno joint pain, no muscle tenderness Skinno bruising, no rashes, no pruritus Neurono isolated weakness, no paresthesia, no weakness Psychno depression, no anxiety Physical Exam 2 Physical Exam: General-alert and oriented x3, no fever, no chills HEENT-head atraumatic and normocephalic, pupils equal and reactive to light, extraocular muscles intact Neck-no lymphadenopathy or thyromegaly, trachea midline Chest-clear to auscultation. No rales, wheezing or rhonchi Cardiac-irregular rhythm. Controlled rate. Normal S1 and S2 Abdomen-normal bowel sounds, no hepatosplenomegaly GUFoley catheter in place. No hematuria Extremities-no cyanosis, clubbing, or edema Neuro-cranial nerves II through XII intact, motor and sensory function within normal limits, strength symmetrical, no focal deficits Psych-normal affect, normal mood Results & Data Results & Data Vital Signs (Past 12 Hours) Vital Signs Temp Pulse Pulse Resp BP Pulse Ox O2 Del Method 12/29/23 11:13 36.2 C L 93 H 18 110/76 95 Room Air 12/29/23 07:30 92 H 12/29/23 07:06 36.3 C L 88 18 115/81 94 Room Air 12/29/23 05:21 106 H 20 110/74 12/29/23 03:14 36.6 C 91 H 18 120/84 93 Room Air Laboratory Results 12/29/23 05:48 12/29/23 05:48 PG Care Time/CCT Total # of Minutes Spent Total Time Spent with Patient: Total time spent is greater than 50% in coordination of care (as documented) at patient's floor/unit and/or counseling patient: Coding Level of Care Code 45300 SUB INP/OBS CARE 3/50MIN Diagnoses JULIEN (acute kidney injury) N17.9 Atrial fibrillation with RVR I48.91 Acute heart failure I50.9 Pleural effusion, bilateral J90 Hyponatremia E87.1 Diabetes E11.9 Elevated transaminase level R74.01 Anemia D64.9 Elevated troponin R79.89
--- NOTE | 2023-12-29 14:47 | Cardiology Progress Note ---
Date of Service December 29, 2023 Assessment & Plan (1) Atrial fibrillation with rapid ventricular response: (2) Elevated troponin: (3) Pericardial effusion: (4) Elevated transaminase level: (5) Ascending aorta dilatation: Plan ASSESSMENT/PLAN: 1. Atrial fibrillation with rapid ventricular response: Persistent. Adequate heart rate control. Given his improvement in renal function and anticipated discharge in the near future, it would seem reasonable to perform cardioversion tomorrow. He can continue on systemic heparin and switch to apixaban again at the discretion of the primary team. Hopefully his heart rates will be adequate once he is back in sinus rhythm and we can continue his current dose of metoprolol. 2. Acute kidney injury: Improved. Good urine output. Likely resolving his ATN. 3. Elevated troponin: Not associated with an acute coronary syndrome. 4. Pericardial effusion: Very small pericardial effusion on echocardiogram. Not hemodynamically significant. Seen in the setting of overall volume overload. 5. Elevated transaminase levels: Agree with holding statin. Improving 6. Ascending aortic dilation: Measured 4.2 cm on his outpatient echocardiogram. Not evaluated on the current echocardiogram. Could consider CT scanning elec tively for more definitive evaluation. Admission and Anticipated Discharge Date Admission Date: December 22, 2023 Subjective This morning patient claims to be feeling well. He was ambulatory around the zamorano to some degree. He denied dyspnea, dizziness, chest pain or sense of palpitation. Review of Systems Review of Systems: Per HPI Physical Exam Physical Exam: Gen.: No acute distress. Alert. Coughing on occasion HEENT: Anicteric sclera. Cardiac: Irregularly irregular. Normal rate. Normal S1-S2. No murmurs, rubs, or gallops. Pulmonary: Some bronchial breath sounds bilaterally. No expiratory wheezing. Normal respiratory effort. Extremities: 2+ radial pulses bilaterally. 2+ posterior tibialis pulses bilaterally. No significant lower extremity edema. No cyanosis. Psychiatric: Affect appears appropriate. Results & Data Vital Signs (Past 12 Hours) Vital Signs Temp Pulse Pulse Resp BP Pulse Ox O2 Del Method 12/29/23 11:13 36.2 C L 93 H 18 110/76 95 Room Air 12/29/23 07:30 92 H 12/29/23 07:06 36.3 C L 88 18 115/81 94 Room Air 12/29/23 05:21 106 H 20 110/74 12/29/23 03:14 36.6 C 91 H 18 120/84 93 Room Air Laboratory Results Abnormal Lab Results 12/28/23 12/28/23 12/29/23 15:56 20:38 05:48 WBC 12.08 H RBC 4.69 L Hgb 11.7 L Hct 35.8 L MCV 76.3 L MCH 24.9 L MCHC 32.7 RDW Std Deviation 44.4 RDW Coeff of Milvia 17.8 H Plt Count 315 MPV 9.7 Immature Gran % (Auto) 7.1 Neut % (Auto) 69.7 Lymph % (Auto) 10.1 Henry % (Auto) 11.7 Eos % (Auto) 0.7 Baso % (Auto) 0.7 Neut # (Auto) 8.42 H Lymph # (Auto) 1.22 Henry # (Auto) 1.41 H Eos # (Auto) 0.09 Baso # (Auto) 0.08 Immature Gran # (Auto) 0.86 H Absolute Nucleated RBC 0.08 Nucleated RBC % (auto) 0.7 Polychromasia 1+ Basophilic Stippling 1+ Ovalocytes 1+ Echinocytes 2+ Heparin Anti-Xa, Unfract 0.20 L Sodium 134 L Potassium 3.7 Chloride 102 Carbon Dioxide 20 L Anion Gap 12 H BUN 103 H Creatinine 4.43 H D Est Cr Clr Drug Dosing 14.7 Est GFR ( Amer) 13.2 Est GFR (Non-Af Amer) 11.4 BUN/Creatinine Ratio 23.3 H Glucose 123 H POC Glucose 125 H 155 H Calcium 8.1 L Total Bilirubin 0.7 AST 40 H ALT 42 Alkaline Phosphatase 205 H Total Protein 6.0 Albumin 3.2 L Globulin 2.8 Albumin/Globulin Ratio 1.1 12/29/23 12/29/23 12/29/23 07:06 11:12 12:53 WBC RBC Hgb Hct MCV MCH MCHC RDW Std Deviation RDW Coeff of Milvia Plt Count MPV Immature Gran % (Auto) Neut % (Auto) Lymph % (Auto) Henry % (Auto) Eos % (Auto) Baso % (Auto) Neut # (Auto) Lymph # (Auto) Henry # (Auto) Eos # (Auto) Baso # (Auto) Immature Gran # (Auto) Absolute Nucleated RBC Nucleated RBC % (auto) Polychromasia Basophilic Stippling Ovalocytes Echinocytes Heparin Anti-Xa, Unfract > 1.50 H* Sodium Potassium Chloride Carbon Dioxide Anion Gap BUN Creatinine Est Cr Clr Drug Dosing Est GFR ( Amer) Est GFR (Non-Af Amer) BUN/Creatinine Ratio Glucose POC Glucose 178 H 161 H Calcium Total Bilirubin AST ALT Alkaline Phosphatase Total Protein Albumin Globulin Albumin/Globulin Ratio PG Care Time/CCT Total # of Minutes Spent Total Time Spent with Patient: Total time spent is greater than 50% in coordination of care (as documented) at patient's floor/unit and/or counseling patient: Coding Level of Care Code 98074 SUB INP/OBS CARE 2/35MIN Diagnoses Atrial fibrillation with rapid ventricular response I48.91 Elevated troponin R79.89 Pericardial effusion I31.39 Elevated transaminase level R74.01 Ascending aorta dilatation I77.810
[2023-12-29 17:30] LABS: ANTI-Xa, UFH(UnfractionatedHep < 0.10 IU/ml (0.3-0.7)
[2023-12-29] MEDS: HEPARIN IV BOLUS 7,000 UNITS in SYRINGE 0 ML IV ONE (21:38)
[2023-12-29 21:45] LABS: ANTI-Xa, UFH(UnfractionatedHep < 0.10 IU/ml (0.3-0.7)
[2023-12-29] MEDS: HEPARIN SOD (PORCINE) 1000 UNIT/ML IV ONE (23:24)
[2023-12-30 04:54] LABS: Hematocrit (blood only) 35.3 % (42.0-52.0); Hemoglobin 11.2 g/dl (14.0-18.0); Mean Corpuscular Hemoglobin 24.9 pg (25.0-34.0); Mean Corpuscular Hgb Conc 31.7 g/dL (32.0-36.0); Mean Corpuscular Volume 78.4 fL (80.0-100.0); Mean Platelet Volume 9.6 fL (9.4-12.4); Nucleated RBC # (auto) 0.04 K/uL (0.00-0.12); Nucleated RBC % (auto) 0.3 %; Platelet Count 280 K/uL (130-400); RDW Coefficient of Variation 18.2 % (11.5-14.5); RDW Standard Deviation 45.7 fL (36.4-46.3); White Blood Count 11.96 K/ul (4.8-10.8)
[2023-12-30 05:10] LABS: Albumin Globulin Ratio 1.1 (0.9-2); Albumin Level 3.1 gm/dl (3.4-5.0); BUN Creatinine Ratio 24.2 (10-20); Bilirubin,Total 0.8 mg/dl (0.2-1.0); Calcium 8.1 mg/dl (8.6-10.3); Creatinine Clr Calc Pharmacy 17.4 ml/min; Est GFR (African American) 16.1 ml/min; Est GFR (Non-African American) 13.9 ml/min; Globulin 2.7 gm/dl (2.5-4.0); Potassium 3.7 mmol/L (3.5-5.1); Total Protein 5.8 gm/dl (6.0-8.3)
[2023-12-30 05:41] LABS: ANTI-Xa, UFH(UnfractionatedHep 0.41 IU/ml (0.3-0.7)
[2023-12-30 05:45] LABS: Basophils # (auto) 0.07 K/uL (0.00-0.20); Basophils % (auto) 0.6 %; Echinocytes 1+; Eosinophils # (auto) 0.18 K/uL (0.00-0.50); Eosinophils % (auto) 1.5 %; Immature Granulocytes # (auto) 0.81 K/uL (0.01-0.20); Immature Granulocytes % (auto) 6.8 %; Lymphocytes # (auto) 0.99 K/uL (1.20-3.40); Lymphocytes % (auto) 8.3 %; Monocytes # (auto) 1.33 K/uL (0.11-0.59); Monocytes % (auto) 11.1 %; Neutrophils # (auto) 8.58 K/uL (1.40-6.50); Neutrophils % (auto) 71.7 %; Ovalocytes 1+; Polychromasia 1+
[2023-12-30] MEDS ORDERED: PROPOFOL IV EMULSION 10 MG/ML 20 ML VIAL IV ONE (06:44)
[2023-12-30] MEDS ORDERED: LIDOCAINE 2% 2 ML VIAL/AMP(20MG/ML) INFIL ONE (06:44)
--- NOTE | 2023-12-30 07:23 | Anesthesiology Consultation ---
Date of Service December 30, 2023 Assessment & Plan Chart Review Chart Review: Acceptable Risk for Surgery and Patient NOT seen in Pre Admission Testing Consults Requested none ASA ASA4 Proposed Anesthesia Anesthesia Type: General Risk / Benefits Reviewed With: PT / POA / Parent / Guardian, Accepts Plan and Informed Consent Obtained History Surgery Operation Date: 12/30/23 07:30 Proposed Procedures p Cardioversion Sr. Social Media & Mobile Manager w/Anesthesia - Zac Hendricks MD Height/Weight Height: 6 ft Weight: 93.6 kg Allergies Allergy/AdvReac Type Severity Reaction Status Date / Time No Known Drug Allergies Allergy Verified 05/24/23 14:51 Medications Home Medications Medication Instructions Recorded Confirmed Last Taken ibuprofen 200 mg capsule 200 mg PO QID PRN Pain 11/28/18 12/22/23 01/15/21 rosuvastatin 40 mg tablet 40 mg PO HS 12/28/19 12/22/23 01/26/21 20:00 bisacodyl 5 mg tablet,delayed 5 mg PO HS PRN Constipation 07/02/20 12/22/23 07/12/20 release (Dulcolax (bisacodyl)) metformin 500 mg tablet 1,000 mg PO HS 07/02/20 12/22/23 01/26/21 18:15 aspirin 81 mg tablet,delayed 81 mg PO HS 11/28/20 12/22/23 01/23/21 release apixaban 5 mg tablet (Eliquis) 5 mg PO BID 12/22/23 12/22/23 Unknown losartan 25 mg tablet 25 mg PO BID 12/22/23 12/22/23 Unknown metoprolol succinate 25 mg 25 mg PO HS 12/22/23 12/22/23 Unknown tablet,extended release 24 hr metronidazole 0.75 % topical cream 1 applic topical .1-2X DAILY PRN 12/22/23 12/22/23 Unknown Other Active Medications Generic Name Dose Route Start Last Admin Trade Name Freq PRN Reason Stop Dose Admin Aspirin 81 mg 12/22/23 21:00 12/29/23 20:42 Aspirin 81 Mg Ectab PO 01/21/24 20:59 81 mg HS CHRISTIAN Administration Diclofenac Sodium 2 gm 12/24/23 20:15 12/29/23 20:42 Diclofenac Sod 1% Gel 100 Gm Tube EXT 01/23/24 20:14 2 gm Q12H CHRISTIAN Administration Protocol Hydromorphone HCl 0.5 mg 12/23/23 18:08 12/23/23 18:30 Hydromorphone Inj 0.5 Mg/0.5 Ml Syr IV 01/06/24 18:07 0.5 mg Q6H PRN Administration moderate pain or pre-procedure Heparin Sodium/Dextrose 25,000 units in 500 mls @ 11 mls/hr 12/26/23 10:15 12/29/23 22:26 Heparin Sodium/Dextrose IV 01/25/24 10:14 550 units/hr .Q24H CHRISTIAN 11 mls/hr Titration Protocol 550 UNITS/HR Insulin Aspart 0 units 12/22/23 21:00 12/29/23 20:43 Insulin Aspart Per Unit Charge SC 01/21/24 20:59 Not Given ACHS CHRISTIAN Metoprolol Tartrate 5 mg 12/22/23 19:36 12/23/23 04:10 Metoprolol Tartrate 1 Mg/Ml Vial IV 5 mg Q6H PRN Administration A fib RVR with HR >130bpm Metoprolol Tartrate 50 mg 12/25/23 12:30 12/30/23 04:20 Metoprolol Tartrate 50 Mg Tab PO 01/24/24 12:29 50 mg Q8H CHRISTIAN Administration Rosuvastatin Calcium 40 mg 12/22/23 21:00 12/22/23 20:35 Rosuvastatin Calcium 20 Mg Tab PO 01/21/24 20:59 40 mg HS CHRISTIAN Administration Sodium Bicarbonate 650 mg 12/28/23 09:00 12/29/23 20:42 Sodium Bicarbonate 650 Mg Tab PO 01/27/24 08:59 650 mg BID CHRISTIAN Administration NPO Date Last Intake of Fluids: 12/29/23 Time Last Intake of Fluids: 23:00 Date Last Intake of Solids: 12/29/23 Time Last Intake of Solids: 18:00 Past Medical History Medical History Diabetes mellitus, type 2 NIDDM Well controlled per patient Transient ischemic attack (TIA) Questionable in 2016- possibly related to previous right ICA disease- s/p CEA July 2020 Hard of hearing Lt- no hearing aid needed Cardiac murmur Dx as a child; PCP monitoring History of prostate cancer s/p sx, radiation History 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 Father , Passed age 53 of cerebral hemorrhage No problems noted. Sister No problems noted. Sister No problems noted. Son No problems noted. Son No problems noted. Daughter No problems noted. Other No family history of adverse response to anesthesia Past Surgical History Surgical History History of right-sided carotid endarterectomy (~08/06/20) Dr. 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 History of cataract surgery bilt History of prostate biopsy History of melanoma excision History of tonsillectomy Age 4 History of prostatectomy 03/08/11 Past Anesthesia History No Hx of Anesthesia Complications and No Family Hx of Anesthesia Complications History of PONV No Hx of PONV and No Hx of Motion Sickness Social History Smoking Status: Never smoker Do You Dip or Chew Tobacco: No Hx Alcohol Use: Yes Alcohol type: beer and wine alcohol intake frequency: a few times a month Hx Substance Use: No substance use type: does not use Physical Exam Vital Signs Last Vital Signs Temp 36.3 C L 12/30/23 03:02 Pulse 94 H 12/30/23 03:02 Resp 16 12/30/23 03:02 BP 112/81 12/30/23 03:02 Pulse Ox 95 12/30/23 03:02 O2 Del Method Room Air 12/30/23 03:02 O2 Flow Rate 0 12/22/23 13:35 Constitutional + obese; no acute distress ENMT Mouth: no dentition abnormality Thyromental Distance: > or= 3.5 Finger Breadths Mallampati Class: II Neck normal visual inspection, trachea midline and + facial hair; neck extension not limited Respiratory normal respiratory effort Auscultation: + diminished lung sounds and + crackles Cardiovascular Rate/Rhythm: + abnormal rate (irreg./afib) and + abnormal rhythm (irreg./afib) Heart Sounds: no murmur Vessels: no carotid bruit Musculoskeletal Spine: normal cervical ROM Extremities: extremities normal to inspection Neurologic moves all extremities Motor/Sensory: no sensory deficit Psychiatric Orientation: alert and oriented x 3 Testing Laboratory Results 12/30/23 04:19 12/30/23 04:19 PT 14.3 Seconds (9.0-12.0) H 12/26/23 10:58 INR 1.4 (0.9-1.1) H 12/26/23 10:58 APTT 41 Seconds (21-31) H 12/26/23 10:58 Hemoglobin A1c 7.5 % (4.5-5.6) H 12/23/23 05:50 Urine Color Yellow 12/23/23 15:11 Urine Appearance Clear (Clear) 12/23/23 15:11 Urine pH 6.0 (4.5-7.5) 12/23/23 15:11 Ur Specific Vincent 1.008 (1.000-1.030) 12/23/23 15:11 Urine Protein 2+ (Negative) H 12/23/23 15:11 Urine Glucose (UA) Negative (Negative) 12/23/23 15:11 Urine Ketones Negative (Negative) 12/23/23 15:11 Urine Nitrite Negative (Negative) 12/23/23 15:11 Ur Leukocyte Esterase Negative (Negative) 12/23/23 15:11 Urine WBC (Auto) 0-5 /hpf (0-5) 12/23/23 15:11 Urine RBC (Auto) 0-2 /hpf (0-2) 12/23/23 15:11 U Hyaline Cast (Auto) 6-10 /lpf (0-2) H 12/23/23 15:11 U Epithel Cells (Auto) 0-2 /hpf (0-2) 12/23/23 15:11 Urine Bacteria (Auto) None Seen (None Seen) 12/23/23 15:11 12/29/23 20:38 POC Glucose 136 H Electrocardiogram Date: 12/27/23 Findings: + AFIB @ (@ 83;low voltage ) Chest X-Ray Date: 12/22/23 Findings: + cardiomegaly and + pulmonary vascular congestion Echocardiogram Date: 12/24/23 EF: 60% LV Function: normal RWMA: + none Other Findings: + LVH (mild) Valvular Disease: + no significant valvular disease small pericardial effusion
[2023-12-30] MEDS ORDERED: ePHEDrine sulfate 50 MG/ML AMP IV PRN (07:27)
[2023-12-30] MEDS ORDERED: ATROPINE SULFATE 0.1 MG/ML 10ML SYR IV PRN (07:27)
--- NOTE | 2023-12-30 07:49 | Anesthesiology Progress Note ---
Date of Service December 30, 2023 Anesthesia Post Procedure Vital Signs Vital Signs: Temp Pulse Pulse Resp BP Pulse Ox O2 Del Method 12/30/23 07:17 94 H 16 105/80 97 Room Air 12/30/23 03:02 36.3 C L 94 H 16 112/81 95 Room Air 12/29/23 23:15 36.3 C L 88 16 128/85 94 Room Air 12/29/23 22:00 94 H 12/29/23 19:11 36.4 C L 89 16 131/83 92 Room Air 12/29/23 16:23 36.4 C L 84 18 117/76 96 Room Air 12/29/23 15:47 100 H 12/29/23 11:13 36.2 C L 93 H 18 110/76 95 Room Air Transfer of Care Handoff Completed per policy Notes Mental Status: alert / awake / arousable Patient Amnestic to Procedure: Yes Nausea / Vomiting: adequately controlled Pain: adequately controlled Airway Patency, RR, SpO2: stable & adequate BP & HR: stable & adequate Hydration State: stable & adequate Anesthetic Complications: no major complications apparent
--- NOTE | 2023-12-30 08:12 | Cardioversion ---
Date of Service December 30, 2023 PG Electrical Cardioversion Rp Electrical Cardioversion Report Procedure performed: Cardioversion Indication: The patient is an 83-year-old gentleman with persistent atrial fibrillation Staff heddler: Zac Hendricks MD Procedure in detail: The patient was informed of the risks benefits and alternatives to the intended procedure. He understood such which proceed. He was taken to the cardiac catheterization suite holding area. A general anesthetic was administered by the Anesthesiology Service. Once appropriately anesthetized, the patient was cardioverted using 200 joules delivered in a biphasic fashion. This returned the patient to sinus rhythm. The patient tolerated procedure well, there were no immediate complications. Patient was neurologically intact subsequent to the procedure. Impression: Successful cardioversion from atrial fibrillation to normal sinus rhythm Coding Level of Care Code 34726 CARDIOVERSION, ELECTIVE Additional Codes Electrical Cardioversion Report ([id number])
[2023-12-30] MEDS: APIXABAN 2.5 MG TAB PO SCH (11:12)
--- NOTE | 2023-12-30 11:37 | Nephrology Progress Note ---
Date of Service December 30, 2023 Assessment & Plan (1) JULIEN (acute kidney injury): (2) Hyponatremia: (3) Anemia: (4) Atrial fibrillation with rapid ventricular response: Plan Mr. 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 Admitted with progressive fatigue, dyspnea on exertion, hypotension with blood pressure 91/55, A fib with RVR. On admission Creatinine 2.86, potassium 5.4. Chest x-ray revealed mild cardiomegaly with interstitial edema and trace bilateral pleural effusions. Received 40 mg furosemide IV x 1 in ER. Received IV Venofer. Hemoglobin 11.8. Noted to have mild hyperkalemia and received Lokelma and potassium improved. CT A/P with no postrenal obstruction. Urinalysis with proteinuria and microscopic hematuria, which has been chronic at least since 2020. Kidney function continues to improve with improvement in electrolyte abnormality. Blood pressures staying stable, in SR s/p cardioversion on 12/30/2023. --Continue to monitor kidney function electrolyte and electrolyte. --Encourage increase p.o. intake, accurate intake and output --Continue on sodium bicarbonate 1 tab bid. --if discharge anticipated, recommend renal panel Tuesday and f/u with Dr. Lockhart at CKD clinic Admission and Anticipated Discharge Date Admission Date: December 22, 2023 Subjective Mr. Burnett was seen and evaluated this morning with his family at bedside. Overall he reports feeling well, had ideation this morning, now, likely sinus rate, rate controlled, blood pressure stable. Kidney function improved significantly, creatinine down to 3.8, sodium improved and metabolic acidosis slightly better on sodium bicarbonate. Review of Systems Review of Systems: Detailed review of system was done and pertinent positives and negatives are m entioned above. Physical Exam Constitutional: WD/WN, vitals as above no acute distress Eyes: + anicteric sclerae Psychiatric: Orientation: alert and oriented x 3 Results & Data Vital Signs (Past 12 Hours) Vital Signs Temp Pulse Pulse Resp BP Pulse Ox O2 Del Method 12/30/23 11:23 36.3 C L 74 20 119/78 96 Room Air 12/30/23 08:45 64 12/30/23 08:45 68 20 111/76 98 Room Air 12/30/23 08:00 60 16 106/70 96 Room Air 12/30/23 07:45 64 16 89/63 L 98 Oxymask 12/30/23 07:17 94 H 16 105/80 97 Room Air 12/30/23 03:02 36.3 C L 94 H 16 112/81 95 Room Air O2 Flow Rate 12/30/23 11:23 12/30/23 08:45 12/30/23 08:45 12/30/23 08:00 12/30/23 07:45 6 12/30/23 07:17 12/30/23 03:02 PG Care Time/CCT Total # of Minutes Spent Total Time Spent with Patient: Total time spent is greater than 50% in coordination of care (as documented) at patient's floor/unit and/or counseling patient: Coding Level of Care Code 21775 SUB INP/OBS CARE 2/35MIN Diagnoses JULIEN (acute kidney injury) N17.9 Hyponatremia E87.1 Anemia D64.9 Atrial fibrillation with rapid ventricular response I48.91
--- NOTE | 2023-12-30 12:21 | Hospitalist Progress Note ---
Date of Service December 30, 2023 Assessment & Plan (1) JULIEN (acute kidney injury): Plan: Acute on chronic, appears to be from prerenal causes. Serum osmolarity was elevated this admission. Baseline chronic kidney disease stage II. Creatinine is now downtrending from 6.0 down to 3.7 today, December 29. Monitor intake and output. Serial labs. Nephrology consultation and recommendations appreciated (2) Atrial fibrillation with RVR: Plan: He underwent successful DC cardioversion today, December 29 and is now back in normal sinus rhythm. Cardiology has switched his heparin drip back to Eliquis. Continue telemetry. Appreciate cardiology consultation and recommendations. (3) Acute heart failure: Plan: Acute on chronic diastolic CHF suspected on admission due to chest x-ray appearance. He received parenteral Lasix for diuresis on admission and now has acute renal failure. CHF has resolved. He transiently received some IV fluids. Cardiac echo reveals mild left ventricular hypertrophy with normal ejection fraction. Monitor intake and output (4) Pleural effusion, bilateral: Plan: Admission CXR revealed cardiomegaly with suspected acute exacerbation of diastolic CHF with small bilateral pleural effusions. Fortunately, he is on room air. (5) Hyponatremia: Plan: Mild on admission. Now normalized. Monitor intake and output. Serial labs (6) Diabetes: Plan: Hgb A1c 7.5%. ADA diet. Sliding scale coverage. Metformin is temporarily on hold (7) Elevated transaminase level: Plan: On admission. Now normalized. Serial labs. Anaplasmosis and babesiosis smears are negative. CT abdomen/pelvis shows cirrhosis- likely from fatty liver. (8) Anemia: Plan: Due to iron deficiency. No evidence of active GI bleeding. He has received parenteral iron this admission. He has had a previous colonoscopy with no significant findings. (9) Elevated troponin: Plan: Likely demand ischemia. No evidence of acute coronary syndrome. Cardiac echo negative for regional wall motion abnormalities. Plan Anticipate discharge to [facility] when arrangements are finalized. Admission and Anticipated Discharge Date Admission Date: December 22, 2023 Subjective Alert and oriented. Family is at the bedside. He successfully underwent DC cardioversion today, December 29, back to normal sinus rhythm from atrial fibrillation. Cardiology has switched his heparin drip back to Eliquis. [facility] arrangements are still being finalized. Sodium has improved to 137 and creatinine has dropped further down to 3.7. Glucose is stable, also at 137 Review of Systems 2 Review of Systems: Constitutionalno fever or chills ENTno blurred vision, no double vision, no epistaxis, no sore throat Respiratoryno cough, no wheezing, no shortness of breath Cardiacno palpitations, no chest pain, no syncope Cindy nausea, vomiting, diarrhea, melena, hematochezia GUFoley catheter in place. No hematuria Musculoskeletalno joint pain, no muscle tenderness Skinno bruising, no rashes, no pruritus Neurono isolated weakness, no paresthesia, no weakness Psychno depression, no anxiety Physical Exam 2 Physical Exam: General-alert and oriented x3, no fever, no chills HEENT-head atraumatic and normocephalic, pupils equal and reactive to light, extraocular muscles intact Neck-no lymphadenopathy or thyromegaly, trachea midline Chest-clear to auscultation. No rales, wheezing or rhonchi Cardiac-regular rhythm with controlled rate after electrical cardioversion today, December 29. Normal S1 and S2 Abdomen-normal bowel sounds, no hepatosplenomegaly GUFoley catheter in place. No hematuria Extremities-no cyanosis, clubbing, or edema Neuro-cranial nerves II through XII intact, motor and sensory function within normal limits, strength symmetrical, no focal deficits Psych-normal affect, normal mood Results & Data Results & Data Vital Signs (Past 12 Hours) Vital Signs Temp Pulse Pulse Resp BP Pulse Ox O2 Del Method 12/30/23 11:23 36.3 C L 74 20 119/78 96 Room Air 12/30/23 08:45 64 12/30/23 08:45 68 20 111/76 98 Room Air 12/30/23 08:00 60 16 106/70 96 Room Air 12/30/23 07:45 64 16 89/63 L 98 Oxymask 12/30/23 07:17 94 H 16 105/80 97 Room Air 12/30/23 03:02 36.3 C L 94 H 16 112/81 95 Room Air O2 Flow Rate 12/30/23 11:23 12/30/23 08:45 12/30/23 08:45 12/30/23 08:00 12/30/23 07:45 6 12/30/23 07:17 12/30/23 03:02 Laboratory Results 12/30/23 04:19 12/30/23 04:19 PG Care Time/CCT Total # of Minutes Spent Total Time Spent with Patient: Total time spent is greater than 50% in coordination of care (as documented) at patient's floor/unit and/or counseling patient: Coding Level of Care Code 46257 SUB INP/OBS CARE 3/50MIN Diagnoses JULIEN (acute kidney injury) N17.9 Atrial fibrillation with RVR I48.91 Acute heart failure I50.9 Pleural effusion, bilateral J90 Hyponatremia E87.1 Diabetes E11.9 Elevated transaminase level R74.01 Anemia D64.9 Elevated troponin R79.89
--- NOTE | 2023-12-30 15:07 | Cardiology Progress Note ---
Date of Service December 30, 2023 Assessment & Plan (1) Atrial fibrillation with rapid ventricular response: (2) Elevated troponin: (3) Pericardial effusion: (4) Elevated transaminase level: (5) Ascending aorta dilatation: Plan ASSESSMENT/PLAN: 1. Atrial fibrillation with rapid ventricular response: Patient underwent successful cardioversion today. Heparin infusion was discontinued in favor of a return to apixaban. Will continue on his current dose of metoprolol, but can change it to metoprolol succinate 150 mg daily. Will need to monitor his renal function so that his apixaban can be dosed accordingly. If his function improves to baseline he may to be return to 5 mg twice daily 2. Acute kidney injury: Improving 3. Elevated troponin: Not related to acute coronary syndrome 4. Pericardial effusion: Reported on CT imaging as small. He is not hypotensiv e. Recommend echo, which is currently pending. 5. Elevated transaminase levels: Agree with holding statin. This can be resumed in the outpatient setting. 6. Possible heart failure: Volume status appears good. 7. Ascending aortic dilation: Measured 4.2 cm on his outpatient echocardiogram. Not evaluated on the current echocardiogram. Could consider CT scanning electively for more definitive evaluation. Cardiology will sign off at this time. I will be away from the hospital for the next 2 days. If additional questions or concerns arise please contact the on- call [facility] Sudhir tool filer hand. Admission and Anticipated Discharge Date Admission Date: December 22, 2023 Subjective This afternoon the patient clinically feeling well. He was not ambulatory. He is frustrated that he will not be leaving the hospital today. He denied breathing difficulty. No chest pain. No sense of palpitation. Review of Systems Review of Systems: Per HPI Physical Exam Physical Exam: Gen.: No acute distress. Alert. Coughing on occasion HEENT: Anicteric sclera. Cardiac: Regular with occasional ectopy. Normal rate. Normal S1-S2. No murmurs, rubs, or gallops. Pulmonary: Some bronchial breath sounds bilaterally. No expiratory wheezing. Normal respiratory effort. Extremities: 2+ radial pulses bilaterally. 2+ posterior tibialis pulses bilaterally. No significant lower extremity edema. No cyanosis. Psychiatric: Affect appears appropriate. Results & Data Vital Signs (Past 12 Hours) Vital Signs Temp Pulse Pulse Resp BP Pulse Ox O2 Del Method 12/30/23 11:23 36.3 C L 74 20 119/78 96 Room Air 12/30/23 08:45 64 12/30/23 08:45 68 20 111/76 98 Room Air 12/30/23 08:00 60 16 106/70 96 Room Air 12/30/23 07:45 64 16 89/63 L 98 Oxymask 12/30/23 07:17 94 H 16 105/80 97 Room Air O2 Flow Rate 12/30/23 11:23 12/30/23 08:45 12/30/23 08:45 12/30/23 08:00 12/30/23 07:45 6 12/30/23 07:17 Laboratory Results Abnormal Lab Results 12/29/23 12/29/23 12/29/23 16:22 16:41 20:38 WBC RBC Hgb Hct MCV MCH MCHC RDW Std Deviation RDW Coeff of Milvia Plt Count MPV Immature Gran % (Auto) Neut % (Auto) Lymph % (Auto) [place] % (Auto) Eos % (Auto) Baso % (Auto) Neut # (Auto) Lymph # (Auto) [place] # (Auto) Eos # (Auto) Baso # (Auto) Immature Gran # (Auto) Absolute Nucleated RBC Nucleated RBC % (auto) Polychromasia Ovalocytes Echinocytes Heparin Anti-Xa, Unfract < 0.10 L Sodium Potassium Chloride Carbon Dioxide Anion Gap BUN Creatinine Est Cr Clr Drug Dosing Est GFR ( Amer) Est GFR (Non-Af Amer) BUN/Creatinine Ratio Glucose POC Glucose 120 H 136 H Calcium Total Bilirubin AST ALT Alkaline Phosphatase Total Protein Albumin Globulin Albumin/Globulin Ratio 12/29/23 12/30/23 12/30/23 20:57 04:19 08:36 WBC 11.96 H RBC 4.50 L Hgb 11.2 L Hct 35.3 L MCV 78.4 L MCH 24.9 L MCHC 31.7 L RDW Std Deviation 45.7 RDW Coeff of Milvia 18.2 H Plt Count 280 MPV 9.6 Immature Gran % (Auto) 6.8 Neut % (Auto) 71.7 Lymph % (Auto) 8.3 [place] % (Auto) 11.1 Eos % (Auto) 1.5 Baso % (Auto) 0.6 Neut # (Auto) 8.58 H Lymph # (Auto) 0.99 L [place] # (Auto) 1.33 H Eos # (Auto) 0.18 Baso # (Auto) 0.07 Immature Gran # (Auto) 0.81 H Absolute Nucleated RBC 0.04 Nucleated RBC % (auto) 0.3 Polychromasia 1+ Ovalocytes 1+ Echinocytes 1+ Heparin Anti-Xa, Unfract < 0.10 L 0.41 Sodium 137 Potassium 3.7 Chloride 105 Carbon Dioxide 21 Anion Gap 11 BUN 91 H Creatinine 3.76 H D Est Cr Clr Drug Dosing 17.4 Est GFR ( Amer) 16.1 Est GFR (Non-Af Amer) 13.9 BUN/Creatinine Ratio 24.2 H Glucose 137 H POC Glucose 156 H Calcium 8.1 L Total Bilirubin 0.8 AST 33 ALT 33 Alkaline Phosphatase 185 H Total Protein 5.8 L Albumin 3.1 L Globulin 2.7 Albumin/Globulin Ratio 1.1 12/30/23 11:42 WBC RBC Hgb Hct MCV MCH MCHC RDW Std Deviation RDW Coeff of Milvia Plt Count MPV Immature Gran % (Auto) Neut % (Auto) Lymph % (Auto) [place] % (Auto) Eos % (Auto) Baso % (Auto) Neut # (Auto) Lymph # (Auto) [place] # (Auto) Eos # (Auto) Baso # (Auto) Immature Gran # (Auto) Absolute Nucleated RBC Nucleated RBC % (auto) Polychromasia Ovalocytes Echinocytes Heparin Anti-Xa, Unfract Sodium Potassium Chloride Carbon Dioxide Anion Gap BUN Creatinine Est Cr Clr Drug Dosing Est GFR ( Amer) Est GFR (Non-Af Amer) BUN/Creatinine Ratio Glucose POC Glucose 255 H Calcium Total Bilirubin AST ALT Alkaline Phosphatase Total Protein Albumin Globulin Albumin/Globulin Ratio PG Care Time/CCT Total # of Minutes Spent Total Time Spent with Patient: Total time spent is greater than 50% in coordination of care (as documented) at patient's floor/unit and/or counseling patient: Coding Level of Care Code 15103 SUB INP/OBS CARE 2/35MIN Diagnoses Atrial fibrillation with rapid ventricular response I48.91 Elevated troponin R79.89 Pericardial effusion I31.39 Elevated transaminase level R74.01 Ascending aorta dilatation I77.810
[2023-12-31 09:46] LABS: BUN Creatinine Ratio 27.1 (10-20); Calcium 8.2 mg/dl (8.6-10.3); Creatinine Clr Calc Pharmacy 21.9 ml/min; Est GFR (African American) 21.2 ml/min; Est GFR (Non-African American) 18.3 ml/min; Potassium 3.9 mmol/L (3.5-5.1)
--- NOTE | 2023-12-31 10:40 | Hospitalist Progress Note ---
Date of Service December 31, 2023 Assessment & Plan (1) JULIEN (acute kidney injury): Plan: Acute on chronic, appears to be from prerenal causes. Serum osmolarity was elevated this admission. Baseline chronic kidney disease stage II. Creatinine continues to improve, now up to 0.9 today, December 30. Monitor intake and output. Serial labs. Nephrology consultation and recommendations appreciated (2) Atrial fibrillation with RVR: Plan: He underwent successful DC cardioversion today, December 29 and is now back in normal sinus rhythm. Cardiology has switched his heparin drip back to Eliquis. Continue telemetry. Appreciate cardiology consultation and recommendations. (3) Acute heart failure: Plan: Acute on chronic diastolic CHF suspected on admission due to chest x-ray appearance. He received parenteral Lasix for diuresis on admission and now has acute renal failure. CHF has resolved. He transiently received some IV fluids. Cardiac echo reveals mild left ventricular hypertrophy with normal ejection fraction. Monitor intake and output (4) Pleural effusion, bilateral: Plan: Admission CXR revealed cardiomegaly with suspected acute exacerbation of diastolic CHF with small bilateral pleural effusions. Fortunately, he is on room air. (5) Hyponatremia: Plan: Mild on admission. Now normalized. Monitor intake and output. Serial labs (6) Diabetes: Plan: Hgb A1c 7.5%. ADA diet. Sliding scale coverage. Metformin is temporarily on hold (7) Elevated transaminase level: Plan: On admission. Now normalized. Serial labs. Anaplasmosis and babesiosis smears are negative. CT abdomen/pelvis shows cirrhosis- likely from fatty liver. (8) Anemia: Plan: Due to iron deficiency. No evidence of active GI bleeding. He has received parenteral iron this admission. He has had a previous colonoscopy with no significant findings. (9) Elevated troponin: Plan: Likely demand ischemia. No evidence of acute coronary syndrome. Cardiac echo negative for regional wall motion abnormalities. Plan [facility] received. Admission and Anticipated Discharge Date Admission Date: December 22, 2023 Subjective Alert and oriented. Family is at the bedside. No new problems. Creatinine has improved further down to 2.9. Potassium 3.9. Losartan has been discontinued. Heparin drip has been switched back to Eliquis again after successful cardioversion yesterday, December 29. Charles catheter remains in place with no evidence of hematuria. Liver function test have normalized. Awaiting eventual placement [facility]. Review of Systems 2 Review of Systems: Constitutionalno fever or chills ENTno blurred vision, no double vision, no epistaxis, no sore throat Respiratoryno cough, no wheezing, no shortness of breath Cardiacno palpitations, no chest pain, no syncope Cindy nausea, vomiting, diarrhea, melena, hematochezia GUFoley catheter in place. No hematuria Musculoskeletalno joint pain, no muscle tenderness Skinno bruising, no rashes, no pruritus Neurono isolated weakness, no paresthesia, no weakness Psychno depression, no anxiety Physical Exam 2 Physical Exam: General-alert and oriented x3, no fever, no chills HEENT-head atraumatic and normocephalic, pupils equal and reactive to light, extraocular muscles intact Neck-no lymphadenopathy or thyromegaly, trachea midline Chest-clear to auscultation. No rales, wheezing or rhonchi Cardiac-regular rhythm with controlled rate after electrical cardioversion today, December 29. Normal S1 and S2 Abdomen-normal bowel sounds, no hepatosplenomegaly GUFoley catheter in place. No hematuria Extremities-no cyanosis, clubbing, or edema Neuro-cranial nerves II through XII intact, motor and sensory function within normal limits, strength symmetrical, no focal deficits Psych-normal affect, normal mood Results & Data Results & Data Vital Signs (Past 12 Hours) Vital Signs Temp Pulse Resp BP Pulse Ox O2 Del Method 12/31/23 07:27 36.8 C 66 18 117/75 96 Room Air 12/31/23 05:04 36.5 C 69 17 116/72 95 Room Air 12/30/23 23:57 36.4 C L 66 17 120/78 95 Room Air Laboratory Results 12/30/23 04:19 12/31/23 09:10 PG Care Time/CCT Total # of Minutes Spent Total Time Spent with Patient: Total time spent is greater than 50% in coordination of care (as documented) at patient's floor/unit and/or counseling patient: Coding Level of Care Code 44901 SUB INP/OBS CARE 2/35MIN Diagnoses JULIEN (acute kidney injury) N17.9 Atrial fibrillation with RVR I48.91 Acute heart failure I50.9 Pleural effusion, bilateral J90 Hyponatremia E87.1 Diabetes E11.9 Elevated transaminase level R74.01 Anemia D64.9 Elevated troponin R79.89
--- NOTE | 2023-12-31 12:32 | Nephrology Progress Note ---
Date of Service December 31, 2023 Assessment & Plan (1) JULIEN (acute kidney injury): (2) Hyponatremia: (3) Anemia: (4) Atrial fibrillation with rapid ventricular response: Plan Mr. 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 Admitted with progressive fatigue, dyspnea on exertion, hypotension with blood pressure 91/55, A fib with RVR. On admission Creatinine 2.86, potassium 5.4. Chest x-ray revealed mild cardiomegaly with interstitial edema and trace bilateral pleural effusions. Received 40 mg furosemide IV x 1 in ER. Received IV Venofer. Hemoglobin 11.8. Noted to have mild hyperkalemia and received Lokelma and potassium improved. CT A/P with no postrenal obstruction. Urinalysis with proteinuria and microscopic hematuria, which has been chronic at least since 2020. Kidney function continues to improve with improvement in electrolyte abnormality. Blood pressures staying stable, in SR s/p cardioversion on 12/30/2023. --Continue to monitor kidney function electrolyte and electrolyte. --Encourage increase p.o. intake, accurate intake and output --discontinue sodium bicarbonate. --if discharge anticipated, recommend renal panel Tuesday and f/u with Dr. Lockhart at CKD clinic Admission and Anticipated Discharge Date Admission Date: December 22, 2023 Subjective Mr. Burnett was seen and evaluated this morning with his family at bedside. Overall he reports feeling well, in SR, rate controlled, blood pressure stable. Kidney function improved significantly, creatinine down to 3.0, sodium improved and metabolic acidosis resolved on sodium bicarbonate. Review of Systems Review of Systems: Detailed review of system was done and pertinent positives and negatives are mentioned above. Physical Exam Constitutional: WD/WN, vitals as above no acute distress Eyes: + anicteric sclerae Neck: normal visual inspection Respiratory: no respiratory distress Auscultation: lungs clear to auscultation bilaterally Cardiovascular: Rate/Rhythm: regular rate and regular rhythm Heart Sounds: normal S1 and normal S2 Extremities: + edema (trace b/l LE edema) Skin: no rashes, warm and dry Neurologic: no focal motor deficits Psychiatric: Orientation: alert and oriented x 3 Results & Data Vital Signs (Past 12 Hours) Vital Signs Temp Pulse Pulse Resp BP Pulse Ox O2 Del Method 12/31/23 11:11 62 12/31/23 10:58 36.3 C L 67 18 109/75 97 Room Air 12/31/23 07:27 36.8 C 66 18 117/75 96 Room Air 12/31/23 05:04 36.5 C 69 17 116/72 95 Room Air PG Care Time/CCT Total # of Minutes Spent Total Time Spent with Patient: Total time spent is greater than 50% in coordination of care (as documented) at patient's floor/unit and/or counseling patient: Coding Level of Care Code 98950 SUB INP/OBS CARE 235MIN Diagnoses JULIEN (acute kidney injury) N17.9 Hyponatremia E87.1 Anemia D64.9 Atrial fibrillation with rapid ventricular response I48.91
[2024-01-01 09:27] LABS: BUN Creatinine Ratio 27.8 (10-20); Calcium 8.3 mg/dl (8.6-10.3); Creatinine Clr Calc Pharmacy 24.3 ml/min; Est GFR (African American) 26.6 ml/min; Est GFR (Non-African American) 22.9 ml/min
[2024-01-01 09:36] LABS: Potassium 4.2 mmol/L (3.5-5.1)
--- NOTE | 2024-01-01 11:17 | Nephrology Progress Note ---
Date of Service January 01, 2024 Assessment & Plan (1) JULIEN (acute kidney injury): (2) Hyponatremia: (3) Anemia: (4) Atrial fibrillation with rapid ventricular response: Plan Mr. 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 Admitted with progressive fatigue, dyspnea on exertion, hypotension with blood pressure 91/55, A fib with RVR. On admission Creatinine 2.86, potassium 5.4. Chest x-ray revealed mild cardiomegaly with interstitial edema and trace bilateral pleural effusions. Received 40 mg furosemide IV x 1 in ER. Received IV Venofer. Hemoglobin 11.8. Noted to have mild hyperkalemia and received Lokelma and potassium improved. CT A/P with no postrenal obstruction. Urinalysis with proteinuria and microscopic hematuria, which has been chronic at least since 2020. Kidney function continues to improve with improvement in electrolyte abnormality. Blood pressures staying stable, in SR s/p cardioversion on 12/30/2023. --Continue to monitor kidney function electrolyte and electrolyte. Expect kidney function to continue to improve. --Encourage increase p.o. intake, accurate intake and output --Monitor urine for hematuria, slight hematuria most likely secondary to Charles trauma however, if any further worsening, may need to replace the Charles catheter and contact urology if needed. --if discharge anticipated, recommend renal panel in the next few days and f/u with Dr. Lockhart at CKD clinic. Will sign off, please contact if further assistance needed. Thank you for the consultation. Admission and Anticipated Discharge Date Admission Date: December 22, 2023 Subjective Mr. Burnett was seen and evaluated this morning with his family at bedside. Overall he reports feeling well, in SR, rate controlled, blood pressure stable. Kidney function continues to improve significantly, creatinine down to 2.5 mg/dl, sodium improved and metabolic acidosis resolved. Noticed slightly dark- colored urine in Charles bag, urine output has been decent. Review of Systems Review of Systems: Detailed review of system was done and pertinent positives and negatives are mentioned above. Physical Exam Constitutional: WD/WN, vitals as above no acute distress Eyes: + anicteric sclerae Respiratory: no respiratory distress Neurologic: no focal motor deficits Psychiatric: Orientation: alert and oriented x 3 Results & Data Vital Signs (Past 12 Hours) Vital Signs Temp Pulse Pulse Resp BP Pulse Ox O2 Del Method 01/01/24 07:21 61 01/01/24 07:15 36.8 C 62 18 109/71 95 Room Air 01/01/24 03:52 36.4 C L 69 15 115/73 92 Room Air PG Care Time/CCT Total # of Minutes Spent Total Time Spent with Patient: Total time spent is greater than 50% in coordination of care (as documented) at patient's floor/unit and/or counseling patient: Coding Level of Care Code 03209 SUB INP/OBS CARE 2/35MIN Diagnoses JULIEN (acute kidney injury) N17.9 Hyponatremia E87.1 Anemia D64.9 Atrial fibrillation with rapid ventricular response I48.91
--- NOTE | 2024-01-01 14:32 | Hospitalist Progress Note ---
Date of Service January 01, 2024 Assessment & Plan (1) JULIEN (acute kidney injury): Plan: Acute on chronic on admission, appears to be from prerenal causes. Serum osmolarity was elevated. Baseline chronic kidney disease stage II. Creatinine continues to improve, now down to 2.4 today, December 31. Monitor intake and output. Serial labs. Nephrology consultation and recommendations appreciated (2) Atrial fibrillation with RVR: Plan: He underwent successful DC cardioversion on December 29 and remains in normal sinus rhythm. Cardiology has switched his heparin drip back to Eliquis. Continue telemetry. Appreciate cardiology consultation and recommendations. (3) Acute heart failure: Plan: Acute on chronic diastolic CHF suspected on admission due to chest x-ray appearance. He received parenteral Lasix for diuresis on admission and then developed acute renal failure. CHF has now resolved. He transiently received some IV fluids. Cardiac echo reveals mild left ventricular hypertrophy with normal ejection fraction. Monitor intake and output (4) Pleural effusion, bilateral: Plan: Admission CXR revealed cardiomegaly with suspected acute exacerbation of diastolic CHF with small bilateral pleural effusions. Fortunately, he is now on room air. (5) Hyponatremia: Plan: Mild on admission. Now normalized. Monitor intake and output. Serial labs (6) Diabetes: Plan: Hgb A1c 7.5%. ADA diet. Sliding scale coverage. Metformin is temporarily on hold (7) Elevated transaminase level: Plan: On admission. Now normalized. Serial labs. Anaplasmosis and babesiosis smears are negative. CT abdomen/pelvis shows cirrhosis, likely from fatty liver. (8) Anemia: Plan: Due to iron deficiency. No evidence of active GI bleeding. He has received parenteral iron this admission. He has had a previous colonoscopy with no significant findings. (9) Elevated troponin: Plan: Likely demand ischemia. No evidence of acute coronary syndrome. Cardiac echo negative for regional wall motion abnormalities. Plan Anticipate discharge to the [facility] when insurance approval is received. Hopefully tomorrow, January 01 Admission and Anticipated Discharge Date Admission Date: December 22, 2023 Subjective Alert and oriented. Family is at the bedside. No new problems. Nephrology entry noted. Creatinine continues to improve. Now down to 2.4 today, December 31. No gross hematuria. Bicarbonate supplementation was discontinued on December 30. Nephrology. Sodium has improved to 138. [facility] to the [facility] hopefully will occur tomorrow, [place] 9. His renal function should be rechecked within the next few days with results sent to Dr. Lockhart. Charles catheter was placed this admission by urology and needs to stay in at the time of discharge. DC cardioversion was done on December 29 and he remains in sinus rhythm. Heparin drip has been switched back to his usual Eliquis. He has received 3 doses of parenteral iron replacement this admission. Review of Systems 2 Review of Systems: Constitutionalno fever or chills ENTno blurred vision, no double vision, no epistaxis, no sore throat Respiratoryno cough, no wheezing, no shortness of breath Cardiacno palpitations, no chest pain, no syncope Cindy nausea, vomiting, diarrhea, melena, hematochezia GUFoley catheter in place. No hematuria Musculoskeletalno joint pain, no muscle tenderness Skinno bruising, no rashes, no pruritus Neurono isolated weakness, no paresthesia, no weakness Psychno depression, no anxiety Physical Exam 2 Physical Exam: General-alert and oriented x3, no fever, no chills HEENT-head atraumatic and normocephalic, pupils equal and reactive to light, extraocular muscles intact Neck-no lymphadenopathy or thyromegaly, trachea midline Chest-clear to auscultation. No rales, wheezing or rhonchi Cardiac-regular rhythm with controlled rate after electrical cardioversion today, December 29. Normal S1 and S2 Abdomen-normal bowel sounds, no hepatosplenomegaly GUFoley catheter in place. No hematuria Extremities-no cyanosis, clubbing, or edema Neuro-cranial nerves II through XII intact, motor and sensory function within normal limits, strength symmetrical, no focal deficits Psych-normal affect, normal mood Results & Data Results & Data Vital Signs (Past 12 Hours) Vital Signs Temp Pulse Pulse Resp BP Pulse Ox O2 Del Method 01/01/24 12:47 76 106/69 01/01/24 11:19 36.3 C L 68 18 118/77 95 Room Air 01/01/24 07:21 61 01/01/24 07:15 36.8 C 62 18 109/71 95 Room Air 01/01/24 03:52 36.4 C L 69 15 115/73 92 Room Air Laboratory Results 12/30/23 04:19 01/01/24 07:04 PG Care Time/CCT Total # of Minutes Spent Total Time Spent with Patient: Total time spent is greater than 50% in coordination of care (as documented) at patient's floor/unit and/or counseling patient: Coding Level of Care Code 07921 SUB INP/OBS CARE 2MIN Diagnoses JULIEN (acute kidney injury) N17.9 Atrial fibrillation with RVR I48.91 Acute heart failure I50.9 Pleural effusion, bilateral J90 Hyponatremia E87.1 Diabetes E11.9 Elevated transaminase level R74.01 Anemia D64.9 Elevated troponin R79.89
[2024-01-02 06:58] LABS: BUN Creatinine Ratio 26.6 (10-20); Creatinine Clr Calc Pharmacy 32.1 ml/min; Est GFR (African American) 33.9 ml/min; Est GFR (Non-African American) 29.2 ml/min; Potassium 4.4 mmol/L (3.5-5.1)
[2024-01-02] MEDS: METOPROLOL SUCC 50MG EXT REL TAB PO SCH (12:24)
[2024-01-02] MEDS: DOCUSATE SODIUM 100 MG CAP PO SCH (15:28)
--- NOTE | 2024-01-02 16:43 | Hospitalist Progress Note ---
Date of Service January 02, 2024 Assessment & Plan (1) JULIEN (acute kidney injury): Plan: P/w SOB x 5 days w/o recent acute illness or difficulty with urination. He has a history of prostate cancer s/p prostatectomy and radiation and antiandrogen therapy with chronic urinary incontinence. No history of kidney problems in the past. On admission, BUN 39, creatinine 2.06 (baseline of 0.92 in 2020) and was oliguric, with evidence of volume overload with pleural effusions and small pericardial effusion seen on CT ECHO w/ preserved LV function and small pericardial effusion without tamponade- With rapid atfib, could have had hypotension induced ATN Also w/ elevated AST, ALT, and alkaline phosphatase-could be hepatic congestion from heart failure versus shock liver from a hypotensive event-he does recall being lightheaded at home prior to admission but did not measure his blood pressure. Blood pressures here have been normal CT abdomen/pelvis w/o obstruction FeNa is 7.8% however these labs were drawn after receiving IV Lasix UA consistent with ATN with granular casts, also with 2+ protein, 2+ blood, 6-10 hyaline casts, no evidence of infection CK is negative-ruling out rhabdomyolysis Nephrology suspects etiology is hemodynamically mediated ATN in the setting of rapid A-fib complicated by ARB therapy and chronic bladder outlet obstruction Initially treated with IV Lasix x 2 doses of 40 Mg, but his urine output remained quite low-with difficult Charles catheter placement by urology due to bladder neck contracture causing outlet obstruction-minimal urine came out at that time--most likely prerenal in nature and not postobstructive renal failure His director of maintenance continued to rise rapidly up to 5.9, with mild acidosis, mild hyperkalemia, hyponatremia, but his urine output picked up and renal function then started improving Creatinine continues to trend downward to 2.03 Respiratory status improved Appreciate nephrology consultation Continue to hold home losartan and metformin Consider diuretics given pitting edema but will hold for now Follow BMP, monitor I's and O's, daily weights (2) Atrial fibrillation with RVR: Plan: Presented with rapid atrial fibrillation, possibly contributing to hypotension and ATN. He underwent successful DC cardioversion on December 29 and remains in normal sinus rhythm with a few paroxysms of atrial fibrillation over the last 24 hours. Continue Eliquis Convert metoprolol tartrate to Toprol XL 150 mg daily Monitor on telemetry Appreciate cardiology consultation (3) Acute heart failure: Plan: Acute on chronic diastolic CHF suspected on admission due to chest x-ray appearance, respiratory distress He received parenteral Lasix for diuresis on admission and then developed worsening acute renal failure. CHF has now resolved. He transiently received some IV fluids. Cardiac echo reveals mild left ventricular hypertrophy with normal ejection fraction. Monitor intake and output (4) Hyponatremia: Plan: Mild on admission. Now normalized. Monitor intake and output. Serial labs (5) Diabetes: Plan: Hgb A1c 7.5%. ADA diet. Sliding scale coverage. Metformin is temporarily on hold (6) Elevated transaminase level: Plan: On admission. Now normalized. Anaplasmosis and babesiosis smears and PCR are negative. CT abdomen/pelvis shows cirrhosis, likely from fatty liver. Okay to resume home statin (7) Anemia: Plan: Due to iron deficiency. No evidence of active GI bleeding. He has received parenteral iron this admission. He has had a previous colonoscopy with no significant findings. Follow-up as an outpatient (8) Elevated troponin: Plan: Likely demand ischemia. No evidence of acute coronary syndrome. Cardiac echo negative for regional wall motion abnormalities. Plan DVT prophylaxis-Eliquis Disposition-continued stay in PCU for telemetry monitoring. I completed a peer to peer with his insurance company which was denied for acute rehab. Repeat PT/OT evals and submit for insurance authorization for SNF at the [facility] tomorrow Discussed all care with his daughter, son-in-law, and at the bedside on 01/01 Admission and Anticipated Discharge Date Admission Date: December 22, 2023 Subjective Patient anxious eat out of the hospital, frustrated that the rehab insurance authorization is taking so long. He denies shortness of breath and is overall feeling better. Moving his bowels once daily but does not feel like he is completely emptying. Telemetry with normal sinus rhythm with rates in the 50s to 60s with a few occasional bursts of atrial fibrillation x 10 seconds in the 150s Physical Exam Constitutional: WD/WN, vitals as above no acute distress Neck: trachea midline, no thyromegaly Respiratory: no cough Auscultation: no crackles, no rhonchi and no wheezes Cardiovascular: Rate/Rhythm: regular rate and regular rhythm Heart Sounds: no murmur Extremities: + edema (2+ pitting edema of the legs to the knees bi laterally) Chest (Breasts): Chest: normal inspection of chest Gastrointestinal (Abdomen): normal bowel sounds, soft, nontender, no hepatosplenomegaly Musculoskeletal: Extremities: extremities normal to inspection; no cyanosis and no clubbing Skin: no rashes, warm and dry Neurologic: moves all extremities and awake; no focal motor deficits Psychiatric: A+Ox3, euthymic affect Genitourinary: + penis abnormality (Charles in place drai roma clear yellow urine) Results & Data Results & Data Vital Signs (Past 12 Hours) Vital Signs Temp Pulse Pulse Resp BP Pulse Ox O2 Del Method 01/02/24 15:25 37.2 C 71 20 111/74 97 Room Air 01/02/24 13:00 74 01/02/24 11:38 36.9 C 68 18 113/70 96 Room Air 01/02/24 08:23 36.7 C 59 L 20 108/70 96 Room Air 01/02/24 07:24 60 Laboratory Results BMP reviewed PG Care Time/CCT Total # of Minutes Spent Total Time Spent with Patient: Total time spent is greater than 50% in coordination of care (as documented) at patient's floor/unit and/or counseling patient: Coding Level of Care Code 82617 SUB INP/OBS CARE 3/50MIN Diagnoses JULIEN (acute kidney injury) N17.9 Atrial fibrillation with RVR I48.91 Acute heart failure I50.9 Hyponatremia E87.1 Diabetes E11.9 Elevated transaminase level R74.01 Anemia D64.9 Elevated troponin R79.89
[2024-01-02 23:28] LABS: Hematocrit (blood only) 33.5 % (42.0-52.0); Hemoglobin 10.2 g/dl (14.0-18.0)
[2024-01-03 07:39] LABS: Basophils # (auto) 0.02 K/uL (0.00-0.20); Basophils % (auto) 0.2 %; Eosinophils # (auto) 0.25 K/uL (0.00-0.50); Eosinophils % (auto) 2.9 %; Hematocrit (blood only) 33.6 % (42.0-52.0); Hemoglobin 10.4 g/dl (14.0-18.0); Immature Granulocytes # (auto) 0.33 K/uL (0.01-0.20); Immature Granulocytes % (auto) 3.9 %; Lymphocytes # (auto) 0.71 K/uL (1.20-3.40); Lymphocytes % (auto) 8.3 %; Mean Corpuscular Hemoglobin 25.1 pg (25.0-34.0); Mean Corpuscular Volume 81.2 fL (80.0-100.0); Mean Platelet Volume 9.6 fL (9.4-12.4); Monocytes # (auto) 0.88 K/uL (0.11-0.59); Monocytes % (auto) 10.3 %; Neutrophils # (auto) 6.38 K/uL (1.40-6.50); Neutrophils % (auto) 74.4 %; Platelet Count 201 K/uL (130-400); RDW Coefficient of Variation 19.4 % (11.5-14.5); Red Blood Count 4.14 M/uL (4.70-6.10); White Blood Count 8.57 K/ul (4.8-10.8)
[2024-01-03 07:59] LABS: Albumin Level 3.1 gm/dl (3.4-5.0); BUN Creatinine Ratio 23.7 (10-20); Bilirubin Direct 0.2 mg/dl (0-0.2); Bilirubin,Total 0.8 mg/dl (0.2-1.0); Calcium 7.9 mg/dl (8.6-10.3); Creatinine Clr Calc Pharmacy 34.9 ml/min; Est GFR (African American) 41.1 ml/min; Est GFR (Non-African American) 35.5 ml/min; Magnesium 1.6 mg/dl (1.7-2.4); Potassium 4.3 mmol/L (3.5-5.1); Total Protein 5.8 gm/dl (6.0-8.3)
[2024-01-03] MEDS: MAGNESIUM SULFATE / D5W 1 GM/100 ML BAG IV SCH (09:17)
--- NOTE | 2024-01-03 16:35 | Hospitalist Progress Note ---
Date of Service January 03, 2024 Assessment & Plan (1) JULIEN (acute kidney injury): Plan: P/w SOB x 5 days w/o recent acute illness or difficulty with urination. He has a history of prostate cancer s/p prostatectomy and radiation and antiandrogen therapy with chronic urinary incontinence. No history of kidney problems in the past. On admission, BUN 39, creatinine 2.06 (baseline of 0.92 in 2020) and was oliguric, with evidence of volume overload with pleural effusions and small pericardial effusion seen on CT ECHO w/ preserved LV function and small pericardial effusion without tamponade- With rapid atfib, could have had hypotension induced ATN Also w/ elevated AST, ALT, and alkaline phosphatase-could be hepatic congestion from heart failure versus shock liver from a hypotensive event-he does recall being lightheaded at home prior to admission but did not measure his blood pressure. Blood pressures here have been normal CT abdomen/pelvis w/o obstruction FeNa is 7.8% however these labs were drawn after receiving IV Lasix UA consistent with ATN with granular casts, also with 2+ protein, 2+ blood, 6-10 hyaline casts, no evidence of infection CK is negative-ruling out rhabdomyolysis Nephrology suspects etiology is hemodynamically mediated ATN in the setting of rapid A-fib complicated by ARB therapy and chronic bladder outlet obstruction Initially treated with IV Lasix x 2 doses of 40 Mg, but his urine output remained quite low-with difficult Charles catheter placement by urology due to bladder neck contracture causing outlet obstruction-minimal urine came out at that time--most likely prerenal in nature and not postobstructive renal failure His gmat tutor continued to rise rapidly up to 6.0, with mild acidosis, mild hyperkalemia, hyponatremia, but his urine output picked up and renal function then started improving Creatinine continues to trend downward to 1.7 Respiratory status improved Appreciate nephrology consultation Continue to hold home losartan and metformin Consider diuretics given pitting edema but will continue to hold for now Follow BMP, monitor I's and O's, daily weights (2) Atrial fibrillation with RVR: Plan: Presented with rapid atrial fibrillation, possibly contributing to hypotension and ATN. He underwent successful DC cardioversion on December 29 and remains in normal sinus rhythm with a few paroxysms of atrial fibrillation over the last 24 hours. Continue Eliquis Convert metoprolol tartrate to Toprol XL 150 mg daily Monitor on telemetry Appreciate cardiology consultation (3) Acute heart failure: Plan: Acute on chronic diastolic CHF suspected on admission due to chest x-ray appearance, respiratory distress He received parenteral Lasix for diuresis on admission and then developed worsening acute renal failure. CHF has now resolved. He transiently received some IV fluids. Cardiac echo reveals mild left ventricular hypertrophy with normal ejection fraction. Monitor intake and output (4) Hyponatremia: Plan: Mild on admission. Now normalized. Monitor intake and output. Serial labs (5) Diabetes: Plan: Hgb A1c 7.5%. ADA diet. Sliding scale coverage. Metformin is temporarily on hold (6) Elevated transaminase level: Plan: On admission. Now normalized except only mild elevation in alk phos and AST Anaplasmosis and babesiosis smears and PCR are negative. CT abdomen/pelvis shows cirrhosis, likely from fatty liver. Okay to resume home statin (7) Anemia: Plan: Due to iron deficiency. No evidence of active GI bleeding. He has received parenteral iron this admission. He has had a previous colonoscopy with no significant findings. Follow-up as an outpatient (8) Elevated troponin: Plan: Likely demand ischemia. No evidence of acute coronary syndrome. Cardiac echo negative for regional wall motion abnormalities. Plan DVT prophylaxis-Eliquis Disposition-continued stay in PCU for telemetry monitoring. I completed a peer to peer with his insurance company which was denied for acute rehab. Repeat PT/OT evals and submit for insurance authorization for SNF at the [facility] -awaiting approval Discussed all care with his son-in-law, and at the bedside on 01/02 Admission and Anticipated Discharge Date Admission Date: December 22, 2023 Subjective Pt had some mild hematuria overnight, now improved. Denies SOB. Had a BM today Is frustrated about waiting for SNF insurance auth Tele with no further paroxysms of Afib, remains in NSR, 60s, PACs Physical Exam Constitutional: WD/WN, vitals as above no acute distress Neck: trachea midline, no thyromegaly Respiratory: Auscultation: lungs clear to auscultation bilaterally Cardiovascular: Rate/Rhythm: regular rate and regular rhythm Heart Sounds: no murmur Extremities: + edema (1+ pitting edema of the legs to the knees bilaterally) Chest (Breasts): Chest: normal inspection of chest Gastrointestinal (Abdomen): normal bowel sounds, soft, nontender, no hepatosplenomegaly Musculoskeletal: Extremities: extremities normal to inspection; no cyanosis and no clubbing Skin: no rashes, warm and dry Neurologic: moves all extremities and awake; no focal motor deficits Psychiatric: A+Ox3, euthymic affect Genitourinary: + penis abnormality (Charles in place drai roma clear yellow urine) Lymphatic: no lymphedema Results & Data Results & Data Vital Signs (Past 12 Hours) Vital Signs Temp Pulse Pulse Resp BP Pulse Ox O2 Del Method 01/03/24 15:41 36.5 C 67 18 101/66 96 Room Air 01/03/24 15:00 65 01/03/24 10:51 36.9 C 65 18 100/46 L 96 Room Air 01/03/24 07:24 36.6 C 65 18 112/72 95 Room Air 01/03/24 07:00 65 Laboratory Results CBC, CMP, magnesium reviewed PG Care Time/CCT Total # of Minutes Spent Total Time Spent with Patient: Total time spent is greater than 50% in coordination of care (as documented) at patient's floor/unit and/or counseling patient: Coding Level of Care Code 00412 SUB INP/OBS CARE 235MIN Diagnoses JULIEN (acute kidney injury) N17.9 Atrial fibrillation with RVR I48.91 Acute heart failure I50.9 Hyponatremia E87.1 Diabetes E11.9 Elevated transaminase level R74.01 Anemia D64.9 Elevated troponin R79.89
[2024-01-04 07:01] LABS: BUN Creatinine Ratio 21.7 (10-20); Calcium 7.8 mg/dl (8.6-10.3); Creatinine Clr Calc Pharmacy 38.4 ml/min; Est GFR (African American) 46.2 ml/min; Est GFR (Non-African American) 39.9 ml/min; Magnesium 1.8 mg/dl (1.7-2.4); Potassium 4.5 mmol/L (3.5-5.1)
[2024-01-04] MEDS: MAGNESIUM SULFATE / D5W 1 GM/100 ML BAG IV ONE (10:48)
[2024-01-04] MEDS: AMIODARONE 200 MG TAB PO SCH (13:51)
[2024-01-04 14:56] VITALS: BP 90/55; PULSE 90; RESP 17; TEMP 97.9; O2SAT 97
--- NOTE | 2024-01-04 17:09 | Discharge Summary ---
Discharge Summary Date of Service January 04, 2024 Principal Dx & Hospital Course #1 = Principal Diagnosis (1) JULIEN (acute kidney injury): P/w SOB x 5 days w/o recent acute illness or difficulty with urination. He has a history of prostate cancer s/p prostatectomy and radiation and antiandrogen therapy with chronic urinary incontinence. No history of kidney problems in the past. On admission, BUN 39, creatinine 2.06 (baseline of 0.92 in 2020) and was oliguric, with evidence of volume overload with pleural effusions and small pericardial effusion seen on CT ECHO w/ preserved LV function and small pericardial effusion without tamponade- With rapid a-fib, could have had hypotension induced ATN Also w/ elevated AST, ALT, and alkaline phosphatase-could be hepatic congestion from heart failure versus shock liver from a hypotensive event-he does recall being lightheaded at home prior to admission but did not measure his blood pressure. Blood pressures here have been normal to low normal when in Afib CT abdomen/pelvis w/o obstruction FeNa is 7.8% however these labs were drawn after receiving IV Lasix UA consistent with ATN with granular casts, also with 2+ protein, 2+ blood, 6-10 hyaline casts, no evidence of infection CK is negative-ruling out rhabdomyolysis Nephrology suspects etiology is hemodynamically mediated ATN in the setting of rapid A-fib complicated by ARB therapy and chronic bladder outlet obstruction Initially treated with IV Lasix x 2 doses of 40 Mg, but his urine output remained quite low-with difficult Charles catheter placement by urology due to bladder neck contracture causing outlet obstruction-minimal urine came out at that time--most likely prerenal in nature and not postobstructive renal failure His nightclub manager continued to rise rapidly up to 6.0, with mild acidosis, mild hyperkalemia, hyponatremia, but his urine output picked up and renal function then started improving Creatinine continues to trend downward to 1.57 on the day of discharge Respiratory status much improved Appreciate nephrology consultation Continue to hold home losartan and metformin, and reduced dose of Eliquis to 2.5mg po bid --> these can be resumed as an outpt if renal function continues to improve Consider diuretics given pitting edema but will continue to hold for now Check BMP with home health in 1-2 days F/u with Nephrology (2) Atrial fibrillation with RVR: Presented with rapid atrial fibrillation, possibly contributing to hypotension and ATN. He underwent successful DC cardioversion on December 29 and remained in normal sinus rhythm with a few paroxysms of atrial fibrillation. However, on the morning of discharge, he unfortunately went back into Afib with rates in the 90s. His BP is a bit soft in the low 90s systolic with Afib---> Toprol XL dose reduced to 100mg daily (from 150mg) and started on Amiodarone 400mg po bid x 10 days, then 200mg po daily Continue Eliquis at reduced, renal dose--> increase to 5mg po bid if nightclub manager< 1.5 Appreciate cardiology consultation-f/u with Dr. Hendricks of [facility] in 2 weeks (3) Acute heart failure: Acute on chronic diastolic CHF suspected on admission due to chest x-ray appearance, respiratory distress He received parenteral Lasix for diuresis on admission and then developed worsening acute renal failure. CHF has now resolved. He transiently received some IV fluids. Cardiac echo reveals mild left ventricular hypertrophy with normal ejection fraction. Now resolved (4) Hyponatremia: Mild on admission. Now normalized. Monitor intake and output. Serial labs (5) Diabetes: Hgb A1c 7.5%. ADA diet. Sliding scale coverage. Metformin is temporarily on hold until nightclub manager improves He only required minimal amounts of insulin while here Can remain diet controlled until able to go back on metformin as outpt (6) Elevated transaminase level: On admission. Now normalized except only mild elevation in alk phos and AST Anaplasmosis and babesiosis smears and PCR are negative. CT abdomen/pelvis shows cirrhosis, likely from fatty liver. Have since resumed home statin (7) Anemia: Due to iron deficiency. No evidence of active GI bleeding. He has received parenteral iron this admission. He has had a previous colonoscopy with no significant findings. Follow-up as an outpatient with PCP for further workup (8) Elevated troponin: Likely demand ischemia. No evidence of acute coronary syndrome. Cardiac echo negative for regional wall motion abnormalities. Plan DVT prophylaxis-Eliquis Disposition-I completed a peer to peer with his insurance company which was denied for acute rehab.He then had insurance auth pending for 2 days for SNF but then decided he was wanting ot go home with home health instad. I agreed with this decision given that he is independent in the room Discussed all care with his son and at the bedside on 01/03 Notes For Next Care Provider Check BMP with home health in 1-2 days Trial of void with Charles removal in 1-2 weeks Follow up with Cardiology in 2 weeks Resume Eliquis 5mg dose, losartan, metformin if renal function continues to improve Follow up Nephrology in 1-2 weeks Last but not least, follow up with PCP in 1-2 weeks Medication Changes From Visit see list Admission HPI Per Admitting Provider Kole is an 83-year-old with PMH of HTN, diabetes, carotid endarterectomy, prostate cancer, and stress incontinence. He presented on 12/21 at the best of his PCP for SOB, worse with exertion, that began on Sunday 12/17. Patient went to [employer] on Tuesday, and was walking up the street afterwards to get to his car, when he experienced OLVERA and began feeling lightheaded and dizzy. He went home and laid down, noted a dry cough. Negative home COVID test. He reports that his SOB is mainly with exertion, and does not occur at rest. No orthopnea. No supplemental oxygen at baseline. No CPAP at night. No sick contacts. He does have a recent diagnosis of atrial fibrillation in May 2023, and is currently taking blood thinners (Eliquis). Patient took his regular morning medications today; no recent change in medications over the past week. Patient endorses occasional alcohol use (wine with meals), but denies smoking or tobacco use. Patient is tachycardic at 117 bpm at time of admission; vitals otherwise stable. ED course: ROS: Patient endorses dizziness/lightheadedness with exertion, joint pain, fatigue, dyspnea on exertion, and dry cough (started on Tuesday). Patient denies fever, chills, night-sweats, headaches, rashes, tick bites, chest pain, chest palpitations, SOB at rest, pleuritic CP, abdominal pain, N/V/D, changes in urinary/bowel habits, or numbness/tingling in the arms or legs. Discharge Exam Constitutional WD/WN, vitals as above no acute distress Neck trachea midline, no thyromegaly Respiratory Auscultation: lungs clear to auscultation bilaterally Cardiovascular Rate/Rhythm: regular rate and + irregularly irregular Heart Sounds: no murmur Extremities: + edema (1+ pitting edema of the legs to the knees bilaterally) Chest (Breasts) Chest: normal inspection of chest Gastrointestinal (Abdomen) normal bowel sounds, soft, nontender, no hepatosplenomegaly Musculoskeletal Extremities: extremities normal to inspection; no cyanosis and no clubbing Skin no rashes, warm and dry Neurologic moves all extremities and awake; no focal motor deficits Psychiatric A+Ox3, euthymic affect Genitourinary + penis abnormality (Charles in place draining clear yellow urine) Discharge Plan Discharge Items Patient Disposition: Home - Home Health Services Reason For Visit: A FIB RVR Discharge Diagnosis: Acute kidney injury Rapid atrial fibrillation Volume overload Urinary retention with bladder neck contracture, Charles catheter in place Condition on Discharge: Good Activity: As commented below Lifting: Gradually increase as tolerated Bathing: No limitations Exercise/Sports: Gradually increase as tolerated Exercise Comment: with home PT/OT Weightbearing: Full weightbearing Non-emergency contact: Primary Care Provider, [facility] Director and Urologist Call non-emergency contact if: you have any medication questions and your symptoms worsen Follow-up/Referrals: Napoleon Lockhart MD [Physician] - (Follow up within 2 weeks. ) Zac Hendricks MD [Physician] - (Dr. Hendricks's office should be contacting you with your appointment date and time within 2 weeks.) Zac Avalos MD [Primary Care Provider] - (Please follow up within 1-2 weeks) Andrew Newsome MD [Physician] - (Dr. Newsome's/Ricky's office should be contacting you with an appointment date and time to have your Charles catheter removed.) Diet: Carb Consistent or DM2 and Low Sodium (2gm) Addtl Attending Provider Instructions: You were admitted with shortness of breath and found to have fluid in your lungs from kidney failure and rapid atrial fibrillation. Fortunately, your kidney failure has greatly improved and you are doing much better. You did have an electric cardioversion to shock your heart back to a normal rhythm, but you did go back into atrial fibrillation on the day of discharge. You were started on amiodarone to try to convert your heart back to a normal rhythm again with medication, but this may take some time to work. Please follow up with the [facility] Director in 2 weeks-this will be scheduled for you. You will need to have blood work done to recheck your kidney function. Please have the visiting nurse check a BMP in 1-2 days when they come to your house. The results can get sent to your PCP and to Dr. Lockhart of Nephrology. You should keep the Charles catheter in place until you are seen by the Urologist to have it removed. For your diabetes, your metformin will be on hold until your kidney function is completely back to normal. Your blood sugars are not significantly elevated and you do not need to be on medication for your diabetes otherwise in the meantime. It was a pleasure taking care of you and I wish you the best! Dr. Chelo Agustin Pending Studies at Discharge: No Stand-Alone Forms: My [facility] Medications and DC Order Prescriptions: New amiodarone 200 mg Tablet 400 mg PO BIDM Qty: 58 0RF Rx Instructions: x 10 days, then decrease to 200mg po daily metoprolol succinate 100 mg tablet extended release 24 hr 100 mg PO DAILY Qty: 30 0RF magnesium oxide 400 mg (241.3 mg magnesium) Tablet 400 mg PO HS Qty: 30 0RF diclofenac sodium [Voltaren Arthritis Pain] 1 % Gel 2 g EXT Q12H PRN (Reason: joint pain) Qty: 100 0RF Rx Instructions: Please give tube from hospital Continued rosuvastatin 40 mg Tablet 40 mg PO HS bisacodyl [Dulcolax (bisacodyl)] 5 mg Tablet,Delayed Release (Dr/Ec) 5 mg PO HS PRN (Reason: Constipation) aspirin 81 mg Tablet,Delayed Release (Dr/Ec) 81 mg PO HS metronidazole 0.75 % cream 1 applic TOPICAL .1-2X DAILY PRN (Reason: Other) Changed Eliquis 5 mg tablet 2.5 mg PO BID Qty: 30 0RF Held metformin 500 mg Tablet 1,000 mg PO HS Hold Instructions: Resume on 01/18/24. hold until your doctor tells you it is ok to resume Discontinued ibuprofen 200 mg Capsule 200 mg PO QID PRN (Reason: Pain) losartan 25 mg tablet 25 mg PO BID metoprolol succinate 25 mg tablet extended release 24 hr 25 mg PO HS Discharge Orders: Discharge Order (Routine); Ordered 01/04/24 Ordered By: Chelo De La Cruz/Other Patient Handouts: Diabetes: Meal Planning, Type 2 Diabetes Admission Data Admit Date/Time: 12/22/23 16:36 Attending Provider: Chelo Agustin Admit Provider: Eliazar Mcghee Primary Care Provider: Zac Avalos Other Providers: Eliazar Mcghee; Napoleon Lockhart; Didier Valadez; Andrew Newsome; [facility] Other Interventions: Discharge Summary Assessment (RN) Last Done: 01/04/24 13:34 Hospital Stay Data Consultations 12/22/23 15:56 ED Decision to Admit Stat 12/23/23 09:31 Consult Nephrology Routine 12/23/23 13:00 Consult Cardiology Routine 12/23/23 17:53 Consult Urology Routine Procedures Performed Operation Date: 12/30/23 07:30 Actual Procedures p Cardioversion - Zac Hendricks MD Diagnostic Imagining Performed 12/23/23 09:28 CT Abd and Pelvis [CT abd pelvis wo con] Urgent ECHO x 2 Pending Results Patient Have Any Pending Studies at Discharge: No Discharge Instructions Given to Patient (Per Discharging Provider) You were admitted with shortness of breath and found to have fluid in your lungs from kidney failure and rapid atrial fibrillation. Fortunately, your kidney failure has greatly improved and you are doing much better. You did have an electric cardioversion to shock your heart back to a normal rhythm, but you did go back into atrial fibrillation on the day of discharge. You were started on amiodarone to try to convert your heart back to a normal rhythm again with medication, but this may take some time to work. Please follow up with the [facility] Director in 2 weeks-this will be scheduled for you. You will need to have blood work done to recheck your kidney function. Please have the visiting nurse check a BMP in 1-2 days when they come to your house. The results can get sent to your PCP and to Dr. Lockhart of Nephrology. You should keep the Charles catheter in place until you are seen by the Urologist to have it removed. For your diabetes, your metformin will be on hold until your kidney function is completely back to normal. Your blood sugars are not significantly elevated and you do not need to be on medication for your diabetes otherwise in the meantime. It was a pleasure taking care of you and I wish you the best! Dr. Chelo Agustin Total Time Total Time Spent Total Time Spent (In Minutes): 45 min Total Time Includes: Examination of the Patient, Discharge Planning, Medication Reconciliation and Communication With Other Providers Coding Level of Care Code 13384 INP/OBS DISCH >30 MIN Diagnoses JULIEN (acute kidney injury) N17.9 Atrial fibrillation with RVR I48.91 Acute heart failure I50.9 Hyponatremia E87.1 Diabetes E11.9 Elevated transaminase level R74.01 Anemia D64.9 Elevated troponin R79.89
[2024-01-04] MEDS ORDERED: MAGNESIUM OXIDE 400 MG TAB PO SCH (21:00)
== END 2024-01-04 17:58 | disposition home health service (06) | DRG 308 ==
LOC: ED 12:26 → 2S 16:36 → SUATTDRO 16:36 → 2S 21:06
DX: Z79.84 Long term (current) use of oral hypoglycemic drugs; I31.39 Other pericardial effusion (noninflammatory); Z79.899 Other long term (current) drug therapy; N32.0 Bladder-neck obstruction; Z92.3 Personal history of irradiation; K74.60 Unspecified cirrhosis of liver; I24.89 Other forms of acute ischemic heart disease; I50.33 Acute on chronic diastolic (congestive) heart failure; Z79.82 Long term (current) use of aspirin; I77.810 Thoracic aortic ectasia; E87.5 Hyperkalemia; Z79.01 Long term (current) use of anticoagulants; N39.3 Stress incontinence (female) (male); I48.19 Other persistent atrial fibrillation; E11.22 Type 2 diabetes mellitus with diabetic chronic kidney disease; N17.0 Acute kidney failure with tubular necrosis; Z90.79 Acquired absence of other genital organ(s); E87.20 Acidosis, unspecified; Z85.46 Personal history of malignant neoplasm of prostate; R33.9 Retention of urine, unspecified; D50.9 Iron deficiency anemia, unspecified; K76.0 Fatty (change of) liver, not elsewhere classified; E11.51 Type 2 diabetes mellitus with diabetic peripheral angiopathy without gangrene; I95.9 Hypotension, unspecified; I13.0 Hypertensive heart and chronic kidney disease with heart failure and stage 1 through stage 4 chronic kidney disease, or unspecified chronic kidney disease; E87.1 Hypo-osmolality and hyponatremia; N18.2 Chronic kidney disease, stage 2 (mild)

== ENCOUNTER 2024-01-19 19:46 | Observation (INO) ==
--- NOTE | 2024-01-19 20:21 | Emergency Department Note ---
Impression & Plan Hematuria, Chronic kidney disease, stage III (moderate), Blood loss anemia, Complication, blocked Charles catheter ED Provider Note CHIEF COMPLAINT: Charles catheter problem HISTORY OF PRESENTING ILLNESS: This 83-year-old male patient presents to the emergency department for evaluation of problems with his Charles catheter. The patient had a cystoscopy yesterday by Dr. García with a Charles catheter placed today for urinary retention. The patient was told to expect blood, but he is having a lot of blood clots throughout the day. Now the catheter is blocked from the blood clots. He feels like the urine is leaking around the catheter and coming out of his penis. He is having some mild discomfort in the lower suprapubic area and feels like he has to urinate. He is on Eliquis. The patient had a cystoscopy by Dr. García of urology on 01/18/2024 for his history of prostate cancer and urinary retention. On cystoscopy he had radiation cystitis without active bleeding. He also had patency of the bladder neck, but dense scarring around that area. The patient has a history of metastatic prostate cancer status post robotic prostatectomy in 2010 with localized disease and PSA recurrence as well as lymph node recurrence in . The patient has been off Lupron since 2019. In review of the nurse office visit from today, the patient had a 20 Italian catheter inserted without difficulty. The urine was red with small clots that was flushed with sterile water. In review of the patient's recent admission, he was discharged on 01/04/2024 after being hospitalized for an acute kidney injury as well as A-fib with RVR and acute heart failure. REVIEW OF SYSTEMS: See HPI for pertinent positives and pertinent negatives. ALLERGIES: NKDA MEDICATIONS: See below PAST MEDICAL HISTORY: See below PHYSICAL EXAM: VITALS: Vitals are noted on the nurse's note and reviewed by myself. GENERAL: Non toxic, no acute distress, non-diaphoretic. SKIN: Capillary refill <2 sec. EYES: PERRLA. EOMI. Conjunctivae without injection, sclerae without icterus. NOSE: Patent without discharge. MOUTH: Mucous membranes moist. Uvula midline. Airway patent. NECK: Supple without nuchal rigidity. HEART: Regular rate and rhythm without murmurs gallops or rubs. LUNGS: Clear to auscultation bilaterally without wheezes, rales or rhonchi. No retractions or accessory muscle use. ABDOMEN: Positive bowel sounds x 4. Normal tympanic percussion. Soft, mild tenderness to palpation of the suprapubic area. No masses or organomegaly. Pressley sign negative. No guarding or rebound tenderness. No focal RLQ or LLQ tenderness. : Permission to perform the exam. 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 Charles catheter is in place with a lot of blood and blood clots noted within the catheter and the leg bag. No active bleeding or leakage of urine at the time of my exam. Testicles are descended with no obvious masses or lesions. No testicular tenderness to palpation. No obvious hernias appreciated. NEURO: Patient was alert and oriented. No focal neurological deficits. DIFFERENTIAL DIAGNOSIS: Differential diagnosis includes blocked Charles catheter, hematuria, cystitis, UTI, pyelonephritis, acute kidney injury, anemia, pyelonephritis, or others. ED COURSE AND MEDICAL DECISION MAKING: MEDICATIONS GIVEN: Lidocaine jelly. Rocephin 2 g IV. INTERPRETATION OF LABS: I interpreted the labs with full lab results as below in the lab section of this note. Pertinent lab results discussed in the MDM section below. EXTERNAL RECORDS REVIEWED: The patient's outpatient urology and cystoscopy notes as well as his most recent admission were reviewed and summarized above. CONSULTATIONS: Dr. Larios of urology. On-call hospitalist. MDM SUMMARY: Nursing staff noted that the patient had 270 mL of retained urine on bladder scan despite his Charles catheter. They attempted to flush the Charles catheter with saline with multiple clots removed. However, the Charles catheter was still not draining. There continued to be blood clots within the Charles catheter and leg bag. I examined the patient. I reviewed the patient's past medical records as summarized above. The patient will need a new Charles catheter placed. The previous Charles catheter was removed. Nursing staff to used lidocaine jelly to help assist with the new catheter placement. After the lidocaine jelly was inserted, the patient had significant release of urine, blood clots, and blood from his penis. The patient felt significantly improved and his suprapubic pain resolved. A new Charles catheter was placed by nursing staff and there was successful urine output. No additional blood clots were noted, but the patient did have continued blood in his urine. The Charles catheter was now draining without problems. Due to the patient's most recent admission for acute kidney injury as well as his continued hematuria on Eliquis, an IV lock was placed and labs were drawn. The patient's hemoglobin dropped from 10.4 on 01/03/2020 4-8.3 today. Platelet count is normal at 247. INR elevated at 1.2 and PT 13.3. White blood cell count was normal at 7.20. BUN and creatinine stable at 27 and 1.75 respectively. Glucose 127, but BMP otherwise normal. Urinalysis with greater than 20 red blood cells, 6-10 white blood cells, 0-2 epithelial cells, and no bacteria. Urine culture is pending. I had a meaningful discussion about this patient with Dr. Cortez who agrees with my assessment and the treatment plan. Due to the patient's significant drop in his hemoglobin with blood clots, continued hematuria, and Eliquis use, it was felt that the patient would require admission. I spoke with Dr. Larios of urology who agreed with admission. He recommended the patient's Eliquis be stopped if this was acceptable by medicine. He also recommended the patient be n.p.o. after midnight in case any procedures would be needed tomorrow. He stated that the patient's current Charles catheter could be kept in place since it was draining well, but if it became clogged again, a three-way Charles catheter should be placed for better irrigation. He also recommended a prophylactic dose of Rocephin pending the results of the urine culture. I then spoke with the on- call hospitalist who agreed to admit the patient for further evaluation and treatment. Please refer to their dictation for further details. The patient's care was transferred in stable condition. DIAGNOSIS: Hematuria on Eliquis Blood loss anemia Charles catheter malfunction Chronic kidney disease Past Med/Surg History Problem List (Updated 01/20/24 @ 02:21 by Shahida Murphy PA-C) Complication, blocked Charles catheter (Acute) Irradiation cystitis with hematuria Blood loss anemia (Acute) Hematuria (Acute) Atrial fibrillation status post cardioversion Left ventricular systolic dysfunction (LVSD) LVEF 45% to 50%, likely secondary to rapid atrial fibrillation. Chronic kidney disease, stage III (moderate) (Acute) Vitamin D deficiency Atrial fibrillation Ascending aorta dilatation Pericardial effusion Bladder neck contracture Elevated troponin Hyperkalemia Congestive heart failure Chronic kidney disease, stage II (mild) Acute heart failure Anemia Pleural effusion, bilateral Atrial fibrillation with rapid ventricular response (Acute) Transaminitis (Acute) Acute hyponatremia (Acute) Pulmonary edema (Acute) Acute exacerbation of CHF (congestive heart failure) (Acute) JULIEN (acute kidney injury) (Acute) Acute dyspnea (Acute) Elevated transaminase level Hyponatremia JULIEN (acute kidney injury) Atrial fibrillation with RVR Stress incontinence Encounter for pre-operative examination Prostate cancer (Chronic 12/23/10) Hematochezia sigmoidoscopy 12/2019 -- poor enema results. has upcoming colonoscopy. 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 deviated nasal septum Excessive cerumen in both ear canals Sensorineural hearing loss (SNHL) of left ear with restricted hearing of right ear Urinary retention Sensorineural hearing loss (SNHL) of both ears Medical History Diabetes mellitus, type 2 Transient ischemic attack (TIA) Hard of hearing Cardiac murmur History of prostate cancer History of malignant melanoma Dysmetabolic syndrome Hyperlipemia Aortic valve calcification Carotid stenosis, right Hypertension Surgical History History of right-sided carotid endarterectomy (~08/06/20) Hx of flexible sigmoidoscopy History of colonoscopy with polypectomy History of Mohs surgery for squamous cell carcinoma of skin History of cataract surgery History of prostate biopsy History of melanoma excision History of tonsillectomy History of prostatectomy Family History Mother No problems noted. Father No problems noted. Sister No problems noted. Sister No problems noted. Son No problems noted. Son No problems noted. Daughter No problems noted. 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 [employer] Feels Safe at Home: Yes caffeine: Yes (1-2 cups of coffee/day ) during the past year weight has: decreased > 10 lbs Assistive Devices: None Allergies Allergies Allergy/AdvReac Type Severity Reaction Status Date / Time No Known Drug Allergies Allergy Verified 01/19/24 22:50 Home Meds Home Medications Medication Instructions Recorded Confirmed rosuvastatin 40 mg tablet 40 mg PO HS 12/28/19 01/19/24 bisacodyl 5 mg tablet,delayed 5 mg PO HS PRN Constipation 07/02/20 01/19/24 release (Dulcolax (bisacodyl)) aspirin 81 mg tablet,delayed 81 mg PO HS 11/28/20 01/19/24 release metronidazole 0.75 % topical cream 1 applic topical .1-2X DAILY PRN 12/22/23 01/19/24 Other amiodarone 200 mg tablet 200 mg PO DAILY 01/19/24 01/19/24 Previous Rx's Medication Instructions Recorded apixaban 5 mg tablet (Eliquis) 2.5 mg (1/2 x 5 mg) PO BID #30 tabs 01/04/24 diclofenac sodium 1 % topical gel 2 g EXT Q12H PRN joint pain #100 01/04/24 (Voltaren Arthritis Pain) grams magnesium oxide 400 mg (241.3 mg 400 mg PO HS #30 tabs 01/04/24 magnesium) tablet doxycycline hyclate 100 mg tablet 100 mg PO BID 10 days #20 tabs 01/13/24 metoprolol succinate 50 mg 50 mg PO DAILY #90 tabs 01/13/24 tablet,extended release 24 hr Results & Data (ED) Vital Signs Vital Signs - 24 hr 01/19/24 19:53 01/19/24 22:48 01/19/24 23:17 Temperature 36.8 C 36.9 C Temperature Source Temporal Artery Scan Oral Pulse Rate 70 Pulse Rate [Apical] 65 62 Pulse Rhythm [Apical] Regular Pulse Strength [Apical] Normal Respiratory Rate 18 18 20 Respiratory Effort / Characteristics Non-Labored Spontaneous Non-Labored Spontaneous Non-Labored Spontaneous Respiratory Depth Normal Normal Normal Respiratory Pattern Regular Regular Blood Pressure 169/69 H Blood Pressure [Left Arm] 158/81 H 148/82 H Blood Pressure Mean 102 Blood Pressure Mean [Left Arm] 106 104 Pulse Oximetry 96 98 94 Oxygen Delivery Method Room Air Room Air Room Air Sepsis Recent Fever Within 48 Hours No Sepsis New/Unexplained Change in Mental Status N/A Sepsis Action Taken by Nursing No Action Required 01/20/24 00:53 01/20/24 01:34 Temperature 36.6 C Temperature Source Oral Pulse Rate 60 Pulse Rate [Apical] 64 Pulse Rhythm [Apical] Pulse Strength [Apical] Respiratory Rate 18 18 Respiratory Effort / Characteristics Respiratory Depth Respiratory Pattern Blood Pressure 132/86 Blood Pressure [Left Arm] 135/75 Blood Pressure Mean Blood Pressure Mean [Left Arm] 95 Pulse Oximetry 96 94 Oxygen Delivery Method Room Air Room Air Sepsis Recent Fever Within 48 Hours Sepsis New/Unexplained Change in Mental Status Sepsis Action Taken by Nursing Laboratory Data 01/19/24 21:37 01/19/24 21:37 Lab Results 01/19/24 01/19/24 01/19/24 Range/Units 21:37 22:33 22:41 WBC 7.20 (4.8-10.8) K/ul RBC 3.22 L (4.70-6.10) M/uL Hgb 8.3 L (14.0-18.0) g/dl Hct 26.9 L (42.0-52.0) % MCV 83.5 (80.0-100.0) fL MCH 25.8 (25.0-34.0) pg MCHC 30.9 L (32.0-36.0) g/dL RDW Std Deviation 63.8 H (36.4-46.3) fL RDW Coeff of Milvia 21.4 H (11.5-14.5) % Plt Count 247 (130-400) K/uL MPV 9.9 (9.4-12.4) fL Immature Gran % (Auto) 1.1 % Neut % (Auto) 78.3 % Lymph % (Auto) 11.3 % [place] % (Auto) 8.5 % Eos % (Auto) 0.1 % Baso % (Auto) 0.7 % Neut # (Auto) 5.64 (1.40-6.50) K/uL Lymph # (Auto) 0.81 L (1.20-3.40) K/uL [place] # (Auto) 0.61 H (0.11-0.59) K/uL Eos # (Auto) 0.01 (0.00-0.50) K/uL Baso # (Auto) 0.05 (0.00-0.20) K/uL Immature Gran # (Auto) 0.08 (0.01-0.20) K/uL Poikilocytosis Present Ovalocytes 1+ PT 13.3 H (9.0-12.0) Seconds INR 1.2 H (0.9-1.1) APTT 28 (21-31) Seconds PTT Ratio 1.0 Sodium 137 (136-145) mmol/L Potassium 4.8 (3.5-5.1) mmol/L Chloride 105 (98-107) mmol/L Carbon Dioxide 23 (21-32) mmol/L Anion Gap 9 (3-11) BUN 27 H (6-23) mg/dl Creatinine 1.75 H (0.6-1.4) mg/dl Est Cr Clr Drug Dosing 34.5 ml/min Est GFR ( Amer) 40.5 ml/min Est GFR (Non-Af Amer) 35.0 ml/min BUN/Creatinine Ratio 15.4 (10-20) Glucose 127 H (70-99(Fasting)) mg/dl Calcium 9.0 (8.6-10.3) mg/dl Urine Color Red Urine Appearance Slightly Cloudy (Clear) Urine pH (4.5-7.5) Ur Specific [place] 1.009 (1.000-1.030) Urine Protein (Negative) Urine Glucose (UA) (Negative) Urine Ketones (Negative) Urine Blood (Negative) Urine Nitrite (Negative) Urine Bilirubin (Negative) Urine Urobilinogen (Negative) Ur Leukocyte Esterase (Negative) Urine RBC >20 H (0-2) /hpf Urine WBC 6-10 H (0-5) /hpf Ur Epithelial Cells 0-2 (0-2) /hpf Urine Bacteria None Seen (None Seen) Blood Type O Positive Antibody Screen NEGATIVE Administered Medications Sodium Chloride (Nss) 1,000 mls @ 100 mls/hr IV .Q10H CHRISTIAN Stop: 01/20/24 20:29 Last Admin: 01/20/24 01:40 Dose: 100 mls/hr Documented By: JUNI Discontinued Medications Ceftriaxone Sodium (Rocephin) 2,000 mg in 50 mls @ 100 mls/hr IV NOW STA Stop: 01/19/24 22:57 Last Infusion: 01/19/24 23:16 Dose: Infused Documented By: Admin: 01/19/24 22:40 Dose: 100 mls/hr Documented By: IVA Lactated Ringer's (Lr) 1,000 mls @ 999 mls/hr IV .Q1H1M ONE Stop: 01/20/24 01:16 Last Admin: 01/20/24 00:32 Dose: Not Given Documented By: JUNI Sodium Chloride (Nss) 1,000 mls @ 999 mls/hr IV .Q1H1M ONE Stop: 01/20/24 01:20 Last Infusion: 01/20/24 01:41 Dose: Infused Documented By: Admin: 01/20/24 00:37 Dose: 999 mls/hr Documented By: JUNI Lidocaine HCl (Lidocaine 2% Jelly 5 Ml Tube) Confirm Administered Dose 5 ml EXT .STK-MED ONE Stop: 01/19/24 20:58 Last Admin: 01/19/24 21:27 Dose: Not Given Documented By: IVA Lidocaine HCl (Lidocaine 2% Jelly 5 Ml Tube) 5 ml EXT NOW ONE Stop: 01/19/24 21:27 Last Admin: 01/19/24 21:27 Dose: 5 ml Documented By: IVA Discharge Plan Visit Data Chief Complaint: Catheter Replacement Stated Complaint: CATH BLOCKED ED Provider: Maira Cortez ED Midlevel Provider: Shahida Murphy Discharge Problem: Hematuria, Chronic kidney disease, stage III (moderate), Blood loss anemia, Complication, blocked Charles catheter Patient Disposition: Admitted As Inpatient Condition: Good Discharge Instructions Interventions: ED Discharge Assessment Last Done: 01/20/24 01:34 Prescriptions Prescriptions: No Action doxycycline hyclate 100 mg tablet 100 mg PO BID 10 Days Qty: 20 0RF metoprolol succinate 50 mg tablet extended release 24 hr 50 mg PO DAILY Qty: 90 3RF Rx Instructions: pharmacy filled incorrect strength but pt knows to take 50mg rosuvastatin 40 mg Tablet 40 mg PO HS bisacodyl [Dulcolax (bisacodyl)] 5 mg Tablet,Delayed Release (Dr/Ec) 5 mg PO HS PRN (Reason: Constipation) aspirin 81 mg Tablet,Delayed Release (Dr/Ec) 81 mg PO HS amiodarone 200 mg tablet 200 mg PO DAILY metronidazole 0.75 % cream 1 applic TOPICAL .1-2X DAILY PRN (Reason: Other) diclofenac sodium [Voltaren Arthritis Pain] 1 % Gel 2 g EXT Q12H PRN (Reason: joint pain) Qty: 100 0RF Rx Instructions: Please give tube from hospital magnesium oxide 400 mg (241.3 mg magnesium) Tablet 400 mg PO HS Qty: 30 0RF Eliquis 5 mg tablet 2.5 mg PO BID Qty: 30 0RF Discharge Problem: Hematuria Qualifiers: Hematuria type: gross Qualified Code(s): R31.0 - Gross hematuria Chronic kidney disease, stage III (moderate) Qualifiers: Chronic kidney disease stage 3 subtype: unspecified whether 3a or 3b Qualified Code(s): N18.30 - Chronic kidney disease, stage 3 unspecified Complication, blocked Charles catheter Qualifiers: Encounter type: initial encounter Qualified Code(s): T83.091A - Other mechanical complication of indwelling urethral catheter, initial encounter
[2024-01-19] MEDS: LIDOCAINE 2% JELLY 5 ML TUBE EXT ONE ×2 (21:27)
[2024-01-19 22:01] LABS: Basophils # (auto) 0.05 K/uL (0.00-0.20); Basophils % (auto) 0.7 %; Eosinophils # (auto) 0.01 K/uL (0.00-0.50); Eosinophils % (auto) 0.1 %; Hematocrit (blood only) 26.9 % (42.0-52.0); Hemoglobin 8.3 g/dl (14.0-18.0); Immature Granulocytes # (auto) 0.08 K/uL (0.01-0.20); Immature Granulocytes % (auto) 1.1 %; Lymphocytes # (auto) 0.81 K/uL (1.20-3.40); Lymphocytes % (auto) 11.3 %; Mean Corpuscular Hemoglobin 25.8 pg (25.0-34.0); Mean Corpuscular Hgb Conc 30.9 g/dL (32.0-36.0); Mean Corpuscular Volume 83.5 fL (80.0-100.0); Mean Platelet Volume 9.9 fL (9.4-12.4); Monocytes # (auto) 0.61 K/uL (0.11-0.59); Monocytes % (auto) 8.5 %; Neutrophils # (auto) 5.64 K/uL (1.40-6.50); Neutrophils % (auto) 78.3 %; Platelet Count 247 K/uL (130-400); RDW Coefficient of Variation 21.4 % (11.5-14.5); RDW Standard Deviation 63.8 fL (36.4-46.3); Red Blood Count 3.22 M/uL (4.70-6.10)
[2024-01-19 22:08] LABS: BUN Creatinine Ratio 15.4 (10-20); Creatinine Clr Calc Pharmacy 34.5 ml/min; Est GFR (African American) 40.5 ml/min; Potassium 4.8 mmol/L (3.5-5.1)
[2024-01-19 22:21] LABS: INR 1.2 (0.9-1.1); Partial Thromboplastin Time 28 Seconds (21-31); Prothrombin Time 13.3 Seconds (9.0-12.0)
--- NOTE | 2024-01-19 22:27 | Emergency Department Note ---
ED Visit Note I was consulted by the Advanced Practice Provider. I personally made/approved the management plan and take responsibility for the patient management. I performed a substantive portion of the visit. This includes the aspects of: -History/Physical -MDM .
[2024-01-19 22:35] LABS: Ovalocytes 1+; Poikilocytosis Present
[2024-01-19] MEDS: cefTRIAXone SODIUM 2,000 MG/50 ML BAG IV STA (22:40)
--- NOTE | 2024-01-19 22:40 | History & Physical Report ---
Date of Service January 19, 2024 Assessment & Plan (1) Irradiation cystitis with hematuria: Plan: Patient with history of radiation cystitis. Had cystoscopy 01/17 without active bleeding. Hebert placed by urology today for acute urinary retention, but it stopped draining today likely due to clots. Unable to irrigate thus replaced in the ED. Acute blood loss anemia likely in the setting of radiation cystitis - causing hematuria and clots. ED advanced provider discussed with Dr. Larios who recommended ppx CTX and admission for possible procedure in the morning. If occludes again would recommend 3-way. No indication for transfusion at present, but patient would be amenable to transfusion. Urology consult - appreciate recs NPO at midnight 02:00 H&H, transfuse < 7, or symptomatic - would need consented Hold Eliquis (2) Blood loss anemia: Plan: Monitor hemoglobin. Could consider IV iron while inpatient. Will need consented for blood if meets transfusion threshold as above. Hold Eliquis (3) Atrial fibrillation status post cardioversion: Plan: Converted to sinus. Last EKG 01/12 with sinus rhythm. On amiodarone and metoprolol to help maintain sinus rhythm. On Eliquis 2.5 mg BID. With active bleeding and possible AM procedure - held Eliquis. (4) Chronic kidney disease, stage III (moderate): Plan: Kidney function stable. May be slightly intravascularly dry. Given 1 L bolus, then maintenance (5) Bladder neck contracture: Plan: Previously discussed intervention with urology. Would defer on risks/benefits discussion to specialist team Plan HFpEF: Last ECHO with preserved EF. Holding ASA. Continue metoprolol, amiodarone, rosuvastatin. LR @ 80 mL/hr while NPO x 1L Started on doxy 01/12 by JUANCARLOS Loredo with Urology - unclear why, did continue on admission Code status: full DVT ppx: SCDs, holding Eliquis, chemo ppx contraindicated in setting of acute bleeding FENGI: NPO @ midnight, 1L NSS bolus then mIVF @ 100 NSS x 2L Dispo: tele unit History of Present Illness Primary Care Provider: Zac Avalos MD 83 y/o with a PMHx of HFpEF, a fib s/p cardioversion, bladder neck contracture, radiation cystitis, and CKD III presents with acute urinary retention and abdominal pain. Patient had a Hebert placed with urology earlier today for urinary retention. He was passing large clots and then the hebert stopped draining. Attempt to irrigate was done in the ED, but was unsuccessful. Hebert replaced and patient able to empty his bladder. Case was discussed with Dr. Larios who recommended ppx CTX, admission, and possible 3-way catheter placement if unable to irrigate again. Hospitalist service consulted for admission. Feeling significantly better since this. No fevers or chills. No chest pain, lightheadedness, or dizziness. Is having some lower extremity edema. Will have some shortness of breath when walking or doing too much. He was hospitalized for 14 days for a fib with RVR earlier this month. He was cardioverted at that time and has remained rate controlled since. Is on amiodarone and metoprolol. Also on Eliquis for anticoagulation. Allergies Allergy/AdvReac Type Severity Reaction Status Date / Time No Known Drug Allergies Allergy Verified 01/19/24 22:50 Home Medications Medication Instructions Recorded Confirmed Type rosuvastatin 40 mg tablet 40 mg PO HS 12/28/19 01/19/24 History bisacodyl 5 mg tablet,delayed 5 mg PO HS PRN Constipation 07/02/20 01/19/24 History release (Dulcolax (bisacodyl)) aspirin 81 mg tablet,delayed 81 mg PO HS 11/28/20 01/19/24 History release metronidazole 0.75 % topical cream 1 applic topical .1-2X DAILY PRN 12/22/23 01/19/24 History Other apixaban 5 mg tablet (Eliquis) 2.5 mg (1/2 x 5 mg) PO BID #30 tabs 01/04/24 01/19/24 Rx diclofenac sodium 1 % topical gel 2 g EXT Q12H PRN joint pain #100 01/04/24 01/19/24 Rx (Voltaren Arthritis Pain) grams magnesium oxide 400 mg (241.3 mg 400 mg PO HS #30 tabs 01/04/24 01/19/24 Rx magnesium) tablet doxycycline hyclate 100 mg tablet 100 mg PO BID 10 days #20 tabs 01/13/24 01/19/24 Rx metoprolol succinate 50 mg 50 mg PO DAILY #90 tabs 01/13/24 01/19/24 Rx tablet,extended release 24 hr amiodarone 200 mg tablet 200 mg PO DAILY 01/19/24 01/19/24 History Past Med/Surg History Problem List (Updated 01/20/24 @ 02:21 by Shahida Murphy PA-C) Complication, blocked Hebert catheter (Acute) Irradiation cystitis with hematuria Blood loss anemia (Acute) Hematuria (Acute) Atrial fibrillation status post cardioversion Left ventricular systolic dysfunction (LVSD) LVEF 45% to 50%, likely secondary to rapid atrial fibrillation. Chronic kidney disease, stage III (moderate) (Acute) Vitamin D deficiency Atrial fibrillation Ascending aorta dilatation Pericardial effusion Bladder neck contracture Elevated troponin Hyperkalemia Congestive heart failure Chronic kidney disease, stage II (mild) Acute heart failure Anemia Pleural effusion, bilateral Atrial fibrillation with rapid ventricular response (Acute) Transaminitis (Acute) Acute hyponatremia (Acute) Pulmonary edema (Acute) Acute exacerbation of CHF (congestive heart failure) (Acute) JULIEN (acute kidney injury) (Acute) Acute dyspnea (Acute) Elevated transaminase level Hyponatremia JULIEN (acute kidney injury) Atrial fibrillation with RVR Stress incontinence Encounter for pre-operative examination Prostate cancer (Chronic 12/23/10) Hematochezia sigmoidoscopy 12/2019 -- poor enema results. has upcoming colonoscopy. 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 deviated nasal septum Excessive cerumen in both ear canals Sensorineural hearing loss (SNHL) of left ear with restricted hearing of right ear Urinary retention Sensorineural hearing loss (SNHL) of both ears Medical History Diabetes mellitus, type 2 Transient ischemic attack (TIA) Hard of hearing Cardiac murmur History of prostate cancer History of malignant melanoma Dysmetabolic syndrome Hyperlipemia Aortic valve calcification Carotid stenosis, right Hypertension Surgical History History of right-sided carotid endarterectomy (~08/06/20) Hx of flexible sigmoidoscopy History of colonoscopy with polypectomy History of Mohs surgery for squamous cell carcinoma of skin History of cataract surgery History of prostate biopsy History of melanoma excision History of tonsillectomy History of prostatectomy Family History Mother No problems noted. Father No problems noted. Sister No problems noted. Sister No problems noted. Son No problems noted. Son No problems noted. Daughter No problems noted. 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 [employer] Other Information That Helps Us Care for You: No Feels Safe at Home: Yes Safety Concerns: Feels Safe At This Time caffeine: Yes (1-2 cups of coffee/day ) during the past year weight has: decreased > 10 lbs Assistive Devices: Cane and Hospital Bed Review of Systems 2 Review of Systems: See HPI Physical Exam 2 Physical Exam: Gen: well appearing patient in NAD HEENT: AT NC MMM Resp: CTAB no wheezing no increased work of breathing CV: RRR 2-3/6 systolic murmur present, clinically well perfused, 2-3+ pitting edema Abd: soft, non-tender, non-distended +BS : Hebert in place, draining grossly bloody urine MSK: no obvious deformities Skin: no rashes or bruising Neuro: alert and oriented Psych: appropriate mood and affect Results & Data Results & Data Vital Signs (Past 12 Hours) Vital Signs Temp Pulse Resp BP Pulse Ox O2 Del Method 01/19/24 19:53 36.8 C 70 18 169/69 H 96 Room Air Laboratory Results 01/19/24 21:37 01/19/24 21:37 Supervising Physician Co-Signing Physician Notes Attending addendum: I have physically seen this patient, have supervised the medical residents activities, and agree with the H&P unless as otherwise noted. Assessment and Plan: Gross hematuria/radiation cystitis/chronic anticoagulation- Patient had Hebert catheter placed by urology today in outpatient setting for acute urinary retention, however it stopped draining earlier today due to clots, and he came to the emergency department for assessment. After failure of irrigation, Hebert was replaced in the emergency department, and began to drain gross hematuria. NPO after midnight Ceftriaxone 2 g IV daily Follow urine culture and sensitivity If occludes overnight patient will need to have three-way Hebert placed and CBI begun Urology aware and consulted Holding Eliquis LR is not being given Give 1 L normal saline bolus now then NSS at 100 mL/h Acute blood loss anemia- Hemoglobin 8.3, with base 10.4 Holding Eliquis as noted above Type and screen H&H every 4 hours Atrial fibrillation/history of cardioversion- In normal sinus rhythm in ED Continue amiodarone and metoprolol Acute kidney injury superimposed on CKD- Creatinine 1.75, with base 1.57 Likely obstructive IV fluids as noted, recheck laboratories in the a.m. Resident Activity Tracking Resident Involvement: Resident Care Provided Care Provided: Adult [facility] Medicine
[2024-01-19 23:25] LABS: Appearance Urine Slightly Cloudy (Clear); Color Urine Red; Specific Gravity Urine 1.009 (1.000-1.030)
[2024-01-19 23:36] LABS: Bacteria Urine None Seen (None Seen); Epithelial Cell Urine 0-2 /hpf (0-2); RBC Urine >20 /hpf (0-2)
[2024-01-20] MEDS: LACTATED RINGER'S 1,000 ML IV ONE (00:32)
[2024-01-20] MEDS: SODIUM CHLORIDE 0.9% 1,000 ML IV ONE (00:37)
[2024-01-20 00:53] VITALS: RESP 18
[2024-01-20] MEDS: SODIUM CHLORIDE 0.9% 1,000 ML IV SCH (01:40)
[2024-01-20] MEDS ORDERED: POLYETHYLENE (MIRALAX) 17 GM PACK PO PRN (02:15)
[2024-01-20] MEDS ORDERED: ACETAMINOPHEN 325 MG TAB PO PRN (02:15)
[2024-01-20] MEDS ORDERED: MELATONIN 3 MG TAB PO PRN (02:15)
[2024-01-20 02:18] LABS: Hematocrit (blood only) 25.8 % (42.0-52.0); Hemoglobin 7.8 g/dl (14.0-18.0); Mean Corpuscular Hemoglobin 25.7 pg (25.0-34.0); Mean Corpuscular Hgb Conc 30.2 g/dL (32.0-36.0); Mean Corpuscular Volume 85.1 fL (80.0-100.0); Mean Platelet Volume 10.2 fL (9.4-12.4); Platelet Count 239 K/uL (130-400); RDW Coefficient of Variation 21.5 % (11.5-14.5); RDW Standard Deviation 65.5 fL (36.4-46.3); Red Blood Count 3.03 M/uL (4.70-6.10); White Blood Count 8.13 K/ul (4.8-10.8)
--- NOTE | 2024-01-20 03:13 | Billing Data ---
Date of Service January 20, 2024 Coding Level of Care Code 60973 INT INP/OBS CARE
[2024-01-20 07:29] LABS: Hematocrit (blood only) 27.6 % (42.0-52.0); Hemoglobin 8.3 g/dl (14.0-18.0); Mean Corpuscular Hemoglobin 25.7 pg (25.0-34.0); Mean Corpuscular Hgb Conc 30.1 g/dL (32.0-36.0); Mean Corpuscular Volume 85.4 fL (80.0-100.0); Mean Platelet Volume 10.2 fL (9.4-12.4); Platelet Count 260 K/uL (130-400); RDW Coefficient of Variation 21.7 % (11.5-14.5); RDW Standard Deviation 66.7 fL (36.4-46.3); Red Blood Count 3.23 M/uL (4.70-6.10); White Blood Count 8.46 K/ul (4.8-10.8)
[2024-01-20 07:52] LABS: Calcium 8.8 mg/dl (8.6-10.3); Potassium 4.4 mmol/L (3.5-5.1)
[2024-01-20 08:01] LABS: INR 1.2 (0.9-1.1); Partial Thromboplastin Ratio 1.1; Partial Thromboplastin Time 29 Seconds (21-31); Prothrombin Time 12.8 Seconds (9.0-12.0)
[2024-01-20 08:48] LABS: BUN Creatinine Ratio 13.8 (10-20); Creatinine Clr Calc Pharmacy 36.1 ml/min; Est GFR (African American) 42.9 ml/min
[2024-01-20] MEDS: METOPROLOL SUCC 50MG EXT REL TAB PO SCH (08:52)
[2024-01-20] MEDS: DOXYCYCLINE HYCLATE 100 MG CAP PO SCH (08:52)
[2024-01-20] MEDS: AMIODARONE 200 MG TAB PO SCH (08:52)
--- NOTE | 2024-01-20 09:06 | Urology Consultation ---
Date of Consultation January 20, 2024 Assessment & Plan (1) Complication, blocked Charles catheter: (2) Irradiation cystitis with hematuria: (3) Hematuria: 83 yo/M with history of metastatic prostate cancer, status post robotic prostatectomy, and salvage radiation who recently underwent office cystoscopy on 01/18/2024. Cystoscopy revealed radiation cystitis and bladder neck contracture. He developed difficulty voiding after his cystoscopy and Charles catheter was placed in the urology office on 01/19/2024 with hematuria. He presented to the emergency department later that evening for evaluation of his catheter, which had stopped draining. He was admitted for hematuria, anemia and complication of catheter. He is afebrile and hemodynamically stable Hemoglobin 8.3 this morningcontinue to trend and transfuse as necessary per hospital team Charles patent and draining light black red this morning Eliquis on hold Maintain Charles catheter Okay to manually irrigate catheter as needed for suprapubic discomfort or clot retention No acute intervention at this time Continue with conservative management Urine culture pendingcontinue with empiric antibiotics and follow culture Will keep voiding trial as scheduled in the urology office will follow History of Present Illness Attending Physician: Charles Almanza MD History of Present Illness This is an 83-year-old male with history of metastatic prostate cancer, status post robotic prostatectomy, and salvage radiation who recently underwent office cystoscopy on 01/18/2024. He developed difficulty voiding after his cystoscopy and was evaluated in the office the following day. Charles catheter was placed in the urology office on 01/19/2024 with hematuria. He presented to the emergency department later that evening for evaluation of his catheter, which had stopped draining. On arrival, he was afebrile, hypertensive. Labs showed creatinine of 1.75, WBC 7.2, hemoglobin 8.3, INR 1.2. Urinalysis showed greater than 20 RBC, 6-10 WBC, negative for bacteria. His catheter was manually irrigated in the ED, but continued to have difficulty draining. His Charles catheter was replaced and subsequently was draining without issue. ED course: IV fluids, ceftriaxone. He was admitted to the hospital medicine service for hematuria, anemia, and complication of Charles catheter. His Eliquis is on hold. Labs today reviewedcreatinine 1.67, WBC 8.46, hemoglobin 8.3. Patient seen and examined at bedside this morning. He is currently comfortable, denies suprapubic or flank pain. Catheter intact with light black red urine with occasional small clot passing through tubing. Denies nausea, vomiting, fever or chills. Allergies Allergy/AdvReac Type Severity Reaction Status Date / Time No Known Drug Allergies Allergy Verified 01/19/24 22:50 Home Medications Medication Instructions Recorded Confirmed Type rosuvastatin 40 mg tablet 40 mg PO HS 12/28/19 01/19/24 History bisacodyl 5 mg tablet,delayed 5 mg PO HS PRN Constipation 07/02/20 01/19/24 History release (Dulcolax (bisacodyl)) aspirin 81 mg tablet,delayed 81 mg PO HS 11/28/20 01/19/24 History release metronidazole 0.75 % topical cream 1 applic topical .1-2X DAILY PRN 12/22/23 01/19/24 History Other apixaban 5 mg tablet (Eliquis) 2.5 mg (1/2 x 5 mg) PO BID #30 tabs 01/04/24 01/19/24 Rx diclofenac sodium 1 % topical gel 2 g EXT Q12H PRN joint pain #100 01/04/24 01/19/24 Rx (Voltaren Arthritis Pain) grams magnesium oxide 400 mg (241.3 mg 400 mg PO HS #30 tabs 01/04/24 01/19/24 Rx magnesium) tablet doxycycline hyclate 100 mg tablet 100 mg PO BID 10 days #20 tabs 01/13/24 01/19/24 Rx metoprolol succinate 50 mg 50 mg PO DAILY #90 tabs 01/13/24 01/19/24 Rx tablet,extended release 24 hr amiodarone 200 mg tablet 200 mg PO DAILY 01/19/24 01/19/24 History Patient History Medical History Diabetes mellitus, type 2 NIDDM Well controlled per patient Transient ischemic attack (TIA) Questionable in 2016- possibly related to previous right ICA disease- s/p CEA July 2020 Hard of hearing Lt- no hearing aid needed Cardiac murmur Dx as a child; PCP monitoring History of prostate cancer s/p sx, radiation History of 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 Harris @ [facility] Hx of flexible sigmoidoscopy History of colonoscopy with polypectomy History of Mohs surgery for squamous cell carcinoma of skin off right cheek History of cataract surgery bilt History of prostate biopsy History of melanoma excision History of tonsillectomy Age 4 History of prostatectomy 03/08/11 Family History Mother , Passed age 93 of old age No problems noted. Father , Passed age 53 of cerebral hemorrhage No problems noted. Sister No problems noted. Sister No problems noted. Son No problems noted. Son No problems noted. Daughter No problems noted. 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 [employer] Other Information That Helps Us Care for You: No Feels Safe at Home: Yes Safety Concerns: Feels Safe At This Time caffeine: Yes (1-2 cups of coffee/day ) during the past year weight has: decreased > 10 lbs Assistive Devices: Cane and Hospital Bed Review of Systems Review of Systems: All systems reviewed & are unremarkable except as noted in HPI & below Physical Exam Constitutional: well developed and well nourished; no acute distress Respiratory: normal respiratory effort; no respiratory distress and no labored breathing Gastrointestinal (Abdomen): Inspection/Auscultation: abdomen normal to inspection Musculoskeletal: Head/Neck/Chest: normocephalic Neurologic: moves all extremities and awake Psychiatric: Orientation: alert and oriented x 3 Genitourinary: Charlse patent and draining with light black red urine, occasional clot passing through tubing without issue during exam Results & Data Vital Signs (Past 12 Hours) Vital Signs Temp Pulse Pulse Resp BP BP Pulse Ox 01/20/24 07:56 36.6 C 61 18 124/62 96 01/20/24 02:21 62 01/20/24 02:10 01/20/24 01:34 36.6 C 60 18 132/86 94 01/20/24 00:53 64 18 135/75 96 01/19/24 23:17 36.9 C 62 20 148/82 H 94 01/19/24 22:48 65 18 158/81 H 98 O2 Del Method 01/20/24 07:56 Room Air 01/20/24 02:21 01/20/24 02:10 Room Air 01/20/24 01:34 Room Air 01/20/24 00:53 Room Air 01/19/24 23:17 Room Air 01/19/24 22:48 Room Air PG Care Time/CCT Total # of Minutes Spent Total Time Spent with Patient: Total time spent is greater than 50% in coordination of care (as documented) at patient's floor/unit and/or counseling patient: Coding Level of Care Code 27544 INT INP/OBS CARE 255MIN Diagnoses Complication, blocked Charles catheter T83.091A Encounter type: initial encounter Irradiation cystitis with hematuria N30.41 Hematuria R31.0 Hematuria type: gross (1) Complication, blocked Charles catheter Encounter type: initial encounter Qualified Code(s): T83.091A - Other mechanical complication of indwelling urethral catheter, initial encounter (3) Hematuria Hematuria type: gross Qualified Code(s): R31.0 - Gross hematuria
[2024-01-20 12:04] VITALS: BP 107/65; TEMP 98.1; O2SAT 97
--- NOTE | 2024-01-20 12:37 | Discharge Summary ---
Date of Service January 20, 2024 Admission HPI Per Admitting Provider 83 y/o with a PMHx of HFpEF, a fib s/p cardioversion, bladder neck contracture, radiation cystitis, and CKD III presents with acute urinary retention and abdominal pain. Patient had a Hebert placed with urology earlier today for urinary retention. He was passing large clots and then the hebert stopped draining. Attempt to irrigate was done in the ED, but was unsuccessful. Hebert replaced and patient able to empty his bladder. Case was discussed with Dr. Larios who recommended ppx CTX, admission, and possible 3-way catheter placement if unable to irrigate again. Hospitalist service consulted for admission. Feeling significantly better since this. No fevers or chills. No chest pain, lightheadedness, or dizziness. Is having some lower extremity edema. Will have some shortness of breath when walking or doing too much. He was hospitalized for 14 days for a fib with RVR earlier this month. He was cardioverted at that time and has remained rate controlled since. Is on amiodarone and metoprolol. Also on Eliquis for anticoagulation. Discharge Data Consultations 01/19/24 22:42 ED Decision to Admit Stat 01/20/24 02:15 Consult Urology Routine Procedures Performed 01/20/24 06:48 01/20/24 06:48 Hospital Course (1) Irradiation cystitis with hematuria: Patient with history of radiation cystitis. Had cystoscopy 01/17 without active bleeding. Hebert placed by urology today for acute urinary retention, but it stopped draining today likely due to clots. Unable to irrigate thus replaced in the ED. Acute blood loss anemia likely in the setting of radiation cystitis - causing hematuria and clots. ED advanced provider discussed with Dr. Larios who recommended ppx CTX and admission for possible procedure in the morning. If occludes again would recommend 3-way. No indication for transfusion at present, but patient would be amenable to transfusion. - Eliquis and aspirin held - Catheter now draining well, creatinine remains stable - Urology evaluated patient, he is stable for d/c from their standpoint with follow up on Tuesday for voiding trial - D/C IVF, complete course of Doxycycline - Will be taught how to irrigate by hand in the event catheter becomes blocked by clot over the weekend (2) Blood loss anemia: Monitor hemoglobin. - H/H stable and does not meet transfusion threshold - Start on oral FeSO4 supplementation - Advised may cause discoloration of stools and/or constipation, increase fiber and drink water - Can switch to every other day supplementation if causing significant constipation and nausea - CBC on Tuesday for follow up - Continue holding Eliquis and ASA until otherwise instructed by PCP (3) Atrial fibrillation status post cardioversion: Converted to sinus. Last EKG 01/12 with sinus rhythm. On amiodarone and metoprolol to help maintain sinus rhythm. On Eliquis 2.5 mg BID. With active bleeding - held Eliquis. (4) Chronic kidney disease, stage III (moderate): Kidney function stable. - Given 2L of IVF - Will cap fluids, slightly volume overloaded with +2 pitting edema in b/l LE. No adventitious breath sounds on auscultation and no dyspnea/PND/orthopnea, will defer dose of IV Lasix (5) Bladder neck contracture: Previously discussed intervention with urology. Would defer on risks/benefits discussion to specialist team Plan HFpEF: Last ECHO with preserved EF. Holding ASA. Continue metoprolol, amiodarone, rosuvastatin. Started on doxy 01/12 by JUANCARLOS Loredo with Urology which they feel he can complete course as rx'd and does not require any additional abx. Follow culture. He is medically and hemodynamically stable for discharge. Discussed plan with Dr. Almanza who has also seen the patient and agrees with aforementioned. Discharge Instructions Discharge time >30 minutes
--- NOTE | 2024-01-20 12:40 | Discharge Summary ---
Date of Service January 20, 2024 Admission HPI Per Admitting Provider 83 y/o with a PMHx of HFpEF, a fib s/p cardioversion, bladder neck contracture, radiation cystitis, and CKD III presents with acute urinary retention and abdominal pain. Patient had a Hebert placed with urology earlier today for urinary retention. He was passing large clots and then the hebert stopped draining. Attempt to irrigate was done in the ED, but was unsuccessful. Hebert replaced and patient able to empty his bladder. Case was discussed with Dr. Larios who recommended ppx CTX, admission, and possible 3-way catheter placement if unable to irrigate again. Hospitalist service consulted for admission. Feeling significantly better since this. No fevers or chills. No chest pain, lightheadedness, or dizziness. Is having some lower extremity edema. Will have some shortness of breath when walking or doing too much. He was hospitalized for 14 days for a fib with RVR earlier this month. He was cardioverted at that time and has remained rate controlled since. Is on amiodarone and metoprolol. Also on Eliquis for anticoagulation. Admission Exam (Per Admitting) Constitutional Gen: well appearing patient in NAD HEENT: AT NC MMM Resp: CTAB no wheezing no increased work of breathing CV: RRR 2-3/6 systolic murmur present, clinically well perfused, 2-3+ pitting edema Abd: soft, non-tender, non-distended +BS : Hebert in place, draining grossly bloody urine MSK: no obvious deformities Skin: no rashes or bruising Neuro: alert and oriented Psych: appropriate mood and affect Discharge Data Consultations 01/19/24 22:42 ED Decision to Admit Stat 01/20/24 02:15 Consult Urology Routine Hospital Course (1) Irradiation cystitis with hematuria: Patient with history of radiation cystitis. Had cystoscopy 01/17 without active bleeding. Hebert placed by urology today for acute urinary retention, but it stopped draining today likely due to clots. Unable to irrigate thus replaced in the ED. Acute blood loss anemia likely in the setting of radiation cystitis - causing hematuria and clots. ED advanced provider discussed with Dr. Larios who recommended ppx CTX and admission for possible procedure in the morning. If occludes again would recommend 3-way. No indication for transfusion at present, but patient would be amenable to transfusion. Urology consult - no intervention recommended, catheter draining appropriately, diet advanced - Can follow up on Tuesday for scheduled voiding trial with urology and d/c home today with catheter - Complete course of Doxycycline as prescribed by urology - Hold ASA and Eliquis due to active bleeding - Will be taught hand irrigation in the event that catheter becomes obstructed/blocked by clots over the weekend - add oxybutynin 2.5mg for bladder spasms - stop on Tuesday before voiding trial (2) Blood loss anemia: Acute Monitor hemoglobin. - Has remained below threshold for transfusion - Add oral iron supplementation, educated can cause discoloration of stools and nausea/constipation, if occurs back off to every other day - Follow up cbc on monday 01/22 to ensure h&h stability (3) Atrial fibrillation status post cardioversion: Converted to sinus. Last EKG 01/12 with sinus rhythm. - On amiodarone and metoprolol to help maintain sinus rhythm. - On Eliquis 2.5 mg BID however due to active bleeding and passing clots, eliquis held - Can resume when cleared by PCP (4) Chronic kidney disease, stage III (moderate): Stable - Creatinine 1.64, he was hydrated overnight and does have slight volume overload with +2 pitting edema in b/l LE, otherwise asymptomatic from a HF standpoint - IVF capped - Follow renal function as outpatient (5) Bladder neck contracture: Previously discussed intervention with urology. Would defer on risks/benefits discussion to specialist team Plan Patient is medically and hemodynamically stable for discharge home with outpatient follow up with his PCP within 1 week as well as urology as scheduled. Continue holding aspirin and eliquis until otherwise instructed by PCP. Follow up CBC on Monday 01/22 as discussed. Taught hand irrigation prior to d/c and added Oxybutynin prn bladder spasms which will need to be stopped 24 hours before appointment on Tuesday with urology. Plan d/w Dr. Almanza who has also seen the patient and is in agreement with aforementioned. Discharge Instructions Total time for discharge: 40 minutes Supervising Physician Co-Signing Physician Notes Attending Attestation & Discharge Note: Pt seen/examined, chart reviewed, discharge care plan d/w ANTHONY Sheikh. I agree w/ the lauren components of her documentation. 83 y/o male with history of HFpEF, a fib s/p cardioversion 12/2023 hospitalization, bladder neck contracture, radiation cystitis, prostate cancer s/p XRT, and CKD III who presented with acute urinary retention and abdominal pain. On 01/18/24 he underwent outpatient cystoscopy with Dr Abdulaziz García which revealed evidence of radiation cystitis. He was d/c home without any catheter. However, on 01/19/24, he presented to the outpatient urology clinic again with LUTS/urinary retention and 20 Fr hebert catheter was placed. Gross hematuria with clots was noted. After catheter placement he was released home. Unfortunately he continued to pass large clots and then the hebert stopped draining. He presented to the ER PM of 01/19/24 due to the hebert not working. Attempts to irrigate the catheter were unsuccessful. Thus, hebert was replaced and following such he had normal urinary flow. He was admitted for observation purposes and for urological consultation. He was also admitted to watch his H/H carefully. Since the catheter was draining and his gross hematuria was slowly improving urology felt it was reasonable to return home with close outpatient f/u on Tue, 01/22. Of note - admission hemoglobin was 8.3. Discharge hemoglobin was 8.3. He will continue on iron supplement. He will HOLD all NSAIDs, aspirin, and Eliquis upon discharge. Discharge exam: gen - NAD, pleasant skin - pallor neck - no JVD heart - RRR, s1 s2 lungs - CTA b/l abd - soft NT ND BS+; no bladder palpable ext - 1+ edema b/l ankles/shins; pulses feet 2+ b/l psych - a/o x 3 Again he has f/u in the [facility] clinic on Tuesday, 01/22 for hebert removal and trial of void. He & his were given instruction on how to hand irrigate the catheter if he develops any clots at home or the catheter is not draining. A script for oxybutinin was given in the event he has severe bladder spasm. Charles Almanza MD Coding Level of Care Code 51583 INP/OBS DISCH >30 MIN Diagnoses Irradiation cystitis with hematuria N30.41 Blood loss anemia D50.0 Atrial fibrillation status post cardioversion I48.91 Chronic kidney disease, stage III (moderate) N18.30 Chronic kidney disease stage 3 subtype: unspecified whether 3a or 3b Bladder neck contracture N32.0
[2024-01-20 12:57] VITALS: PULSE 60
[2024-01-20] MEDS ORDERED: ROSUVASTATIN CALCIUM 20 MG TAB PO SCH (21:00)
== END 2024-01-20 13:56 | disposition home or self-care (01) ==
LOC: ED 19:46 → 2N 19:46 → SUATTDRO 23:25 → 2N 01-20 01:34

== ENCOUNTER 2024-01-20 21:42 | Observation (INO) ==
--- NOTE | 2024-01-20 21:58 | Emergency Department Note ---
History of Present Illness General Chief complaint: Catheter Replacement Stated complaint: CLOGGED CATHETER Time Seen by Provider: 01/20/24 21:47 History of Present Illness Maximum Pain Intensity: 8 This 83-year-old gentleman with a Charles in place that was admitted yesterday and discharged today for urinary retention whose Charles catheter was exchanged out yesterday presents ER for clogged Charles catheter. Patient has been holding his Eliquis and aspirin as instructed at discharge. No urine output since this afternoon. Patient denies fevers, flank pain, vomiting or any other medical complaints. There is low bit of blood in the bag and draining around the catheter. Home Medications Medication Instructions Recorded Confirmed Type rosuvastatin 40 mg tablet 40 mg PO HS 12/28/19 01/19/24 History bisacodyl 5 mg tablet,delayed 5 mg PO HS PRN Constipation 07/02/20 01/19/24 History release (Dulcolax (bisacodyl)) aspirin 81 mg tablet,delayed 81 mg PO HS 11/28/20 01/19/24 History release metronidazole 0.75 % topical cream 1 applic topical .1-2X DAILY PRN 12/22/23 01/19/24 History Other apixaban 5 mg tablet (Eliquis) 2.5 mg (1/2 x 5 mg) PO BID #30 tabs 01/04/24 01/19/24 Rx diclofenac sodium 1 % topical gel 2 g EXT Q12H PRN joint pain #100 01/04/24 01/19/24 Rx (Voltaren Arthritis Pain) grams magnesium oxide 400 mg (241.3 mg 400 mg PO HS #30 tabs 01/04/24 01/19/24 Rx magnesium) tablet doxycycline hyclate 100 mg tablet 100 mg PO BID 10 days #20 tabs 01/13/24 01/19/24 Rx metoprolol succinate 50 mg 50 mg PO DAILY #90 tabs 01/13/24 01/19/24 Rx tablet,extended release 24 hr amiodarone 200 mg tablet 200 mg PO DAILY 01/19/24 01/19/24 History ferrous sulfate 325 mg (65 mg 325 mg PO DAILY #30 tabs 01/20/24 Rx iron) tablet oxybutynin chloride 2.5 mg tablet 2.5 mg PO TID PRN bladder spasms 01/20/24 Rx #10 tabs Allergies Allergy/AdvReac Type Severity Reaction Status Date / Time No Known Drug Allergies Allergy Verified 01/19/24 22:50 Past Med/Surg History Problem List (Updated 01/21/24 @ 01:04 by Sara Bourgeois PA-C) Complication, blocked Charles catheter (Acute) Irradiation cystitis with hematuria Blood loss anemia (Acute) Hematuria (Acute) Atrial fibrillation status post cardioversion Left ventricular systolic dysfunction (LVSD) LVEF 45% to 50%, likely secondary to rapid atrial fibrillation. Chronic kidney disease, stage III (moderate) (Acute) Vitamin D deficiency Atrial fibrillation Ascending aorta dilatation Pericardial effusion Bladder neck contracture Elevated troponin Hyperkalemia Congestive heart failure Chronic kidney disease, stage II (mild) Acute heart failure Anemia (Acute) Pleural effusion, bilateral Atrial fibrillation with rapid ventricular response (Acute) Transaminitis (Acute) Acute hyponatremia (Acute) Pulmonary edema (Acute) Acute exacerbation of CHF (congestive heart failure) (Acute) JULIEN (acute kidney injury) (Acute) Acute dyspnea (Acute) Elevated transaminase level Hyponatremia JULIEN (acute kidney injury) Atrial fibrillation with RVR Stress incontinence Encounter for pre-operative examination Prostate cancer (Chronic 12/23/10) Hematochezia sigmoidoscopy 12/2019 -- poor enema results. has upcoming colonoscopy. 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 deviated nasal septum Excessive cerumen in both ear canals Sensorineural hearing loss (SNHL) of left ear with restricted hearing of right ear Urinary retention Sensorineural hearing loss (SNHL) of both ears Medical History Diabetes mellitus, type 2 NIDDM Well controlled per patient Transient ischemic attack (TIA) Questionable in 2017- possibly related to previous right ICA disease- s/p CEA July 2020 Hard of hearing Lt- no hearing aid needed Cardiac murmur Dx as a child; PCP monitoring History of prostate cancer s/p sx, radiation History of 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 Harris @ [facility] Hx of flexible sigmoidoscopy History of colonoscopy with polypectomy History of Mohs surgery for squamous cell carcinoma of skin off right cheek History of cataract surgery bilt History of prostate biopsy History of melanoma excision History of tonsillectomy Age 4 History of prostatectomy 03/08/11 Family History Mother , Passed age 93 of old age No problems noted. Father , Passed age 53 of cerebral hemorrhage No problems noted. Sister No problems noted. Sister No problems noted. Son No problems noted. Son No problems noted. Daughter No problems noted. 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 [employer] Feels Safe at Home: Yes caffeine: Yes (1-2 cups of coffee/day ) during the past year weight has: decreased > 10 lbs Assistive Devices: Cane Review of Systems A total of 10 systems reviewed and were otherwise negative Physical Exam Vital Signs Vital Signs - 24 hr 01/20/24 21:45 Temperature 36.3 C L Temperature Source Temporal Artery Scan Pulse Rate 77 Respiratory Rate 18 Respiratory Effort / Characteristics Non-Labored Spontaneous Respiratory Depth Normal Respiratory Pattern Regular Blood Pressure 141/54 H Blood Pressure Mean 83 Pulse Oximetry 97 Oxygen Delivery Method Room Air Sepsis Recent Fever Within 48 Hours No Sepsis New/Unexplained Change in Mental Status No Sepsis Action Taken by Nursing No Action Required VITALS: Vitals are noted on the nurse's note and reviewed by myself. Vital signs stable. GENERAL: Pleasant gentleman, in no acute distress, nondiaphoretic, well- developed well-nourished. SKIN: Capillary reflex less than 2 seconds. HEENT: Normocephalic. PERRLA. EOMI. Nares patent. Mucous membranes moist. Neck is supple without nuchal rigidity. HEART: Regular rate and rhythm LUNGS: Clear to auscultation bilaterally without wheezes, rales or rhonchi. No retractions or accessory muscle use. ABDOMEN: Positive bowel sounds x 4. Normal tympanic percussion. Soft, distended bladder, Charles catheter in place, minimal blood in the bag, nontender, without masses or organomegaly. Pressley sign negative. No guarding or rebound tenderness. no CVA tenderness MUSCULOSKELETAL: No gross musculoskeletal defects. NEURO: Patient was alert and oriented to person place and time. No focal neurological deficits. Medical Decision Making Medical Records Attestation: I reviewed the patient's medical records. Home Medications Current Medication List: was personally reviewed by me Laboratory Data Attestation: I reviewed the patient's lab results. 01/20/24 23:11 Lab Results 01/20/24 Range/Units 23:11 Hgb 7.8 L (14.0-18.0) g/dl Hct 25.5 L (42.0-52.0) % MDM Narrative Prior records reviewed and summarized as above. Triage Nursing notes reviewed. Additional history obtained from family. The patient's history was concerning for problems with Differential diagnosis: Etiologies such as clogged Charles catheter, Charles catheter malfunction, UTI, obstruction,, as well as others were entertained.. Physical examination: As above ER treatment provided: Bladder scan and Charles catheter was irrigated On reassessment the patient felt better. Diagnostics interpreted by me: The labs Independently Interpreted by myself revealed urine culture with no growth that was reviewed H&H were slightly lower per my independent interpretation Consultation: A consultation was placed with the hospitalist. The case was discussed and diagnostics were reviewed. The patient was evaluated in the ER for further treatment. This appears to be clogged Charles catheter with slightly worsening anemia. Charles catheter was irrigated by nursing. This is now draining. Medicine was consulted and the case is discussed. Patient will be admitted to the medical service for slightly worsening anemia. By the evaluation outlined above emergent etiologies such as UTI as well as others were deemed relatively unlikely. The pt informed about the findings as listed above. All questions were answered and pleased with the treatment. The chart was completed utilizing Dragon Speech voice recognition software. Grammatical errors, random word insertions, pronoun errors, and incomplete sentences are an occassional consequence of this system due to software limitations, ambient noise, and hardware issues. Any formal questions or concerns about the content, text, or information contained within the body of this dictation should be directly addressed to the physician licensed loan officer assistant for clarification. Impression & Plan Complication, blocked Charles catheter, Anemia Discharge Plan Visit Data Chief Complaint: Catheter Replacement Stated Complaint: CLOGGED CATHETER ED Provider: Chace Schultz ED Midlevel Provider: Sara Bourgeois Discharge Problem: Complication, blocked Charles catheter, Anemia Patient Disposition: Being Evaluated by Hospitalist Condition: Fair Forms Stand Alone Forms: [facility] [employer] Prescriptions Prescriptions: No Action doxycycline hyclate 100 mg tablet 100 mg PO BID 10 Days Qty: 20 0RF metoprolol succinate 50 mg tablet extended release 24 hr 50 mg PO DAILY Qty: 90 3RF Rx Instructions: pharmacy filled incorrect strength but pt knows to take 50mg rosuvastatin 40 mg Tablet 40 mg PO HS bisacodyl [Dulcolax (bisacodyl)] 5 mg Tablet,Delayed Release (Dr/Ec) 5 mg PO HS PRN (Reason: Constipation) aspirin 81 mg Tablet,Delayed Release (Dr/Ec) 81 mg PO HS Hold Instructions: Resume on 01/27/24. Hold until instructed to resume by PCP amiodarone 200 mg tablet 200 mg PO DAILY oxybutynin chloride 2.5 mg tablet 2.5 mg PO TID PRN (Reason: bladder spasms) Qty: 10 0RF ferrous sulfate 325 mg (65 mg iron) tablet 325 mg PO DAILY Qty: 30 0RF metronidazole 0.75 % cream 1 applic TOPICAL .1-2X DAILY PRN (Reason: Other) diclofenac sodium [Voltaren Arthritis Pain] 1 % Gel 2 g EXT Q12H PRN (Reason: joint pain) Qty: 100 0RF Rx Instructions: Please give tube from hospital magnesium oxide 400 mg (241.3 mg magnesium) Tablet 400 mg PO HS Qty: 30 0RF Eliquis 5 mg tablet 2.5 mg PO BID Qty: 30 0RF Hold Instructions: Resume on 01/27/24. Hold until instructed to resume by PCP Referrals Referrals: Zac Avalos MD [Primary Care Provider] - Discharge Problem: Complication, blocked Charles catheter Qualifiers: Encounter type: initial encounter Qualified Code(s): T83.091A - Other mechanical complication of indwelling urethral catheter, initial encounter
[2024-01-20 23:32] LABS: Hematocrit (blood only) 25.5 % (42.0-52.0); Hemoglobin 7.8 g/dl (14.0-18.0)
--- NOTE | 2024-01-21 01:03 | History & Physical Report ---
Date of Service January 21, 2024 Assessment & Plan (1) Complication, blocked Charles catheter: (2) Irradiation cystitis with hematuria: (3) Blood loss anemia: (4) Atrial fibrillation status post cardioversion: (5) Left ventricular systolic dysfunction (LVSD): (6) Chronic kidney disease, stage III (moderate): (7) Atrial fibrillation: Plan Recurrent Charles catheter blockage/radiation cystitis with hematuria- Charles changed again in emergency department this evening, with adequate drainage at this time NPO except medications NSS at 100 mL/h x 1 L Follow urine culture sensitivity Ceftriaxone 2 g IV daily Continue to hold Eliquis and asked Consult urology Blood loss anemia Hemoglobin did fluctuate between 7.8 and 8.3 over the past week, being 7.8 upon admission received Likely will drop further since he is relatively dry at this point, and will begin a liter of fluid Recheck laboratories in a.m. Type and screen performed on 01/18, and patient is amenable to transfusion Blood pressure is in the 140s over 80s and heart rate is in 70s at this time Atrial fibrillation/history of cardioversion- Admit to monitored bed Continue amiodarone and metoprolol JULIEN superimposed on CKD- Creatinine 1.67 on 01/19, with base 1.57 Repeat in a.m. History of Present Illness Chief Complaint: The patient was recently admitted to [facility] from 01/18-01/19. He reports that he stopped having urine output from his Charles catheter early in the afternoon. He was advised to come to the emergency department for assessment. He did undergo change of the Charles catheter in the emergency department, and it began flush normally again. He did have follow-up laboratory performed due to gross hematuria, hemoglobin was found to decrease to 7.8, in the emergency department referred him for admission. Patient had his Eliquis and aspirin held during recent admission, and he continue to hold on discharge. Primary Care Provider: Zac Avalos MD The patient is an 83-year-old male with a past medical history including acute blood loss anemia, atrial fibrillation status post cardioversion, CKD stage III, complications with blocked Charles catheter as noted, radiation cystitis with hematuria, trickle systolic dysfunction, atrial fibrillation, pericardial effusion, CHF,, acute kidney injury imposed on CKD prostate cancer, SNHL bilaterally, and diabetes mellitus. He presents to the emergency department noted above, and due to decline in hemoglobin, he was referred for evaluation for admission to the [facility]ist service. Allergies Allergy/AdvReac Type Severity Reaction Status Date / Time No Known Drug Allergies Allergy Verified 01/19/24 22:50 Home Medications Medication Instructions Recorded Confirmed Type rosuvastatin 40 mg tablet 40 mg PO HS 12/28/19 01/19/24 History bisacodyl 5 mg tablet,delayed 5 mg PO HS PRN Constipation 07/02/20 01/19/24 History release (Dulcolax (bisacodyl)) aspirin 81 mg tablet,delayed 81 mg PO HS 11/28/20 01/19/24 History release metronidazole 0.75 % topical cream 1 applic topical .1-2X DAILY PRN 12/22/23 01/19/24 History Other apixaban 5 mg tablet (Eliquis) 2.5 mg (1/2 x 5 mg) PO BID #30 tabs 01/04/24 01/19/24 Rx diclofenac sodium 1 % topical gel 2 g EXT Q12H PRN joint pain #100 01/04/24 01/19/24 Rx (Voltaren Arthritis Pain) grams magnesium oxide 400 mg (241.3 mg 400 mg PO HS #30 tabs 01/04/24 01/19/24 Rx magnesium) tablet doxycycline hyclate 100 mg tablet 100 mg PO BID 10 days #20 tabs 01/13/24 01/19/24 Rx metoprolol succinate 50 mg 50 mg PO DAILY #90 tabs 01/13/24 01/19/24 Rx tablet,extended release 24 hr amiodarone 200 mg tablet 200 mg PO DAILY 01/19/24 01/19/24 History ferrous sulfate 325 mg (65 mg 325 mg PO DAILY #30 tabs 01/20/24 Rx iron) tablet oxybutynin chloride 2.5 mg tablet 2.5 mg PO TID PRN bladder spasms 01/20/24 Rx #10 tabs Past Med/Surg History Problem List Complication, blocked Charles catheter (Acute) Irradiation cystitis with hematuria Blood loss anemia (Acute) Hematuria (Acute) Atrial fibrillation status post cardioversion Left ventricular systolic dysfunction (LVSD) LVEF 45% to 50%, likely secondary to rapid atrial fibrillation. Chronic kidney disease, stage III (moderate) (Acute) Vitamin D deficiency Atrial fibrillation Ascending aorta dilatation Pericardial effusion Bladder neck contracture Elevated troponin Hyperkalemia Congestive heart failure Chronic kidney disease, stage II (mild) Acute heart failure Anemia (Acute) Pleural effusion, bilateral Atrial fibrillation with rapid ventricular response (Acute) Transaminitis (Acute) Acute hyponatremia (Acute) Pulmonary edema (Acute) Acute exacerbation of CHF (congestive heart failure) (Acute) JULIEN (acute kidney injury) (Acute) Acute dyspnea (Acute) Elevated transaminase level Hyponatremia JULIEN (acute kidney injury) Atrial fibrillation with RVR Stress incontinence Encounter for pre-operative examination Prostate cancer (Chronic 12/23/10) Hematochezia sigmoidoscopy 12/2019 -- poor enema results. has upcoming colonoscopy. 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 deviated nasal septum Excessive cerumen in both ear canals Sensorineural hearing loss (SNHL) of left ear with restricted hearing of right ear Urinary retention Sensorineural hearing loss (SNHL) of both ears Medical History Diabetes mellitus, type 2 NIDDM Well controlled per patient Transient ischemic attack (TIA) Questionable in 2017- possibly related to previous right ICA disease- s/p CEA July 2020 Hard of hearing Lt- no hearing aid needed Cardiac murmur Dx as a child; PCP monitoring History of prostate cancer s/p sx, radiation History of 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 Father , Passed age 53 of cerebral hemorrhage No problems noted. Sister No problems noted. Sister No problems noted. Son No problems noted. Son No problems noted. Daughter No problems noted. 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 Feels Safe at Home: Yes caffeine: Yes (1-2 cups of coffee/day ) during the past year weight has: decreased > 10 lbs Assistive Devices: Cane Review of Systems Review of Systems: The patient denies chest pain, palpitations, shortness of breath, dyspnea on exertion, cough, lower extremity swelling, sore throat, fevers, chills, sweats, weight change, fatigue, nausea, vomiting, diarrhea , constipation, abdominal pain, pelvic pain, blood in stool, dysuria, lightheadedness, dizziness, headache, memory loss, loss of consciousness, rash, imbalance, focal or generalized weakness, numbness or tingling in arms or legs, generalized arthralgias or myalgias, back or neck pain, or night sweats. The review of systems is otherwise negative other than for that already noted above, and at least 10 systems have been reviewed. Physical Exam Physical Exam: The patient is awake, alert and oriented 3, well developed and well nourished, normocephalic and atraumatic, lying in bed and in no acute distress. HEENT--PERRL, EOMI, mucous membranes and oropharynx normal. Neck--supple. No JVD. No bruits. Thyroid normal, trachea midline, no adenopathy. Heart--normal S1 and S2. No murmurs, rubs or gallops. Lungs--clear bilaterally, no respiratory distress, no accessory muscle use. Abdomen--normal bowel sounds and soft. Nontender. Nondistended, no hernias or masses, no organomegaly. Extremities--no cyanosis or clubbing. No edema. There are good distal pulses b/l. Dermatologic--normal skin turgor, normal color, no abnormal lymph nodes, no rash. Neurologic--cranial nerves II through XII grossly intact. Rheumatologic--normal range of motion. Psychiatric--normal affect. Results & Data Results & Data Vital Signs (Past 12 Hours) Vital Signs Temp Pulse Resp BP Pulse Ox O2 Del Method 01/20/24 21:45 36.3 C L 77 18 141/54 H 97 Room Air Laboratory Results Laboratory Results Hgb 7.8 g/dl (14.0-18.0) L 01/20/24 23:11 Hct 25.5 % (42.0-52.0) L 01/20/24 23:11 Code Status & VTE Plan Code Status Full code VTE Prophylaxis Plan VTE Prophylaxis will be ordered: Yes PG Care Time/CCT Total # of Minutes Spent Total Time Spent with Patient: Total time spent is greater than 50% in coordination of care (as documented) at patient's floor/unit and/or counseling patient: Coding Level of Care Code 17844 INT INP/OBS CARE 375MIN Diagnoses Complication, blocked Charles catheter T83.091A Encounter type: initial encounter Irradiation cystitis with hematuria N30.41 Blood loss anemia D50.0 Atrial fibrillation status post cardioversion I48.91 Left ventricular systolic dysfunction (LVSD) I51.9 Chronic kidney disease, stage III (moderate) N18.30 Chronic kidney disease stage 3 subtype: unspecified whether 3a or 3b Paroxysmal atrial fibrillation I48.0 Atrial fibrillation type: paroxysmal (1) Complication, blocked Charles catheter Encounter type: initial encounter Qualified Code(s): T83.091A - Other mechanical complication of indwelling urethral catheter, initial encounter (6) Chronic kidney disease, stage III (moderate) Chronic kidney disease stage 3 subtype: unspecified whether 3a or 3b Qualified Code(s): N18.30 - Chronic kidney disease, stage 3 unspecified (7) Atrial fibrillation Atrial fibrillation type: paroxysmal Qualified Code(s): I48.0 - Paroxysmal atrial fibrillation
[2024-01-21] MEDS: MAGNESIUM OXIDE 400 MG TAB PO STA (01:13)
[2024-01-21] MEDS: ROSUVASTATIN CALCIUM 20 MG TAB PO STA (01:13)
--- NOTE | 2024-01-21 01:20 | Urology Consultation ---
Date of Consultation January 21, 2024 Assessment & Plan (1) Irradiation cystitis with hematuria: Patient has been admitted on the hospitalist service. From a urologic perspective we recommend the following: Maintain Charles catheter. If the Charles catheter becomes clogged manual flushing and irrigation attempts can be employed Follow serial labs with transfusion to be provided as directed by the primary service Additional recommendations with forthcoming based on his clinical course as unfolds Supervising Physician Co-Signing Physician Notes Discussed patient with FARRAH. Agree with plan. Saw patient personally. He is afebrile with stable vitals this morning. Catheter is draining blood-tinged urine. Repeat hemoglobin was 8 this morning. Patient would like to go home. He does have family coming into town to help him and lives rather close to the hospital. From a urologic perspective, I am comfortable with him being discharged home but I explained to him that is a joint decision between urology and medicine. I also discussed that he could potentially come back to the hospital as he already bounced back quickly yesterday. He expressed understanding. Patient can have a diet from a urologic perspective. No procedure necessary. Patient has follow-up scheduled for a void trial on 01/23/2024 and at this point we will keep that appointment assuming he is discharged prior to then. History of Present Illness Reason for Consultation: Hematuria History of Present Illness This is an 83-year-old male who was recently admitted to [facility]. He has a history of metastatic prostate cancer and he is status post prostatectomy and also radiation. In the urology office on 01/18/2024 he underwent a cystoscopy that showed a bladder neck contracture and radiation cystitis. Because he had difficulty voiding he had a Charles catheter placed in the office. He presented to the emergency department this evening because he had difficulty voiding. He notes he had intense pressure in his suprapubic region. He denies any fevers, shakes, or chills. He denies any back or flank pain. He felt as though his Charles catheter was clogged so he presented to the emergency department. In the emergency department the patient did have labs where hemoglobin and hematocrit were noted to be 7.8 and 25.5. Patient had his Charles catheter flushed and irrigated were several blood clots were retrieved and his symptomatology improved. At the time of my interview he was resting comfortably in bed he was no distress. Allergies Allergy/AdvReac Type Severity Reaction Status Date / Time No Known Drug Allergies Allergy Verified 01/19/24 22:50 Home Medications Medication Instructions Recorded Confirmed Type rosuvastatin 40 mg tablet 40 mg PO HS 12/28/19 01/19/24 History bisacodyl 5 mg tablet,delayed 5 mg PO HS PRN Constipation 07/02/20 01/19/24 History release (Dulcolax (bisacodyl)) aspirin 81 mg tablet,delayed 81 mg PO HS 11/28/20 01/19/24 History release metronidazole 0.75 % topical cream 1 applic topical .1-2X DAILY PRN 12/22/23 01/19/24 History Other apixaban 5 mg tablet (Eliquis) 2.5 mg (1/2 x 5 mg) PO BID #30 tabs 01/04/24 01/19/24 Rx diclofenac sodium 1 % topical gel 2 g EXT Q12H PRN joint pain #100 01/04/24 01/19/24 Rx (Voltaren Arthritis Pain) grams magnesium oxide 400 mg (241.3 mg 400 mg PO HS #30 tabs 01/04/24 01/19/24 Rx magnesium) tablet doxycycline hyclate 100 mg tablet 100 mg PO BID 10 days #20 tabs 01/13/24 01/19/24 Rx metoprolol succinate 50 mg 50 mg PO DAILY #90 tabs 01/13/24 01/19/24 Rx tablet,extended release 24 hr amiodarone 200 mg tablet 200 mg PO DAILY 01/19/24 01/19/24 History ferrous sulfate 325 mg (65 mg 325 mg PO DAILY #30 tabs 01/20/24 Rx iron) tablet oxybutynin chloride 2.5 mg tablet 2.5 mg PO TID PRN bladder spasms 01/20/24 Rx #10 tabs Patient History Medical History Diabetes mellitus, type 2 NIDDM Well controlled per patient Transient ischemic attack (TIA) Questionable in 2016- possibly related to previous right ICA disease- s/p CEA July 2020 Hard of hearing Lt- no hearing aid needed Cardiac murmur Dx as a child; PCP monitoring History of prostate cancer s/p sx, radiation History of 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 Harris @ [facility] Hx of flexible sigmoidoscopy History of colonoscopy with polypectomy History of Mohs surgery for squamous cell carcinoma of skin off right cheek History of cataract surgery bilt History of prostate biopsy History of melanoma excision History of tonsillectomy Age 4 History of prostatectomy 03/08/11 Family History Mother , Passed age 93 of old age No problems noted. Father , Passed age 53 of cerebral hemorrhage No problems noted. Sister No problems noted. Sister No problems noted. Son No problems noted. Son No problems noted. Daughter No problems noted. Other No family history of adverse response to anesthesia Social History Smoking Status: Never smoker Second Hand Exposure: No; Do You Dip or Chew Tobacco: No; Tobacco Cessation Education Requested by Patient: No Hx Alcohol Use: Yes Alcohol type: beer and wine Hx Substance Use: No Preferred Language: Croatian Communication Ability: Effective Visual Impairment: Limited Hearing Ability: Hard of Hearing Business Performance Manager Required: No Beliefs That Will Affect Care: None marital status: Current Living Situation: Spouse Current Living Situation Comment: lives with son and daughter Blanka current occupational status: retired 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 [employer] Other Information That Helps Us Care for You: No Feels Safe at Home: Yes Safety Concerns: Feels Safe At This Time caffeine: Yes (1-2 cups of coffee/day ) during the past year weight has: decreased > 10 lbs Assistive Devices: Cane Review of Systems Review of Systems: All systems reviewed & are unremarkable except as noted in HPI & below Physical Exam Constitutional: WD/WN, vitals as above Eyes: no conjunctival abnormality ENMT: Ears: no hearing impairment and no external ear abnormality Mouth: no oropharynx abnormality Neck: trachea midline Respiratory: normal respiratory effort; no respiratory distress and no labored breathing Cardiovascular: Rate/Rhythm: regular rate and regular rhythm Gastrointestinal (Abdomen): Soft and nontender Musculoskeletal: No calf tenderness Skin: no rashes Neurologic: moves all extremities Psychiatric: A+Ox3, euthymic affect Genitourinary: Charles catheter is in place. It is draining bloody urine. At the time of my interview the catheter was patent and draining appropriately. No CVA tenderness with percussion bilaterally Results & Data Vital Signs (Past 12 Hours) Vital Signs Temp Pulse Pulse Resp BP BP Pulse Ox 01/21/24 01:12 64 16 142/79 H 100 01/20/24 21:45 36.3 C L 77 18 141/54 H 97 O2 Del Method 01/21/24 01:12 Room Air 01/20/24 21:45 Room Air PG Care Time/CCT Total # of Minutes Spent Total Time Spent with Patient: Total time spent is greater than 50% in coordination of care (as documented) at patient's floor/unit and/or counseling patient: Coding Level of Care Code 21349 INT INP/OBS CARE 3/75MIN Diagnoses Irradiation cystitis with hematuria N30.41
[2024-01-21] MEDS: SODIUM CHLORIDE 0.9% 1,000 ML IV SCH (01:22)
[2024-01-21] MEDS ORDERED: ONDANSETRON INJ 2 MG/ML 2 ML VIAL IV PRN (02:31)
[2024-01-21] MEDS ORDERED: oxyBUTYnin chloride 5 MG TAB PO PRN (02:31)
[2024-01-21] MEDS ORDERED: ACETAMINOPHEN 325 MG TAB PO PRN (02:31)
[2024-01-21] MEDS: cefTRIAXone SODIUM 2,000 MG/50 ML BAG IV SCH (06:06)
[2024-01-21 07:53] VITALS: RESP 18
[2024-01-21 08:23] LABS: Basophils # (auto) 0.04 K/uL (0.00-0.20); Basophils % (auto) 0.5 %; Eosinophils % (auto) 1.2 %; Hematocrit (blood only) 27.1 % (42.0-52.0); Immature Granulocytes # (auto) 0.06 K/uL (0.01-0.20); Immature Granulocytes % (auto) 0.7 %; Lymphocytes # (auto) 1.52 K/uL (1.20-3.40); Lymphocytes % (auto) 18.1 %; Mean Corpuscular Hemoglobin 25.4 pg (25.0-34.0); Mean Corpuscular Hgb Conc 29.5 g/dL (32.0-36.0); Mean Platelet Volume 10.6 fL (9.4-12.4); Monocytes # (auto) 0.83 K/uL (0.11-0.59); Monocytes % (auto) 9.9 %; Neutrophils # (auto) 5.87 K/uL (1.40-6.50); Neutrophils % (auto) 69.6 %; Platelet Count 229 K/uL (130-400); RDW Coefficient of Variation 21.8 % (11.5-14.5); Red Blood Count 3.15 M/uL (4.70-6.10); White Blood Count 8.42 K/ul (4.8-10.8)
[2024-01-21 08:27] LABS: Albumin Level 3.4 gm/dl (3.4-5.0); BUN Creatinine Ratio 14.7 (10-20); Calcium 8.6 mg/dl (8.6-10.3); Creatinine Clr Calc Pharmacy 40.2 ml/min; Est GFR (African American) 48.8 ml/min; Est GFR (Non-African American) 42.1 ml/min; Phosphorus 3.5 mg/dl (2.5-4.9); Potassium 4.5 mmol/L (3.5-5.1)
[2024-01-21] MEDS: METOPROLOL SUCC 50MG EXT REL TAB PO SCH (08:42)
[2024-01-21] MEDS: FERROUS SULFATE 325 MG TAB PO SCH (08:42)
[2024-01-21] MEDS: AMIODARONE 200 MG TAB PO SCH (08:42)
[2024-01-21 08:58] LABS: Anisocytosis Present; Hypochromasia Present; Ovalocytes 1+
[2024-01-21 12:01] VITALS: PULSE 57; TEMP 97.9; O2SAT 95
[2024-01-21 13:04] VITALS: BP 107/60
--- NOTE | 2024-01-21 14:21 | Discharge Summary ---
Date of Service January 21, 2024 Admission HPI Per Admitting Provider The patient is an 83-year-old male with a past medical history including acute blood loss anemia, atrial fibrillation status post cardioversion, CKD stage III, complications with blocked Charles catheter as noted, radiation cystitis with hematuria, trickle systolic dysfunction, atrial fibrillation, pericardial effusion, CHF,, acute kidney injury imposed on CKD prostate cancer, SNHL bilaterally, and diabetes mellitus. He presents to the emergency department noted above, and due to decline in hemoglobin, he was referred for evaluation for admission to the [facility]ist service. Admission Exam (Per Admitting) Constitutional The patient is awake, alert and oriented 3, well developed and well nourished, normocephalic and atraumatic, lying in bed and in no acute distress. HEENT--PERRL, EOMI, mucous membranes and oropharynx normal. Neck--supple. No JVD. No bruits. Thyroid normal, trachea midline, no adenopathy. Heart--normal S1 and S2. No murmurs, rubs or gallops. Lungs--clear bilaterally, no respiratory distress, no accessory muscle use. Abdomen--normal bowel sounds and soft. Nontender. Nondistended, no hernias or masses, no organomegaly. Extremities--no cyanosis or clubbing. No edema. There are good distal pulses b/l. Dermatologic--normal skin turgor, normal color, no abnormal lymph nodes, no rash. Neurologic--cranial nerves II through XII grossly intact. Rheumatologic--normal range of motion. Psychiatric--normal affect. Discharge Data Consultations 01/21/24 00:41 ED Decision to Admit Stat 01/21/24 02:31 Consult Urology Routine Procedures Performed 01/21/24 06:41 01/21/24 06:41 Hospital Course (1) Complication, blocked Charles catheter: Acute secondary to blood clot from radiation cystitis - Charles changed in ED and is now draining well w/o issue - Urology consulted, again no intervention advised, diet advanced - Urology agrees with holding Eliquis until at minimum Tuesday, is scheduled for voiding trial on Tuesday - Patient is adamant that he would like to be discharged home and understands risks that catheter could become occluded again requiring him to return to the ER - Has adequate family support and patient has capacity, will plan for d/c home today and f/u as scheduled on Tuesday with urology (2) Irradiation cystitis with hematuria: Acute blood loss anemia likely in the setting of radiation cystitis - causing hematuria and clots. ED advanced provider discussed with Dr. Larios who recommended ppx CTX and admission for possible procedure in the morning. If occludes again would recommend 3-way. No indication for transfusion at present, but patient would be amenable to transfusion. - Urology consulted - no intervention recommended, catheter draining appropriately, diet advanced - Can follow up on Tuesday for scheduled voiding trial with urology and d/c home today with catheter - Complete course of Doxycycline as prescribed by urology - Hold ASA and Eliquis due to active bleeding - Follow up as scheduled with urology on Monday 01/22 for voiding trial (3) Blood loss anemia: Acute - CBC reviewed, hgb 8.0 g/dL, suspect in part dilutional from IVF administered over the past 72 hours - Has remained above threshold for transfusion - Added oral iron supplementation, educated can cause discoloration of stools and nausea/constipation, if occurs back off to every other day - Follow up cbc on monday 01/22 to ensure h&h stability (4) Atrial fibrillation status post cardioversion: Converted to sinus. Last EKG 01/12 with sinus rhythm. - On amiodarone and metoprolol to help maintain sinus rhythm. - On Eliquis 2.5 mg BID however due to active bleeding and passing clots, eliquis held - Can resume when cleared by PCP (5) Chronic kidney disease, stage III (moderate): Chronic/stable - Kidney function at baseline, creatinine 1.50 on labs - Given additional fluids on admission, IVF discontinued again d/t HF history and LE edema to avoid gross volume overload - Follow renal function as outpatient Plan He is medically and hemodynamically stable for discharge home today with family. Plan d/w Dr. Almanza who has also seen and evaluated this patient and agrees with aforementioned. Total time for discharge 35 minutes. Coding Level of Care Code 36956 INP/OBS DISCH >30 MIN Diagnoses Complication, blocked Charles catheter T83.091A Encounter type: initial encounter Irradiation cystitis with hematuria N30.41 Blood loss anemia D50.0 Atrial fibrillation status post cardioversion I48.91 Chronic kidney disease, stage III (moderate) N18.30 Chronic kidney disease stage 3 subtype: unspecified whether 3a or 3b
[2024-01-21] MEDS ORDERED: ROSUVASTATIN CALCIUM 20 MG TAB PO SCH (21:00)
[2024-01-21] MEDS ORDERED: MAGNESIUM OXIDE 400 MG TAB PO SCH (21:00)
== END 2024-01-21 13:58 | disposition home or self-care (01) ==
LOC: 2N 21:42 → ED 21:42 → SUATTDRO 01-21 01:02 → 2N 01-21 01:56

== ENCOUNTER 2024-10-16 10:51 | Observation (INO) ==
[2024-10-16] MEDS: SODIUM CHLORIDE 0.9% 1,000 ML IV ONE ×2 (12:01→13:23)
[2024-10-16 12:05] LABS: Basophils # (auto) 0.02 K/uL (0.00-0.20); Basophils % (auto) 0.2 %; Eosinophils # (auto) 0.07 K/uL (0.00-0.50); Eosinophils % (auto) 0.6 %; Hematocrit (blood only) 38.2 % (42.0-52.0); Hemoglobin 12.7 g/dl (14.0-18.0); Immature Granulocytes # (auto) 0.06 K/uL (0.01-0.20); Immature Granulocytes % (auto) 0.5 %; Lymphocytes # (auto) 0.83 K/uL (1.20-3.40); Lymphocytes % (auto) 7.3 %; Mean Corpuscular Hemoglobin 26.7 pg (25.0-34.0); Mean Corpuscular Hgb Conc 33.2 g/dL (32.0-36.0); Mean Corpuscular Volume 80.4 fL (80.0-100.0); Monocytes # (auto) 1.39 K/uL (0.11-0.59); Monocytes % (auto) 12.3 %; Neutrophils # (auto) 8.96 K/uL (1.40-6.50); Neutrophils % (auto) 79.1 %; Platelet Count 187 K/uL (130-400); RDW Coefficient of Variation 17.4 % (11.5-14.5); RDW Standard Deviation 51.1 fL (36.4-46.3); Red Blood Count 4.75 M/uL (4.70-6.10); White Blood Count 11.33 K/ul (4.8-10.8)
--- NOTE | 2024-10-16 12:05 | Emergency Department Note ---
Impression & Plan Acute UTI (urinary tract infection), JULIEN (acute kidney injury), Charles catheter in place ED Provider Note ED Provider Note NAME: RED FELIZ AGE:83 SEX: Male : 1940 ARRIVES VIA: Private vehicle INFORMANT: Patient ED PROVIDER(s): Olga Lidia Davis DO CHIEF COMPLAINT: Episode of vomiting, episode of weakness, indwelling Charles catheter HPI: This is an 83-year-old male presents emergency department due to family concern for symptoms over the weekend after patient had a Charles catheter placed on Tuesday at an outside facility. Patient states he realized he was not voiding normally and so Tuesday went to an emergency room. He states in the emergency department a catheter was placed after several attempts and he went home. He states the catheter did briefly become clogged again on Tuesday and he had return to the emergency room where it was flushed and he had not had any issues since. Family notes yesterday patient had an episode of vomiting and seemed weak in the evening to the point of falling. Patient denies any injury or loss of consciousness. Patient states today he feels better. Patient does have prior history of prostate cancer and had surgery as well as radiation. He does follow with Dr. García of urology locally. He states he has been drinking a lot of fluid and emptying the catheter bag frequently. He states he is only seen 1 or 2 further clots since he was irrigated on Tuesday, and otherwise feels that is draining well. He states they did check a sample of urine when the catheter was initially placed and he was told there was no evidence of infection. PAST MEDICAL HISTORY:See Below PAST SURGICAL HISTORY:See Below FAMILY HISTORY:See Below SOCIAL HISTORY:See Below HOME MEDICATIONS:See Below ALLERGIES:See Below VITALS:See Below PHYSICAL EXAMINATION: GENERAL: alert, well appearing, well nourished, no distress, non-toxic EYE EXAM: normal conjunctiva, PERRL and EOM's grossly intact OROPHARYNX: no exudate, no erythema, lips, buccal mucosa, and tongue normal and mucous membranes are moist NECK: supple, no nuchal rigidity, no adenopathy, non-tender LUNGS: Clear to auscultation. Normal chest wall mechanics, no w/r/r HEART: no murmurs, S1 normal and S2 normal ABDOMEN: abdomen soft, non-tender, normo-active bowel sounds, no masses, no rebound or guarding. BACK: Back is symmetrical on inspection and there is no deformity, no midline tenderness, no CVA tenderness. SKIN: no rashes, petechiae, orbruising UPPER EXTREMITIES: upper extremities are grossly normal. FROM, nml pulses b/l. LOWER EXTREMITIES: No pitting edema. FROM, nml pulses b/l. NEURO EXAM: Normal sensorium, cranial nerves II-XII grossly intact, normal speech, no facial droop,nogross weakness of arms, no gross weakness of legs. Gross sensation intact. No ataxia. Vital Signs: reviewed and remarkable Differential Diagnosis: UTI, dehydration, JULIEN, Charles catheter complication, heat exhaustion, medication ADR, as well as others were considered MEDICAL DECISION MAKING: This is an 83-year-old male presents emergency department due to family concern for vomiting and weakness yesterday. Patient with an indwelling Charles catheter that was placed at an outside facility on Tuesday. He was afebrile and hemodynamically stable on arrival. Labs drawn and sent, IV established, patient monitored at bedside. Urine collected and sent additionally was suggestive of infection. Patient noted to have leukocytosis and elevated procalcitonin. Patient also noted to have new JULIEN. Blood cultures added, renal ultrasound added, patient given IV antibiotics. Renal ultrasound without any obvious obstructive pathology. Patient received 2 L of IV fluids in the emergency department. He remained hemodynamically stable throughout. I did update urology given he was scheduled to see them in the office tomorrow. Case discussed with the hospitalist team for additional evaluation and management. Consultation(s): 1640: Discussed with Dr. Mcghee, [place] hospitalist team, for additional evaluation and mgmt. ER Treatment Provided: See below Diagnostics Interpreted By Me: -Cardiac Monitoring: An order was placed for continuous cardiac monitoring. The monitor shows a rate of 60 with normal sinus rhythm. -Laboratory studies: As stated above and show below. -Imaging studies: US renal: no stones, mild hydro Triage Nursing Note Reviewed Prior/Outside Records Reviewed Past Med/Surg History Problem List (Updated 10/16/24 @ 18:02 by Background Daemon) Charles catheter in place (Acute) JULIEN (acute kidney injury) (Acute) Acute UTI (urinary tract infection) (Acute) (HFpEF) heart failure with preserved ejection fraction Scrotal swelling Complication, blocked Charles catheter (Acute) Irradiation cystitis with hematuria Blood loss anemia (Acute) Hematuria (Acute) Atrial fibrillation status post cardioversion Left ventricular systolic dysfunction (LVSD) LVEF 45% to 50%, likely secondary to rapid atrial fibrillation. Chronic kidney disease, stage III (moderate) (Acute) Vitamin D deficiency Atrial fibrillation Ascending aorta dilatation Pericardial effusion Bladder neck contracture Congestive heart failure Chronic kidney disease, stage II (mild) Anemia (Acute) Pleural effusion, bilateral Atrial fibrillation with rapid ventricular response (Acute) JULIEN (acute kidney injury) (Acute) Stress incontinence Encounter for pre-operative examination Hematochezia sigmoidoscopy 12/2019 -- poor enema results. has upcoming colonoscopy. 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 deviated nasal septum Excessive cerumen in both ear canals Sensorineural hearing loss (SNHL) of left ear with restricted hearing of right ear Urinary retention Sensorineural hearing loss (SNHL) of both ears Medical History Prostate cancer (12/23/10) Diabetes mellitus, type 2 Transient ischemic attack (TIA) Hard of hearing Cardiac murmur History of prostate cancer History of malignant melanoma Dysmetabolic syndrome Hyperlipemia Aortic valve calcification Carotid stenosis, right Hypertension Surgical History History of right-sided carotid endarterectomy (~08/06/20) Hx of flexible sigmoidoscopy History of colonoscopy with polypectomy History of Mohs surgery for squamous cell carcinoma of skin History of cataract surgery History of prostate biopsy History of melanoma excision History of tonsillectomy History of prostatectomy Family History Mother No problems noted. Father No problems noted. Sister No problems noted. Sister No problems noted. Son No problems noted. Son No problems noted. Daughter No problems noted. 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: No Beliefs That Will Affect Care: None marital status: Current Living Situation: Spouse and Family Current Living Situation Comment: lives with son and daughter Blanka current occupational status: retired 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 [employer] Other Information That Helps Us Care for You: No Feels Safe at Home: Yes Safety Concerns: Feels Safe At This Time caffeine: Yes (1-2 cups of coffee/day ) during the past year weight has: decreased > 10 lbs Assistive Devices: None Allergies Allergies Allergy/AdvReac Type Severity Reaction Status Date / Time No Known Drug Allergies Allergy Verified 09/18/24 10:22 Home Meds Home Medications Medication Instructions Recorded Confirmed rosuvastatin 40 mg tablet 40 mg PO HS 12/28/19 10/16/24 bisacodyl 5 mg tablet,delayed 5 mg PO HS PRN Constipation 07/02/20 10/16/24 release (Dulcolax (bisacodyl)) metronidazole 0.75 % topical cream 1 applic topical .1-2X DAILY PRN 12/22/23 10/16/24 Other ferrous sulfate 325 mg (65 mg 325 mg PO UD 03/19/24 10/16/24 iron) tablet metoprolol succinate 25 mg 12.5 mg PO UD 03/20/24 10/16/24 tablet,extended release 24 hr apixaban 5 mg tablet (Eliquis) 5 mg PO UD 10/16/24 10/16/24 Previous Rx's Medication Instructions Recorded diclofenac sodium 1 % topical gel 2 g EXT Q12H PRN joint pain #100 01/04/24 (Voltaren Arthritis Pain) grams magnesium oxide 400 mg (241.3 mg 400 mg PO HS #30 tabs 01/04/24 magnesium) tablet amiodarone 200 mg tablet 200 mg PO DAILY #90 tabs 01/25/24 ergocalciferol (vitamin D2) 50 mcg 50 mcg PO DAILY #30 tabs 02/01/24 (2,000 unit) tablet potassium chloride 20 mEq 20 meq PO DAILY PRN On days that 03/20/24 tablet,extended Furosemide is taken #90 tabs release(part/cryst) (Klor-Con M) furosemide 40 mg tablet 40 mg PO DAILY PRN weight gain 04/30/24 #180 tabs vibegron 75 mg tablet (Gemtesa) 75 mg PO DAILY #30 tabs 08/29/24 dapagliflozin propanediol 10 mg 10 mg PO DAILY #90 tabs 09/10/24 tablet Results & Data (ED) Vital Signs Vital Signs - 24 hr 10/16/24 11:05 10/16/24 11:57 10/16/24 12:00 Temperature 36.5 C Temperature Source Oral Pulse Rate 65 57 L 57 L Pulse Rate [Apical] Pulse Rate from SpO2 Sensor 57 L Respiratory Rate 17 22 Respiratory Effort / Characteristics Blood Pressure 106/60 122/78 Blood Pressure [Right Arm] Blood Pressure Mean 75 92 Blood Pressure Mean [Right Arm] Pulse Oximetry 96 97 Oxygen Delivery Method Room Air Room Air Sepsis Recent Fever Within 48 Hours No Sepsis New/Unexplained Change in Mental Status N/A Sepsis Action Taken by Nursing No Action Required 10/16/24 12:36 10/16/24 13:27 10/16/24 13:33 Temperature Temperature Source Pulse Rate 80 60 Pulse Rate [Apical] 83 Pulse Rate from SpO2 Sensor Respiratory Rate 24 16 16 Respiratory Effort / Characteristics Non-Labored Spontaneous Blood Pressure 134/79 145/68 H Blood Pressure [Right Arm] 129/63 Blood Pressure Mean 97 93 Blood Pressure Mean [Right Arm] 85 Pulse Oximetry 98 99 96 Oxygen Delivery Method Room Air Room Air Room Air Sepsis Recent Fever Within 48 Hours Sepsis New/Unexplained Change in Mental Status Sepsis Action Taken by Nursing 10/16/24 14:33 10/16/24 16:30 10/16/24 16:52 Temperature Temperature Source Pulse Rate 55 L 57 L Pulse Rate [Apical] 58 L Pulse Rate from SpO2 Sensor Respiratory Rate 24 16 Respiratory Effort / Characteristics Blood Pressure 141/77 H Blood Pressure [Right Arm] 134/92 Blood Pressure Mean 98 Blood Pressure Mean [Right Arm] 106 Pulse Oximetry 95 98 Oxygen Delivery Method Room Air Sepsis Recent Fever Within 48 Hours Sepsis New/Unexplained Change in Mental Status Sepsis Action Taken by Nursing Laboratory Data 10/16/24 11:40 10/16/24 11:40 Lab Results 10/16/24 10/16/24 10/16/24 Range/Units 11:40 11:55 12:45 WBC 11.33 H (4.8-10.8) K/ul RBC 4.75 (4.70-6.10) M/uL Hgb 12.7 L (14.0-18.0) g/dl Hct 38.2 L (42.0-52.0) % MCV 80.4 (80.0-100.0) fL MCH 26.7 (25.0-34.0) pg MCHC 33.2 (32.0-36.0) g/dL RDW Std Deviation 51.1 H (36.4-46.3) fL RDW Coeff of Milvia 17.4 H (11.5-14.5) % Plt Count 187 (130-400) K/uL MPV 10.0 (9.4-12.4) fL Immature Gran % (Auto) 0.5 % Neut % (Auto) 79.1 % Lymph % (Auto) 7.3 % Hickman % (Auto) 12.3 % Eos % (Auto) 0.6 % Baso % (Auto) 0.2 % Neut # (Auto) 8.96 H (1.40-6.50) K/uL Lymph # (Auto) 0.83 L (1.20-3.40) K/uL Hickman # (Auto) 1.39 H (0.11-0.59) K/uL Eos # (Auto) 0.07 (0.00-0.50) K/uL Baso # (Auto) 0.02 (0.00-0.20) K/uL Immature Gran # (Auto) 0.06 (0.01-0.20) K/uL Sodium 133 L (136-145) mmol/L Potassium 3.7 (3.5-5.1) mmol/L Chloride 98 (98-107) mmol/L Carbon Dioxide 27 (21-32) mmol/L Anion Gap 8 (3-11) BUN 45 H (6-23) mg/dl Creatinine 2.16 H (0.6-1.4) mg/dl Est Cr Clr Drug Dosing 27.9 ml/min eGFR 29.45 BUN/Creatinine Ratio 20.8 H (10-20) Glucose 107 H (70-99(Fasting)) mg/dl Lactate 1.1 (0.4-2.0) mmol/L Calcium 8.9 (8.6-10.3) mg/dl Total Bilirubin 1.7 H (0.2-1.0) mg/dl AST 32 (13-39) U/L ALT 19 (7-52) U/L Alkaline Phosphatase 131 H (34-104) U/L Total Protein 6.8 (6.0-8.3) gm/dl Albumin 3.7 (3.4-5.0) gm/dl Globulin 3.1 (2.5-4.0) gm/dl Albumin/Globulin Ratio 1.2 (0.9-2) Procalcitonin 0.97 H (0-0.5) ng/ml Urine Color Haskell Urine Appearance Cloudy A (Clear) Urine pH 5.5 (4.5-7.5) Ur Specific Compton 1.013 (1.000-1.030) Urine Protein 2+ H (Negative) Urine Glucose (UA) 3+ H (Negative) Urine Ketones Negative (Negative) Urine Blood 3+ H (Negative) Urine Nitrite Negative (Negative) Urine Bilirubin Negative (Negative) Urine Urobilinogen Negative (Negative) Ur Leukocyte Esterase 3+ H (Negative) Urine WBC (Auto) >50 H (0-5) /hpf Urine RBC (Auto) >20 H (0-2) /hpf U Hyaline Cast (Auto) 0-2 (0-2) /lpf U Epithel Cells (Auto) 0-2 (0-2) /hpf Urine Bacteria (Auto) 1+ H (None Seen) Urine Comment Administered Medications Sodium Chloride (Nss) 1,000 mls @ 125 mls/hr IV .Q8H CHRISTIAN Stop: 10/17/24 00:29 Last Admin: 10/16/24 16:49 Dose: 125 mls/hr Documented By: ALYSSA Discontinued Medications Sodium Chloride (Nss) 1,000 mls @ 999 mls/hr IV .Q1H1M ONE Stop: 10/16/24 12:32 Last Infusion: 10/16/24 13:23 Dose: Infused Documented By: Admin: 10/16/24 12:01 Dose: 999 mls/hr Documented By: Ceftriaxone Sodium (Rocephin) 2,000 mg in 50 mls @ 100 mls/hr IV NOW STA Stop: 10/16/24 13:00 Last Infusion: 10/16/24 14:40 Dose: Infused Documented By: Admin: 10/16/24 13:20 Dose: 100 mls/hr Documented By: LAVERNE Sodium Chloride (Nss) 1,000 mls @ 999 mls/hr IV .Q1H1M ONE Stop: 10/16/24 13:36 Last Infusion: 10/16/24 14:24 Dose: Infused Documented By: Admin: 10/16/24 13:23 Dose: 999 mls/hr Documented By: LAVERNE Imaging Data Radiologist's Impression: Renal Ultrasound 10/16/24 12:30 RENAL ULTRASOUND HISTORY: JULIEN COMPARISON: 12/23/2023 FINDINGS: Right kidney measures 13 x 5 cm. There is Doppler flow. There is minimal hydronephrosis. There is mild cortical scarring. The kidney measures 12 x 5 cm. There is minimal hydronephrosis. There is Doppler flow. Renal cortical thickness is normal bilaterally. No renal calculi seen. Urinary bladder is mildly distended, grossly unremarkable. IMPRESSION: Minimal hydronephrosis with mildly distended urinary bladder. ACT 112: Negative or not required by law. Electronically signed by: John Ng M.D. 10/16/2024 2:31 PM Discharge Plan Visit Data Chief Complaint: Flu Like Symptoms Stated Complaint: BLADDER BLOCKAGE, CATH IN ED Provider: Olga Lidia Davis Discharge Problem: Acute UTI (urinary tract infection), JULIEN (acute kidney injury), Charles catheter in place Patient Disposition: Admitted As Inpatient Condition: Fair Discharge Instructions Interventions: ED Discharge Assessment Last Done: 10/16/24 17:39
[2024-10-16 12:26] LABS: Albumin Globulin Ratio 1.2 (0.9-2); BUN Creatinine Ratio 20.8 (10-20); Bilirubin,Total 1.7 mg/dl (0.2-1.0); Calcium 8.9 mg/dl (8.6-10.3); Creatinine Clr Calc Pharmacy 27.9 ml/min; Globulin 3.1 gm/dl (2.5-4.0); Potassium 3.7 mmol/L (3.5-5.1); Total Protein 6.8 gm/dl (6.0-8.3)
[2024-10-16 12:31] LABS: Appearance Urine Cloudy (Clear); Bacteria Urine Automated 1+ (None Seen); Bilirubin Urine Negative (Negative); Blood Urine 3+ (Negative); Cast Urine Automated 0-2 /lpf (0-2); Color Urine Orange; Epithelial Cell Urine Auto 0-2 /hpf (0-2); Glucose Urine UA 3+ (Negative); Ketones Urine Negative (Negative); Leukocyte Esterase Urine 3+ (Negative); Nitrite Urine Negative (Negative); Protein Urine 2+ (Negative); RBC Urine Automated >20 /hpf (0-2); Specific Gravity Urine 1.013 (1.000-1.030); Urobilinogen Urine Negative (Negative); WBC Urine Automated >50 /hpf (0-5); pH Urine 5.5 (4.5-7.5)
[2024-10-16] MEDS: cefTRIAXone SODIUM 2,000 MG/50 ML BAG IV STA (13:20)
--- NOTE | 2024-10-16 14:33 | Ultrasound Report ---
RENAL ULTRASOUND HISTORY: JULIEN COMPARISON: 12/23/2023 FINDINGS: Right kidney measures 13 x 5 cm. There is Doppler flow. There is minimal hydronephrosis. Th ere is mild cortical scarring. The kidney measures 12 x 5 cm. There is minimal hydronephrosis. There is Doppler flow. Renal cortical thickness is normal bilaterally. No renal calculi seen. Urinary bladder is mildly distended, grossly unremarkable. IMPRESSION: Minimal hydronephrosis with mildly distended urinary bladder. ACT 112: Negative or not required by law. Electronically signed by: John Ng M.D. 10/16/2024 2:31 PM
--- NOTE | 2024-10-16 16:39 | History & Physical Report ---
Date of Service October 16, 2024 Assessment & Plan (1) Acute UTI (urinary tract infection): (2) Urinary retention: (3) JULIEN (acute kidney injury): (4) Hebert catheter in place: (5) Bladder neck contracture: (6) Hematuria: (7) History of prostate cancer: (8) (HFpEF) heart failure with preserved ejection fraction: (9) Atrial fibrillation: (10) Chronic kidney disease, stage II (mild): (11) Diabetes: (12) Hypertension: (13) Hyperlipemia: Plan 83 year old male with PMHx that includes A-fib, T2DM, HTN, CKD, CHF, and prostate cancer s/p prostatectomy and radiation therapy, presenting with urinary retention, concern for infection: #Complicated UTI: +Leukocytosis and elevated procal, though does not meet sepsis criteria UA consistent with infectious process. Blood and urine cultures pending No h/o resistance pattern, continue Ceftriaxone IV 2g/d - tailor coverage based on C&S #Urinary Retention // Obstructive Uropathy // Hydronephrosis: #JULIEN: JULIEN with Cr 2.16 (baseline 1.5-1.6), likely post-renal d/t obstructive process - Renal US with mild bilateral hydronephrosis, no evidence of stones - H/o AUR secondary to bladder neck contracture Maintain Hebert catheter, ensure adequately draining Urology consulted, appreciate recs - no urgent intervention needed as long as Hebert draining appropriately and Cr stable Hold Gemtesa Check AM labs #CHF: Continue Metoprolol PRN home Lasix based on daily weights - patient has not required Lasix in past several months Monitor volume status #A-Fib: Continue Amiodarone Hold Eliquis d/t hematuria #T2DM: Hold Farxiga Blood sugar checks [facility] SSI #HLD: Continue Atorvastatin Dispo: Admit med-surg FEN/GI: HH, CC diet VTE ppx: Eliquis held d/t hematuria Full Code History of Present Illness Primary Care Provider: Zac Avalos MD 83 year old male with PMHx that includes A-fib, T2DM, HTN, CKD, CHF, and prostate cancer s/p prostatectomy and radiation therapy, presenting with urinary retention, concern for infection. Patient first noticed suprapubic pressure/discomfort on Tuesday, accompanied by inability to urinate. Patient was seen in outside ED where he had a hebert placed. Patient reports gross hematuria following insertion - urine has progressively cleared since then but is still dark. Eliquis and Gemtesa have been on hold since Tuesday. Patient has had episodes of acute urinary retention on multiple occasions in the past - 2020, cystoscopy revealed bladder neck contracture, subsequently incised. AUR again Dec 2023, cystoscopy showed patent bladder neck but surrounding dense scar tissue. Denies history of kidney stones. Since catheter was placed on Tuesday, patient has had intermittent chills, one episode of vomiting, and generalized weakness with one mild mechanical fall. Denies flank pain. Patient has not had a bowel movement since Tuesday, reports baseline 2 bowel movements per day. Does not consistently use stool softeners, will occasionally take Dulcolax as needed. ED Course: +leukocytosis, elevated procal UA consistent with infectious process. Blood and urine cultures drawn. S/P Ceftriaxone 2gx1, NSSx2L Retroperitoneal US notable for mild bilateral hydronephrosis. Allergies Allergy/AdvReac Type Severity Reaction Status Date / Time No Known Drug Allergies Allergy Verified 09/18/24 10:22 Home Medications Medication Instructions Recorded Confirmed Type rosuvastatin 40 mg tablet 40 mg PO HS 12/28/19 10/16/24 History bisacodyl 5 mg tablet,delayed 5 mg PO HS PRN Constipation 07/02/20 10/16/24 History release (Dulcolax (bisacodyl)) metronidazole 0.75 % topical cream 1 applic topical .1-2X DAILY PRN 12/22/23 10/16/24 History Other diclofenac sodium 1 % topical gel 2 g EXT Q12H PRN joint pain #100 01/04/24 10/16/24 Rx (Voltaren Arthritis Pain) grams magnesium oxide 400 mg (241.3 mg 400 mg PO HS #30 tabs 01/04/24 10/16/24 Rx magnesium) tablet amiodarone 200 mg tablet 200 mg PO DAILY #90 tabs 01/25/24 10/16/24 Rx ergocalciferol (vitamin D2) 50 mcg 50 mcg PO DAILY #30 tabs 02/01/24 10/16/24 Rx (2,000 unit) tablet ferrous sulfate 325 mg (65 mg 325 mg PO UD 03/19/24 10/16/24 History iron) tablet metoprolol succinate 25 mg 12.5 mg PO UD 03/20/24 10/16/24 History tablet,extended release 24 hr potassium chloride 20 mEq 20 meq PO DAILY PRN On days that 03/20/24 10/16/24 Rx tablet,extended Furosemide is taken #90 tabs release(part/cryst) (Klor-Con M) furosemide 40 mg tablet 40 mg PO DAILY PRN weight gain 04/30/24 10/16/24 Rx #180 tabs vibegron 75 mg tablet (Gemtesa) 75 mg PO DAILY #30 tabs 08/29/24 10/16/24 Rx dapagliflozin propanediol 10 mg 10 mg PO DAILY #90 tabs 09/10/24 10/16/24 Rx tablet apixaban 5 mg tablet (Eliquis) 5 mg PO UD 10/16/24 10/16/24 History Past Med/Surg History Problem List (Updated 10/16/24 @ 16:40 by Olga Lidia Davis DO) Hebert catheter in place (Acute) JULIEN (acute kidney injury) (Acute) Acute UTI (urinary tract infection) (Acute) (HFpEF) heart failure with preserved ejection fraction Scrotal swelling Complication, blocked Hebert catheter (Acute) Irradiation cystitis with hematuria Blood loss anemia (Acute) Hematuria (Acute) Atrial fibrillation status post cardioversion Left ventricular systolic dysfunction (LVSD) LVEF 45% to 50%, likely secondary to rapid atrial fibrillation. Chronic kidney disease, stage III (moderate) (Acute) Vitamin D deficiency Atrial fibrillation Ascending aorta dilatation Pericardial effusion Bladder neck contracture Congestive heart failure Chronic kidney disease, stage II (mild) Anemia (Acute) Pleural effusion, bilateral Atrial fibrillation with rapid ventricular response (Acute) JULIEN (acute kidney injury) (Acute) Stress incontinence Encounter for pre-operative examination Hematochezia sigmoidoscopy 12/2019 -- poor enema results. has upcoming colonoscopy. 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 deviated nasal septum Excessive cerumen in both ear canals Sensorineural hearing loss (SNHL) of left ear with restricted hearing of right ear Urinary retention Sensorineural hearing loss (SNHL) of both ears Medical History Prostate cancer (12/23/10) Diabetes mellitus, type 2 Transient ischemic attack (TIA) Hard of hearing Cardiac murmur History of prostate cancer History of malignant melanoma Dysmetabolic syndrome Hyperlipemia Aortic valve calcification Carotid stenosis, right Hypertension Surgical History History of right-sided carotid endarterectomy (~08/06/20) Hx of flexible sigmoidoscopy History of colonoscopy with polypectomy History of Mohs surgery for squamous cell carcinoma of skin History of cataract surgery History of prostate biopsy History of melanoma excision History of tonsillectomy History of prostatectomy Family History Mother No problems noted. Father No problems noted. Sister No problems noted. Sister No problems noted. Son No problems noted. Son No problems noted. Daughter No problems noted. 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 normal bowel sounds MSK: no gross deformities Skin: warm, dry, no rash appreciated : neg CVA tenderness bilaterally Neuro: alert, oriented, no focal neurologic deficit appreciated Results & Data Results & Data Vital Signs (Past 12 Hours) Vital Signs Temp Pulse Pulse Resp BP BP Pulse Ox 10/16/24 14:33 55 L 24 141/77 H 95 06/24/25 13:33 60 16 145/68 H 96 10/16/24 13:27 83 16 129/63 99 10/16/24 12:36 80 24 134/79 98 10/16/24 12:00 57 L 22 122/78 97 10/16/24 11:57 57 L 10/16/24 11:05 36.5 C 65 17 106/60 96 O2 Del Method 10/16/24 14:33 Room Air 10/16/24 13:33 Room Air 10/16/24 13:27 Room Air 10/16/24 12:36 Room Air 10/16/24 12:00 Room Air 10/16/24 11:57 10/16/24 11:05 Room Air Supervising Physician Co-Signing Physician Notes Patient seen and examined, chart reviewed, case discussed with Dr. Andrew and I agree with the assessment and plan as above except as otherwise noted Labs and images reviewed Kole is an 83yo M with a hx afib, T2DM, HTN, CKD, CHF and prostate cancer s/p radiation and prostatectomy who presents with urinary retention, hydro, and LUTS, and suspected UTI. Pt w/ difficulty having hebert placed and subsequent hematuria, but hebert draining following this. Cr 2.16 from aseline of ~1.75. DId have LUTS int he past and has hx of bladder neck contracture and scar tissue on cystoscopy. Renal-US shows minimal hydro and mildly distended urinary bladder. In the last 2-3 days pt has developed from chills without flank pain concerning for UTI. UA is infected appearing. +Leukocytosis and elevated procal. He does not meet sepsis criteria. Endorses that he had shaking chills earlier which were likely rigors. With elevated Pro-Miguel and may have been bacteremic. Blood cultures are pending. Will follow UC/BC Maintain hebert. Continue rocephin. No hx of resistant infections For ?obstructive uropathy and bladder neck contracture --> hebert is currently draining appropriately. Can continue this for now and followup w/ Urology; this does not need to be done emergently as long as Cr is stable/improves and hebert drains appropriately. No obstructing stones are seen. Agree w/ above Resident Activity Tracking Resident Involvement: Resident Care Provided Care Provided: Adult Hospital Medicine (6) Hematuria Hematuria type: gross Qualified Code(s): R31.0 - Gross hematuria (8) (HFpEF) heart failure with preserved ejection fraction Heart failure chronicity: acute on chronic Qualified Code(s): I50.33 - Acute on chronic diastolic (congestive) heart failure (9) Atrial fibrillation Atrial fibrillation type: paroxysmal Qualified Code(s): I48.0 - Paroxysmal atrial fibrillation (12) Hypertension Hypertension type: primary hypertension Qualified Code(s): I10 - Essential (p rimary) hypertension
[2024-10-16] MEDS: SODIUM CHLORIDE 0.9% 1,000 ML IV SCH (16:49)
--- NOTE | 2024-10-16 16:49 | Billing Data ---
Date of Service October 16, 2024 Coding Level of Care Code 98457 INT INP/OBS CARE
[2024-10-16] MEDS ORDERED: ONDANSETRON INJ 2 MG/ML 2 ML VIAL IV PRN (18:07)
[2024-10-16] MEDS ORDERED: ALUMINUM/MAGNESIUM SUSP 30 ML UDC PO PRN (18:07)
[2024-10-16] MEDS ORDERED: CARBOHYDRATES FOR HYPOGLYCEMIA PO PRN (18:07)
[2024-10-16] MEDS ORDERED: POLYETHYLENE (MIRALAX) 17 GM PACK PO PRN (18:07)
[2024-10-16] MEDS ORDERED: GLUCAGON FOR INJ 1 MG VIAL SQ PRN (18:07)
[2024-10-16] MEDS ORDERED: GLUCOSE 40% GEL 15 GM TUBE PO PRN (18:07)
[2024-10-16] MEDS ORDERED: DEXTROSE 50% 50 ML SYRINGE IV PRN (18:07)
[2024-10-16] MEDS ORDERED: GLUCOSE 10 TAB/TUBE PO PRN (18:07)
[2024-10-16] MEDS ORDERED: ACETAMINOPHEN 325 MG TAB PO PRN (18:07)
[2024-10-16] MEDS ORDERED: MELATONIN 3 MG TAB PO PRN (18:07)
[2024-10-16 18:34] VITALS: RESP 18
[2024-10-16] MEDS: METOPROLOL SUCC 25MG EXT REL TAB PO SCH (20:39)
[2024-10-16] MEDS: INSULIN ASPART PER UNIT CHARGE SC SCH (20:41)
[2024-10-16] MEDS: bisacodyL 5 MG TABEC PO SCH (21:03)
[2024-10-16] MEDS: ROSUVASTATIN CALCIUM 20 MG TAB PO SCH (21:04)
--- NOTE | 2024-10-16 21:42 | Urology Consultation ---
Date of Consultation October 16, 2024 Assessment & Plan (1) Urinary retention: Patient has been admitted on the hospitalist service. From a urologic perspective we recommend the following: Due to his urinary retention and underlying urinary tract infection Charles catheter should be left in place for maximal drainage At the present time the patient's catheter appears to be draining appropriately but if it does become clogged manual flushing irrigation can be employed Patient is noted to have acute kidney injury which may have been related urinary retention and should be monitored with serial labs and avoidance of nephrotoxins Appropriate antibiotics have been put in place in the form of Rocephin and should continue and can be tailored based on pending culture results Voiding trial could be attempted in the future Additional recommendations will be forthcoming based on his clinical course as it unfolds History of Present Illness Reason for Consultation: Urinary retention Attending Physician: Jesenia Bailey MD History of Present Illness This is an 83-year-old male who was admitted to [facility]. The patient reports that approximately 4 days ago he was in the [facility] and he was seen at a medical facility in this town due to urinary retention as he could not urinate. He has had a Charles catheter placed at that time which has been in place ever since. He does note that he did have to return to the medical facility in [place] as his catheter did become clogged but this was flushed and irrigated and has been working since. He does report that he had some gross hematuria following this catheter insertion but this has progressively cleared. The patient does note that prior to having his Charles catheter placed he was having episodes of urinary incontinence which required him to wear adult diapers. He does note that his urine stream was moderately weak but he was not having any difficulty emptying his bladder. He also denied any dysuria. He does not report any flank pain. He also denies fevers but has had intermittent chills. It is noteworthy to mention that the patient does report a significant urologic history as he underwent a robotic prostatectomy at [facility] approximately 10 years ago. He says that he also required radiation therapy for this problem. He also notes that he has had episodes of urinary retention on multiple occasions in the past in 2020 his cystoscopy revealed that he had a bladder neck contracture. He notes that this has been addressed cystoscopically. In addition to what is noted above the patient reports he feels somewhat generally weak and because of this with his above-noted urologic issues he presented to the emergency department. Since arrival to hospital patient has had labs and imaging which independent reviewed. Renal ultrasound showed minimal hydronephrosis with a mildly distended urinary bladder. Labs including CBC were white blood cell count was elevated 11.3. Hemoglobin and hematocrit were 12.7 and 38.2. Platelet count was normal. Chemistry profile showed sodium was 133 with a normal potassium. His BUN and creatinine were both elevated at 45 and 2.1. Lactic acid level was not elevated at 1.1. Urinalysis showed pyuria with greater than 50 white blood cells per high-power field and 3+ leukocyte esterase. There is 1+ bacteria on the specimen and it was negative for nitrates. At the time of my interview he was resting comfortably in bed he was in no distress. Allergies Allergy/AdvReac Type Severity Reaction Status Date / Time No Known Drug Allergies Allergy Verified 09/18/24 10:22 Home Medications Medication Instructions Recorded Confirmed Type rosuvastatin 40 mg tablet 40 mg PO HS 12/28/19 10/16/24 History bisacodyl 5 mg tablet,delayed 5 mg PO HS PRN Constipation 07/02/20 10/16/24 History release (Dulcolax (bisacodyl)) metronidazole 0.75 % topical cream 1 applic topical .1-2X DAILY PRN 12/22/23 10/16/24 History Other diclofenac sodium 1 % topical gel 2 g EXT Q12H PRN joint pain #100 01/04/24 10/16/24 Rx (Voltaren Arthritis Pain) grams magnesium oxide 400 mg (241.3 mg 400 mg PO HS #30 tabs 01/04/24 10/16/24 Rx magnesium) tablet amiodarone 200 mg tablet 200 mg PO DAILY #90 tabs 01/25/24 10/16/24 Rx ergocalciferol (vitamin D2) 50 mcg 50 mcg PO DAILY #30 tabs 02/01/24 10/16/24 Rx (2,000 unit) tablet ferrous sulfate 325 mg (65 mg 325 mg PO UD 03/19/24 10/16/24 History iron) tablet metoprolol succinate 25 mg 12.5 mg PO UD 03/20/24 10/16/24 History tablet,extended release 24 hr potassium chloride 20 mEq 20 meq PO DAILY PRN On days that 03/20/24 10/16/24 Rx tablet,extended Furosemide is taken #90 tabs release(part/cryst) (Klor-Con M) furosemide 40 mg tablet 40 mg PO DAILY PRN weight gain 04/30/24 10/16/24 Rx #180 tabs vibegron 75 mg tablet (Gemtesa) 75 mg PO DAILY #30 tabs 08/29/24 10/16/24 Rx dapagliflozin propanediol 10 mg 10 mg PO DAILY #90 tabs 09/10/24 10/16/24 Rx tablet apixaban 5 mg tablet (Eliquis) 5 mg PO UD 10/16/24 10/16/24 History Patient History Medical History Prostate cancer (12/23/10) Diabetes mellitus, type 2 NIDDM Well controlled per patient Transient ischemic attack (TIA) Questionable in 2017- possibly related to previous right ICA disease- s/p CEA July 2020 Hard of hearing Lt- no hearing aid needed Cardiac murmur Dx as a child; PCP monitoring History of prostate cancer s/p sx, radiation History of 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 Harris @ [facility] Hx of flexible sigmoidoscopy History of colonoscopy with polypectomy History of Mohs surgery for squamous cell carcinoma of skin off right cheek History of cataract surgery bilt History of prostate biopsy History of melanoma excision History of tonsillectomy Age 4 History of prostatectomy 03/08/11 Family History Mother , Passed age 93 of old age No problems noted. Father , Passed age 53 of cerebral hemorrhage No problems noted. Sister No problems noted. Sister No problems noted. Son No problems noted. Son No problems noted. Daughter No problems noted. 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: No Beliefs That Will Affect Care: None marital status: Current Living Situation: Spouse and Family Current Living Situation Comment: lives with son and daughter Blanka current occupational status: retired 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 [employer] Other Information That Helps Us Care for You: No Feels Safe at Home: Yes Safety Concerns: Feels Safe At This Time caffeine: Yes (1-2 cups of coffee/day ) during the past year weight has: decreased > 10 lbs Assistive Devices: None Review of Systems Review of Systems: All systems reviewed & are unremarkable except as noted in HPI & below Physical Exam Constitutional: WD/WN, vitals as above Eyes: no conjunctival abnormality ENMT: Ears: no hearing impairment and no external ear abnormality Mouth: no oropharynx abnormality Neck: trachea midline Respiratory: normal respiratory effort; no respiratory distress and no labored breathing Cardiovascular: Rate/Rhythm: regular rate and regular rhythm Gastrointestinal (Abdomen): Soft and nondistended., No pain with palpation Musculoskeletal: No calf tenderness Skin: no rashes Neurologic: moves all extremities Psychiatric: A+Ox3, euthymic affect Genitourinary: No CVA tenderness with percussion bilaterally. Charles catheter is in place draining clear yellow urine which appears to be patent at this time Results & Data Vital Signs (Past 12 Hours) Vital Signs Temp Pulse Pulse Pulse Resp BP BP 10/16/24 19:56 37.3 C 62 18 116/63 10/16/24 18:07 36.7 C 62 18 155/82 H 10/16/24 16:52 57 L 10/16/24 16:30 58 L 16 10/16/24 14:33 55 L 24 141/77 H 10/16/24 13:33 60 16 145/68 H 10/16/24 13:27 83 16 10/16/24 12:36 80 24 134/79 10/16/24 12:00 57 L 22 122/78 10/16/24 11:57 57 L 10/16/24 11:05 36.5 C 65 17 106/60 BP Pulse Ox O2 Del Method 10/16/24 19:56 95 Room Air 10/16/24 18:07 96 Room Air 10/16/24 16:52 10/16/24 16:30 134/92 98 10/16/24 14:33 95 Room Air 10/16/24 13:33 96 Room Air 10/16/24 13:27 129/63 99 Room Air 10/16/24 12:36 98 Room Air 10/16/24 12:00 97 Room Air 10/16/24 11:57 10/16/24 11:05 96 Room Air PG Care Time/CCT Total # of Minutes Spent Total Time Spent with Patient: Total time spent is greater than 50% in coordination of care (as documented) at patient's floor/unit and/or counseling patient: Coding Level of Care Code 97066 INT INP/OBS CARE 3/75MIN Diagnoses Urinary retention R33.9
[2024-10-17 04:55] LABS: Hematocrit (blood only) 35.7 % (42.0-52.0); Hemoglobin 11.6 g/dl (14.0-18.0); Mean Corpuscular Hemoglobin 26.5 pg (25.0-34.0); Mean Corpuscular Hgb Conc 32.5 g/dL (32.0-36.0); Mean Corpuscular Volume 81.7 fL (80.0-100.0); Mean Platelet Volume 10.2 fL (9.4-12.4); Platelet Count 174 K/uL (130-400); RDW Coefficient of Variation 17.5 % (11.5-14.5); RDW Standard Deviation 51.4 fL (36.4-46.3); Red Blood Count 4.37 M/uL (4.70-6.10); White Blood Count 7.68 K/ul (4.8-10.8)
[2024-10-17 05:17] LABS: BUN Creatinine Ratio 20.9 (10-20); Calcium 8.3 mg/dl (8.6-10.3); Creatinine Clr Calc Pharmacy 34.1 ml/min; Globulin 3.1 gm/dl (2.5-4.0); Potassium 3.8 mmol/L (3.5-5.1); Total Protein 6.2 gm/dl (6.0-8.3)
[2024-10-17 07:20] VITALS: BP 164/80; PULSE 65; TEMP 97.5; O2SAT 96
[2024-10-17] MEDS: CHOLECALCIFEROL 25 MCG (1000 UNITS) TAB PO SCH (08:21)
[2024-10-17] MEDS: AMIODARONE 200 MG TAB PO SCH (08:23)
[2024-10-17] MEDS: SODIUM CHLORIDE 0.9% 1,000 ML IV SCH (10:18)
--- NOTE | 2024-10-17 13:21 | Urology Progress Note ---
Date of Service October 17, 2024 Assessment & Plan (1) Acute UTI (urinary tract infection): (2) JULIEN (acute kidney injury): (3) Charles catheter in place: Plan 83yo male admitted with weakness and concern for UTI Pt afebrile and hemodynamically stable. Labs - WBCs 7.68, Creatinine downtrending 2.16-1.77. UA consistent with infection. Blood and urine cultures pending. Charles catheter intact and draining appropriately-urine is clear yellow. Renal ultrasound on admission showed minimal hydronephrosis with a mildly distended urinary bladder. Continue antibiotics and tailor per culture sensitivities. Maintain Charles catheter for bladder decompression. Okay to hand irrigate as n eeded for clots, obstruction, suprapubic pain. Continue supportive care. If any acute changes or he fails to progress, would consider CT abdomen pelvis imaging. Urology will follow along. Admission and Anticipated Discharge Date Admission Date: October 16, 2024 Subjective Patient seen at bedside today Awake and resting bed on arrival No acute distress Reports he is feeling better overall Charles draining clear yellow urine No reported pain No fevers Review of Systems Constitutional: as per Subjective / HPI Genitourinary: + as per Subjective / HPI Physical Exam Constitutional: no acute distress Respiratory: no respiratory distress and no labored breathing Neurologic: awake Psychiatric: A+Ox3, euthymic affect Genitourinary: Charles draining clear yellow urine Results & Data Vital Signs (Past 12 Hours) Vital Signs Temp Pulse Resp BP Pulse Ox O2 Del Method 10/17/24 07:19 36.4 C L 65 18 164/80 H 96 Room Air PG Care Time/CCT Total # of Minutes Spent Total Time Spent with Patient: Total time spent is greater than 50% in coordination of care (as documented) at patient's floor/unit and/or counseling patient: Coding Level of Care Code 26547 SUB INP/OBS CARE 2/35MIN Diagnoses Acute UTI (urinary tract infection) N39.0 JULIEN (acute kidney injury) N17.[address] Z97.8
[2024-10-17] MEDS: cefTRIAXone SODIUM 2,000 MG/50 ML BAG IV SCH (13:27)
--- NOTE | 2024-10-17 13:48 | Discharge Summary ---
Discharge Summary Date of Service October 17, 2024 Principal Dx & Hospital Course #1 = Principal Diagnosis (1) Hebert catheter in place: (2) JULIEN (acute kidney injury): (3) Acute UTI (urinary tract infection): (4) (HFpEF) heart failure with preserved ejection fraction: (5) Hematuria: (6) Atrial fibrillation: (7) Bladder neck contracture: (8) Chronic kidney disease, stage II (mild): (9) Diabetes: (10) Hypertension: (11) Urinary retention: (12) Hyperlipemia: (13) History of prostate cancer: Plan 83 y/o with past treatment for prostate cancer admitted with hematuria, UTI, chronic urethral stricture with urinary retention requiring hebert placement UTI treated with ceftriaxone -discharged with 10 days of cefuroxime pending cultures. had risk:benefit conversation and they prefer to avoid cipro if possible, aware we may need to change his abx if resistant -follow up urine, blood cultures Bladder outlet obstruction due to urethral stricture - related to previous prostate cancer treatment -hebert recently placed [employer] -urology consulted -maintain hebert, follow up with Dr. García to discuss shelter management of stricture and urinary incontinence Hematuria - related to hebert trauma from original insertion. Resolved -discussed with urology -resume apixaban JULIEN on CKD-2 -Cr improved after IV fluids and catheter placement. Cr 1.7 today which is fairly close to his baseline 1.3-1.5 -follow up with Dr. Lockhart -recommend repeat BMP on follow up with PCP or mold designer Discussed plan of care with urology I updated his family including and daughter in room. His daughter will stay with him at least until tomorrow Notes For Next Care Provider urine cultures pinpoint recommend repeat BMP on follow up Medication Changes From Visit started cefuroxime Admission HPI Per Admitting Provider 83 year old male with PMHx that includes A-fib, T2DM, HTN, CKD, CHF, and prostate cancer s/p prostatectomy and radiation therapy, presenting with urinary retention, concern for infection. Patient first noticed suprapubic pressure/dis comfort on Tuesday, accompanied by inability to urinate. Patient was seen in outside ED where he had a hebert placed. Patient reports gross hematuria following insertion - urine has progressively cleared since then but is still dark. Eliquis and Gemtesa have been on hold since Tuesday. Patient has had episodes of acute urinary retention on multiple occasions in the past - 2020, cystoscopy revealed bladder neck contracture, subsequently incised. AUR again Dec 2023, cystoscopy showed patent bladder neck but surrounding dense scar tissue. Denies history of kidney stones. Since catheter was placed on Tuesday, patient has had intermittent chills, one episode of vomiting, and generalized weakness with one mild mechanical fall. Denies flank pain. Patient has not had a bowel movement since Tuesday, reports baseline 2 bowel movements per day. Does not consistently use stool softeners, will occasionally take Dulcolax as needed. ED Course: +leukocytosis, elevated procal UA consistent with infectious process. Blood and urine cultures drawn. S/P Ceftriaxone 2gx1, NSSx2L Retroperitoneal US notable for mild bilateral hydronephrosis. Discharge Exam Last 24h vitals reviewed GEN: no acute distress, sitting in bed HEENT: pupils equal, sclerae anicteric, moist MM RESP: normal WOB, CTAB CV: reg no mrg ABD: soft/nt/nd +BT : no hebert SKIN: warm and dry, no generalized rashes Hebert catheter with good output of clear yellow urine no clots or blood NEURO: AOx person, place, and situation. Face symmetric, speech normal, moves 4 ext spontaneously and equally Discharge Plan Discharge Items Patient Disposition: Home - Self-Care Reason For Visit: UTI Discharge Diagnosis: JULIEN, urinary stricture, UTI Condition on Discharge: Good Activity: Resume your previous activity Non-emergency contact: Primary Care Provider and Urologist Call non-emergency contact if: you have any medication questions, your symptoms worsen and your temperature is above 101 Follow-up/Referrals: Zac García MD [Physician] - Zac Avalos MD [Primary Care Provider] - 10/29/24 11:00 am Diet: Regular Addtl Attending Provider Instructions: You were treated for urinary tract infection and kidney injury related to urinary retention The bleeding was related to trauma from the initial hebert catheter -resume your eliquis tonight -if you have pink (see-through) bloody urine, hold your eliquis and call the urologist's office -if you have more severe bleeding (rosy blood or blood clots, or if the catheter clogs up) seek immediate medical attention, in the ER if necessary. This may require catheter irrigation or other treatments Your kidney function has already improved because of the catheter placement. Cr was 1.7 today which is only a little above your baseline. It should resolve to your normal soon. I prescribed empiric antibiotic. You can start taking it tomorrow morning. If your urine culture grows resistant bacteria, I may have to call you and change the antibiotic. Take probiotic for 2-4 weeks to prevent antibiotic-associated diarrhea Follow up with Urology in the office in 5-7 days for voiding trial and discuss how to manage the stricture with Dr. García If you end up having recurrent urinary tract infections talk to Dr. Avalos about changing your Farxiga to a different diabetes medication It was a pleasure taking care of you in the hospital, Jesenia Bailey MD Pending Studies at Discharge: Yes Studies:: urine culture Stand-Alone Forms: [facility], Smoking Cessation Medications and DC Order Prescriptions: New cefuroxime axetil 500 mg tablet 500 mg PO BID 10 Days Qty: 20 0RF Continued amiodarone 200 mg tablet 200 mg PO DAILY Qty: 90 3RF furosemide 40 mg tablet 40 mg PO DAILY PRN (Reason: weight gain) Qty: 180 3RF Rx Instructions: Take 1 to 2 tablets daily until body weight at baseline, then take only as needed. If you do not have a good diuretic response with 40 mg, increase to 80 mg. Gemtesa 75 mg tablet 75 mg PO DAILY Qty: 30 5RF ergocalciferol (vitamin D2) 50 mcg (2,000 unit) tablet 50 mcg PO DAILY Qty: 30 0RF Rx Instructions: 10/16-otc unable to verify ferrous sulfate 325 mg (65 mg iron) tablet 325 mg PO UD Rx Instructions: original: Takes half orally twice a day; 10/16- last filled 03/27/24 30 day supply dapagliflozin propanediol 10 mg tablet 10 mg PO DAILY Qty: 90 3RF metoprolol succinate 25 mg tablet extended release 24 hr 12.5 mg PO UD Rx Instructions: original:12.5 mg po daily 10/16-last filled 03/17/24 90 day supply potassium chloride [Klor-Con M20] 20 mEq tablet,ER particles/crystals 20 meq PO DAILY PRN (Reason: On days that Furosemide is taken) Qty: 90 3RF rosuvastatin 40 mg Tablet 40 mg PO HS bisacodyl [Dulcolax (bisacodyl)] 5 mg Tablet,Delayed Release (Dr/Ec) 5 mg PO HS PRN (Reason: Constipation) Rx Instructions: 10/16-otc unable to verify metronidazole 0.75 % cream 1 applic TOPICAL .1-2X DAILY PRN (Reason: Other) Rx Instructions: last filled 11/15/23 diclofenac sodium [Voltaren Arthritis Pain] 1 % Gel 2 g EXT Q12H PRN (Reason: joint pain) Qty: 100 0RF Rx Instructions: 10/16-otc/no fill history unable to verify magnesium oxide 400 mg (241.3 mg magnesium) Tablet 400 mg PO HS Qty: 30 0RF Rx Instructions: 10/16-otc unable to verify Eliquis 5 mg tablet 5 mg PO UD Rx Instructions: original:5mg po q12h 10/16-last filled 06/05/24 90 day supply #180 Discharge Orders: Discharge Order (Routine); Ordered 10/17/24 Ordered By: Jesenia De La Cruz/Other Patient Handouts: Indwelling Urinary Catheter Dc, Leg Bag Care Dc Admission Data Admit Date/Time: 10/16/24 17:08 Attending Provider: Jesenia Bailey Admit Provider: Sreekanth Andrew Primary Care Provider: Zac Avalos Other Providers: Eliazar Mcghee; Zac García; Winifred Armando; Napoleon Hernandez; Emma Olivo; Kike Larios; Chelsea Lucia; Nazario Olivares; Lloyd Block; Floyd Wooten; Andrew Newsome Other Interventions: Discharge Summary Assessment (RN) Last Done: 10/17/24 13:51 Hospital Stay Data Consultations 10/16/24 16:41 ED Decision to Admit Stat 10/16/24 18:07 Consult Urology Routine Diagnostic Imagining Performed 10/16/24 12:30 US Renal Bladder [US renal/blad retro comp] Stat Pending Results Patient Have Any Pending Studies at Discharge: Yes Discharge Instructions Given to Patient (Per Discharging Provider) You were treated for urinary tract infection and kidney injury related to urinary retention The bleeding was related to trauma from the initial hebert catheter -resume your eliquis tonight -if you have pink (see-through) bloody urine, hold your eliquis and call the urologist's office -if you have more severe bleeding (rosy blood or blood clots, or if the catheter clogs up) seek immediate medical attention, in the ER if necessary. This may require catheter irrigation or other treatments Your kidney function has already improved because of the catheter placement. Cr was 1.7 today which is only a little above your baseline. It should resolve to your normal soon. I prescribed empiric antibiotic. You can start taking it tomorrow morning. If your urine culture grows resistant bacteria, I may have to call you and change the antibiotic. Take probiotic for 2-4 weeks to prevent antibiotic-associated diarrhea Follow up with Urology in the office in 5-7 days for voiding trial and discuss how to manage the stricture with Dr. García If you end up having recurrent urinary tract infections talk to Dr. Avalos about changing your Farxiga to a different diabetes medication It was a pleasure taking care of you in the hospital, Jesenia Bailey MD Total Time Total Time Spent Total Time Spent (In Minutes): I personally spent: [40 ] minutes today on clinical care activities including: reviewing chart notes and vital signs [x] reviewing labs [x] reviewing studies [x] discussion with leasing consultant(s) [] discussion with child care specialist x examining and counseling the patient [x] counseling the patient's family writing orders [x] writing prescriptions, discharge instructions documentation Coding Level of Care Code 70318 INP/OBS DISCH >30 MIN Diagnoses Hebert catheter in place Z97.8 JULIEN (acute kidney injury) N17.9 Acute UTI (urinary tract infection) N39.0 Acute on chronic heart failure with preserved ejection fraction I50.33 Heart failure chronicity: acute on chronic Hematuria R31.0 Hematuria type: gross Paroxysmal atrial fibrillation I48.0 Atrial fibrillation type: paroxysmal Bladder neck contracture N32.0 Chronic kidney disease, stage II (mild) N18.2 Diabetes E11.9 Primary hypertension I10 Hypertension type: primary hypertension Urinary retention R33.9 Hyperlipemia E78.5 History of prostate cancer Z85.46
--- NOTE | 2024-10-19 08:08 | Coding Query ---
CODING QUERY To promote full compliance with coding requirements relating to patient care, provider participation is requested in all cases of station gateman uncertainty. Please assist us with the question(s) below: In the record, it states that the patient has an UTI. Please clarify below the cause of the UTI if applicable. Thank you. ( x ) The hebert was the cause of the UTI. ( ) Other urinary cath/device was the cause of the UTI. ( ) UTI, unspecified cause. ( ) Other (Specify): Principal Diagnosis: "that condition established after study, to be chiefly responsible for occasioning the admission of the patient to the hospital for care." Co-Existing Principal Diagnosis: "when two or more diagnoses equally meet the criteria for principal diagnosis as determined by the circumstances of admission, diagnostic work up, and/or therapy provided, and the Alphabetic Index, Tabular List, or another coding guideline does not provide sequencing direction, any one of the diagnoses may be sequenced first." "When the physician has documented what appears to be a current diagnosis in the body of the record, but has not included the diagnosis in the final diagnostic statement, the physician should be asked whether the diagnosis should be added." (Source Coding [facility] 2 QTR90. p3-4) CARO
--- NOTE | 2024-10-19 19:09 | Communication Note ---
Date of Service: October 19, 2024 Reviewed urine culture - aerococcus and oxacillin sensitive staph epi will both be sensitive to his current oral antibiotic (cefuroxime) Blood cultures remain NGTD Has urology appt 10/22
== END 2024-10-17 15:00 | disposition home or self-care (01) | DRG 699 ==
LOC: ED 10:51 → 3W 17:08 → SUATTDRO 17:08 → INTOOBSV 17:08 → 3W 17:39

== ENCOUNTER 2025-04-16 08:42 | Inpatient (IN) ==
[2025-04-16 09:25] LABS: Hematocrit (blood only) 33.6 % (42.0-52.0); Hemoglobin 10.6 g/dL (14.0-18.0); Immature Granulocytes # (auto) 0.13 K/uL (0.01-0.20); Immature Granulocytes % (auto) 1.4 %; Mean Corpuscular Hemoglobin 26.6 pg (25.0-34.0); Mean Corpuscular Volume 84.2 fL (80.0-100.0); Platelet Count 272 K/uL (130-400); RDW Standard Deviation 50.6 fL (36.4-46.3); Red Blood Count 3.99 M/uL (4.70-6.10); White Blood Count 9.02 K/ul (4.8-10.8)
--- NOTE | 2025-04-16 09:29 | Emergency Department Note ---
Impression & Plan Gross hematuria, Anemia, Acute kidney insufficiency, Acute urinary retention ED Provider Note NAME: RED FELIZ AGE: 84 SEX: M : 1940 ARRIVES VIA: Walk-In INFORMANT: Patient, his ED PROVIDER(S): Gordno Watson DO CHIEF COMPLAINT: urinary retention HPI: This is an 84-year-old male with the PMHx of ongoing urinary retention 2/2 urethral strictures, CHF, pAfib on chronic anticoagulation with Apixaban and CKD presenting to [facility] for further evaluation of urinary retention. Patient states he reported to the urology office this morning as he wanted his Charles catheter removed. He states that he did not have an appointment and nursing staff removed his Charles catheter without void trial. He states since that time he has passed large clots that he feels were within his urethra. No further bleeding. States he has been unable to urinate. They deny fever or chills. No cough or congestion. Denies chest pain or palpitations. No shortness of breath. They deny abdominal pain, nausea and vomiting. No urinary complaints. No recent changes in bowel movements. Patient denies recent changes in medications or OTC supplements. Patient offers no other complaints, today. ADDITIONAL HISTORY OBTAINED: Per HPI Chronic Medical/Social Conditions Affecting Care: Per HPI PAST MEDICAL HISTORY: See Below PAST SURGICAL HISTORY: See Below FAMILY HISTORY: See Below SOCIAL HISTORY: See Below HOME MEDICATIONS: See Below ALLERGIES: See Below VITALS: See Below PHYSICAL EXAMINATION: GENERAL: Sitting up in bed, alert, well appearing, well nourished, no distress, non-toxic EYE EXAM: normal conjunctiva. OROPHARYNX: no exudate, no erythema, lips, buccal mucosa, and tongue normal and mucous membranes are moist NECK: supple, no nuchal rigidity, no adenopathy, non-tender LUNGS: Clear to auscultation. Normal chest wall mechanics HEART: no murmurs, regular rate, regular rhythm ABDOMEN: abdomen soft, palpable bladder, suprapubic TTP, no masses, no rebound or guarding. BACK: Back is symmetrical on inspection and there is no deformity, no midline tenderness, no CVA tenderness. SKIN: no rashes and no bruising UPPER EXTREMITIES: upper extremities are grossly normal. LOWER EXTREMITIES: No pitting edema. NEURO EXAM: Normal sensorium, GCS 15, normal speech, no gross weakness of arms, no gross weakness of legs. MEDICAL DECISION MAKING: Differential diagnoses includes but not limited to urinary retention, urethral stricture, clot burden, BPH, appendicitis, bowel obstruction, diverticulitis, malignancy, nephrolithiasis, gastroenteritis, pancreatitis, hepatobiliary disease, UTI In summary, this is an 84 year old male who presented with urinary retention. Differential as above. Nursing notes and pertinent past medical records reviewed. Vital signs reviewed and the patient is afebrile and HDS. History and presentation revealed ongoing issue for the patient. Presented to the urology clinic and requested urethral catheter removal. He is anticoagulated. Physical examination revealed as above. As a result of my initial evaluation, IV access was established and the patient was placed on CCRM. He was offered analgesia but felt to be unnecessary. Will allow the patient to attempt voiding. If unsuccessful and positive bladder scan, we will place urethral catheter. Diagnostics interpreted by me include cardiac monitoring as listed below: -Cardiac Monitoring: An order was placed for continuous cardiac monitoring. The monitor shows a rate of 50-70s with regular rhythm. Patient completed laboratory studies and imaging. Results independently interpreted by me are mild anemia. Comparable to baseline recent approximately 2 g drop. Normal electrolytes with adequate appears to be approximately April. Kidney function has also worsened from previous. The patient was managed with bladder scan after unsuccessful void trial. Urethral catheter was placed without difficulty by nursing staff. This yielded significant gross hematuria. Urology was sent photos of the collection and we discussed by telephone. They plan for operative intervention for the patient. Given gross hematuria with Hgb drop and worsening kidney function, plan to admit to the hospital. Discussed if further CT imaging was warranted and felt to be unnecessary per urology. Ultimately, the decision was made to admit the patient for gross hematuria in the setting of chronic anticoagulation leading to acute urinary retention, anemia and worsening kidney dysfunction. I discussed the case with the hospitalist service via telephone/TigerText and they are agreeable to admit the patient to their services. Based on the above, including the patient's age, coexisting illnesses, labs, imaging, and exam findings the decision to treat as an inpatient. I discussed the patient with the hospitalist team who recommended admission to their services. They received the medications, treatments, interventions indicated above and their condition remained stable. I discussed my findings with the patient and their family and they understand and agree with the treatment plan. All patient / family questions were answered to their satisfaction. Case discussed with consultants including Urology, Winifred BAUER. Consults/Care Managements Discussions: Per MDM ER treatment provided: See above Procedures: None Critical Care: None The chart was completed utilizing [employer] Speech voice recognition software. Grammatical errors, random word insertions, pronoun errors, and incomplete sentences are an occasional consequence of this system due to software limitations, ambient noise, and hardware issues. Any formal questions or concerns about the content, text, or information contained within the body of this dictation should be directly addressed to the physician for clarification. Past Med/Surg History Problem List (Updated 04/17/25 @ 08:45 by Gordon Watson DO) Acute urinary retention (Acute) Acute kidney insufficiency (Acute) Anemia (Acute) Gross hematuria (Acute) Urethral stricture Pleural effusion Urinary retention Charles catheter in place (Acute) JULIEN (acute kidney injury) (Acute) Scrotal swelling Complication, blocked Charles catheter (Acute) Irradiation cystitis with hematuria Blood loss anemia (Acute) Hematuria (Acute) Left ventricular systolic dysfunction (LVSD) LVEF 45% to 50%, likely secondary to rapid atrial fibrillation. Vitamin D deficiency Atrial fibrillation Ascending aorta dilatation Pericardial effusion Bladder neck contracture Congestive heart failure Chronic kidney disease, stage II (mild) Anemia (Acute) Pleural effusion, bilateral Atrial fibrillation with rapid ventricular response (Acute) JULIEN (acute kidney injury) (Acute) Stress incontinence Encounter for pre-operative examination Hematochezia sigmoidoscopy 12/2019 -- poor enema results. has upcoming colonoscopy. 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 deviated nasal septum Excessive cerumen in both ear canals Sensorineural hearing loss (SNHL) of left ear with restricted hearing of right ear Sensorineural hearing loss (SNHL) of both ears Medical History (Updated 04/17/25 @ 08:45 by Gordon Watson DO) Chronic kidney disease, stage III (moderate) (HFpEF) heart failure with preserved ejection fraction Atrial fibrillation status post cardioversion Prostate cancer (12/23/10) Diabetes mellitus, type 2 NIDDM Well controlled per patient Transient ischemic attack (TIA) Questionable in 2016- possibly related to previous right ICA disease- s/p CEA July 2020 Hard of hearing Lt- no hearing aid needed Cardiac murmur Dx as a child; PCP monitoring History of prostate cancer s/p sx, radiation History of 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 Harris @ [facility] Hx of flexible sigmoidoscopy History of colonoscopy with polypectomy History of Mohs surgery for squamous cell carcinoma of skin off right cheek History of cataract surgery bilt History of prostate biopsy History of melanoma excision History of tonsillectomy Age 4 History of prostatectomy 03/08/11 Family History Mother , Passed age 93 of old age No problems noted. Father , Passed age 53 of cerebral hemorrhage No problems noted. Sister No problems noted. Sister No problems noted. Son No problems noted. Son No problems noted. Daughter No problems noted. Other No family history of adverse response to anesthesia Social History Smoking Status: Never smoker Second Hand Exposure: No; Do You Dip or Chew Tobacco: No; Tobacco Cessation Education Requested by Patient: No Hx Alcohol Use: Yes Alcohol type: beer Hx Substance Use: No Preferred Language: Upper Sorbian Communication Ability: Effective Visual Impairment: No Limitations Hearing Ability: Hard of Hearing Installation Technician Required: No Beliefs That Will Affect Care: None marital status: Current Living Situation: Spouse Current Living Situation Comment: lives with son and daughter Blanka current occupational status: retired 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 [employer] Other Information That Helps Us Care for You: No Feels Safe at Home: Yes Safety Concerns: Feels Safe At This Time caffeine: Yes (1-2 cups of coffee/day ) during the past year weight has: decreased > 10 lbs Assistive Devices: Cane Allergies Allergies Allergy/AdvReac Type Severity Reaction Status Date / Time No Known Allergies Allergy Verified 04/16/25 11:20 Home Meds Home Medications Medication Instructions Recorded Confirmed rosuvastatin 40 mg tablet 40 mg PO HS 12/28/19 04/16/25 bisacodyl 5 mg tablet,delayed 5 mg PO HS PRN Constipation 07/02/20 04/16/25 release (Dulcolax (bisacodyl)) ferrous sulfate 325 mg (65 mg 325 mg PO DAILY 03/19/24 04/16/25 iron) tablet apixaban 5 mg tablet (Eliquis) 5 mg PO BID 10/16/24 04/16/25 furosemide 40 mg tablet 40 mg PO Q OTHER DAY PRN weight 03/14/25 04/16/25 gain amiodarone 200 mg tablet 100 mg PO DAILY 03/15/25 04/16/25 cholecalciferol (vitamin D3) 25 25 mcg PO DAILY 03/15/25 04/16/25 mcg (1,000 unit) capsule (Vitamin D3) magnesium oxide 500 mg PO HS 03/15/25 04/16/25 dapagliflozin propanediol 10 mg 10 mg PO DAILY 04/16/25 04/16/25 tablet (Farxiga) sacubitril 24 mg-valsartan 26 mg 1 tab PO BID 04/16/25 04/16/25 tablet Results & Data (ED) Vital Signs Vital Signs - 24 hr 04/16/25 08:49 Temperature 36.9 C Temperature Source Temporal Artery Scan Pulse Rate 69 Respiratory Rate 20 Respiratory Effort / Characteristics Non-Labored Respiratory Depth Normal Blood Pressure 137/62 Blood Pressure Mean 87 Pulse Oximetry 99 Oxygen Delivery Method Room Air Sepsis Recent Fever Within 48 Hours No Sepsis New/Unexplained Change in Mental Status No Sepsis Action Taken by Nursing No Action Required Laboratory Data 04/17/25 05:25 04/17/25 05:25 Lab Results 04/16/25 04/16/25 04/16/25 Range/Units 09:05 10:00 11:11 WBC 9.02 (4.8-10.8) K/ul RBC 3.99 L (4.70-6.10) M/uL Hgb 10.6 L (14.0-18.0) g/dL Hct 33.6 L (42.0-52.0) % MCV 84.2 (80.0-100.0) fL MCH 26.6 (25.0-34.0) pg MCHC 31.5 L (32.0-36.0) g/dL RDW Std Deviation 50.6 H (36.4-46.3) fL RDW Coeff of Milvia 16.4 H (11.5-14.5) % Plt Count 272 (130-400) K/uL MPV 9.2 L (9.4-12.4) fL Immature Gran % (Auto) 1.4 % Neut % (Auto) 81.9 % Lymph % (Auto) 6.8 % Whitley % (Auto) 9.4 % Eos % (Auto) 0.1 % Baso % (Auto) 0.4 % Neut # (Auto) 7.38 H (1.40-6.50) K/uL Lymph # (Auto) 0.61 L (1.20-3.40) K/uL Whitley # (Auto) 0.85 H (0.11-0.59) K/uL Eos # (Auto) 0.01 (0.00-0.50) K/uL Baso # (Auto) 0.04 (0.00-0.20) K/uL Immature Gran # (Auto) 0.13 (0.01-0.20) K/uL Sodium 136 (136-145) mmol/L Potassium 3.9 (3.5-5.1) mmol/L Chloride 101 (98-107) mmol/L Carbon Dioxide 26 (21-32) mmol/L Anion Gap 9 (3-11) BUN 30 H (6-23) mg/dl Creatinine 1.55 H (0.6-1.4) mg/dl Est Cr Clr Drug Dosing 38.2 ml/min eGFR 43.59 BUN/Creatinine Ratio 19.4 (10-20) Glucose 169 H (70-99(Fasting)) mg/dl POC Glucose 144 H (70-99) mg/dl Calcium 9.2 (8.6-10.3) mg/dl Total Bilirubin 0.6 (0.2-1.0) mg/dl AST 28 (13-39) U/L ALT 21 (7-52) U/L Alkaline Phosphatase 126 H (34-104) U/L Total Protein 7.2 (6.0-8.3) gm/dl Albumin 4.1 (3.4-5.0) gm/dl Globulin 3.1 (2.5-4.0) gm/dl Albumin/Globulin Ratio 1.3 (0.9-2) Urine Color See Comment Urine Appearance Cloudy A (Clear) Urine pH Not Reportable Ur Specific [place] 1.027 (1.000-1.030) Urine Protein Not Reportable Urine Glucose (UA) Not Reportable Urine Ketones Not Reportable Urine Blood Not Reportable Urine Nitrite Not Reportable Urine Bilirubin Not Reportable Urine Urobilinogen Not Reportable Ur Leukocyte Esterase Not Reportable Urine RBC >20 H (0-2) /hpf Urine WBC >50 H (0-5) /hpf Ur Epithelial Cells 0-2 (0-2) /hpf Urine Bacteria 1+ H (None Seen) Urine Comment Administered Medications Piperacillin Sod/Tazobactam Sod (Zosyn) 4.5 gm in 100 mls @ 25 mls/hr IV Q8H [facility]; Protocol Stop: 04/27/25 05:59 Last Admin: 04/17/25 05:45 Dose: 25 mls/hr Documented By: CRUZ Albumin Human (Albumin 25%) 25 gm in 100 mls @ 50 mls/hr IV Q2H [facility] Stop: 04/17/25 09:14 Last Admin: 04/17/25 07:36 Dose: 50 mls/hr Documented By: Infusion: 04/17/25 07:36 Dose: Infused Documented By: Admin: 04/17/25 05:39 Dose: 50 mls/hr Documented By: CRUZ Insulin Aspart (Insulin Aspart Per Unit Charge) 0 units SC ACHS [facility] Stop: 05/16/25 20:59 Last Admin: 04/16/25 22:14 Dose: Not Given Documented By: CRUZ Co-signed By: farheen Rosuvastatin Calcium (Rosuvastatin Calcium 20 Mg Tab) 40 mg PO [facility] Stop: 05/16/25 20:59 Last Admin: 04/16/25 21:30 Dose: 40 mg Documented By: CRUZ Discontinued Medications Ciprofloxacin Lactate (Cipro / D5w) 200 mg in 100 mls @ 100 mls/hr IV NOW STA; Protocol Stop: 04/16/25 12:17 Last Infusion: 04/16/25 12:50 Dose: Infused Documented By: Admin: 04/16/25 11:46 Dose: 100 mls/hr Documented By: ESTEBAN Lactated Ringer's (Lr) 1,000 mls @ 15 mls/hr IV .Q24H [facility] Stop: 04/19/25 11:29 Last Infusion: 04/16/25 11:45 Dose: Infused Documented By: [facility] Admin: 04/16/25 11:32 Dose: 15 mls/hr Documented By: Lactated Ringer's (Lr) 1,000 mls @ 80 mls/hr IV .[id number] ONE Stop: 04/17/25 07:26 Last Admin: 04/16/25 21:19 Dose: 80 mls/hr Documented By: [facility] Lactated Ringer's (Lr) 500 mls @ 999 mls/hr IV .Q31M ONE Stop: 04/16/25 19:55 Last Infusion: 04/16/25 20:10 Dose: Infused Documented By: [facility] Admin: 04/16/25 19:39 Dose: 999 mls/hr Documented By: [facility] Lactated Ringer's (Lr) 500 mls @ 999 mls/hr IV .Q31M ONE Stop: 04/16/25 22:00 Last Infusion: 04/16/25 22:39 Dose: Infused Documented By: [facility] Admin: 04/16/25 22:08 Dose: 999 mls/hr Documented By: [facility] Lactated Ringer's (Lr) 500 mls @ 999 mls/hr IV .Q31M ONE Stop: 04/17/25 00:06 Last Infusion: 04/17/25 01:33 Dose: Infused Documented By: [facility] Admin: 04/16/25 23:49 Dose: 999 mls/hr Documented By: [facility] Piperacillin Sod/Tazobactam Sod (Zosyn) 4.5 gm in 100 mls @ 200 mls/hr IV NOW ONE; Protocol Stop: 04/17/25 00:44 Last Infusion: 04/17/25 02:25 Dose: Infused Documented By: [facility] Admin: 04/17/25 01:55 Dose: 200 mls/hr Documented By: [facility] Lactated Ringer's (Lr) 500 mls @ 999 mls/hr IV .Q31M ONE Stop: 04/17/25 04:00 Last Infusion: 04/17/25 04:22 Dose: Infused Documented By: farheen Admin: 04/17/25 03:47 Dose: 999 mls/hr Documented By: [facility] Lactated Ringer's (Lr) 500 mls @ 999 mls/hr IV .Q31M ONE Stop: 04/17/25 05:43 Last Infusion: 04/17/25 05:53 Dose: Infused Documented By: Admin: 04/17/25 05:22 Dose: 999 mls/hr Documented By: CRUZ Discharge Plan Visit Data Chief Complaint: Unable to Void Stated Complaint: BLADDER BLOCKAGE ED Provider: Gordon Watson Discharge Problem: Gross hematuria, Anemia, Acute kidney insufficiency, Acute urinary retention Patient Disposition: Admitted As Inpatient Condition: Serious Discharge Instructions Interventions: ED Discharge Assessment Last Done: 04/16/25 11:10
[2025-04-16 09:41] LABS: Alanine Aminotransferase 21.0 U/L (7-52); Albumin Globulin Ratio 1.3 (0.9-2); Albumin Level 4.1 gm/dl (3.4-5.0); Alkaline Phosphatase 126.0 U/L (34-104); Anion Gap 9.0 (3-11); Bilirubin,Total 0.6 mg/dl (0.2-1.0); Blood Urea Nitrogen 30.0 mg/dl (6-23); Calcium 9.2 mg/dl (8.6-10.3); Carbon Dioxide 26.0 mmol/L (21-32); Chloride 101.0 mmol/L (98-107); Creatinine Clr Calc Pharmacy 38.2 ml/min; Globulin 3.1 gm/dl (2.5-4.0); Glucose 169.0 mg/dl (70-99(Fasting)); Potassium 3.9 mmol/L (3.5-5.1); Sodium 136.0 mmol/L (136-145); Total Protein 7.2 gm/dl (6.0-8.3)
[2025-04-16] MEDS ORDERED: MIDAZOLAM HCL 1 MG/ML 2ML VIAL ONE (10:56)
[2025-04-16] MEDS ORDERED: PROPOFOL IV EMULSION 10 MG/ML 20 ML VIAL IV ONE (10:56)
[2025-04-16] MEDS ORDERED: ONDANSETRON INJ 2 MG/ML 2 ML VIAL ONE (10:56)
[2025-04-16] MEDS ORDERED: LIDOCAINE 2% 2 ML VIAL/AMP(20MG/ML) INFIL ONE (10:56)
[2025-04-16] MEDS ORDERED: DEXAMETHASONE SOD INJ 4 MG/ML VIAL ONE (10:56)
--- NOTE | 2025-04-16 11:02 | Urology Consultation ---
Date of Consultation April 16, 2025 Assessment & Plan (1) Urinary retention: (2) Hematuria: (3) JULIEN (acute kidney injury): Plan 84yo male with a history of prostate cancer s/p prostatectomy and radiation who presented to the ED today with urinary retention and gross hematuria. Given his recurrent urinary retention and gross hematuria, discussed proceeding to the OR for cystoscopy, clot evacuation, possible fulguration depending on findings. Risks and benefits of the procedure were discussed in detail. Expected clinical course reviewed. All questions were answered. Patient agreeable to proceeding. Plan for OR today for cystoscopy, clot evacuation, possible fulguration. Keep NPO. Maintain Charles catheter, can hand irrigate as needed. Will cover with antibiotics preoperatively. Urology will follow. Supervising Physician Co-Signing Physician Notes Agree with above. Recurrent hematuria and retention. Plan for cysto, fulguration, and clot evacuation now. Hope for resolution after this procedure. History of Present Illness History of Present Illness 84-year-old male with a history of prostate cancer s/p prostatectomy, radiation, BNC who presented to the ER today with c/o urinary retention. Patient was seen earlier this morning in the urology clinic and requested catheter removal. He has had recurrent issues of urinary retention and gross hematuria. He did have a recent outpatient cystoscopy 04/03/2025 Dr. García which showed some clot (small) in the dependent portion, a BNC but navigable with the scope, no tumors visualized, but some radiation cystitis. In the ED, he was afebrile and hemodynamically stable. Labs show WBCs 9.02, hemoglobin 10.6 (he was previously 12.1), creatinine 1.55 (previously 1.14). Urinalysis pending. A 16Fr Charles catheter was replaced by nursing staff and draining w/ gross hematuria. Patient is on Eliquis. Patient was seen at bedside in the ED. Awake and resting in bed on arrival. No acute distress. Charles intact and draining with hematuria. No suprapubic pain or pressure at present. No fevers. Reports he is catheter stopped draining overnight. He presented to the urology clinic this morning for catheter removal. Since catheter removal, he has been unable to void which prompted his arrival in the ED. Last ate at 8PM last evening. Allergies Allergy/AdvReac Type Severity Reaction Status Date / Time No Known Allergies Allergy Verified 04/12/25 09:14 Home Medications Medication Instructions Recorded Confirmed Type rosuvastatin 40 mg tablet 40 mg PO HS 12/28/19 04/12/25 History bisacodyl 5 mg tablet,delayed 5 mg PO HS PRN Constipation 07/02/20 04/12/25 History release (Dulcolax (bisacodyl)) metronidazole 0.75 % topical cream 1 applic topical .1-2X DAILY PRN 12/22/23 04/12/25 History Skin Irritation diclofenac sodium 1 % topical gel 2 g EXT Q12H PRN joint pain #100 01/04/24 04/12/25 Rx (Voltaren Arthritis Pain) grams ferrous sulfate 325 mg (65 mg 325 mg PO DAILY 03/19/24 04/12/25 History iron) tablet apixaban 5 mg tablet (Eliquis) 5 mg PO BID 10/16/24 04/12/25 History cephalexin 500 mg capsule 500 mg PO BID #10 caps 03/13/25 04/12/25 Rx furosemide 40 mg tablet 40 mg PO Q OTHER DAY PRN weight 03/14/25 04/12/25 History gain amiodarone 200 mg tablet 100 mg PO DAILY 03/15/25 04/12/25 History cholecalciferol (vitamin D3) 25 25 mcg PO DAILY 03/15/25 04/12/25 History mcg (1,000 unit) capsule (Vitamin D3) magnesium oxide 500 mg PO HS 03/15/25 04/12/25 History dapagliflozin propanediol 10 mg See Rx Instructions .Route 03/28/25 04/12/25 Rx tablet (Farxiga) .COMPLEX #90 tabs Patient History Medical History Prostate cancer (12/23/10) Diabetes mellitus, type 2 Transient ischemic attack (TIA) Hard of hearing Cardiac murmur History of prostate cancer History of malignant melanoma Dysmetabolic syndrome Hyperlipemia Aortic valve calcification Carotid stenosis, right Hypertension Surgical History History of right-sided carotid endarterectomy (~08/06/20) Hx of flexible sigmoidoscopy History of colonoscopy with polypectomy History of Mohs surgery for squamous cell carcinoma of skin History of cataract surgery History of prostate biopsy History of melanoma excision History of tonsillectomy History of prostatectomy Family History Mother No problems noted. Father No problems noted. Sister No problems noted. Sister No problems noted. Son No problems noted. Son No problems noted. Daughter No problems noted. 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 [employer] Feels Safe at Home: Yes caffeine: Yes (1-2 cups of coffee/day ) during the past year weight has: decreased > 10 lbs Assistive Devices: Cane, Walker and Other Review of Systems Review of Systems: All systems reviewed & are unremarkable except as noted in HPI & below Physical Exam Constitutional: no acute distress Respiratory: no respiratory distress and no labored breathing Skin: No visible rashes or lesions to exposed skin areas Neurologic: moves all extremities and awake Psychiatric: A+Ox3, euthymic affect Genitourinary: Charles intact and draining red urine Results & Data Vital Signs (Past 12 Hours) Vital Signs Temp Pulse Resp BP Pulse Ox O2 Del Method 04/16/25 08:49 36.9 C 69 20 137/62 99 Room Air PG Care Time/CCT Total # of Minutes Spent Total Time Spent with Patient: Total time spent is greater than 50% in coordination of care (as documented) at patient's floor/unit and/or counseling patient: Coding Level of Care Code 01300 INT INP/OBS CARE 2/55MIN Diagnoses Urinary retention R33.9 Hematuria R31.0 Hematuria type: gross JULIEN (acute kidney injury) N17.9 (2) Hematuria Hematuria type: gross Qualified Code(s): R31.0 - Gross hematuria
[2025-04-16] MEDS ORDERED: ONDANSETRON INJ 2 MG/ML 2 ML VIAL IV PRN ×2 (11:15→11:21)
[2025-04-16] MEDS ORDERED: ATROPINE SULFATE 0.1 MG/ML 10ML SYR IV PRN (11:15)
--- NOTE | 2025-04-16 11:20 | Anesthesiology Consultation ---
Date of Service April 16, 2025 Assessment & Plan (1) Encounter for pre-operative examination: Chart Review Chart Review: Acceptable Risk for Surgery and Patient NOT seen in Pre Admission Testing Consults Requested none History Surgery Operation Date: 04/16/25 10:25 Proposed Procedures p Cystoscopy, Clot Evacuation, Possible Fulguration - Zac García MD Height/Weight Height: 6 ft Weight: 79.5 kg Allergies Allergy/AdvReac Type Severity Reaction Status Date / Time No Known Allergies Allergy Verified 04/16/25 11:20 Medications Home Medications Medication Instructions Recorded Confirmed Last Taken rosuvastatin 40 mg tablet 40 mg PO HS 12/28/19 04/12/25 03/14/25 bisacodyl 5 mg tablet,delayed 5 mg PO HS PRN Constipation 07/02/20 04/12/25 07/12/20 release (Dulcolax (bisacodyl)) ferrous sulfate 325 mg (65 mg 325 mg PO DAILY 03/19/24 04/12/25 03/14/25 iron) tablet apixaban 5 mg tablet (Eliquis) 5 mg PO BID 10/16/24 04/12/25 03/14/25 furosemide 40 mg tablet 40 mg PO Q OTHER DAY PRN weight 03/14/25 04/12/25 Unknown gain amiodarone 200 mg tablet 100 mg PO DAILY 03/15/25 04/12/25 03/14/25 cholecalciferol (vitamin D3) 25 25 mcg PO DAILY 03/15/25 04/12/25 03/14/25 mcg (1,000 unit) capsule (Vitamin D3) magnesium oxide 500 mg PO HS 03/15/25 04/12/25 03/14/25 dapagliflozin propanediol 10 mg 10 mg PO DAILY 04/16/25 04/16/25 04/16/25 07:00 tablet (Farxiga) sacubitril 24 mg-valsartan 26 mg 1 tab PO BID 04/16/25 04/16/25 04/16/25 07:00 tablet Past Medical History Medical History (Updated 04/16/25 @ 11:21 by Elias Rangel MD) Chronic kidney disease, stage III (moderate) (HFpEF) heart failure with preserved ejection fraction Atrial fibrillation status post cardioversion Prostate cancer (12/23/10) Diabetes mellitus, type 2 NIDDM Well controlled per patient Transient ischemic attack (TIA) Questionable in 2017- possibly related to previous right ICA disease- s/p CEA July 2020 Hard of hearing Lt- no hearing aid needed Cardiac murmur Dx as a child; PCP monitoring History of prostate cancer s/p sx, radiation History of malignant melanoma Right Ear - s/p removal - no current issues Dysmetabolic syndrome Hyperlipemia Aortic valve calcification Sclerotic trileaflet AV without significant stenosis per 11/2018 ECHO Carotid stenosis, right S/p CEA July 2020 Hypertension Past Family History Family History Mother , Passed age 93 of old age No problems noted. Father , Passed age 53 of cerebral hemorrhage No problems noted. Sister No problems noted. Sister No problems noted. Son No problems noted. Son No problems noted. Daughter No problems noted. Other No family history of adverse response to anesthesia Past Surgical History Surgical History History of right-sided carotid endarterectomy (~08/06/20) Dr. 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 History of cataract surgery bilt History of prostate biopsy History of melanoma excision History of tonsillectomy Age 4 History of prostatectomy 03/08/11 Social History Smoking Status: Never smoker Do You Dip or Chew Tobacco: No Hx Alcohol Use: No Alcohol type: beer and wine alcohol intake frequency: a few times a month Hx Substance Use: No substance use type: does not use Physical Exam Vital Signs Last Vital Signs Temp 36.9 C 04/16/25 08:49 Pulse 69 04/16/25 08:49 Resp 20 04/16/25 08:49 BP 137/62 04/16/25 08:49 Pulse Ox 99 04/16/25 08:49 O2 Del Method Room Air 04/16/25 08:49 Testing Laboratory Results 04/16/25 09:05 04/16/25 09:05 04/16/25 11:11 POC Glucose 144 H Electrocardiogram Date: 04/16/25 Findings: + NSR @ (62) and + NSST changes Echocardiogram Date: 11/02/24 EF 65%
[2025-04-16 11:21] LABS: Appearance Urine Cloudy (Clear)
[2025-04-16] MEDS ORDERED: ACETAMINOPHEN 325 MG TAB PO PRN (11:21)
[2025-04-16] MEDS ORDERED: MELATONIN 3 MG TAB PO PRN (11:21)
[2025-04-16] MEDS ORDERED: MAGNESIUM HYDROXIDE SUSP 30 ML UDC PO PRN (11:21)
[2025-04-16] MEDS ORDERED: POLYETHYLENE (MIRALAX) 17 GM PACK PO PRN (11:21)
[2025-04-16] MEDS ORDERED: ALUMINUM/MAGNESIUM SUSP 30 ML UDC PO PRN (11:21)
[2025-04-16 11:23] LABS: Epithelial Cell Urine 0-2 /hpf (0-2)
[2025-04-16] MEDS: LACTATED RINGER'S 1,000 ML IV SCH (11:32)
[2025-04-16] MEDS: CIPROFLOXACIN / D5W 200 MG/100 ML BAG IV STA (11:46)
--- NOTE | 2025-04-16 11:46 | XRay Report ---
XR chest 1V portable CLINICAL HISTORY: Preoperative evaluation. COMPARISON STUDY: Chest CT June 27, 2017. Chest radiograph January 14, 2025. FINDINGS: A 2.7 cm oval-shaped sclerotic lesion with narrow zone transition within the proximal left humeral metadiaphysis is unchanged from earlier exams. This is benign given stability. Elevation of t he right hemidiaphragm is unchanged. There is no pneumothorax or pleural effusion. There is no consol idation to suggest pneumonia. Cardiomegaly is unchanged. IMPRESSION: No acute cardiopulmonary findings. ACT 112: Negative or not required by law. Electronically signed by: Timmy Velásquez M.D. 04/16/2025 11:45 AM
--- NOTE | 2025-04-16 12:45 | Operative Report ---
PG Post Operative Report Pre & Post Diagnosis Operation Date: 04/16/25 10:25 Pre-Op Diagnosis: (1) Urinary retention (2) Hematuria (3) bladder neck contracture Post-Op Diagnosis: (1) Urinary retention (2) Hematuria (3) bladder neck contracture I identified the patient and participated in the time-out.: Yes Procedure Operation Date: 04/16/25 10:25 Actual Procedures p Cystoscopy, Clot Evacuation, Incision of bladder neck contracture, Fulguration(Not Applicable) - Zac García MD Surgeon Zac García MD Ribbon Hand none Estimated Blood Loss 0 Findings Consistent with Post-Op Diagnosis Specimens none Description of Procedure Mr. Burnett is an 84-year-old gentleman who has had recurrent retention episodes and intermittent hematuria for the past month plus. Unfortunately, he has relatively profound radiation cystitis and has had recurrent bladder neck contractures. He has passed voiding trials and then subsequently rebled and clotted again. He had some challenging catheter placements. He did have a cystoscopy in the office recently which showed a bladder neck that was sufficient to allow passage of 16 Jamaican scope but not drastically wider. This morning he returned through the emergency room with bleeding and inability to void. The patient was identified in the preoperative holding area, appropriate informed consents were reviewed and completed and the patient was transferred to the operative suite. Upon arrival, appropriate antibiotics and anesthesia were administered and the patient was placed in dorsal lithotomy position and prepped and draped in sterile fashion. To begin the case I passed a 27 Jamaican resectoscope with 30 degree lens. Inspection revealed the urethra without strictures, he did have a prostate that is relatively rigid and fixed consistent with prior radiation. His bladder neck was extremely tight and not initially accommodating of the scope, however with gentle pressure I was able to advance the scope through it and dilate the bladder neck. He had a substantial amount of clot which obscured our view within the bladder. I irrigated this clot free. There are likely 2 to 300 cc of clot that ultimately were evacuated. I then inspected his whole bladder and he had a few small areas bleeding around the bladder neck circumferentially, most prominently on the anterior surface. I additionally incised the bladder neck at 5 and 7:00 to allow easier passage of the scope and ultimately hopefully easier passage of catheters. I treated a few other prominent vessels throughout the prostate and gradually progressed around the bladder. The posterior wall just to his right of midline seem to be the most irritated area with the most edema as well as prominent vasculature. I cauterized this area as well as numerous other small areas scattered around the bladder. Ultimately, he did not appear to be actively bleeding and I was able to navigate through his bladder neck relatively comfortably. I did visualize his ureteral orifices during the cystoscopy and they were not involved. Elected to conclude the case at that time and I placed an 18 Jamaican three-way Charles catheter and started slow CBI. My tentative plan would be to continue him on CBI overnight, presuming he does not have significant bleeding or issues, I would likely plan to remove the catheter tomorrow. If he does have persistent bleeding or other issues, I would think it might be worth considering alum irrigation for 24 hours followed by catheter removal. I attest to the content of the Intraoperative Record and any orders documented therein. Any exceptions are noted below.
--- NOTE | 2025-04-16 14:48 | Anesthesiology Progress Note ---
Date of Service April 16, 2025 Anesthesia Post Procedure Vital Signs Vital Signs: Temp Pulse Pulse Resp BP BP Pulse Ox 04/16/25 14:35 60 21 111/57 L 96 04/16/25 14:05 60 20 114/60 95 04/16/25 13:50 58 L 21 125/63 96 04/16/25 13:35 59 L 22 124/63 96 04/16/25 13:20 59 L 22 127/68 96 04/16/25 13:05 36.5 C 59 L 22 124/61 96 04/16/25 12:55 62 21 123/63 96 04/16/25 12:45 67 15 116/60 100 04/16/25 12:39 36.3 C L 73 16 132/66 98 04/16/25 11:24 36.8 C 63 20 110/59 L 100 04/16/25 08:49 36.9 C 69 20 137/62 99 O2 Del Method O2 Flow Rate 04/16/25 14:35 Room Air 04/16/25 14:05 Room Air 04/16/25 13:50 Room Air 04/16/25 13:35 Room Air 04/16/25 13:20 Room Air 04/16/25 13:05 Room Air 04/16/25 12:55 Room Air 04/16/25 12:45 Oxymask 2 04/16/25 12:39 Oxymask 4 04/16/25 11:24 Room Air 04/16/25 08:49 Room Air Pain Intensity Penis: Pain Intensity: 4 Transfer of Care Handoff Completed per policy Notes Mental Status: alert / awake / arousable and participated in evaluation Patient Amnestic to Procedure: Yes Nausea / Vomiting: adequately controlled Pain: adequately controlled Airway Patency, RR, SpO2: stable & adequate BP & HR: stable & adequate Hydration State: stable & adequate Anesthetic Complications: no major complications apparent and Pt Satisfied with anesthetic care
[2025-04-16] MEDS ORDERED: DEXAMETHASONE SOD INJ 4 MG/ML VIAL IV ONE (17:44)
--- NOTE | 2025-04-16 18:24 | History & Physical Report ---
Date of Service April 16, 2025 Assessment & Plan (1) Urinary retention: (2) Hematuria: (3) JULIEN (acute kidney injury): (4) Congestive heart failure: (5) Chronic kidney disease, stage II (mild): (6) Anemia: (7) Diabetes mellitus, type 2: Plan Mr. Burnett is a 84 -year-old male patient with past medical history significant for atrial fibrillation, left ventricular systolic dysfunction, vitamin D deficiency, ascending aortic dilatation, bladder neck contracture, chronic kidne y disease stage II, stress incontinence, stenosis of right carotid artery, T2DM, hypertension, prostate cancer status post prostatectomy and radiation therapy that presented to [facility] emergency department with complaints of urinary retention (in setting of indwelling Charles not draining appropriately) and hematuria over the course of the past 4 days. He is on Eliquis for hx of AF and has continued to take with last dose this am. Has had indwelling Charles catheter present and woke up this morning at 4 AM with issues related to the catheter draining urine and possible urinary retention. He started developing lower abdominal discomfort therefore he presented to the outpatient [facility] urology office where his Charles catheter was discontinued. He went home at that time and was unable to void and ended up presenting to the emergency department for intervention. urology consulted in the emergency department and patient went immediately to the OR for cystoscopy, clot evacuation, fulguration with CBI postoperatively. ##Recurrent Charles catheter blockage/hematuria empiric Cipro preoperatively, UC pending s/p Cystoscopy, clot evacuation, incision of bladder neck contracture, fulguration on 04/16/[address] García CBI post op per urology with plan for possible discontinuation tomorrow and voiding trial continue to monitor for bleeding, postprocedure with CBI no rosy hematuria/pink-tinged urine in Charles catheter bag HOLD apixaban trend H&H, repeat at 1999 and in am ##Blood loss anemia H/H 10.6/33.6 on arrival, HD stable Monitor H/H with repeat at 2000, repeat in am, transfuse <7 or symptomatic, HOLD apixaban Fe studies, on oral Fe ##Atrial fibrillation/history of cardioversion/HFpEF admit to med/tele TTE 11/02/2024-->normal left ventricular systolic function with no regional wall motion abnormalities, EF 65 to 70%, no left ventricular hypertrophy, elevated left ventricular end-diastolic pressure, grade 2 diastolic dysfunction of the left ventricle, normal RV size and function, ascending aorta dilation measuring 4.2cm, heavily calcified tricuspid aortic valve, mild aortic stenosis EKG with NSR VR 62, [id number] continue amiodarone 200mg daily, HOLD home Entresto secondary to JULIEN, hold farxiga HOLD apixaban ##JULIEN superimposed on CKD Creatinine 1.55 with baseline~1.5 possible correlation d/t obstructive uropathy in setting of clot presence in bladder follows with nephrology outpatient-->hx of ATN secondary to ARB use in past with new onset AF diagnosis 11/2023 where he was markedly hypotensive (started farxiga at that time) LR 80ml/hr X 1 liter trend in am ##T2DM BSG ACHS SSI, hold Farxiga Dispo: Full admit to med/tele DVT proph: Eliquis held, no chemical PPX with concerns related to hematuria and decrease in H/H, SCDs Diet: HH, CC CODE STATUS: FULL CODE Admission and Anticipated Discharge Date Admission Date: April 16, 2025 History of Present Illness Chief Complaint: Inability to void, hematuria Primary Care Provider: Zac Avalos MD Mr. Burnett is a 84 -year-old male patient with past medical history significant for atrial fibrillation, left ventricular systolic dysfunction, vitamin D d eficiency, ascending aortic dilatation, bladder neck contracture, chronic kidney disease stage II, stress incontinence, stenosis of right carotid artery, T2DM, hypertension, prostate cancer status post prostatectomy and radiation therapy that presented to [facility] emergency department with complaints of urinary retention (in setting of indwelling Charles not draining appropriately) and gross hematuria over the course of the past 4 days. He is on Eliquis for hx of AF and has continued to take with last dose this am. Has had indwelling Charles catheter present and woke up this morning at 4 AM with issues related to the catheter draining urine and possible urinary retention. He started developing lower abdominal discomfort therefore he presented to the outpatient [facility] urology office where his Charles catheter was discontinued. He went home at that time and was unable to void and ended up presenting to the emergency department for intervention. ED physician re-inser maricel Charles and urology consulted with patient being taken to the OR immediately for cystoscopy, clot evac and fulguration. Discussed patient's code status with him prior to departure to OR and he elects to be a FULL CODE during hospitalization. Allergies Allergy/AdvReac Type Severity Reaction Status Date / Time No Known Allergies Allergy Verified 04/16/25 11:20 Home Medications Medication Instructions Recorded Confirmed Type rosuvastatin 40 mg tablet 40 mg PO HS 12/28/19 04/16/25 History bisacodyl 5 mg tablet,delayed 5 mg PO HS PRN Constipation 07/02/20 04/16/25 History release (Dulcolax (bisacodyl)) ferrous sulfate 325 mg (65 mg 325 mg PO DAILY 03/19/24 04/16/25 History iron) tablet apixaban 5 mg tablet (Eliquis) 5 mg PO BID 10/16/24 04/16/25 History furosemide 40 mg tablet 40 mg PO Q OTHER DAY PRN weight 03/14/25 04/16/25 History gain amiodarone 200 mg tablet 100 mg PO DAILY 03/15/25 04/16/25 History cholecalciferol (vitamin D3) 25 25 mcg PO DAILY 03/15/25 04/16/25 History mcg (1,000 unit) capsule (Vitamin D3) magnesium oxide 500 mg PO HS 03/15/25 04/16/25 History dapagliflozin propanediol 10 mg 10 mg PO DAILY 04/16/25 04/16/25 History tablet (Farxiga) sacubitril 24 mg-valsartan 26 mg 1 tab PO BID 04/16/25 04/16/25 History tablet Past Med/Surg History Problem List (Updated 04/16/25 @ 11:21 by Elias Rangel MD) Urethral stricture Pleural effusion Urinary retention Charles catheter in place (Acute) JULIEN (acute kidney injury) (Acute) Scrotal swelling Complication, blocked Charles catheter (Acute) Irradiation cystitis with hematuria Blood loss anemia (Acute) Hematuria (Acute) Left ventricular systolic dysfunction (LVSD) LVEF 45% to 50%, likely secondary to rapid atrial fibrillation. Vitamin D deficiency Atrial fibrillation Ascending aorta dilatation Pericardial effusion Bladder neck contracture Congestive heart failure Chronic kidney disease, stage II (mild) Anemia (Acute) Pleural effusion, bilateral Atrial fibrillation with rapid ventricular response (Acute) JULIEN (acute kidney injury) (Acute) Stress incontinence Encounter for pre-operative examination Hematochezia sigmoidoscopy 12/2019 -- poor enema results. has upcoming colonoscopy. 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 deviated nasal septum Excessive cerumen in both ear canals Sensorineural hearing loss (SNHL) of left ear with restricted hearing of right ear Sensorineural hearing loss (SNHL) of both ears Medical History (Updated 04/16/25 @ 11:21 by Elias Rangel MD) Chronic kidney disease, stage III (moderate) (HFpEF) heart failure with preserved ejection fraction Atrial fibrillation status post cardioversion Prostate cancer (12/23/10) Diabetes mellitus, type 2 NIDDM Well controlled per patient Transient ischemic attack (TIA) Questionable in 2017- possibly related to previous right ICA disease- s/p CEA July 2020 Hard of hearing Lt- no hearing aid needed Cardiac murmur Dx as a child; PCP monitoring History of prostate cancer s/p sx, radiation History of 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 Father , Passed age 53 of cerebral hemorrhage No problems noted. Sister No problems noted. Sister No problems noted. Son No problems noted. Son No problems noted. Daughter No problems noted. Other No family history of adverse response to anesthesia Social History Smoking Status: Never smoker Second Hand Exposure: No; Do You Dip or Chew Tobacco: No; Tobacco Cessation Education Requested by Patient: No Hx Alcohol Use: Yes Alcohol type: beer Hx Substance Use: No Preferred Language: Yoruba Communication Ability: Effective Visual Impairment: No Limitations Hearing Ability: Hard of Hearing Clinical Trial Head Required: No Beliefs That Will Affect Care: None marital status: Current Living Situation: Spouse Current Living Situation Comment: lives with son and daughter Blanka current occupational status: retired 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 Lying comfortably in bed. NAD. SKIN: Normal color without rashes or lesions. Normal turgor. HEENT: Head AT/NC. Buccal mucosa is moist and pink. NECK: No jugular venous distention. No thyroid enlargement. There is no lymphadenopathy. HEART: RRR with soft systolic murmur LUNGS: Normal inspiratory effort. CTA without w/r/r ABDOMEN: No guarding or rigidity. Normoactive BS in all four quadrants. Abdomen soft and NT. Indwelling Charles with CBI present-pink tinged urine present in bag. MSK: No bony gross/deformities throughout. ROM intact. EXTREMITIES: No edema, No peripheral cyanosis. Neuro: CN 2-12 grossly intact. No focal neuro deficits PSYCHIATRIC: Normal affect. Eye contact is good. Speech is normal rate and content. Responses are appropriate. Results & Data Results & Data Vital Signs (Past 12 Hours) Vital Signs Temp Pulse Pulse Resp BP BP Pulse Ox 04/16/25 17:00 61 04/16/25 16:36 36.4 C L 60 21 90/50 L 97 04/16/25 14:35 60 21 111/57 L 96 04/16/25 14:05 60 20 114/60 95 04/16/25 13:50 58 L 21 125/63 96 04/16/25 13:35 59 L 22 124/63 96 04/16/25 13:20 59 L 22 127/68 96 04/16/25 13:05 36.5 C 59 L 22 124/61 96 04/16/25 12:55 62 21 123/63 96 04/16/25 12:45 67 15 116/60 100 04/16/25 12:39 36.3 C L 73 16 132/66 98 04/16/25 11:24 36.8 C 63 20 110/59 L 100 04/16/25 08:49 36.9 C 69 20 137/62 99 O2 Del Method O2 Flow Rate 04/16/25 17:00 04/16/25 16:36 Room Air 04/16/25 14:35 Room Air 04/16/25 14:05 Room Air 04/16/25 13:50 Room Air 04/16/25 13:35 Room Air 04/16/25 13:20 Room Air 04/16/25 13:05 Room Air 04/16/25 12:55 Room Air 04/16/25 12:45 Oxymask 2 04/16/25 12:39 Oxymask 4 04/16/25 11:24 Room Air 04/16/25 08:49 Room Air Laboratory Results Labs reviewed: CBC, BMP, UA Code Status & VTE Plan VTE Prophylaxis Plan VTE Prophylaxis will be ordered: Yes Supervising Physician Co-Signing Physician Notes The patient was seen by me. The chart was reviewed. Case discussed with JUANCARLOS Palomares. Agree with assessment and plan. PG Care Time/CCT Total # of Minutes Spent Total Time Spent with Patient: Total time spent is greater than 50% in coordination of care (as documented) at patient's floor/unit and/or counseling patient: Coding Level of Care Code 72774 INT INP/OBS CARE 2/55MIN Diagnoses Urinary retention R33.9 Hematuria R31.0 Hematuria type: gross JULIEN (acute kidney injury) N17.9 Congestive heart failure I50.9 Chronic kidney disease, stage II (mild) N18.2 Anemia D64.9 Diabetes mellitus, type 2 E11.9 (2) Hematuria Hematuria type: gross Qualified Code(s): R31.0 - Gross hematuria
--- NOTE | 2025-04-16 18:53 | Electrocardiogram Report ---
Test Reason : Blood Pressure : */* mmHG Vent. Rate : 62 BPM Atrial Rate : 62 BPM P-R Int : 192 ms QRS Dur : 84 ms QT Int : 364 ms P-R-T Axes : 41 -6 31 degrees QTcB Int : 369 ms Normal sinus rhythm Low voltage QRS Nonspecific T wave abnormality Abnormal ECG When compared with ECG of 28-Dec-2024 12:27, CO interval has decreased Nonspecific T wave abnormality has replaced inverted T waves in Inferior leads Nonspecific T wave abnormality no longer evident in Anterior leads QT has shortened Confirmed by Zac Hendricks ([id number]) on 04/16/2025 6:52:40 PM Referred By: REFERRED SELF Confirmed By: Zac Hendricks
[2025-04-16] MEDS ORDERED: GLUCOSE 40% GEL 15 GM TUBE PO PRN (19:22)
[2025-04-16] MEDS ORDERED: DEXTROSE 50% 50 ML SYRINGE IV PRN (19:22)
[2025-04-16] MEDS ORDERED: CARBOHYDRATES FOR HYPOGLYCEMIA PO PRN (19:22)
[2025-04-16] MEDS ORDERED: GLUCOSE 10 TAB/TUBE PO PRN (19:22)
[2025-04-16] MEDS ORDERED: GLUCAGON FOR INJ 1 MG VIAL SQ PRN (19:22)
[2025-04-16] MEDS: LACTATED RINGER'S 500 ML IV ONE ×3 (19:39→23:49)
[2025-04-16 19:57] LABS: Hematocrit (blood only) 27.2 % (42.0-52.0); Hemoglobin 8.9 g/dL (14.0-18.0)
--- NOTE | 2025-04-16 20:35 | Communication Note ---
Date of Service: April 16, 2025 Alerted overnight that pt hypotensive. Pressures 80s/40s on the low side and 90s/50s on the higher end. He is completely asymptomatic. Given 500mL LR bolus x5 (2.5L IVF total not counting maintenance fluids running overnight). HR is permissible at 60s. Suspect this may be due to effects of anesthesia from earlier, but infectious cause also possible. Given one dose cipro for preop. Will give a dose of zosyn tonight. Morning dose of amiodarone held (unfortunately system would not let me hold this medication since a dose has not been given yet, so the best way to hold was to cancel it) as pt should be evaluated prior to administering. Blood cx ordered although pt already got ABs earlier today. Urine cx pending. Given albumin given low on labs. Electrolytes acceptable. Will continue to monitor through the night Resident Activity Tracking Resident Involvement: Resident Care Provided Care Provided: Adult Hospital Medicine
[2025-04-16] MEDS: LACTATED RINGER'S 1,000 ML IV ONE (21:19)
[2025-04-16] MEDS: ROSUVASTATIN CALCIUM 20 MG TAB PO SCH (21:30)
[2025-04-16] MEDS: INSULIN ASPART PER UNIT CHARGE SC SCH (22:14)
[2025-04-17 00:51] LABS: Alanine Aminotransferase 14.0 U/L (7-52); Albumin Globulin Ratio 1.3 (0.9-2); Albumin Level 3.1 gm/dl (3.4-5.0); Alkaline Phosphatase 90.0 U/L (34-104); Anion Gap 7.0 (3-11); Bilirubin,Total 0.4 mg/dl (0.2-1.0); Blood Urea Nitrogen 24.0 mg/dl (6-23); Calcium 8.4 mg/dl (8.6-10.3); Carbon Dioxide 27.0 mmol/L (21-32); Chloride 102.0 mmol/L (98-107); Creatinine Clr Calc Pharmacy 47.8 ml/min; Globulin 2.4 gm/dl (2.5-4.0); Glucose 106.0 mg/dl (70-99(Fasting)); Magnesium 2.0 mg/dl (1.7-2.4); Potassium 4.2 mmol/L (3.5-5.1); Sodium 136.0 mmol/L (136-145); Total Protein 5.5 gm/dl (6.0-8.3)
[2025-04-17] MEDS: PIPERACILLIN/TAZOBACTAM 4.5 GM/100 ML BAG IV ONE (01:55)
[2025-04-17] MEDS: LACTATED RINGER'S 500 ML IV ONE ×2 (03:47→05:22)
[2025-04-17] MEDS: ALBUMIN 25% 25 GM/100 ML VIAL IV SCH (05:39)
[2025-04-17] MEDS: PIPERACILLIN/TAZOBACTAM 4.5 GM/100 ML BAG IV SCH (05:45)
[2025-04-17 06:01] LABS: Hematocrit (blood only) 26.4 % (42.0-52.0); Hemoglobin 8.2 g/dL (14.0-18.0); Immature Granulocytes # (auto) 0.03 K/uL (0.01-0.20); Immature Granulocytes % (auto) 0.4 %; Mean Corpuscular Hemoglobin 26.4 pg (25.0-34.0); Mean Corpuscular Volume 84.9 fL (80.0-100.0); Platelet Count 209 K/uL (130-400); RDW Standard Deviation 51.7 fL (36.4-46.3); Red Blood Count 3.11 M/uL (4.70-6.10); White Blood Count 7.39 K/ul (4.8-10.8)
[2025-04-17 06:27] LABS: Anion Gap 5.0 (3-11); Blood Urea Nitrogen 22.0 mg/dl (6-23); Calcium 8.3 mg/dl (8.6-10.3); Carbon Dioxide 28.0 mmol/L (21-32); Chloride 104.0 mmol/L (98-107); Creatinine Clr Calc Pharmacy 51.1 ml/min; Glucose 114.0 mg/dl (70-99(Fasting)); Iron 23.0 mcg/dl (35-175); Potassium 4.4 mmol/L (3.5-5.1); Sodium 137.0 mmol/L (136-145); Total Iron Binding Cap Calc 314.0 mcg/dl (250-450); Transferrin 224.0 mg/dl (200-360); Transferrin (FE) Percent Satur 7.0 % (20-50)
--- NOTE | 2025-04-17 08:55 | Urology Progress Note ---
<Statement entered by Floyd Wooten MD - 04/18/25 09:58> Chart reviewed plan reviewed and agree as written. Date of Service April 17, 2025 Assessment & Plan (1) Acute urinary retention: (2) Gross hematuria: Plan - POD 1 s/p Cystoscopy, Clot Evacuation, Incision of bladder neck contracture, Fulguration with Dr. García - Subjectively feeling well this morning. - Pt afebrile, BP 95/56 this morning. Had low BPs overnight, received fluid bolus x 5 per notes. - Labs- wbc 7.39, hemoglobin 8.2 (10.6 on admit), creatinine 1.16 (1.55 on admit). - Urine/blood cultures pending. - Pt received Ciprofloxacin preoperatively and was started on Zosyn last night. - 3-way Charles intact and draining clear urine with CBI on slow rate. - CBI clamped at 0820, nursing aware- will reassess later this morning. - Continue supportive care. - Eliquis on hold. - Urology will follow - Pt reassessed this morning. - Overall feeling well, eager for discharge. - Urine remains clear off CBI. - OK to remove catheter for void trial. - He is okay for discharge from urology perspective after voiding, but will defer to primary team when they feel he is medically stable. - Can likely resume Eliquis on Thursday 04/19 from standpoint if urine remains appropriate. - Urology will follow, please contact us with any questions/concerns. Admission and Anticipated Discharge Date Admission Date: April 16, 2025 Subjective Pt seen at bedside this morning. Awake and resting in bed on arrival. NAD. Charles intact and draining clear urine with CBI on slow rate. Reports he is feeling well. No c/o pain. Denies f/c/n/v. Patient was hypotensive overnight. Was asymptomatic. Received fluid bolus x5 per notes. Was given a dose of Zosyn. Blood cultures collected. Review of Systems Constitutional: as per Subjective / HPI Genitourinary: + as per Subjective / HPI Physical Exam Constitutional: no acute distress Respiratory: no respiratory distress and no labored breathing Neurologic: awake Psychiatric: A+Ox3, euthymic affect Genitourinary: Charles intact and draining clear yellow urine with CBI on slow rate Results & Data Vital Signs (Past 12 Hours) Vital Signs Temp Pulse Pulse Pulse Resp BP BP 04/17/25 08:26 36.7 C 57 L 16 95/56 L 04/17/25 08:04 58 L 04/17/25 05:18 94/56 L 04/17/25 04:09 36.8 C 61 18 89/44 L 04/17/25 00:18 92/52 L 04/17/25 00:00 84/37 L 04/16/25 23:47 37.3 C 62 18 87/44 L 04/16/25 22:17 62 04/16/25 21:18 86/40 L Pulse Ox O2 Del Method 04/17/25 08:26 96 Room Air 04/17/25 08:04 04/17/25 05:18 04/17/25 04:09 95 Room Air 04/17/25 00:18 04/17/25 00:00 04/16/25 23:47 96 Room Air 04/16/25 22:17 04/16/25 21:18 PG Care Time/CCT Total # of Minutes Spent Total Time Spent with Patient: Total time spent is greater than 50% in coordination of care (as documented) at patient's floor/unit and/or counseling patient: Coding Level of Care Code 00905 SUB INP/OBS CARE 2/35MIN Diagnoses Acute urinary retention R33.8 Gross hematuria R31.0
[2025-04-17] MEDS ORDERED: AMIODARONE 200 MG TAB PO SCH (09:00)
[2025-04-17] MEDS: FERROUS SULFATE 325 MG TAB PO SCH (09:39)
--- NOTE | 2025-04-17 11:39 | Hospitalist Progress Note ---
Date of Service April 17, 2025 Assessment & Plan (1) Acute blood loss anemia: (2) Hypotension: (3) Urinary retention: (4) Hematuria: (5) Hematochezia: (6) JULIEN (acute kidney injury): (7) Congestive heart failure: (8) Chronic kidney disease, stage II (mild): (9) Diabetes mellitus, type 2: Plan Mr. Burnett is a 84 -year-old male patient with past medical history significant for atrial fibrillation, left ventricular systolic dysfunction, vitamin D deficiency, ascending aortic dilatation, bladder neck contracture, chronic kidney disease stage II, stress incontinence, stenosis of right carotid artery, T2DM, hypertension, prostate cancer status post prostatectomy and radiation therapy that presented to [facility] emergency department with complaints of urinary retention (in setting of indwelling Charles not draining appropriately) and hematuria over the course of the past 4 days. He is on Eliquis for hx of AF and has continued to take with last dose this am. Has had indwelling Charles catheter present and woke up this morning at 4 AM with issues related to the catheter draining urine and possible urinary retention. He started developing lower abdominal discomfort therefore he presented to the outpatient [facility] urology office where his Charles catheter was discontinued. He went home at that time and was unable to void and ended up presenting to the emergency department for intervention. urology consulted in the emergency department and patient went immediately to the OR for cystoscopy, clot evacuation, fulguration with CBI postoperatively. #Recurrent Charles catheter blockage | hematuria s/p Cystoscopy, clot evacuation, incision of bladder neck contracture, fulguration on 04/16/[address] García Empiric Cipro preoperatively Empiric Zosyn x 1 overnight on 04/16 Preliminary UCx on 04/16 revealed Staphylococcus epidermidis and Pantoea septica Urine remained clear off CBI Catheter removed for void trial Continue to monitor for bleeding Note: Post procedure, no rosy hematuria/pink-tinged urine Continue to hold apixaban until at least Thursday 04/19 Trend H&H Addendum at 1400: Reach out to urology team, as patient reported inability to void, and recurrence of suprapubic tenderness/pressure #Hypotension BP dropped to 84/37 overnight on 04/16 (MAP 53) Assessed by overnight team; ? Secondary to anesthesia Blood culture drawn AM amiodarone held Given 500 mL LR bolus x 5 (2.5 L IVF) Albumin 25% x2 HOLD all antihypertensive medications #Acute blood loss anemia Hgb continues to downtrend: 10.6 -> 8.9 -> 8.2 Suspect multifactorial (hematuria, hematochezia, and IVF dilution from overnight boluses) Platelets okay at >200 PT/INR, PTT ordered, pending Blood consent form obtained 2u pRBCs ordered, held 2 large-bore IVs ordered Repeat evening H&H, transfuse for <7 or symptomatic #Hematochezia | ?Lower GI bleed v. internal hemorrhoids New; Noted on 04/17 Reviewed GI h/o: H/o internal hemorrhoids and radiation prostatitis in 2019 Last colonoscopy 07/15/2020 revealed multiple medium sized localized angioectasias that were treated with argon plasma coagulation (APC) Clear liquid diet for now NPO at midnight in the event patient requires scope Reviewed last A/P CT that showed cirrhosis and esophageal varicosities GI consult appreciated #Atrial fibrillation/history of cardioversion/HFpEF TTE 11/02/2024-->normal left ventricular systolic function with no regional wall motion abnormalities, EF 65 to 70%, no left ventricular hypertrophy, elevated left ventricular end-diastolic pressure, grade 2 diastolic dysfunction of the left ventricle, normal RV size and function, ascending aorta dilation measuring 4.2cm, heavily calcified tricuspid aortic valve, mild aortic stenosis EKG with NSR VR 62, [id number] Amiodarone remains on hold for now in the setting of hypotension HOLD home Entresto secondary to JULIEN, hold farxi #JULIEN superimposed on CKD (resolved) Creatinine 1.55 on arrival possible correlation d/t obstructive uropathy in setting of clot presence in bladder #T2DM BSG ACHS SSI, hold Farxiga Disposition: Upgraded from MedSur telemetry -> PCU telemetry due to downtrending hemoglobin, new hematochezia, and hypotension overnight Admission and Anticipated Discharge Date Admission Date: April 16, 2025 Supervising Physician Co-Signing Physician Notes I did not see or examine the patient. I verified all lauren points and agree with Benito Bryant PA-C with the following exceptions and/or additions: None Subjective Mr. Burnett reports that his lower abdominal/suprapubic pain has returned. He rates the pain as a 7 out of 10, and reports it is "similar" to the pain/pressure he felt when he first came into the hospital after his catheter became blocked. While patient did have his catheter removed earlier today and voided around 10:30 AM (urinated proximately half an inch of clear fluid), he is now unable to void and having similar pain to before. Patient was originally concerned for hematuria, as that is been ongoing for 1 week. He initially felt better after the cystoscopy/clot evacuation, but feels that he had a setback this afternoon. Additionally, patient just had a bowel movement and went had bright red blood in his stool. No prior history of hemorrhoids, colon cancer, Crohn's disease, or ulcerative colitis he denies prior history of GI bleeds or peptic ulcers. He reports his last colonoscopy was ~5 years ago. He denies melena. He denies lightheadedness or shortness of breath when ambulating to and from the bathroom. ROS: Patient endorses inability to urinate, BRB in stool, and lower abdominal pain. Patient denies fevers, chest pain, SOB, OLVERA, lightheadedness when walking, or melena. Review of Systems Review of Systems: See HPI above Physical Exam Physical Exam: General: Mild distress secondary to lower abdominal pain; pleasant affect; anxious; family at bedside; non-toxic appearing; cooperative; SpO2 98% on RA HEENT: normocephalic, atraumatic; PERRLA; vision and hearing intact Neck: supple; trachea midline Skin: warm, dry without signs of tenting; no cyanosis; no rashes, bruising, lesions, or erythema noted CV: chest wall NTP; RRR; S1/S2 normal; no murmurs/rubs/gallops; pulses intact and symmetric at radial, DP, and PT Lungs: no acute respiratory distress; symmetrical chest wall expansion; clear breath sounds across all lung knowles w/o adventitious sounds; no wheezing ABD: Soft, NTP; BS present; no rebound/guarding; no distention MSK: no tics or fasciculations; no edema noted in the LEs b/l, nonerythematous Neuro: A&Ox3; normal mood and affect; fluent speech; sensation intact and symmetric in the LEs b/l : Suprapubic patient mildly TTP Back: Upper spine NTP; lower spine NTP; superficial/purple contusion noted on the right buttocks, as well as bright red blood on the sheets when patient stands up from bedside Gait: Patient demonstrates ability to ambulate to and from the bathroom using his IV pole, with some assistance from his family Assessed patient's stool in the bathroom, which is combination of loose/formed stool; BRB/gross hematochezia is present both in the toilet as well as on the patient's toilet paper Results & Data Results & Data Vital Signs (Past 12 Hours) Vital Signs Temp Pulse Pulse Pulse Resp BP BP 04/17/25 08:26 36.7 C 57 L 16 95/56 L 04/17/25 08:04 58 L 04/17/25 05:18 94/56 L 04/17/25 04:09 36.8 C 61 18 89/44 L 04/17/25 00:18 92/52 L 04/17/25 00:00 84/37 L 04/16/25 23:47 37.3 C 62 18 87/44 L Pulse Ox O2 Del Method 04/17/25 08:26 96 Room Air 04/17/25 08:04 04/17/25 05:18 04/17/25 04:09 95 Room Air 04/17/25 00:18 04/17/25 00:00 04/16/25 23:47 96 Room Air PG Care Time/CCT Total # of Minutes Spent Total Time Spent with Patient: Total time spent is greater than 50% in coordination of care (as documented) at patient's floor/unit and/or counseling patient: Coding [place] [address] SUB INP/OBS CARE 3/50MIN Patient Type Established Medical Decision Making High Complexity Diagnoses Acute blood loss anemia D62 Hypotension I95.9 Urinary retention R33.9 Hematuria R31.0 Hematuria type: gross Hematochezia K92.1 JULIEN (acute kidney injury) N17.9 Congestive heart failure I50.9 Chronic kidney disease, stage II (mild) N18.2 Diabetes mellitus, type 2 E11.9 (4) Hematuria Hematuria type: gross Qualified Code(s): R31.0 - Gross hematuria
[2025-04-17] MEDS ORDERED: SODIUM CHLORIDE 0.9% 100 ML IV PRN (14:44)
[2025-04-17 15:47] LABS: Hematocrit (blood only) 29.7 % (42.0-52.0); Hemoglobin 9.4 g/dL (14.0-18.0)
[2025-04-17 16:34] LABS: INR 1.1 (0.9-1.1); Partial Thromboplastin Time 33 Seconds (21-31); Prothrombin Time 11.5 Seconds (9.0-12.0)
[2025-04-17] MEDS: PANTOprazole 40 MG/10 ML SYR IV ONE (18:41)
[2025-04-17] MEDS: LACTATED RINGER'S 1,000 ML IV SCH (20:40)
[2025-04-17 23:07] VITALS: RESP 18
[2025-04-18 08:46] LABS: Hematocrit (blood only) 25.2 % (42.0-52.0); Hemoglobin 7.8 g/dL (14.0-18.0); Mean Corpuscular Hemoglobin 26.3 pg (25.0-34.0); Mean Corpuscular Volume 84.8 fL (80.0-100.0); Platelet Count 185 K/uL (130-400); RDW Standard Deviation 51.6 fL (36.4-46.3); Red Blood Count 2.97 M/uL (4.70-6.10); White Blood Count 5.69 K/ul (4.8-10.8)
--- NOTE | 2025-04-18 09:01 | Gastrointestinal Consultation ---
Date of Consultation April 18, 2025 Assessment & Plan (1) Hematochezia: Suspect related to radiation proctitis. Symptoms are minimal and chronic. Doubt significant GI blood loss as explanation for anemia. No endoscopic intervention at this time unless symptoms worsen. However last colonoscopy was almost 5 years ago we would recommend an outpatient colonoscopy once his urologic issues have been resolved. History of Present Illness Reason for Consultation: Hematochezia Attending Physician: Charles Daniels MD History of Present Illness Patient admitted with urinary tract symptoms to known bladder tumors and prostate cancer. Presented with obstructive uropathy hematuria treated with cauterization by urology. Noted to have some minor bright red blood per rectum primarily on the tissue paper. He is status post radiation therapy for prostate cancer. In 2020 he had a colonoscopy which demonstrated radiation proctitis and it was treated with cauterization. He claims he intermittently has been getting bright red blood per rectum primarily on the tissue paper over the last several years. The amount of blood now is similar to his pattern. He denies any abdominal pain fever chills nausea or vomiting. Last colonoscopy was 2020. Allergies Allergy/AdvReac Type Severity Reaction Status Date / Time No Known Allergies Allergy Verified 04/16/25 11:20 Home Medications Medication Instructions Recorded Confirmed Type rosuvastatin 40 mg tablet 40 mg PO HS 12/28/19 04/16/25 History bisacodyl 5 mg tablet,delayed 5 mg PO HS PRN Constipation 07/02/20 04/16/25 History release (Dulcolax (bisacodyl)) ferrous sulfate 325 mg (65 mg 325 mg PO DAILY 03/19/24 04/16/25 History iron) tablet apixaban 5 mg tablet (Eliquis) 5 mg PO BID 10/16/24 04/16/25 History furosemide 40 mg tablet 40 mg PO Q OTHER DAY PRN weight 03/14/25 04/16/25 History gain amiodarone 200 mg tablet 100 mg PO DAILY 03/15/25 04/16/25 History cholecalciferol (vitamin D3) 25 25 mcg PO DAILY 03/15/25 04/16/25 History mcg (1,000 unit) capsule (Vitamin D3) magnesium oxide 500 mg PO HS 03/15/25 04/16/25 History dapagliflozin propanediol 10 mg 10 mg PO DAILY 04/16/25 04/16/25 History tablet (Farxiga) sacubitril 24 mg-valsartan 26 mg 1 tab PO BID 04/16/25 04/16/25 History tablet Patient History Medical History (Updated 04/18/25 @ 09:00 by Ori Cao MD) Chronic kidney disease, stage III (moderate) (HFpEF) heart failure with preserved ejection fraction Atrial fibrillation status post cardioversion Prostate cancer (12/23/10) Diabetes mellitus, type 2 NIDDM Well controlled per patient Transient ischemic attack (TIA) Questionable in 2017- possibly related to previous right ICA disease- s/p CEA July 2020 Hard of hearing Lt- no hearing aid needed Cardiac murmur Dx as a child; PCP monitoring History of prostate cancer s/p sx, radiation History of 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 Father , Passed age 53 of cerebral hemorrhage No problems noted. Sister No problems noted. Sister No problems noted. Son No problems noted. Son No problems noted. Daughter No problems noted. Other No family history of adverse response to anesthesia Social History Smoking Status: Never smoker Second Hand Exposure: No; Do You Dip or Chew Tobacco: No; Tobacco Cessation Education Requested by Patient: No Hx Alcohol Use: Yes Alcohol type: beer Hx Substance Use: No Preferred Language: Syriac Communication Ability: Effective Visual Impairment: No Limitations Hearing Ability: Hard of Hearing Button Inspector Required: No Beliefs That Will Affect Care: None marital status: Current Living Situation: Spouse Current Living Situation Comment: lives with son and daughter Blanka current occupational status: retired 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 Other Information That Helps Us Care for You: No Feels Safe at Home: Yes Safety Concerns: Feels Safe At This Time caffeine: Yes (1-2 cups of coffee/day ) during the past year weight has: decreased > 10 lbs Assistive Devices: Cane and Walker Review of Systems Review of Systems: No fever No chills No SOB No CP No Abd pain Physical Exam Physical Exam: Eyes; anicteric HENT No masses Chest clear to A Cor S1, S2 physiologic Abd: softer nontender no masses Ext no edema Results & Data Vital Signs (Past 12 Hours) Vital Signs Temp Pulse Pulse Resp BP BP Pulse Ox 04/18/25 07:29 36.6 C 52 L 18 134/69 93 04/18/25 02:35 36.7 C 60 18 99/61 L 94 04/17/25 23:05 37.0 C 68 18 104/59 L 97 04/17/25 21:31 68 O2 Del Method 04/18/25 07:29 Room Air 04/18/25 02:35 Room Air 04/17/25 23:05 Room Air 04/17/25 21:31 Laboratory Results Laboratory Results - last 48 hr 04/16/25 04/16/25 04/16/25 09:05 10:00 11:11 WBC 9.02 RBC 3.99 L Hgb 10.6 L Hct 33.6 L MCV 84.2 MCH 26.6 MCHC 31.5 L RDW Std Deviation 50.6 H RDW Coeff of Milvia 16.4 H Plt Count 272 MPV 9.2 L Immature Gran % (Auto) 1.4 Neut % (Auto) 81.9 Lymph % (Auto) 6.8 [place] % (Auto) 9.4 Eos % (Auto) 0.1 Baso % (Auto) 0.4 Neut # (Auto) 7.38 H Lymph # (Auto) 0.61 L [place] # (Auto) 0.85 H Eos # (Auto) 0.01 Baso # (Auto) 0.04 Immature Gran # (Auto) 0.13 PT INR APTT PTT Ratio Sodium 136 Potassium 3.9 Chloride 101 Carbon Dioxide 26 Anion Gap 9 BUN 30 H Creatinine 1.55 H Est Cr Clr Drug Dosing 38.2 eGFR 43.59 BUN/Creatinine Ratio 19.4 Glucose 169 H POC Glucose 144 H Calcium 9.2 Magnesium Iron TIBC Transferrin Transferrin % Sat Total Bilirubin 0.6 AST 28 ALT 21 Alkaline Phosphatase 126 H Total Protein 7.2 Albumin 4.1 Globulin 3.1 Albumin/Globulin Ratio 1.3 Urine Color See Comment Urine Appearance Cloudy A Urine pH Not Reportable Ur Specific Outlook 1.027 Urine Protein Not Reportable Urine Glucose (UA) Not Reportable Urine Ketones Not Reportable Urine Blood Not Reportable Urine Nitrite Not Reportable Urine Bilirubin Not Reportable Urine Urobilinogen Not Reportable Ur Leukocyte Esterase Not Reportable Urine RBC >20 H Urine WBC >50 H Ur Epithelial Cells 0-2 Urine Bacteria 1+ H Urine Comment Blood Type Antibody Screen Crossmatch 04/16/25 04/16/25 04/16/25 12:43 19:20 21:28 WBC RBC Hgb 8.9 L Hct 27.2 L MCV MCH MCHC RDW Std Deviation RDW Coeff of Milvia Plt Count MPV Immature Gran % (Auto) Neut % (Auto) Lymph % (Auto) [place] % (Auto) Eos % (Auto) Baso % (Auto) Neut # (Auto) Lymph # (Auto) [place] # (Auto) Eos # (Auto) Baso # (Auto) Immature Gran # (Auto) PT INR APTT PTT Ratio Sodium Potassium Chloride Carbon Dioxide Anion Gap BUN Creatinine Est Cr Clr Drug Dosing eGFR BUN/Creatinine Ratio Glucose POC Glucose 122 H 161 H Calcium Magnesium Iron TIBC Transferrin Transferrin % Sat Total Bilirubin AST ALT Alkaline Phosphatase Total Protein Albumin Globulin Albumin/Globulin Ratio Urine Color Urine Appearance Urine pH Ur Specific Outlook Urine Protein Urine Glucose (UA) Urine Ketones Urine Blood Urine Nitrite Urine Bilirubin Urine Urobilinogen Ur Leukocyte Esterase Urine RBC Urine WBC Ur Epithelial Cells Urine Bacteria Urine Comment Blood Type Antibody Screen Crossmatch 04/17/25 04/17/25 04/17/25 00:01 05:25 08:13 WBC 7.39 RBC 3.11 L Hgb 8.2 L Hct 26.4 L MCV 84.9 MCH 26.4 MCHC 31.1 L RDW Std Deviation 51.7 H RDW Coeff of Milvia 16.7 H Plt Count 209 MPV 9.5 Immature Gran % (Auto) 0.4 Neut % (Auto) 77.6 Lymph % (Auto) 10.1 [place] % (Auto) 9.7 Eos % (Auto) 1.8 Baso % (Auto) 0.4 Neut # (Auto) 5.73 Lymph # (Auto) 0.75 L [place] # (Auto) 0.72 H Eos # (Auto) 0.13 Baso # (Auto) 0.03 Immature Gran # (Auto) 0.03 PT INR APTT PTT Ratio Sodium 136 137 Potassium 4.2 4.4 Chloride 102 104 Carbon Dioxide 27 28 Anion Gap 7 5 BUN 24 H 22 Creatinine 1.24 D 1.16 Est Cr Clr Drug Dosing 47.8 51.1 eGFR 56.98 61.72 BUN/Creatinine Ratio 19.4 19.0 Glucose 106 H 114 H POC Glucose 132 H Calcium 8.4 L 8.3 L Magnesium 2.0 Iron 23 L TIBC 314 Transferrin 224 Transferrin % Sat 7 L Total Bilirubin 0.4 AST 20 ALT 14 Alkaline Phosphatase 90 Total Protein 5.5 L D Albumin 3.1 L Globulin 2.4 L Albumin/Globulin Ratio 1.3 Urine Color Urine Appearance Urine pH Ur Specific Outlook Urine Protein Urine Glucose (UA) Urine Ketones Urine Blood Urine Nitrite Urine Bilirubin Urine Urobilinogen Ur Leukocyte Esterase Urine RBC Urine WBC Ur Epithelial Cells Urine Bacteria Urine Comment Blood Type Antibody Screen Crossmatch 04/17/25 04/17/25 04/17/25 11:56 15:37 15:38 WBC RBC Hgb 9.4 L Hct 29.7 L MCV MCH MCHC RDW Std Deviation RDW Coeff of Milvia Plt Count MPV Immature Gran % (Auto) Neut % (Auto) Lymph % (Auto) [place] % (Auto) Eos % (Auto) Baso % (Auto) Neut # (Auto) Lymph # (Auto) [place] # (Auto) Eos # (Auto) Baso # (Auto) Immature Gran # (Auto) PT 11.5 INR 1.1 APTT 33 H PTT Ratio 1.2 Sodium Potassium Chloride Carbon Dioxide Anion Gap BUN Creatinine Est Cr Clr Drug Dosing eGFR BUN/Creatinine Ratio Glucose POC Glucose 108 H Calcium Magnesium Iron TIBC Transferrin Transferrin % Sat Total Bilirubin AST ALT Alkaline Phosphatase Total Protein Albumin Globulin Albumin/Globulin Ratio Urine Color Urine Appearance Urine pH Ur Specific Outlook Urine Protein Urine Glucose (UA) Urine Ketones Urine Blood Urine Nitrite Urine Bilirubin Urine Urobilinogen Ur Leukocyte Esterase Urine RBC Urine WBC Ur Epithelial Cells Urine Bacteria Urine Comment Blood Type O Positive Antibody Screen NEGATIVE Crossmatch See Detail 04/17/25 04/17/25 04/18/25 17:14 20:11 07:32 WBC RBC Hgb Hct MCV MCH MCHC RDW Std Deviation RDW Coeff of Milvia Plt Count MPV Immature Gran % (Auto) Neut % (Auto) Lymph % (Auto) [place] % (Auto) Eos % (Auto) Baso % (Auto) Neut # (Auto) Lymph # (Auto) [place] # (Auto) Eos # (Auto) Baso # (Auto) Immature Gran # (Auto) PT INR APTT PTT Ratio Sodium Potassium Chloride Carbon Dioxide Anion Gap BUN Creatinine Est Cr Clr Drug Dosing eGFR BUN/Creatinine Ratio Glucose POC Glucose 122 H 139 H 110 H Calcium Magnesium Iron TIBC Transferrin Transferrin % Sat Total Bilirubin AST ALT Alkaline Phosphatase Total Protein Albumin Globulin Albumin/Globulin Ratio Urine Color Urine Appearance Urine pH Ur Specific Outlook Urine Protein Urine Glucose (UA) Urine Ketones Urine Blood Urine Nitrite Urine Bilirubin Urine Urobilinogen Ur Leukocyte Esterase Urine RBC Urine WBC Ur Epithelial Cells Urine Bacteria Urine Comment Blood Type Antibody Screen Crossmatch 04/18/25 08:09 WBC 5.69 RBC 2.97 L Hgb 7.8 L Hct 25.2 L MCV 84.8 MCH 26.3 MCHC 31.0 L RDW Std Deviation 51.6 H RDW Coeff of Milvia 16.7 H Plt Count 185 MPV 9.1 L Immature Gran % (Auto) Neut % (Auto) Lymph % (Auto) [place] % (Auto) Eos % (Auto) Baso % (Auto) Neut # (Auto) Lymph # (Auto) [place] # (Auto) Eos # (Auto) Baso # (Auto) Immature Gran # (Auto) PT INR APTT PTT Ratio Sodium Potassium Chloride Carbon Dioxide Anion Gap BUN Creatinine Est Cr Clr Drug Dosing eGFR BUN/Creatinine Ratio Glucose POC Glucose Calcium Magnesium Iron TIBC Transferrin Transferrin % Sat Total Bilirubin AST ALT Alkaline Phosphatase Total Protein Albumin Globulin Albumin/Globulin Ratio Urine Color Urine Appearance Urine pH Ur Specific Outlook Urine Protein Urine Glucose (UA) Urine Ketones Urine Blood Urine Nitrite Urine Bilirubin Urine Urobilinogen Ur Leukocyte Esterase Urine RBC Urine WBC Ur Epithelial Cells Urine Bacteria Urine Comment Blood Type Antibody Screen Crossmatch PG Care Time/CCT Total # of Minutes Spent Total Time Spent with Patient: Total time spent is greater than 50% in coordination of care (as documented) at patient's floor/unit and/or counseling patient: Coding Level of Care Code 75185 IN/OBS CONSULT LVL 3,45M Diagnoses Hematochezia K92.1
[2025-04-18 09:03] LABS: Anion Gap 8.0 (3-11); Blood Urea Nitrogen 14.0 mg/dl (6-23); Calcium 8.3 mg/dl (8.6-10.3); Carbon Dioxide 27.0 mmol/L (21-32); Chloride 100.0 mmol/L (98-107); Creatinine Clr Calc Pharmacy 55.9 ml/min; Glucose 246.0 mg/dl (70-99(Fasting)); Potassium 4.2 mmol/L (3.5-5.1); Sodium 135.0 mmol/L (136-145)
--- NOTE | 2025-04-18 09:42 | Urology Progress Note ---
Date of Service April 18, 2025 Assessment & Plan (1) Acute blood loss anemia: Plan: Afebrile 84M seen on POD#2 after cysto fulguration clot evacuation for management of clot retention and gross hematuria, now with some hematochizia and borderline hgb with hypotension. Also with positive urine cultures for staph epidermidis and septicae. - agree with zosyn, sensitivities pending for staph epidermidis appears would be PO options for outpatient and would treat for 7 day total course - defer decision regarding transfusion to primary team, no active urinary bleeding at this time - agree with external collection device can be removed for walking - good bowel function at present, if becomes constipated inpatient or outpatient would start miralax/dulcolax to help with soft bm and not stir up bleeding - planned for follow up with Dr. García as outpatient - please call with questions (2) Gross hematuria: Admission and Anticipated Discharge Date Admission Date: April 16, 2025 Subjective doing well overnight with exception of borderline hgb and some hypotension for which put on monitor, voiding easily, perhaps too easily cannot control it and using external collection device, no clots in urine, discussed after procedure and catheters can take some time to go to baseline urinary control but this should improve over next week, Gen: NAD Psych: Alert and Oriented Abd: Nontender nondistended : external collection device in place clear urine tea colored Results & Data Vital Signs (Past 12 Hours) Vital Signs Temp Pulse Resp BP BP Pulse Ox O2 Del Method 04/18/25 07:29 36.6 C 52 L 18 134/69 93 Room Air 04/18/25 02:35 36.7 C 60 18 99/61 L 94 Room Air 04/17/25 23:05 37.0 C 68 18 104/59 L 97 Room Air PG Care Time/CCT Total # of Minutes Spent Total Time Spent with Patient: Total time spent is greater than 50% in coordination of care (as documented) at patient's floor/unit and/or counseling patient: Coding Level of Care Code 80241 SUB INP/OBS CARE 2/35MIN Diagnoses Acute blood loss anemia D62 Gross hematuria R31.0
--- NOTE | 2025-04-18 11:42 | Hospitalist Progress Note ---
Date of Service April 18, 2025 Assessment & Plan (1) Acute blood loss anemia: (2) Hypotension: (3) Urinary retention: (4) Hematuria: (5) Hematochezia: (6) JULIEN (acute kidney injury): (7) Congestive heart failure: (8) Chronic kidney disease, stage II (mild): (9) Diabetes mellitus, type 2: Plan Mr. Burnett is a 84 -year-old male patient with past medical history significant for atrial fibrillation, left ventricular systolic dysfunction, vitamin D deficiency, ascending aortic dilatation, bladder neck contracture, chronic kidney disease stage II, stress incontinence, stenosis of right carotid artery, T2DM, hypertension, prostate cancer status post prostatectomy and radiation therapy that presented to [facility] emergency department with complaints of urinary retention (in setting of indwelling Charles not draining appropriately) and hematuria over the course of the past 4 days. He is on Eliquis for hx of AF and has continued to take with last dose this am. Has had indwelling Charles catheter present and woke up this morning at 4 AM with issues related to the catheter draining urine and possible urinary retention. He started developing lower abdominal discomfort therefore he presented to the outpatient [facility] [address] urology office where his Charles catheter was discontinued. He went home at that time and was unable to void and ended up presenting to the emergency department for intervention. urology consulted in the emergency department and patient went immediately to the OR for cystoscopy, clot evacuation, fulguration with CBI postoperatively. #Recurrent Charles catheter blockage | hematuria | UTI s/p Cystoscopy, clot evacuation, incision of bladder neck contracture, fulguration on 04/16/[address] García Patient is voiding spontaneously on 04/18, and reports resolution of hematuria Preliminary UCx on 04/16 revealed Staphylococcus epidermidis (likely contaminant) and Pantoea septica Resistant to cefoxitin, cefuroxime, and ampicillin Blood culture with NGTD D/c empiric Zosyn on 04/18 Initiate ciprofloxacin p.o. 500 mg BID x 5 days (starting on the evening of 04/18 and ending on the morning of 04/23); NKDA; QTc okay at 369; patient denies h/o aneurysms Eliquis remains on hold Trend H&H #Acute blood loss anemia Suspect multifactorial (hematuria + hematochezia + IVF dilution) Hgb continues to downtrend: 10.6 -> 8.9 -> 8.2 -> 9.4 -> 7.8 Discontinue IVF Platelets okay at 185, but downtrending Blood consent form obtained 2u pRBCs ordered, held Repeat evening H&H, transfuse for <7 or symptomatic Eliquis remains on hold #Hematochezia (resolved, per patient) | ?internal hemorrhoids Reviewed GI h/o: H/o internal hemorrhoids and radiation prostatitis in 2019 Last colonoscopy 07/15/2020 revealed multiple medium sized localized angioectasias that were treated with argon plasma coagulation (APC) GI consult appreciated Will plan for outpatient colonoscopy #Hypotension (improving) BP dropped to 84/37 overnight on 04/16 (MAP of 53) Given 500 mL LR bolus x 5 (2.5 L IVF) Albumin 25% x2 ? Secondary to anesthesia from procedure vs acute blood loss anemia Hemodynamically stable on 04/18; however, BP remains soft at 99/61 Patient reports home SBP of around 140 #Atrial fibrillation/history of cardioversion/HFpEF TTE 11/02/2024-->normal left ventricular systolic function with no regional wall motion abnormalities, EF 65 to 70%, no left ventricular hypertrophy, elevated left ventricular end-diastolic pressure, grade 2 diastolic dysfunction of the left ventricle, normal RV size and function, ascending aorta dilation measuring 4.2cm, heavily calcified tricuspid aortic valve, mild aortic stenosis EKG with NSR VR 62, [id number] Hold Entresto in the setting of hypotension Hold farxiga in the setting of UTI Rate controlled Restart amiodarone on 04/18 #T2DM BSG ACHS + SSI AM A1c Recommend holding Farxiga upon discharge in the setting of urinary tract infection Disposition: Continued stay on PCU telemetry in the setting of anemia + hypotension Admission and Anticipated Discharge Date Admission Date: April 16, 2025 Subjective Mr. Burnett reports he slept "like a log" last night. However, he did wake up t his morning and have an accident bed, as his fingers might have slipped when using the urinal. Patient does have a history of urinary incontinence, which began in 2009. This is not new for him, and he currently has an external catheter in place. However, in regard to pain, patient denies any suprapubic pain/pressure this morning. He reports that it only occurs whenever his urine builds up due to clot formation. Patient reports clear/yellow urine this morning without difficulty voiding. He also had a small bowel movement last night that did not contain any blood. Patient has not been out of bed yet today, he reports he was ambulating last night without dizziness, or lightheadedness. Overall, he expresses a desire to return home today for Ze[place]. Overall, he reports he feels asymptomatic at this time. Patient drove to the hospital, and is hoping to drive home. He currently has his son visiting from [place], as well as his daughter who works at [employer]. ROS: Patient denies suprapubic pain/pressure, fevers overnight, dizziness/lightheadedness with standing, headaches, chest pain, pleuritic CP, chest palpitations, SOB, cough, abdominal pain, N/V/D, hematochezia (resolved), hematuria (resolved), or numbness or tingling in the arms or legs. Reassessed patient at bedside at 1130 and provided updates regarding hemoglobin level being low at 7.8. Patient feels like he could go home at this time, but is amenable to staying, as he reports his "health comes first". Patient reports he takes Eliquis for history of atrial fibrillation (no prior history of DVT/PE to his knowledge). He does have history of UTIs. He denies allergies to any antibiotics, but is unsure if he is been on fluoroquinolone (such as ciprofloxacin) in the past. He denies history of vascular disease or aneurysms. Review of Systems Review of Systems: See HPI above Physical Exam Physical Exam: General: No acute distress; pleasant affect; anxious; non-toxic appearing; cooperative; SpO2 96% on RA HEENT: normocephalic, atraumatic; PERRLA; vision and hearing intact Neck: supple; trachea midline Skin: warm, dry without signs of tenting; no cyanosis; no rashes, bruising, lesions, or erythema noted CV: chest wall NTP; RRR; S1/S2 normal; no murmurs/rubs/gallops; pulses intact and symmetric at radial, DP, and PT Lungs: no acute respiratory distress; symmetrical chest wall expansion; clear breath sounds across all lung knowles w/o adventitious sounds; no wheezing ABD: Soft, NTP; BS present; no rebound/guarding; no distention MSK: no tics or fasciculations; no edema noted in the LEs b/l, nonerythematous Neuro: A&Ox3; normal mood and affect; fluent speech; sensation intact and symmetric in the LEs b/l : Suprapubic patient mildly TTP Gait: Patient demonstrates ability to ambulate to and from the bathroom using his IV pole, with some assistance from his family Results & Data Results & Data Vital Signs (Past 12 Hours) Vital Signs Temp Pulse Resp BP BP Pulse Ox O2 Del Method 04/18/25 11:10 36.7 C 65 18 101/60 96 Room Air 04/18/25 07:29 36.6 C 52 L 18 134/69 93 Room Air 04/18/25 02:35 36.7 C 60 18 99/61 L 94 Room Air PG Care Time/CCT Total # of Minutes Spent Total Time Spent with Patient: Total time spent is greater than 50% in coordination of care (as documented) at patient's floor/unit and/or counseling patient: Coding [place] [address] SUB INP/OBS CARE 3/50MIN Patient Type Established Medical Decision Making High Complexity Diagnoses Acute blood loss anemia D62 Hypotension I95.9 Urinary retention R33.9 Hematuria R31.0 Hematuria type: gross Hematochezia K92.1 JULIEN (acute kidney injury) N17.9 Congestive heart failure I50.9 Chronic kidney disease, stage II (mild) N18.2 Diabetes mellitus, type 2 E11.9 (4) Hematuria Hematuria type: gross Qualified Code(s): R31.0 - Gross hematuria
[2025-04-18] MEDS: AMIODARONE 200 MG TAB PO ONE (12:20)
[2025-04-18] MEDS: PIPERACILLIN/TAZOBACTAM 4.5 GM/100 ML BAG IV ONE (13:21)
[2025-04-18 14:42] LABS: Hematocrit (blood only) 28.4 % (42.0-52.0); Hemoglobin 8.7 g/dL (14.0-18.0)
--- NOTE | 2025-04-18 15:23 | Discharge Summary ---
Discharge Summary Date of Service April 18, 2025 Principal Dx & Hospital Course #1 = Principal Diagnosis (1) Acute blood loss anemia: (2) Hypotension: (3) Urinary retention: (4) Hematuria: (5) Hematochezia: (6) Iron deficiency anemia: (7) Congestive heart failure: (8) Chronic kidney disease, stage II (mild): (9) Diabetes mellitus, type 2: Plan Mr. Burnett is a 84 -year-old male patient with past medical history significant for atrial fibrillation, left ventricular systolic dysfunction, vitamin D deficiency, ascending aortic dilatation, bladder neck contracture, chronic kidney disease stage II, stress incontinence, stenosis of right carotid artery, T2DM, hypertension, prostate cancer status post prostatectomy and radiation therapy that presented to [facility] emergency department with complaints of urinary retention (in setting of indwelling Charles not draining appropriately) and hematuria over the course of the past 4 days. He is on Eliquis for hx of AF and has continued to take with last dose this am. Has had indwelling Charles catheter present and woke up this morning at 4 AM with issues related to the catheter draining urine and possible urinary retention. He started developing lower abdominal discomfort therefore he presented to the outpatient [facility] urology office where his Charles catheter was discontinued. He went home at that time and was unable to void and ended up p resenting to the emergency department for intervention. urology consulted in the emergency department and patient went immediately to the OR for cystoscopy, clot evacuation, fulguration with CBI postoperatively. #Recurrent Charles catheter blockage | hematuria | UTI s/p Cystoscopy, clot evacuation, incision of bladder neck contracture, fulguration on 04/16/[address] García Patient is voiding spontaneously on 04/18, and reports resolution of hematuria Preliminary UCx on 04/16 revealed Staphylococcus epidermidis (likely contaminant) and Pantoea septica Resistant to cefoxitin, cefuroxime, and ampicillin Blood culture with NGTD x 24h D/c empiric Zosyn on 04/18 Initiate ciprofloxacin p.o. 500 mg BID x 5 days (starting on the evening of 04/18 and ending on the morning of 04/23); NKDA; QTc okay at 369; patient denies h/o aneurysms #Acute blood loss anemia | H/o SEVEN Suspect multifactorial (hematuria + hematochezia + IVF dilution) Hgb trend on day of discharge, 7.8 -> 8.7 Platelets okay at 185 at time of discharge Patient did not require a blood transfusion while in the hospital Iron levels low at 23 Venofer infusion 200 mg IV x 1 on 04/18 Recommend continuing iron supplementation as outpatient Eliquis to remain on hold until seen for transitional care appointment Recommend repeat H&H in the next 2 to 3 days to ensure stability of hemoglobin levels #Hematochezia (resolved, per patient) | ?internal hemorrhoids Reviewed GI h/o: H/o internal hemorrhoids and radiation prostatitis in 2019 Last colonoscopy 07/15/2020 revealed multiple medium sized localized angioectasias that were treated with argon plasma coagulation (APC) GI consult appreciated Will plan for outpatient colonoscopy #Hypotension (resolved) BP dropped to 84/37 overnight on 04/16 (MAP of 53) Given 500 mL LR bolus x 5 (2.5 L IVF) Albumin 25% x2 ? Secondary to anesthesia from procedure vs acute blood loss anemia Hemodynamically stable on 04/18 #Atrial fibrillation | history of cardioversion | HFpEF TTE 11/02/2024-->normal left ventricular systolic function with no regional wall motion abnormalities, EF 65 to 70%, no left ventricular hypertrophy, elevated left ventricular end-diastolic pressure, grade 2 diastolic dysfunction of the left ventricle, normal RV size and function, ascending aorta dilation measuring 4.2cm, heavily calcified tricuspid aortic valve, mild aortic stenosis EKG with NSR VR 62, QTc 369 Hold Entresto in the setting of hypotension Restarted amiodarone on 04/18 Rate controlled #T2DM BSG ACHS + SSI AM A1c HOLD Farxiga upon discharge in the setting of UTI Day of discharge 04/18: VSS; mild hypotension overnight on 04/17 down to 99/61; otherwise, has been normotensive x 36h. Mr. Burnett reports he slept "like a log" last night. However, he did wake up this morning and have an accident bed, as his fingers might have slipped when using the urinal. Patient does have a history of urinary incontinence, which began in 2009. This is not new for him, and he currently has an external catheter in place. However, in regard to pain, patient denies any suprapubic pain/pressure this morning. He reports that it only occurs whenever his urine builds up due to clot formation. Patient reports clear/yellow urine this morning without difficulty voiding. He also had a small bowel movement last night that did not contain any blood. Patient has not been out of bed yet toda y, he reports he was ambulating last night without dizziness, or lightheadedness. Overall, he expresses a desire to return home today for Zeina. Overall, he reports he feels asymptomatic at this time. Patient drove to the hospital, and is hoping to drive home. He currently has his son visiting from [place], as well as his daughter who works at [employer]. ROS: Patient denies suprapubic pain/pressure, fevers overnight, dizziness/lightheadedness with standing, headaches, chest pain, pleuritic CP, chest palpitations, SOB, cough, abdominal pain, N/V/D, hematochezia (resolved), hematuria (resolved), or numbness or tingling in the arms or legs. Reassessed at 1130: Updated patient letting him know his hemoglobin level was low at 7.8. Despite this, patient feels like well enough to go home at this time (no OLVERA, lightheadedness, or fatigue), but he is amenable to staying, as he reports his "health comes first". Patient reports he takes Eliquis for history of atrial fibrillation (no prior history of DVT/PE to his knowledge). H/o recurrent UTIs. He denies allergies to any antibiotics, but is unsure if he is been on fluoroquinolone (such as ciprofloxacin) in the past. He denies history of vascular disease or aneurysms. Reassessed at 1500: His hemoglobin level is now 8.7. He says he has felt asymptomatic throughout the day. Does not have any dizziness, lightheadedness, or OLVERA with ambulation throughout the hallway. Given anemia and UTI, did recommend that patient secure alternative transportation home rather than dr tamez himself. Patient reports his son (John) is in the hospital and can transport him home today. Recommended he schedule a blood draw in the next 2 to 3 days to ensure stability of hemoglobin levels. Disposition: Discharge home with close PCP follow-up Notes For Next Care Provider Hospitalized for urinary retention. While patient is voiding spontaneous prior to discharge, his hemoglobin levels remain low at 8.7 at time of discharge. Recommend repeat CBC in 2 to 3 days to ensure stability. Patient also had hematochezia while in the hospital. Suspect this could be due to history of internal hemorrhoids versus ectasias in the setting of radiation prostatitis. H/o SEVEN. He denies prior history of colon cancer. Last colonoscopy in 2020. It is recommended that he follow-up with gastroenterology for an outpatient colonoscopy. Admission HPI Per Admitting Provider Mr. Burnett is a 84 -year-old male patient with past medical history significant for atrial fibrillation, left ventricular systolic dysfunction, vitamin D deficiency, ascending aortic dilatation, bladder neck contracture, chronic kidney disease stage II, stress incontinence, stenosis of right carotid artery, T2DM, hypertension, prostate cancer status post prostatectomy and radiation therapy that presented to [facility] emergency department with complaints of urinary retention (in setting of indwelling Charles not draining appropriately) and gross hematuria over the course of the past 4 days. He is on Eliquis for hx of AF and has continued to take with last dose this am. Has had indwelling Charles catheter present and woke up this morning at 4 AM with issues related to the catheter draining urine and possible urinary retention. He started developing lower abdominal discomfort therefore he presented to the outpatient [facility] urology office where his Charles catheter was discontinued. He went home at that time and was unable to void and ended up presenting to the emergency department for intervention. ED physician re- inserted Charles and urology consulted with patient being taken to the OR immediately for cystoscopy, clot evac and fulguration. Discussed patient's code status with him prior to departure to OR and he elects to be a FULL CODE during hospitalization. Admission Exam Per Admitting Provider GENERAL APPEARANCE: A&O. Lying comfortably in bed. NAD. SKIN: Normal color without rashes or lesions. Normal turgor. HEENT: Head AT/NC. Buccal mucosa is moist and pink. NECK: No jugular venous distention. No thyroid enlargement. There is no lymphadenopathy. HEART: RRR with soft systolic murmur LUNGS: Normal inspiratory effort. CTA without w/r/r ABDOMEN: No guarding or rigidity. Normoactive BS in all four quadrants. Abdomen soft and NT. Indwelling Charles with CBI present-pink tinged urine present in bag. MSK: No bony gross/deformities throughout. ROM intact. EXTREMITIES: No edema, No peripheral cyanosis. Neuro: CN 2-12 grossly intact. No focal neuro deficits PSYCHIATRIC: Normal affect. Eye contact is good. Speech is normal rate and content. Responses are appropriate. Discharge Exam General: No acute distress; pleasant affect; anxious; non-toxic appearing; cooperative; SpO2 96% on RA HEENT: normocephalic, atraumatic; PERRLA; vision and hearing intact Neck: supple; trachea midline Skin: warm, dry without signs of tenting; no cyanosis; no rashes, bruising, lesions, or erythema noted CV: chest wall NTP; RRR; S1/S2 normal; no murmurs/rubs/gallops; pulses intact and symmetric at radial, DP, and PT Lungs: no acute respiratory distress; symmetrical chest wall expansion; clear breath sounds across all lung knowles w/o adventitious sounds; no wheezing ABD: Soft, NTP; BS present; no rebound/guarding; no distention MSK: no tics or fasciculations; no edema noted in the LEs b/l, nonerythematous Neuro: A&Ox3; normal mood and affect; fluent speech; sensation intact and symmetric in the LEs b/l : Suprapubic patient mildly TTP Gait: Patient demonstrates ability to ambulate in the hallways using his IV pole; he does not appear off balance, denies lightheadedness/OLVERA when ambulating Discharge Plan Discharge Items Patient Disposition: Home - Self-Care Reason For Visit: HEMATURIA, UNINARY RETENTION Discharge Diagnosis: Hematuria, hematochezia, hypotension, acute blood loss anemia Condition on Discharge: Fair Activity: Resume your previous activity Non-emergency contact: Primary Care Provider and Urologist Call non-emergency contact if: you have any medication questions, your symptoms worsen, your pain is not controlled, your pain is worsening and you have a fever Follow-up/Referrals: Zac Avalos MD [Primary Care Provider] - Diet: Carb Consistent or DM2 Addtl Attending Provider Instructions: You were hospitalized at [facility] from 04/16 to 04/18 for urinary retention (in the setting of an indwelling Charles catheter that was not properly draining). You underwent a procedure with Dr. García called a "cystoscopy" with clot extraction and fulguration. Following this procedure, the catheter was removed and he reported return of spontaneous voiding. However, your hospital stay was prolonged due to low blood pressure ("hypotension") as well as a downtrending hemoglobin level in the setting of both blood in your urine and stool. Prior to discharge, you reported full resolution of bleeding. Given your vitals have remained stable over the past 24 hours, and your hemoglobin level is uptrending at time of discharge (7.8 -> 8.7), we feel you are safe to return home at this time with close PCP follow-up. New prescription on discharge: Ciprofloxacin 500 mg tablets twice daily x 5 days Please do not take the following medications until you see your PCP for a transitional care appointment: Apixaban ("Eliquis") Dapagliflozin ("Farxiga") Furosemide ("Lasix") Sacubitrilvalsartan ("Entresto") We recommend you follow-up with your PCP in the next 5 to 7 days for a transitional care appointment. Prior to this appointment, we recommend that you have blood work drawn to ensure stability of your hemoglobin levels. We are also working to set you up with a gastroenterology appointment for an outpatient colonoscopy; please be on the look out for correspondence from our case packer. If you develop any new or worsening symptoms, such as fever, chills, lightheadedness with walking, fainting spells, chest pain, trouble breathing, urinary retention, or recurrence of blood in your urine, please return to the emergency department immediately. It was a pleasure taking care of you. Please reach out with any questions or concerns. Sincerely, The Hospital medicine team at [facility] Pending Studies at Discharge: No Stand-Alone Forms: My [facility] Medications and DC Order Prescriptions: New ciprofloxacin HCl 500 mg Tablet 500 mg PO BID 5 Days Qty: 10 0RF Rx Instructions: Take 1 tablet twice daily x 5 days Continued ferrous sulfate 325 mg (65 mg iron) tablet 325 mg PO DAILY rosuvastatin 40 mg Tablet 40 mg PO HS bisacodyl [Dulcolax (bisacodyl)] 5 mg Tablet,Delayed Release (Dr/Ec) 5 mg PO HS PRN (Reason: Constipation) amiodarone 200 mg tablet 100 mg PO DAILY magnesium oxide 500 mg magnesium Tablet 500 mg PO HS cholecalciferol (vitamin D3) [Vitamin D3] 25 mcg (1,000 unit) Capsule 25 mcg PO DAILY Held furosemide 40 mg tablet 40 mg PO Q OTHER DAY PRN (Reason: weight gain) Hold Instructions: Resume on 05/02/25. Hold until seen by PCP for follow-up Rx Instructions: Take 1 to 2 tablets daily until body weight at baseline, then take only as needed. If you do not have a good diuretic response with 40 mg, increase to 80 mg. Eliquis 5 mg tablet 5 mg PO BID Hold Instructions: Resume on 05/02/25. Hold until seen by PCP for follow-up dapagliflozin propanediol [Farxiga] 10 mg tablet 10 mg PO DAILY Hold Instructions: Resume on 05/02/25. Hold until seen by PCP for follow-up sacubitril-valsartan 24-26 mg tablet 1 tab PO BID Hold Instructions: Resume on 05/02/25. Hold until seen by PCP for follow-up Discharge Orders: Discharge Order (Routine); Ordered 04/18/25 Ordered By: Benito De La Cruz/Other Patient Handouts: Anemia Admission Data Admit Date/Time: 04/16/25 11:21 Attending Provider: Charles Daniels Admit Provider: Brett Vaughan Primary Care Provider: Zac Avalos Other Providers: Floyd Wooten; Brett Vaughan; Ori Cao I Other Interventions: Discharge Summary Assessment (RN) Last Done: 04/18/25 16:27 Hospital Stay Data Consultations 04/16/25 10:23 Consult Urology Stat 04/16/25 10:59 ED Decision to Admit Stat 04/17/25 15:16 Consult Gastroenterology Routine Procedures Performed Operation Date: 04/16/25 10:25 Actual Procedures p Cystoscopy, Clot Evacuation, Fulguration(Not Applicable) - Zac García MD Pending Results Patient Have Any Pending Studies at Discharge: No Discharge Instructions Given to Patient (Per Discharging Provider) You were hospitalized at [facility] from 04/16 to 04/18 for urinary retention (in the setting of an indwelling Charles catheter that was not properly draining). You underwent a procedure with Dr. García called a "cystoscopy" with clot extraction and fulguration. Following this procedure, the catheter was removed and he reported return of spontaneous voiding. However, your hospital stay was prolonged due to low blood pressure ("hypotens ion") as well as a downtrending hemoglobin level in the setting of both blood in your urine and stool. Prior to discharge, you reported full resolution of bleeding. Given your vitals have remained stable over the past 24 hours, and your hemoglobin level is uptrending at time of discharge (7.8 -> 8.7), we feel you are safe to return home at this time with close PCP follow-up. New prescription on discharge: Ciprofloxacin 500 mg tablets twice daily x 5 days Please do not take the following medications until you see your PCP for a transitional care appointment: Apixaban ("Eliquis") Dapagliflozin ("Farxiga") Furosemide ("Lasix") Sacubitrilvalsartan ("Entresto") We recommend you follow-up with your PCP in the next 5 to 7 days for a tra nsitional care appointment. Prior to this appointment, we recommend that you have blood work drawn to ensure stability of your hemoglobin levels. We are also working to set you up with a gastroenterology appointment for an outpatient colonoscopy; please be on the look out for correspondence from our case packer. If you develop any new or worsening symptoms, such as fever, chills, lightheadedness with walking, fainting spells, chest pain, trouble breathing, urinary retention, or recurrence of blood in your urine, please return to the emergency department immediately. It was a pleasure taking care of you. Please reach out with any questions or concerns. Sincerely, The Hospital medicine team at [facility] Supervising Physician Co-Signing Physician Notes I did not see or examine the patient. I verified all lauren points and agree with Benito Bryant PA-C with the following exceptions and/or additions: None Total Time Total Time Spent Total Time Spent (In Minutes): 60 Coding Level of Care Code 02917 INP/OBS DISCH >30 MIN Diagnoses Acute blood loss anemia D62 Hypotension I95.9 Urinary retention R33.9 Hematuria R31.0 Hematuria type: gross Hematochezia K92.1 Iron deficiency anemia D50.9 Congestive heart failure I50.9 Chronic kidney disease, stage II (mild) N18.2 Diabetes mellitus, type 2 E11.9
[2025-04-18 15:45] VITALS: BP 118/71; PULSE 62; TEMP 98.2; O2SAT 99
[2025-04-18] MEDS: IRON SUCROSE 200 MG in SODIUM CHLORIDE 0.9% 100 ML IV ONE (15:45)
[2025-04-18] MEDS ORDERED: CIPROFLOXACIN 500 MG TAB PO SCH (21:00)
[2025-04-19] MEDS ORDERED: AMIODARONE 200 MG TAB PO SCH (09:00)
== END 2025-04-18 17:45 | disposition home or self-care (01) | DRG 669 ==
LOC: ED 08:42 → OR 11:00 → PACUINP 11:21 → SUATTDRO 11:21 → 2W 15:07 → 2S 04-17 17:58